=== PATIENT | male | born 1960 | race Caucasian/White ===

== ENCOUNTER 2016-11-09 08:11 | Emergency (ER) | payer MEDICAID ==
[2016-11-09 08:20] VITALS: BP 148/77; PULSE 65; RESP 16; TEMP 97.4
[2016-11-09] MEDS ORDERED: HYDROcodone/APAP 5-325MG 1 EACH TAB PO STA (09:09)
[2016-11-09] MEDS ORDERED: CYCLOBENZAPRINE 10 MG TAB PO STA (09:10)
--- NOTE | 2016-11-09 09:26 | ED ---
Neck Injury/Pain HPI - General Chief Complaint: Neck Pain/Injury Stated Complaint: Pain in back of head and neck Time Seen by Provider: 11/09/16 08:36 Source: patient, RN notes reviewed Mode of arrival: ambulatory Limitations: no limitations - History of Present Illness Initial Comments: 56-year-old male presents emergency Department chief complaint of posterior head , neck pain. Patient states it started yesterday afternoon. Patient states he was working on the machine but does not remember an injury denies any pain that time. He does notice some discomfort with range of motion primarily looking to the right. Patient states she has no frontal headache. Patient denies any nausea, vomiting, dizziness, chest pain, shortness breath, blurred vision, focal weakness. Patient states that he tried some ibuprofen with no relief the symptoms. Denies fever or chills. No cold-like symptoms. - Related Data Home Medications Medication Instructions Recorded Confirmed Aspirin EC [Ecotrin Low Dose] 81 mg PO DAILY 02/16/16 11/09/16 Glucosamine Sulfate 2,000 mg PO DAILY 02/16/16 11/09/16 Simvastatin [Simvastatin] 40 mg PO DAILY 02/16/16 11/09/16 metFORMIN HCL [Metformin HCl ER] 500 mg PO BID 02/16/16 11/09/16 Gabapentin [Neurontin] 300 mg PO BID 11/09/16 11/09/16 Glimepiride [Amaryl] 1 mg PO AC-BRKFST 11/09/16 11/09/16 Lisinopril [Zestril] 40 mg PO DAILY 11/09/16 11/09/16 Multivit-Min/FA/Lycopen/Lutein 1 tab PO DAILY 11/09/16 11/09/16 [Centrum Silver Men Tablet] Previous Rx's Medication Instructions Recorded HYDROcodone/APAP 7.5-325MG [[place] 1 tab PO Q6HR PRN #20 tab 11/09/16 7.5-325] Orphenadrine [Norflex] 100 mg PO Q12H #15 tablet.er 11/09/16 Allergies Allergy/AdvReac Type Severity Reaction Status Date / Time No Known Allergies Allergy Verified 11/09/16 08:27 Review of Systems ROS Statement: Those systems with pertinent positive or pertinent negative responses have been documented in the HPI. ROS Other: All systems not noted in ROS Statement are negative. Past Medical History Past Medical History: Diabetes Mellitus, Hyperlipidemia, Hypertension History of Any Multi-Drug Resistant Organisms: None Reported Past Surgical History: Joint Replacement, Orthopedic Surgery Past Psychological History: No Psychological Hx Reported Smoking Status: Never smoker Past Alcohol Use History: None Reported Past Drug Use History: None Reported General Exam Limitations: no limitations General appearance: alert, in no apparent distress Head exam: Present: atraumatic, normocephalic, normal inspection Eye exam: Present: normal appearance, PERRL, EOMI. Absent: scleral icterus, conjunctival injection, periorbital swelling ENT exam: Present: normal exam, normal oropharynx, mucous membranes moist, TM's normal bilaterally, normal external ear exam Neck exam: Present: normal inspection, tenderness (Along the occipital region, trapezius region mild), full ROM (Mild discomfort with looking to the right, extending to the right). Absent: meningismus, lymphadenopathy Respiratory exam: Present: normal lung sounds bilaterally. Absent: respiratory distress, wheezes, rales, rhonchi, stridor, decreased breath sounds Cardiovascular Exam: Present: regular rate, normal rhythm, normal heart sounds. Absent: systolic murmur, diastolic murmur, rubs, gallop, clicks Extremities exam: Present: other (Upper extremity strength equal bilaterally, neurovascular intact) Neurological exam: Present: alert, oriented X3, CN II-XII intact, reflexes normal. Absent: motor sensory deficit Skin exam: Present: warm, dry, intact, normal color. Absent: rash Course Vital Signs 11/09/16 08:19 Temperature 97.4 F L Pulse Rate 65 Respiratory 16 Rate Blood Pressure 148/77 O2 Sat by Pulse 97 Oximetry Medical Decision Making - Medical Decision Making 56-year-old male present emergency department for head and neck pain. This appears to be muscle skeletal in nature. He does have some loss of lordosis on CT. There is no acute intracranial bleed, mass effect or mass. Patient be discharged with pain medication, muscle relaxers. Return parameters were discussed. Disposition Clinical Impression: Cervical radiculopathy, Cervical paraspinal muscle spasm, Cervical pain Disposition: HOME SELF-CARE Condition: Stable Instructions: Spasmodic Torticollis (ED), Cervical Radiculopathy (ED) Additional Instructions: Please return to the Emergency Department if symptoms worsen or any other concerns. Prescriptions: HYDROcodone/APAP 7.5-325MG [Living[place] 7.5-325] 1 tab PO Q6HR PRN #20 tab PRN Reason: Pain Orphenadrine [Norflex] 100 mg PO Q12H #15 tablet.er Referrals: Tesfaye Guaman MD [Primary Care Provider] - 1-2 days Mikey Holt DO [Doctor of Osteopathic Medicine] - 1-2 days Time of Disposition: 10:04
--- NOTE | 2016-11-09 09:36 | CT ---
EXAMINATION TYPE: CT brain cspine wo con DATE OF EXAM: 11/09/2016 9:14 AM COMPARISON: 23 May 2013 HISTORY: Pain posterior neck and head pain CT DLP: 2294 mGycm Automated exposure control for dose reduction was used. TECHNIQUE: CT scan of the head and cervical spine are performed without contrast. FINDINGS: There is no acute intracranial hemorrhage, mass effect, or midline shift identified. The ventricles and sulci are within normal limits in size. The globes are intact and the visualized sin uses are clear. Cervical spine is visualized in its entirety from C1 through upper thoracic levels and demonstrates s atisfactory alignment without evidence of acute fracture or dislocation. Prevertebral soft tissue ap pears within normal limits. Degenerative disc changes show a similar appearance. Spondylosis is prese nt at C5-6 with associated loss of disc height. Loss of lordosis again noted which can be seen with m uscle spasm. The C1-C2 articulation is unremarkable. IMPRESSION: 1. There is no acute fracture or dislocation evident in the cervical spine. 2. No acute intracranial hemorrhage, mass effect, or midline shift is seen.
== END 2016-11-09 10:13 | disposition home or self-care (01) ==
LOC: EC 08:11
DX: M54.12 Radiculopathy, cervical region (principal); R51 Headache; E11.9 Type 2 diabetes mellitus without complications; E78.5 Hyperlipidemia, unspecified; I10 Essential (primary) hypertension; Z79.82 Long term (current) use of aspirin; Z79.84 Long term (current) use of oral hypoglycemic drugs; Z79.899 Other long term (current) drug therapy
CPT/HCPCS: 70450; 72125; 99284

== ENCOUNTER 2016-12-08 08:33 | Inpatient (IN) | payer MEDICAID ==
[2016-12-08] MEDS ORDERED: ASPIRIN 81 MG CHEW PO STA (09:14)
[2016-12-08] MEDS ORDERED: NITROGLYCERIN OINT 1 INCH/GM PACKET TOPICAL STA (09:14)
[2016-12-08 09:33] LABS: Basophils % (A) 0 %; CH 32.1; CHCM 34.3; Eosinophils # (A) 0.1 k/uL (0-0.7); Eosinophils % (A) 2 %; HCT 42.9 % (39.0-53.0); HGB 14.7 gm/dL (13.0-17.5); Luc # (Auto) 0.17; Luc % (Auto) 3; Lymphocytes # (A) 1.4 k/uL (1.0-4.8); Lymphocytes % (A) 23 %; MCH 32.3 pg (25.0-35.0); MCHC 34.4 g/dL (31.0-37.0); Mean Platelet Volume 7.6; Monocytes # (A) 0.4 k/uL (0-1.0); Monocytes % (A) 7 %; Neutrophils % (A) 65 %; RBC 4.56 m/uL (4.30-5.90); RDW 13.1 % (11.5-15.5); WBC 6.2 k/uL (3.8-10.6); WBC (Perox) 6.08
[2016-12-08 09:35] LABS: ALT 78 U/L (21-72); AST 39 U/L (17-59); Alkaline Phosphatase 62 U/L (38-126); Anion Gap 11 mmol/L; Blood Urea Nitrogen 16 mg/dL (9-20); Calcium 9.5 mg/dL (8.4-10.2); Carbon Dioxide 23 mmol/L (22-30); Chloride 103 mmol/L (98-107); Glucose 295 mg/dL (74-99); Magnesium 1.9 mg/dL (1.6-2.3); Non-African American GFR(MDRD) >60 (>60 ml/min/1.73 sqM); Potassium 4.6 mmol/L (3.5-5.1); Sodium 137 mmol/L (137-145); Total Bilirubin 0.7 mg/dL (0.2-1.3)
--- NOTE | 2016-12-08 09:38 | ED ---
General Adult HPI - General Chief complaint: Chest Pain Stated complaint: chest tightness Time Seen by Provider: 12/08/16 08:50 Source: patient, RN notes reviewed Mode of arrival: wheelchair Limitations: no limitations - History of Present Illness Initial comments: This is a 56-year-old male who presents emergency Department stating that this morning he was in the shower and he started having sharp left-sided chest pain it was short lived. Patient states he got out and started getting ready for work he started having a heaviness in his chest with some shortness of breath and nausea. Patient states he also became diaphoretic. Patient states he has diabetes hypertension and high cholesterol. In a strong family history of heart disease. Patient denies any smoking history. Patient states the pain still exists currently is morbidly discomfort at this time. It is radiating down his left arm. Patient denies any recent fever chills or cough. Patient denies abdominal pain patient denies nausea vomiting diarrhea. Patient denies headache patient denies numbness weakness. Patient denies any lightheadedness dizziness or near-syncopal episode. - Related Data Home Medications Medication Instructions Recorded Confirmed Aspirin EC [Ecotrin Low Dose] 81 mg PO DAILY 02/16/16 12/08/16 Glucosamine Sulfate 2,000 mg PO DAILY 02/16/16 12/08/16 Simvastatin [Simvastatin] 40 mg PO HS 02/16/16 11/09/16 metFORMIN HCL [Metformin HCl ER] 500 mg PO BID 02/16/16 12/08/16 Gabapentin [Neurontin] 300 mg PO BID 11/09/16 12/08/16 Glimepiride [Amaryl] 1 mg PO AC-BRKFST 11/09/16 12/08/16 Multivit-Min/FA/Lycopen/Lutein 1 tab PO DAILY 11/09/16 12/08/16 [Centrum Silver Men Tablet] Lisinopril [Zestril] 10 mg PO DAILY 12/08/16 12/08/16 Allergies Allergy/AdvReac Type Severity Reaction Status Date / Time No Known Allergies Allergy Verified 12/08/16 09:10 Review of Systems ROS Statement: Those systems with pertinent positive or pertinent negative responses have been documented in the HPI. ROS Other: All systems not noted in ROS Statement are negative. Past Medical History Past Medical History: Coronary Artery Disease (CAD), Diabetes Mellitus, Hyperlipidemia, Hypertension History of Any Multi-Drug Resistant Organisms: None Reported Past Surgical History: Heart Catheterization, Joint Replacement, Orthopedic Surgery Past Psychological History: No Psychological Hx Reported Smoking Status: Never smoker Past Alcohol Use History: None Reported Past Drug Use History: None Reported General Exam - General Exam Comments Initial Comments: GENERAL: Patient is well-developed and well-nourished. Patient is nontoxic and well- hydrated and is in mild distress. ENT: Neck is soft and supple. No significant lymphadenopathy is noted. Oropharynx is clear. Moist mucous membranes. Neck has full range of motion without eliciting any pain. EYES: The sclera were anicteric and conjunctiva were pink and moist. Extraocular movements were intact and pupils were equal round and reactive to light. Eyelids were unremarkable. PULMONARY: Unlabored respirations. Good breath sounds bilaterally. No audible rales rhonchi or wheezing was noted. CARDIOVASCULAR: There is a regular rate and rhythm without any murmurs gallops or rubs. ABDOMEN: Soft and nontender with normal bowel sounds. No palpable organomegaly was noted. There is no palpable pulsatile mass. SKIN: Skin is clear with no lesions or rashes and otherwise unremarkable. NEUROLOGIC: Patient is alert and oriented x3. Cranial nerves II through XII are grossly intact. Motor and sensory are also intact. Normal speech, volume and content. Symmetrical smile. MUSCULOSKELETAL: Normal extremities with adequate strength and full range of motion. No lower extremity swelling or edema. No calf tenderness. LYMPHATICS: No significant lymphadenopathy is noted PSYCHIATRIC: Normal psychiatric evaluation. Normal interpersonal interactions appears functionally intact in deals appropriately with others. No signs of depression. No signs of anxiety. Limitations: no limitations Course Vital Signs 12/08/16 12/08/16 12/08/16 08:46 08:57 09:25 Temperature 97.9 F Pulse Rate 74 75 85 Respiratory 18 18 18 Rate Blood Pressure 137/78 138/73 141/68 O2 Sat by Pulse 99 97 96 Oximetry 12/08/16 10:23 Temperature 97.1 F L Pulse Rate 79 Respiratory 16 Rate Blood Pressure 113/63 O2 Sat by Pulse 97 Oximetry Medical Decision Making - Medical Decision Making EKG shows normal sinus rhythm at 74 bpm WV interval 164 QRS is 72 QT interval 364 QTC is 404. EKG shows no ST segment elevation or depression or T-wave abdomen is noted. Patient felt better after getting the Nitropaste. I started the patient on heparin because I believe the patient was having unstable angina. I consult to cardiology and admitted the patient to Dr. Rees and I spoke with Dr. Rees. I continue the heparin and aspirin and Nitropaste on the floor. - Lab Data Result diagrams: 12/08/16 09:00 12/08/16 09:00 Lab Results 12/08/16 12/08/16 12/08/16 Range/Units 09:00 09:00 09:00 WBC 6.2 (3.8-10.6) k/uL RBC 4.56 (4.30-5.90) m/uL Hgb 14.7 (13.0-17.5) gm/dL Hct 42.9 (39.0-53.0) % MCV 94.0 (80.0-100.0) fL MCH 32.3 (25.0-35.0) pg MCHC 34.4 (31.0-37.0) g/dL RDW 13.1 (11.5-15.5) % Plt Count 198 (150-450) k/uL Neutrophils % 65 % Lymphocytes % 23 % Monocytes % 7 % Eosinophils % 2 % Basophils % 0 % Neutrophils # 4.0 (1.3-7.7) k/uL Lymphocytes # 1.4 (1.0-4.8) k/uL Monocytes # 0.4 (0-1.0) k/uL Eosinophils # 0.1 (0-0.7) k/uL Basophils # 0.0 (0-0.2) k/uL PT (9.0-12.0) sec INR (<1.1) APTT (22.0-30.0) sec Sodium 137 (137-145) mmol/L Potassium 4.6 (3.5-5.1) mmol/L Chloride 103 (98-107) mmol/L Carbon Dioxide 23 (22-30) mmol/L Anion Gap 11 mmol/L BUN 16 (9-20) mg/dL Creatinine 0.69 (0.66-1.25) mg/dL Est GFR (MDRD) Af Amer >60 (>60 ml/min/1.73 sqM) Est GFR (MDRD) Non-Af >60 (>60 ml/min/1.73 sqM) Glucose 295 H (74-99) mg/dL Calcium 9.5 (8.4-10.2) mg/dL Magnesium 1.9 (1.6-2.3) mg/dL Total Bilirubin 0.7 (0.2-1.3) mg/dL AST 39 (17-59) U/L ALT 78 H (21-72) U/L Alkaline Phosphatase 62 (38-126) U/L Total Creatine Kinase 198 H (55-170) U/L CK-MB (CK-2) 1.6 (0.0-2.4) ng/mL CK-MB (CK-2) Rel Index 0.8 Troponin I <0.012 (0.000-0.034) ng/mL Total Protein 7.0 (6.3-8.2) g/dL Albumin 4.3 (3.5-5.0) g/dL 12/08/16 Range/Units 09:00 WBC (3.8-10.6) k/uL RBC (4.30-5.90) m/uL Hgb (13.0-17.5) gm/dL Hct (39.0-53.0) % MCV (80.0-100.0) fL MCH (25.0-35.0) pg MCHC (31.0-37.0) g/dL RDW (11.5-15.5) % Plt Count (150-450) k/uL Neutrophils % % Lymphocytes % % Monocytes % % Eosinophils % % Basophils % % Neutrophils # (1.3-7.7) k/uL Lymphocytes # (1.0-4.8) k/uL Monocytes # (0-1.0) k/uL Eosinophils # (0-0.7) k/uL Basophils # (0-0.2) k/uL PT 10.0 (9.0-12.0) sec INR 1.0 (<1.1) APTT 23.7 (22.0-30.0) sec Sodium (137-145) mmol/L Potassium (3.5-5.1) mmol/L Chloride (98-107) mmol/L Carbon Dioxide (22-30) mmol/L Anion Gap mmol/L BUN (9-20) mg/dL Creatinine (0.66-1.25) mg/dL Est GFR (MDRD) Af Amer (>60 ml/min/1.73 sqM) Est GFR (MDRD) Non-Af (>60 ml/min/1.73 sqM) Glucose (74-99) mg/dL Calcium (8.4-10.2) mg/dL Magnesium (1.6-2.3) mg/dL Total Bilirubin (0.2-1.3) mg/dL AST (17-59) U/L ALT (21-72) U/L Alkaline Phosphatase (38-126) U/L Total Creatine Kinase (55-170) U/L CK-MB (CK-2) (0.0-2.4) ng/mL CK-MB (CK-2) Rel Index Troponin I (0.000-0.034) ng/mL Total Protein (6.3-8.2) g/dL Albumin (3.5-5.0) g/dL Critical Care Time Critical Care Time: Yes Total Critical Care Time: 35 Disposition Clinical Impression: Unstable angina pectoris Disposition: ADMITTED IP TO THIS HOSP Referrals: Tesfaye Guaman MD [Primary Care Provider] - 1-2 days Time of Disposition: 10:34
[2016-12-08 09:39] LABS: Partial Thromboplastin Time 23.7 sec (22.0-30.0)
--- NOTE | 2016-12-08 09:41 | XR ---
EXAMINATION TYPE: XR chest 2V DATE OF EXAM: 12/08/2016 HISTORY: Chest Pain. REFERENCE: Previous study dated 02/12/2015. FINDINGS: The lungs are clear. Pleural spaces are clear. Heart size is mildly prominent. IMPRESSION: MILD CARDIOMEGALY.
[2016-12-08 10:00] LABS: Creatine Kinase 198 U/L (55-170)
[2016-12-08 10:12] LABS: Creatine Kinase MB 1.6 ng/mL (0.0-2.4); Troponin I <0.012 ng/mL (0.000-0.034)
[2016-12-08] MEDS ORDERED: HEPARIN SODIUM,PORCINE 5,000 UNIT/ML 1 ML VIAL IV ONE (10:29)
[2016-12-08] MEDS ORDERED: NITROGLYCERIN SL TABS 0.4 MG TAB SUBLINGUAL PRN (10:34)
[2016-12-08] MEDS: HEPARIN SODIUM,PORCINE/D5W PMX 25,000 UNIT in DEXTROSE/WATER 1 500ML.BAG IV SCH (11:20)
[2016-12-08] MEDS: NITROGLYCERIN OINT 1 INCH/GM PACKET TOPICAL SCH ×3 (12:58→23:20)
[2016-12-08] MEDS: ACETAMINOPHEN TAB 325 MG TAB PO PRN ×2 (13:58→20:21)
[2016-12-08 15:33] LABS: Creatine Kinase 153 U/L (55-170)
[2016-12-08 15:47] LABS: Creatine Kinase MB 1.3 ng/mL (0.0-2.4); Troponin I <0.012 ng/mL (0.000-0.034)
--- NOTE | 2016-12-08 15:52 | P.HPIM ---
History of Present Illness H&P Date: 12/08/16 56-year-old gentleman who does have documented CAD was noted to have some coronary disease 10 years ago diagnosed with a cardiac catheterization done at [facility] however no intervention at that time was done comes in to the hospital with complaints of sharp chest pain that woke him up at 3 AM that was associated with diaphoresis. 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 Patient was also noted to have some tingling over the left arm with persistent chest pain midsternal in location hence was sent to the emergency room. 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 Review of Systems All systems: negative (Noted in HPI) Past Medical History Past Medical History: Coronary Artery Disease (CAD), Diabetes Mellitus, Hyperlipidemia, Hypertension, Osteoarthritis (OA), Pneumonia Additional Past Medical History / Comment(s): NIDDM type II, bronchitis, 2010 fell off a ladder with 2 left rib fractures and L knee meniscus tear. History of Any Multi-Drug Resistant Organisms: None Reported Past Surgical History: Appendectomy, Heart Catheterization, Joint Replacement, Orthopedic Surgery, Tonsillectomy Additional Past Surgical History / Comment(s): 08/19/10 cardiac cath with 40% LAD blockage-treated medically, bilateral knee arthroscopies, nasal fracture with surgery, R shoulder spur removal, L shoulder tendon repair with debridement , colonoscopy. Past Anesthesia/Blood Transfusion Reactions: No Reported Reaction Past Psychological History: No Psychological Hx Reported Additional Psychological History / Comment(s): Pt resides with his spouse, their aneta and son-in-law and their 2 1/2 yr old granddaughter. He is independent. Smoking Status: Never smoker Past Alcohol Use History: None Reported Past Drug Use History: None Reported - Past Family History Father Family Medical History: Cancer Additional Family Medical History / Comment(s): Father of lung cancer. He was a smoker. Mother Family Medical History: Cancer Additional Family Medical History / Comment(s): Mother of lung cancer. She was a smoker. Brother(s) Family Medical History: Cancer Additional Family Medical History / Comment(s): 2 brother's had lung cancer- they were both smokers. Sister(s) Family Medical History: Cancer Additional Family Medical History / Comment(s): Pt's sister had lung cancer-she was a smoker. Medications and Allergies Home Medications Medication Instructions Recorded Confirmed Type Aspirin EC [Ecotrin Low Dose] 81 mg PO DAILY 02/16/16 12/08/16 History Glucosamine Sulfate 2,000 mg PO DAILY 02/16/16 12/08/16 History Simvastatin [Simvastatin] 40 mg PO HS 02/16/16 11/09/16 History metFORMIN HCL [Metformin HCl ER] 500 mg PO BID 02/16/16 12/08/16 History Gabapentin [Neurontin] 300 mg PO BID 11/09/16 12/08/16 History Glimepiride [Amaryl] 1 mg PO AC-BRKFST 11/09/16 12/08/16 History Multivit-Min/FA/Lycopen/Lutein 1 tab PO DAILY 11/09/16 12/08/16 History [Centrum Silver Men Tablet] Lisinopril [Zestril] 10 mg PO DAILY 12/08/16 12/08/16 History Allergies Allergy/AdvReac Type Severity Reaction Status Date / Time No Known Allergies Allergy Verified 12/08/16 09:10 Physical Exam Vitals: Vital Signs Temp Pulse Pulse Resp BP BP Pulse Ox 12/08/16 11:46 65 18 12/08/16 11:45 97.0 F L 65 18 124/71 98 12/08/16 11:22 96.9 F L 71 16 101/62 96 12/08/16 10:35 98 12/08/16 10:23 97.1 F L 79 16 113/63 97 12/08/16 09:25 85 18 141/68 96 12/08/16 08:57 75 18 138/73 97 12/08/16 08:46 97.9 F 74 18 137/78 99 Intake and Output 12/08/16 12/08/16 12/08/16 06:59 14:59 22:59 Intake Total 600 Balance 600 Intake: IV 240 .9 @ 20 240 Intake, IV Titration 240 Amount Heparin Sodium,Porcine/ 240 D5w Pmx 25,000 unit In Dextrose/Water 1 500ml. bag @ 8.48 UNITS/KG/HR 20 mls/hr IV .Q24H BETITO Rx#: [id number] Oral 120 Other: Voiding Method Toilet # Voids 0 Weight 117.934 kg Patient Weight 12/09/16 06:59 Weight 117.934 kg Physical exam Gen. appearance oriented 3 in no distress Neck is supple no JVD Lungs good air entry clear to auscultation no rhonchi or wheezing Heart S1-S2 heard regular rate and rhythm no murmurs appreciated reproducible chest pain on flexion of the left arm internal rotation against resistance similar type of pain is appreciated Abdomen is soft nontender no organomegaly bowel sounds are intact Neurologically cranial nerves II-12 grossly intact no focal motor or sensory deficits noted Skin no abnormalities appreciated Results CBC & Chem 7: 12/08/16 09:00 12/08/16 09:00 Labs: Abnormal Lab Results - Last 24 Hours (Table) 12/08/16 12/08/16 Range/Units 09:00 09:00 Glucose 295 H (74-99) mg/dL ALT 78 H (21-72) U/L Total Creatine Kinase 198 H (55-170) U/L Thrombosis Risk Factor Assmnt - Choose All That Apply Any of the Below Risk Factors Present?: Yes Each Factor Represents 1 point: Age 41-60 years, Obesity (BMI >25) Other Risk Factors: No Other congenital or acquired thrombophilia - If yes, enter type in comment: No Thrombosis Risk Factor Assessment Total Risk Factor Score: 2 Thrombosis Risk Factor Assessment Level: Low Risk Assessment and Plan Plan: #1 atypical chest pain there is some features of typical nature however an aspect of musculoskeletal pain is also noted #2 diabetes most type II #3 clinical sleep apnea. #4 obesity #5 hypertension essential #6 diabetic neuropathy #7 hypoglycemia that is uncontrolled Plan Continue with ACS protocol cardiac enzymes 3 every 6 hours We'll attempt a IV NSAID dose for muscular skeletal type of pain patient appears to be physically active. However patient has had a cardiac cath with known disease in the past and does appear to have sleep apnea which is known to cause coronary disease Mallampati score 4 Will have cardiology evaluate the patient. If symptoms are resolved patient could potentially follow up with an outpatient undergo a stress test as patient does not meet criteria on the AGUS scale to be severe
[2016-12-08 16:53] LABS: Glucose,Whole Blood 146 mg/dL (75-99)
[2016-12-08] MEDS: INSULIN LISPRO (humaLOG) 300 UNIT/3 ML VIAL SQ SCH (17:29)
[2016-12-08] MEDS: metFORMIN 500 MG TAB PO SCH (17:30)
[2016-12-08 20:32] LABS: Glucose,Whole Blood 163 mg/dL (75-99)
[2016-12-08] MEDS ORDERED: ATORVASTATIN 20 MG TAB PO SCH (21:00)
[2016-12-08] MEDS: GABAPENTIN 300 MG CAP PO SCH (21:19)
[2016-12-08] MEDS: INSULIN DETEMIR 100 UNIT/ML 10 ML VIAL SQ SCH (21:20)
[2016-12-08 21:45] LABS: Hemoglobin A1C 8.3 % (4.2-6.1)
[2016-12-08 22:36] LABS: Creatine Kinase 150 U/L (55-170)
[2016-12-08 22:49] LABS: Creatine Kinase MB 1.1 ng/mL (0.0-2.4); Troponin I <0.012 ng/mL (0.000-0.034)
[2016-12-09] MEDS ORDERED: HEPARIN SODIUM,PORCINE 5,000 UNIT/ML 1 ML VIAL IV STA (01:46)
[2016-12-09] MEDS: HEPARIN SODIUM,PORCINE/D5W PMX 25,000 UNIT in DEXTROSE/WATER 1 500ML.BAG IV SCH (05:54)
[2016-12-09] MEDS: NITROGLYCERIN OINT 1 INCH/GM PACKET TOPICAL SCH ×4 (05:55→23:05)
[2016-12-09] MEDS: INSULIN LISPRO (humaLOG) 300 UNIT/3 ML VIAL SQ SCH ×3 (06:39→17:34)
[2016-12-09] MEDS: metFORMIN 500 MG TAB PO SCH ×2 (06:39→17:35)
[2016-12-09 06:54] LABS: Glucose,Whole Blood 173 mg/dL (75-99)
[2016-12-09] MEDS: ACETAMINOPHEN TAB 325 MG TAB PO PRN ×3 (06:56→23:11)
[2016-12-09] MEDS: GABAPENTIN 300 MG CAP PO SCH ×2 (07:36→21:31)
[2016-12-09] MEDS: ASPIRIN 81 MG CHEW PO SCH (07:36)
[2016-12-09] MEDS: LISINOPRIL 10 MG TAB PO SCH (07:36)
[2016-12-09 08:09] LABS: Cholesterol 139 mg/dL (<200); HDL Cholesterol 41 mg/dL (40-60); Triglycerides 170 mg/dL (<150)
[2016-12-09] MEDS ORDERED: ASPIRIN 325 MG TAB PO SCH (09:00)
[2016-12-09] MEDS ORDERED: SODIUM CHLORIDE 0.9% 1,000 ML in EMPTY BAG 1 BAG IV ONE (09:43)
[2016-12-09] MEDS ORDERED: ALPRAZolam 0.5 MG TAB PO PRN (09:43)
[2016-12-09] MEDS ORDERED: ALPRAZolam 0.25 MG TAB PO PRN (09:43)
[2016-12-09] MEDS ORDERED: NITROGLYCERIN SL TABS 0.4 MG TAB SUBLINGUAL PRN (09:43)
[2016-12-09] MEDS ORDERED: ASPIRIN 325 MG TAB PO STA (09:43)
[2016-12-09] MEDS ORDERED: ATORVASTATIN 80 MG TAB PO STA (09:46)
--- NOTE | 2016-12-09 10:02 | CONS ---
DATE OF CONSULTATION: CHIEF COMPLAINT: Chest pain. Mr. Su is a 56-year-old gentleman who works at [employer] and had episodes of precordial chest pressure on night described as moderate intensity chest pressure that came on suddenly associated with some shortness of breath and diaphoresis. He also had left arm pain associated with it. He went to work on Sunday and again had episodes of chest discomfort that came on with activity and his blood pressures are poorly controlled. His blood pressure was checked and he was advised to go to the hospital. He comes to [facility] and got admitted. Since admission, he remained chest pain-free. His EKG does not reveal ischemic changes. Three sets of cardiac enzymes have been have been negative. His lipid profile shows an LDL cholesterol 64. Patient has multiple coronary risk factors including strong family history of premature coronary artery disease, hypertension, dyslipidemia, [id number] diabetes. Given the symptoms suggestive of unstable angina and the multiple coronary risk factors, I advised the patient to undergo cardiac catheterization with a view to performing angioplasty. He had been explained of risks, benefits, and alternatives, understood and accepted. Past medical history is significant for hypertension, diabetes, dyslipidemia. Medications include: 1. Metformin 500 b.i.d. 2. Zestril 10 daily. 3. Amaryl. 4. Neurontin. 5. Aspirin. 6. Simvastatin. ALLERGIES: There are no known drug allergies. FAMILY HISTORY: Significant for premature coronary artery disease. SOCIAL HISTORY: Negative for smoking, ETOH abuse, or drug abuse. REVIEW OF SYSTEMS: HEENT: Unremarkable. CARDIAC: As described above. RESPIRATORY: Negative. GI: Negative. GENITOURINARY: Negative. ALLERGY/IMMUNOLOGY: Negative. SKIN: Negative. MUSCULOSKELETAL: Significant for arthritis. PSYCHOSOCIAL: Negative. ENDOCRINE: Negative. DERM: Negative. CONSTITUTIONAL: Negative. Oncological: Negative. The rest of the system review is not relevant. On exam he appears comfortable at rest. Vital signs are stable. There is no jugular venous distention. Carotid upstroke is normal. There is no bruit. Chest is clear to auscultation and percussion. Heart exam reveals first and second heart sounds. No gallop. No murmur, no rub. ABDOMEN: Soft, nontender. Exam of the extremities did not reveal edema. Peripheral pulses are felt. 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 Labs show a creatinine of 0.6. Hemoglobin is 14.7, platelet count is 198. ASSESSMENT: 1. Unstable angina. 2. Hypertension. 3. Dyslipidemia. 4. [id number] diabetes. PLAN: I advised the patient to undergo invasive angiography to define his coronary anatomy and offer him revascularization. Thank you for allowing us to participate in the care of this pleasant gentleman.
[2016-12-09 11:47] LABS: Glucose,Whole Blood 171 mg/dL (75-99)
[2016-12-09] MEDS ORDERED: HEPARIN SODIUM,PORCINE/D5W PMX 25,000 UNIT in DEXTROSE/WATER 1 500ML.BAG IV SCH (12:00)
[2016-12-09 17:32] LABS: Glucose,Whole Blood 148 mg/dL (75-99)
--- NOTE | 2016-12-09 18:23 | P.PN ---
Subjective 56-year-old gentleman who does have documented CAD was noted to have some coronary disease 10 years ago diagnosed with a cardiac catheterization done at [facility] however no intervention at that time was done comes in to the hospital with complaints of sharp chest pain that woke him up at 3 AM that was associated with diaphoresis. Patient stated that he ignored it woke up this morning tried to go to work however did not feel well hence at his workplace which is a [employer] in the [place] of his colleagues to obtain a blood pressure which was 165/110. Patient was also noted to have some tingling over the left arm with persistent chest pain midsternal in location hence was sent to the emergency room. 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 12/09/16 doing well No repeat symptoms noted no headaches, blurry vision, n/v, chest pain, CINTHIA, abdominal pain, urinary urgency or frequency Physical exam Gen. appearance oriented 3 in no distress Neck is supple no JVD Lungs good air entry clear to auscultation no rhonchi or wheezing Heart S1-S2 heard regular rate and rhythm no murmurs appreciated reproducible chest pain on flexion of the left arm internal rotation against resistance similar type of pain is appreciated Abdomen is soft nontender no organomegaly bowel sounds are intact Neurologically cranial nerves II-12 grossly intact no focal motor or sensory deficits noted Skin no abnormalities appreciated Objective - Vital Signs Vital signs: Vital Signs Temp 96.8 F L 12/09/16 12:00 Pulse 70 12/09/16 16:00 Resp 18 12/09/16 16:00 BP 120/79 12/09/16 16:00 Pulse Ox 95 12/09/16 16:00 Intake & Output 12/08/16 12/09/16 12/09/16 18:59 06:59 18:59 Intake Total 987.667 917.099 4284.668 Output Total 1300 2250 Balance 987.667 -747.649 -6.332 Weight 117.934 kg 117.4 kg Intake: IV 240 220 900 .9 @ 75 240 220 900 Intake, IV Titration 387.667 332.351 83.668 Amount Heparin Sodium,Porcine/ 387.667 332.351 83.668 D5w Pmx 25,000 unit In Dextrose/Water 1 500ml. bag @ 8.48 UNITS/KG/HR 20 mls/hr IV .Q24H BETITO Rx#: [id number] Oral 360 1260 Output: Urine 1300 2250 Other: Voiding Method Toilet Toilet Toilet # Voids 0 1 1 - Labs CBC & Chem 7: 12/08/16 09:00 12/08/16 09:00 Labs: Abnormal Lab Results - Last 24 Hours (Table) 12/08/16 12/08/16 12/08/16 Range/Units 18:10 18:10 20:28 APTT 30.1 H (22.0-30.0) sec POC Glucose (mg/dL) 163 H (75-99) mg/dL Hemoglobin A1c 8.3 H (4.2-6.1) % Triglycerides (<150) mg/dL 12/09/16 12/09/16 12/09/16 Range/Units 01:02 06:37 07:41 APTT 36.3 H (22.0-30.0) sec POC Glucose (mg/dL) 173 H (75-99) mg/dL Hemoglobin A1c (4.2-6.1) % Triglycerides 170 H (<150) mg/dL 12/09/16 12/09/16 12/09/16 Range/Units 07:41 11:37 17:14 APTT 66.9 H (22.0-30.0) sec POC Glucose (mg/dL) 171 H 148 H (75-99) mg/dL Hemoglobin A1c (4.2-6.1) % Triglycerides (<150) mg/dL Assessment and Plan Plan: #1 atypical chest pain there is some features of typical nature #2 diabetes mellitus type II #3 clinical sleep apnea. #4 obesity #5 hypertension essential #6 diabetic neuropathy #7 hyperglycemia that is uncontrolled Plan Due to known disease pt is to undergo a cardiac cath in the AM Telemetry monitering Glucose levels noted, will follow
[2016-12-09 20:50] LABS: Glucose,Whole Blood 210 mg/dL (75-99)
[2016-12-09] MEDS: INSULIN DETEMIR 100 UNIT/ML 10 ML VIAL SQ SCH (21:33)
[2016-12-10] MEDS: NITROGLYCERIN OINT 1 INCH/GM PACKET TOPICAL SCH ×4 (06:25→23:33)
[2016-12-10] MEDS: INSULIN LISPRO (humaLOG) 300 UNIT/3 ML VIAL SQ SCH ×3 (06:41→17:17)
[2016-12-10 06:42] LABS: Glucose,Whole Blood 174 mg/dL (75-99)
[2016-12-10] MEDS: ASPIRIN 81 MG CHEW PO SCH (06:42)
[2016-12-10] MEDS: LISINOPRIL 10 MG TAB PO SCH (06:43)
[2016-12-10] MEDS: GABAPENTIN 300 MG CAP PO SCH ×2 (06:43→19:59)
[2016-12-10] MEDS ORDERED: LIDOCAINE 2% INJ 20 MG/ML (20 ML MDV) ONE ×2 (08:46→10:57)
[2016-12-10] MEDS ORDERED: MIDAZOLAM 2 MG/2 ML VIAL ONE (08:46)
[2016-12-10] MEDS ORDERED: MIDAZOLAM 2 MG/2 ML VIAL IVP ONE (09:02)
[2016-12-10] MEDS ORDERED: LIDOCAINE 2% INJ 20 MG/ML SQ ONE ×2 (09:05)
[2016-12-10] MEDS ORDERED: fentaNYL (PF) 50 MCG/ML 2 ML AMP ONE (09:07)
[2016-12-10] MEDS ORDERED: fentaNYL (PF) 50 MCG/ML 2 ML AMP IV ONE ×3 (09:09→10:55)
--- NOTE | 2016-12-10 09:43 | CC ---
DATE OF SERVICE: INDICATION: Unstable angina. PROCEDURE NOTE: After obtaining informed consent, left heart catheterization and coronary angiogram are performed via the right femoral artery using standard Elijah catheters patient tolerated the procedure well without any obvious immediate complications. FINDINGS: HEMODYNAMICS: Left ventricular end-diastolic pressure is 12 to 14 mm. There is no significant gradient across the aortic valve. LEFT VENTRICULOGRAM: Left ventriculogram was not performed. ANGIOGRAPHIC DATA: LEFT MAIN CORONARY ARTERY: Left main coronary artery is a normal size vessel and is free of stenosis. It divides into left anterior descending coronary artery and circumflex coronary artery. CIRCUMFLEX CORONARY ARTERY: Circumflex coronary artery is a large codominant system and is free of significant stenosis. LEFT ANTERIOR DESCENDING CORONARY ARTERY: LAD shows a long area of stenosis involving the proximal part. It seems to be about 60% to 70% stenosed compared to the angiographic data from 2011, maybe the lesion has worsened somewhat. The lesion is noted in the proximal LAD. RIGHT CORONARY ARTERY: Right coronary artery is large dominant vessel and is free of significant stenosis. CONCLUSION: 60% to 70% stenosis involving proximal left anterior descending coronary artery probably somewhat worse compared to the 2011 data. I am going to have Dr. Monserrat Rao, the on-call technology intern review the angiographic data and advise on whether we should perform angioplasty or at least do an FFR ( ). If not, we may consider doing an outpatient stress test and if there is ischemia in LAD distribution consider angioplasty at that time, but the patient had very atypical symptoms.
[2016-12-10] MEDS ORDERED: HEPARIN SODIUM 1,000 UNIT/ML VIAL IV ONE (10:16)
[2016-12-10] MEDS: NITROGLYCERIN 1000MCG/10ML SYRINGE INTRACORON ONE ×2 (10:24→10:40)
[2016-12-10] MEDS ORDERED: ADENOSINE 180 MG in SODIUM CHLORIDE 0.9% 30 ML IVP ONE ×2 (10:25→10:50)
[2016-12-10] MEDS ORDERED: BIVALIRUDIN BOLUS 250 MG/50 ML IV ONE (10:28)
[2016-12-10] MEDS ORDERED: BIVALIRUDIN 250 MG in SODIUM CHLORIDE 0.9% 50 ML IV ONE (10:29)
--- NOTE | 2016-12-10 10:29 | ECHOF ---
Referral Reason:unstable angina MEASUREMENTS -------- HEIGHT: 152.4 cm WEIGHT: 117.0 kg BP: 130/40 RVIDd: 3.5 cm (< 3.3) IVSd: 1.2 cm (0.6 - 1.1) LVIDd: 4.4 cm (3.9 - 5.3) LVPWd: 1.4 cm (0.6 - 1.1) IVSs: 1.7 cm LVIDs: 3.3 cm LVPWs: 1.6 cm LA Diam: 3.9 cm (2.7 - 3.8) Ao Diam: 2.7 cm (2.0 - 3.7) AV Cusp: 1.4 cm (1.5 - 2.6) LA Diam: 4.5 cm (2.7 - 3.8) MV EXCURSION: 17.180 mm (> 18.000) MV EF SLOPE: 64 mm/s (70 - 150) EPSS: 0.7 cm MV E Donato: 0.42 m/s MV DecT: 326 ms MV A Donato: 0.56 m/s MV E/A Ratio: 0.75 AV maxP.01 mmHg AV meanP.65 mmHg RAP: 5.00 mmHg RVSP: 26.84 mmHg FINDINGS -------- Sinus rhythm. Morbid Obesity There is mild concentric left ventricular hypertrophy. Overall left ventricular systolic function is low-normal with, an EF between 50 - 55 %. The right ventricle is normal in size. The left atrial size is normal. The right atrial size is normal. Peak/mean gradient across the Aortic Valve is 17.01mmHg / 7.65mmHg. Mild mitral annular calcification present. Mild mitral regurgitation is present. Mild tricuspid regurgitation present. There is no evidence of pulmonary hypertension. The right ventricular systolic pressure, as measured by Doppler, is 26.84mmHg. The pulmonic valve was not well visualized. The aortic root size is normal. There is no pericardial effusion. CONCLUSIONS -------- 1. There is mild concentric left ventricular hypertrophy. 2. The aortic root size is normal. 3. There is no pericardial effusion. 4. Overall left ventricular systolic function is low-normal with, an EF between 50 - 55 %. 5. Peak/mean gradient across the Aortic Valve is 17.01mmHg / 7.65mmHg. 6. Mild mitral annular calcification present. 7. Mild mitral regurgitation is present. 8. Mild tricuspid regurgitation present. 9. There is no evidence of pulmonary hypertension. 10. The right ventricular systolic pressure, as measured by Doppler, is 26.84mmHg. 11. The pulmonic valve was not well visualized. COMMONWEALTH ATTORNEY: Rosa Stearns RDCS
[2016-12-10] MEDS ORDERED: PRASUGREL 10 MG TAB ONE (10:59)
[2016-12-10] MEDS ORDERED: PRASUGREL 10 MG TAB PO ONE (11:00)
[2016-12-10] MEDS: SODIUM CHLORIDE 0.9% 1,000 ML IV SCH (11:05)
[2016-12-10] MEDS ORDERED: IOHEXOL 350 MG/ML 125ML BOTTLE INJ ONE (11:05)
[2016-12-10] MEDS ORDERED: ZOLPIDEM 5 MG TAB PO PRN (11:08)
[2016-12-10] MEDS ORDERED: MAG HYDROX/AL HYDROX/SIMETH 30 ML CUP PO PRN (11:08)
[2016-12-10] MEDS ORDERED: ATROPINE SULFATE 0.1 MG/ML 10ML SYRINGE IV PRN (11:08)
[2016-12-10] MEDS ORDERED: NITROGLYCERIN SL TABS 0.4 MG TAB SUBLINGUAL PRN (11:08)
[2016-12-10] MEDS ORDERED: RX INFO: IV CONTRAST WAS GIVEN 1 EACH MISC MISCELLANE PRN (11:08)
[2016-12-10 11:55] LABS: Glucose,Whole Blood 160 mg/dL (75-99)
[2016-12-10] MEDS: HYDROcodone/APAP 5-325MG 1 EACH TAB PO PRN ×2 (14:32→21:33)
[2016-12-10 17:16] LABS: Glucose,Whole Blood 181 mg/dL (75-99)
--- NOTE | 2016-12-10 17:24 | P.PN ---
Subjective 56-year-old gentleman who does have documented CAD was noted to have some coronary disease 10 years ago diagnosed with a cardiac catheterization done at [facility] however no intervention at that time was done comes in to the hospital with complaints of sharp chest pain that woke him up at 3 AM that was associated with diaphoresis. Patient stated that he ignored it woke up this morning tried to go to work however did not feel well hence at his workplace which is a [employer] term in the [place] of his colleagues to obtain a blood pressure which was 165/110. Patient was also noted to have some tingling over the left arm with persistent chest pain midsternal in location hence was sent to the emergency room. 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 12/09/16 doing well No repeat symptoms noted no headaches, blurry vision, n/v, chest pain, CINTHIA, abdominal pain, urinary urgency or frequency 12/10/16 seen post cath pt underwent PTCA by Dr Edd bean states to pain in his groin Physical exam Gen. appearance oriented 3 in no distress Neck is supple no JVD Lungs good air entry clear to auscultation no rhonchi or wheezing Heart S1-S2 heard regular rate and rhythm no murmurs appreciated reproducible chest pain on flexion of the left arm internal rotation against resistance similar type of pain is appreciated Abdomen is soft nontender no organomegaly bowel sounds are intact Neurologically cranial nerves II-12 grossly intact no focal motor or sensory deficits noted groin is appropriately tender to palpation Skin no abnormalities appreciated Objective - Vital Signs Vital signs: Vital Signs Temp 98.0 F 12/10/16 15:38 Pulse 72 12/10/16 15:38 Resp 18 12/10/16 15:38 BP 111/66 12/10/16 15:38 Pulse Ox 97 12/10/16 15:38 Intake & Output 12/09/16 12/10/1617 18:59 06:59 18:59 Intake Total 2243.668 1475.83 Output Total 2250 700 850 Balance -6.332 -700 625.83 Weight 116.6 kg Intake: IV 900 1255.83 .9 @ 75 900 900 Intake, IV Titration 83.668 Amount Heparin Sodium,Porcine/ 83.668 D5w Pmx 25,000 unit In Dextrose/Water 1 500ml. bag @ 8.48 UNITS/KG/HR 20 mls/hr IV .Q24H BETITO Rx#: [id number] Oral 1260 220 Output: Urine 2250 700 850 Other: Voiding Method Toilet Toilet Toilet # Voids 1 0 2 - Labs CBC & Chem 7: 12/08/16 09:00 12/08/16 09:00 Labs: Abnormal Lab Results - Last 24 Hours (Table) 12/09/16 12/09/16 12/10/16 Range/Units 17:14 20:42 06:30 POC Glucose (mg/dL) 148 H 210 H 174 H (75-99) mg/dL 12/10/16 12/10/16 Range/Units 11:30 17:02 POC Glucose (mg/dL) 160 H 181 H (75-99) mg/dL Assessment and Plan Plan: #1 atypical chest pain there is some features of typical nature #2 diabetes mellitus type II #3 clinical sleep apnea. #4 obesity #5 hypertension essential #6 diabetic neuropathy #7 hyperglycemia that is uncontrolled Plan Due to known disease s/p intervention Dual antiplatelet therapy statin b adriel vascular checks
[2016-12-10] MEDS: METOPROLOL TARTRATE 12.5 MG TAB PO SCH (19:59)
[2016-12-10 21:09] LABS: Glucose,Whole Blood 150 mg/dL (75-99)
[2016-12-10] MEDS: INSULIN DETEMIR 100 UNIT/ML 10 ML VIAL SQ SCH (21:33)
[2016-12-11 06:14] LABS: Glucose,Whole Blood 157 mg/dL (75-99)
[2016-12-11 06:22] LABS: Basophils % (A) 0 %; CH 32.1; CHCM 34.3; Eosinophils # (A) 0.1 k/uL (0-0.7); Eosinophils % (A) 1 %; HCT 41.2 % (39.0-53.0); HDW 2.32; HGB 14.1 gm/dL (13.0-17.5); Luc # (Auto) 0.16; Luc % (Auto) 2; Lymphocytes # (A) 2.1 k/uL (1.0-4.8); Lymphocytes % (A) 28 %; MCH 32.4 pg (25.0-35.0); MCHC 34.3 g/dL (31.0-37.0); MCV 94.2 fL (80.0-100.0); Mean Platelet Volume 6.9; Monocytes # (A) 0.5 k/uL (0-1.0); Monocytes % (A) 6 %; Neutrophils # (A) 4.7 k/uL (1.3-7.7); Neutrophils % (A) 62 %; RBC 4.37 m/uL (4.30-5.90); RDW 13.1 % (11.5-15.5); WBC 7.6 k/uL (3.8-10.6); WBC (Perox) 7.78
[2016-12-11] MEDS: NITROGLYCERIN OINT 1 INCH/GM PACKET TOPICAL SCH (06:39)
[2016-12-11] MEDS: SODIUM CHLORIDE 0.9% 1,000 ML IV SCH (06:39)
[2016-12-11] MEDS: INSULIN LISPRO (humaLOG) 300 UNIT/3 ML VIAL SQ SCH ×3 (06:40→17:29)
[2016-12-11 06:47] LABS: Anion Gap 9 mmol/L; Blood Urea Nitrogen 16 mg/dL (9-20); Calcium 9.4 mg/dL (8.4-10.2); Carbon Dioxide 28 mmol/L (22-30); Chloride 102 mmol/L (98-107); Glucose 151 mg/dL (74-99); Non-African American GFR(MDRD) >60 (>60 ml/min/1.73 sqM); Potassium 4.4 mmol/L (3.5-5.1); Sodium 139 mmol/L (137-145)
--- NOTE | 2016-12-11 07:19 | PTCA ---
DATE OF SERVICE: 12/10/2016 PROCEDURE: 1. Fractional flow result of assessment of LAD lesion. 2. PTCA and stenting of proximal LAD. Performed by Dr. Monserrat Rao. CLINICAL INFORMATION: Mr. Gerard Su is a 56-year-old obese gentleman with a history of hypertension, hyperlipidemia, type 2 diabetes who presented with unstable angina, underwent a cardiac cath by Dr. Soriano. Study revealed a moderate lesion in the proximal LAD before and after a diagonal and septal branch. The lesion appeared to be about 60% to 70%. He also had a cardiac cath in 2010 and the lesion at that time was about 50%. Given the moderate severity of the lesion and proximal location, I recommended FFR to be performed prior to intervention. PROCEDURE NOTE: The existing 6 [place] introducer was used to perform the procedure. A 3.5 XB LAD guide catheter was used to cannulate the left coronary artery. I used a ( ) wire and this wire was placed distally. A fractional flow reserve assessment was performed with adenosine drip. FFR was 0.77. I then proceeded to perform intervention using the same wire. A 3.0 caliber 15 mm long Xience stent was deployed at 12 atmospheres. At the distal end of the lesion there was a persistent area of narrowing and this was addressed with a 2.5 caliber, 8 mm long Xience stent. Excellent angiographic result was achieved. Patient had chest pain and precordial ST elevation. He received Angiomax bolus and infusion as per protocol. He also received 60 mg of Effient. Excellent angiographic result without complication was achieved. The sheath was then taken out and a Perclose device used to secure hemostasis. Patient received moderate conscious sedation with a combination of Dilaudid, fentanyl, Versed and Benadryl. Moderate conscious sedation was provided for one hour. The results were discussed with the patient and family and he was sent to the room in a stable condition. Good hemostasis of the groin was secured.
--- NOTE | 2016-12-11 07:39 | LTR ---
December 10, 2016 RE: SuGerard Dear Dr. Guaman; Thank you for the opportunity to participate in the care of Mr. Su. I am pleased to report to you that his proximal LAD was stented with a drug-eluting stent. Two drug-eluting stents were deployed. Excellent angiographic result without complication was achieved. I expect the patient to be discharged tomorrow and he will see Dr. Soriano in the office in one week. Thank you for your referral and please call for questions. With kindest regards. Sincerely yours, ALIYAH CLARK MD
[2016-12-11] MEDS ORDERED: PRASUGREL 10 MG TAB PO SCH (09:00)
[2016-12-11] MEDS ORDERED: ATORVASTATIN 80 MG TAB PO SCH (09:00)
[2016-12-11] MEDS: HYDROcodone/APAP 5-325MG 1 EACH TAB PO PRN ×2 (09:18→15:01)
[2016-12-11] MEDS: LISINOPRIL 10 MG TAB PO SCH (09:23)
[2016-12-11] MEDS: METOPROLOL TARTRATE 12.5 MG TAB PO SCH (09:23)
[2016-12-11] MEDS: GABAPENTIN 300 MG CAP PO SCH (09:24)
[2016-12-11] MEDS: ASPIRIN 81 MG CHEW PO SCH (09:24)
[2016-12-11 11:37] LABS: Glucose,Whole Blood 161 mg/dL (75-99)
[2016-12-11 12:02] VITALS: TEMP 97
--- NOTE | 2016-12-11 12:29 | P.PN ---
Subjective Principal diagnosis: Chest pain This is a 56-year-old gentleman who presented to the hospital with symptoms of chest discomfort, moderate in intensity. His coronary risk factors are significant for family history of premature coronary artery disease, hypertension, hyperlipidemia, and [id number] diabetes. Patient was taken to the cardiac catheterization lab by Dr. Soriano where the patient was found to have an LAD lesion. Subsequent to that he underwent an FFR by Dr. David Rao which was 0.77. Patient then underwent angioplasty with stenting of the LAD. He was seen and examined this morning, sitting up in the chair at the initial time of my examination. Denies any chest pain or difficulty in breathing. Complaining of significant pain in the right groin area. I did have the patient lied down in bed to examine his groin, it was very soft, no evidence of hematoma, no audible bruit, and good distal pulse. Blood pressure 110/70 with a heart rate in the 60s. White blood cell count 7.6, hemoglobin 14.1, platelet count 183. Potassium 4.4, BUN 16, and creatinine 0.8. EKG shows a sinus bradycardia with no changes from post-PCI. Objective - Vital Signs Vital signs: Vital Signs Temp 97.0 F L 12/11/16 12:00 Pulse 67 12/11/16 12:00 Resp 14 12/11/16 12:00 BP 109/73 12/11/16 12:00 Pulse Ox 97 12/11/16 04:00 Intake & Output 12/10/16 12/11/16 12/11/16 18:59 06:59 18:59 Intake Total 1715.83 240 Output Total 1450 650 Balance 265.83 -650 240 Weight 116 kg 116 kg Intake: IV 1255.83 .9 @ 75 900 Oral 460 240 Output: Urine 1450 650 Other: Voiding Method Toilet Toilet Toilet # Voids 2 0 0 - Exam PHYSICAL EXAMINATION: HEENT: Head is atraumatic, normocephalic. Pupils equal, round. Neck is supple. There is no elevated jugular venous pressure. HEART EXAMINATION: Heart S1, S2 normal. No murmur or gallop heard. CHEST EXAMINATION: Lungs are clear to auscultation and precussion. No chest wall tenderness is noted on palpation or with deep breathing. ABDOMEN: Soft, nontender. Bowel sounds are heard. No organomegaly noted. EXTREMITIES: 2+ peripheral pulses with no evidence of peripheral edema and no calf tenderness noted. Right groin soft, no audible bruit, no hematoma. NEUROLOGIC patient is awake, alert and oriented -3. . - Labs CBC & Chem 7: 12/11/16 05:42 12/11/16 05:42 Labs: Abnormal Lab Results - Last 24 Hours (Table) 12/10/16 12/10/16 12/11/16 Range/Units 17:02 20:39 05:42 Glucose 151 H (74-99) mg/dL POC Glucose (mg/dL) 181 H 150 H (75-99) mg/dL 12/11/16 12/11/16 Range/Units 06:09 11:33 Glucose (74-99) mg/dL POC Glucose (mg/dL) 157 H 161 H (75-99) mg/dL Assessment and Plan (1) Presence of stent in LAD coronary artery Status: Acute (2) Diabetes Status: Acute (3) HTN (hypertension) Status: Acute (4) Hyperlipemia Status: Acute (5) Family history of coronary arteriosclerosis Status: Acute (6) Unstable angina pectoris Status: Acute Plan: From cardiology's perspective, patient may be able to be discharged home today. We will make him a follow-up appointment to see Dr. Betancur in the office next Sunday. Patient will be discharged home on aspirin 81 mg daily, Lipitor 80 mg daily, round and 300 mg one tablet by mouth twice a day, lisinopril 10 mg daily , metoprolol tartrate 12-1/2 mg one tablet by mouth twice a day, Effient 10 mg daily, and sublingual nitroglycerin as needed for chest pain. Patient has been educated regarding his medications, and he has been provided prescriptions for each of the above medications. DNP note has been reviewed, I agree with a documented findings and plan of care. Patient was seen and examined.
--- NOTE | 2016-12-11 15:59 | US ---
EXAMINATION TYPE: US lower ext pseudo artery RT DATE OF EXAM: 12/11/2016 COMPARISON: NONE CLINICAL HISTORY: RO psuedoaneurysm. Right groin pain EXAM PERFORMED: Grayscale and color Doppler duplex imaging performed of the groin, post cardiac nilda ter to assess for pseudoaneurysm. SIDE PERFORMED: Right Color and Waveform Doppler performed to assess for the presence of pseudoaneurysm; Is there ultrasound evidence of a pseudoaneurysm: no Is there evidence of AV shunting: no Is there a fluid collection present: no Normal appearing groin post heart cath. Limited scanning performed in the right groin. IMPRESSION: Pseudoaneurysm is not evident.
[2016-12-11 16:51] LABS: Glucose,Whole Blood 153 mg/dL (75-99)
[2016-12-11 17:02] VITALS: BP 113/70; PULSE 63; RESP 18
--- NOTE | 2016-12-11 18:39 | P.DS ---
Providers Date of admission: 12/08/16 10:36 Attending physician: Gigi Alva MD Consults: 12/08/16 10:35 Consult Physician Urgent Consulting Provider: Cardiology Jared Consult Reason/Comments: Unstable angina Do you want consulting provider notified?: Yes 12/10/16 11:08 Consult Physician Routine Consulting Provider: Jelani Coleman Consult Reason/Comments: Post Interventional patient Do you want consulting provider notified?: Already Contacted Primary care physician: Rowena Hernandez [facility] Course: 56-year-old gentleman who does have documented CAD was noted to have some coronary disease 10 years ago diagnosed with a cardiac catheterization done at [facility] however no intervention at that time was done comes in to the hospital with complaints of sharp chest pain that woke him up at 3 AM that was associated with diaphoresis. Patient stated that he ignored it woke up this morning tried to go to work however did not feel well hence at his workplace which is a [employer] in the [place] of his colleagues to obtain a blood pressure which was 165/110. Patient was also noted to have some tingling over the left arm with persistent chest pain midsternal in location hence was sent to the emergency room. 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 12/09/16 doing well No repeat symptoms noted no headaches, blurry vision, n/v, chest pain, CINTHIA, abdominal pain, urinary urgency or frequency 12/10/16 seen post cath pt underwent PTCA by Dr Edd bean states to pain in his groin 12/11/16 complaints of pain in his right groing Physical exam Gen. appearance oriented 3 in no distress Neck is supple no JVD Lungs good air entry clear to auscultation no rhonchi or wheezing Heart S1-S2 heard regular rate and rhythm no murmurs appreciated reproducible chest pain on flexion of the left arm internal rotation against resistance similar type of pain is appreciated Abdomen is soft nontender no organomegaly bowel sounds are intact Neurologically cranial nerves II-12 grossly intact no focal motor or sensory deficits noted groin is appropriately tender to palpation Skin no abnormalities appreciated Assessment and Plan Plan: #1 atypical chest pain there is some features of typical nature #2 diabetes mellitus type II #3 clinical sleep apnea. #4 obesity #5 hypertension essential #6 diabetic neuropathy #7 hyperglycemia that is uncontrolled Right groin pain, no pseudo aneursym noted Dual antiplatelet therapy statin b adriel dc home with pain control with Xenia and activity restrictions Plan - Discharge Summary New Discharge Prescriptions: New Atorvastatin [Lipitor] 80 mg PO DAILY #30 tab Metoprolol Tartrate [Lopressor] 12.5 mg PO BID #60 tab Nitroglycerin Sl Tabs [Nitrostat] 0.4 mg SUBLINGUAL Q5M PRN #25 tab PRN Reason: Chest Pain Prasugrel [Effient] 10 mg PO DAILY #30 tab Hydrocodone/Acetaminophen [Xenia 5-325 Tablet] 1 each PO TID #30 tablet Continue Aspirin EC [Ecotrin Low Dose] 81 mg PO DAILY Lisinopril [Zestril] 10 mg PO DAILY Discontinued Simvastatin [Simvastatin] 40 mg PO HS No Action metFORMIN HCL [Metformin HCl ER] 500 mg PO BID Glucosamine Sulfate 2,000 mg PO DAILY Gabapentin [Neurontin] 300 mg PO BID Glimepiride [Amaryl] 1 mg PO AC-BRKFST Multivit-Min/FA/Lycopen/Lutein [Centrum Silver Men Tablet] 1 tab PO DAILY Discharge Medication List Aspirin EC [Ecotrin Low Dose] 81 mg PO DAILY 02/16/16 [History] Glucosamine Sulfate 2,000 mg PO DAILY 02/16/16 [History] metFORMIN HCL [Metformin HCl ER] 500 mg PO BID 02/16/16 [History] Gabapentin [Neurontin] 300 mg PO BID 11/09/16 [History] Glimepiride [Amaryl] 1 mg PO AC-BRKFST 11/09/16 [History] Multivit-Min/FA/Lycopen/Lutein [Centrum Silver Men Tablet] 1 tab PO DAILY [History] Lisinopril [Zestril] 10 mg PO DAILY 12/08/16 [History] Atorvastatin [Lipitor] 80 mg PO DAILY #30 tab 12/11/16 [Rx] Hydrocodone/Acetaminophen [Xenia 5-325 Tablet] 1 each PO TID #30 tablet [Rx] Metoprolol Tartrate [Lopressor] 12.5 mg PO BID #60 tab 12/11/16 [Rx] Nitroglycerin Sl Tabs [Nitrostat] 0.4 mg SUBLINGUAL Q5M PRN #25 tab 12/11/16 [Rx ] Prasugrel [Effient] 10 mg PO DAILY #30 tab 12/11/16 [Rx] Follow up Appointment(s)/Referral(s): Tesfaye Guaman MD [Primary Care Provider] - 1-2 days Lalo Soriano MD [STAFF PHYSICIAN] - 12/19/16 Patient Instructions/Handouts: Metoprolol (By mouth) Activity/Diet/Wound Care/Special Instructions: 30 day free prescription of effient filled in OP pharmacy Discharge Disposition: HOME SELF-CARE
== END 2016-12-11 20:09 | disposition home or self-care (01) | DRG 247 ==
LOC: EC 08:33 → 6SEL 10:36
PROVIDERS: ADMIT Internal Medicine; ATTEND Internal Medicine
PROC: 027035Z Dilation of Coronary Artery, One Artery with Two Drug-eluting Intraluminal Devices, Percutaneous Approach (ICD-10-PCS; principal; 2016-12-10 08:43)
PROC: 4A023N7 Measurement of Cardiac Sampling and Pressure, Left Heart, Percutaneous Approach (ICD-10-PCS; 2016-12-10 08:43)
PROC: B2111ZZ Fluoroscopy of Multiple Coronary Arteries using Low Osmolar Contrast (ICD-10-PCS; 2016-12-10 08:43)
DX: I25.110 Atherosclerotic heart disease of native coronary artery with unstable angina pectoris (principal); E11.40 Type 2 diabetes mellitus with diabetic neuropathy, unspecified; E11.65 Type 2 diabetes mellitus with hyperglycemia; E66.9 Obesity, unspecified; E78.5 Hyperlipidemia, unspecified; G47.30 Sleep apnea, unspecified; I10 Essential (primary) hypertension; M79.1 Myalgia; M19.90 Unspecified osteoarthritis, unspecified site; R00.1 Bradycardia, unspecified; Z68.36 Body mass index [BMI] 36.0-36.9, adult; Z79.84 Long term (current) use of oral hypoglycemic drugs; Z79.899 Other long term (current) drug therapy; Z79.82 Long term (current) use of aspirin; Z96.60 Presence of unspecified orthopedic joint implant; Z82.49 Family history of ischemic heart disease and other diseases of the circulatory system
CPT/HCPCS: 36415; 71020; 80048; 80053; 80061; 82550; 82553; 83036; 83735; 84484; 85025; 85610; 85730; 93005; 93306; 93458; 93571; 93975; 96374; 99291

== ENCOUNTER 2017-02-16 17:02 | Observation (INO) | payer MEDICAID ==
[2017-02-16 18:00] LABS: Basophils % (A) 0 %; CH 32.6; CHCM 35.1; Eosinophils # (A) 0.2 k/uL (0-0.7); Eosinophils % (A) 2 %; HCT 40.2 % (39.0-53.0); HDW 2.57; HGB 13.7 gm/dL (13.0-17.5); Luc # (Auto) 0.15; Luc % (Auto) 2; Lymphocytes # (A) 1.7 k/uL (1.0-4.8); Lymphocytes % (A) 23 %; MCH 31.8 pg (25.0-35.0); MCV 93.4 fL (80.0-100.0); Mean Platelet Volume 7.7; Monocytes # (A) 0.5 k/uL (0-1.0); Monocytes % (A) 7 %; Neutrophils # (A) 5.1 k/uL (1.3-7.7); Neutrophils % (A) 66 %; RBC 4.31 m/uL (4.30-5.90); RDW 13.7 % (11.5-15.5); WBC 7.6 k/uL (3.8-10.6)
[2017-02-16 18:09] LABS: Partial Thromboplastin Time 24.7 sec (22.0-30.0)
--- NOTE | 2017-02-16 18:15 | ED ---
General Adult HPI - General Chief complaint: Chest Pain Stated complaint: Chest Pain Time Seen by Provider: 02/16/17 17:16 Source: patient, EMS, RN notes reviewed, old records reviewed Mode of arrival: EMS - History of Present Illness Initial comments: This is a 56-year-old male to the ER for evaluation. Patient does say for evaluation regarding chest pain. Patient has anterior chest pain as a prior VT but worse. Patient has history of VT with stents. Patient currently with anterior chest pain that continuous. Patient states his pain is just like his prior MIs but worse. Taken nitro which did help with his pain - Related Data Home Medications Medication Instructions Recorded Confirmed Aspirin EC [Ecotrin Low Dose] 81 mg PO HS 02/16/16 02/16/17 metFORMIN HCL [Metformin HCl ER] 500 mg PO AC-BID 02/16/16 02/16/17 Gabapentin [Neurontin] 300 mg PO BID 11/09/16 02/16/17 Glimepiride [Amaryl] 1 mg PO AC-BRKFST 11/09/16 02/16/17 Multivit-Min/FA/Lycopen/Lutein 1 tab PO DAILY 11/09/16 02/16/17 [Centrum Silver Men Tablet] Lisinopril [Zestril] 10 mg PO HS 12/08/16 02/16/17 Glucosam/Edwin-Msm1/C/Eric/Bosw 1 tab PO DAILY 02/16/17 02/16/17 [Glucosamine-Chondroitin Tablet] Simvastatin [Zocor] 40 mg PO HS 02/16/17 02/16/17 Previous Rx's Medication Instructions Recorded Prasugrel [Effient] 10 mg PO DAILY #30 tab 12/11/16 Allergies Allergy/AdvReac Type Severity Reaction Status Date / Time atorvastatin [From Lipitor] AdvReac Diarrhea Verified 02/16/17 18:03 Review of Systems ROS Statement: Those systems with pertinent positive or pertinent negative responses have been documented in the HPI. ROS Other: All systems not noted in ROS Statement are negative. Past Medical History Past Medical History: Coronary Artery Disease (CAD), Diabetes Mellitus, Hyperlipidemia, Hypertension, Osteoarthritis (OA), Pneumonia Additional Past Medical History / Comment(s): NIDDM type II, bronchitis, 2010 fell off a ladder with 2 left rib fractures and L knee meniscus tear. History of Any Multi-Drug Resistant Organisms: None Reported Past Surgical History: Appendectomy, Heart Catheterization, Joint Replacement, Orthopedic Surgery, Tonsillectomy Additional Past Surgical History / Comment(s): 08/19/10 cardiac cath with 40% LAD blockage-treated medically, bilateral knee arthroscopies, nasal fracture with surgery, R shoulder spur removal, L shoulder tendon repair with debridement , colonoscopy. Past Anesthesia/Blood Transfusion Reactions: No Reported Reaction Past Psychological History: No Psychological Hx Reported Smoking Status: Never smoker Past Alcohol Use History: None Reported Past Drug Use History: None Reported - Past Family History Father Family Medical History: Cancer Additional Family Medical History / Comment(s): Father of lung cancer. He was a smoker. Mother Family Medical History: Cancer Additional Family Medical History / Comment(s): Mother of lung cancer. She was a smoker. Brother(s) Family Medical History: Cancer Additional Family Medical History / Comment(s): 2 brother's had lung cancer- they were both smokers. Sister(s) Family Medical History: Cancer Additional Family Medical History / Comment(s): Pt's sister had lung cancer-she was a smoker. General Exam General appearance: alert, in no apparent distress Head exam: Present: atraumatic, normocephalic, normal inspection Eye exam: Present: normal appearance, PERRL, EOMI. Absent: scleral icterus, conjunctival injection, periorbital swelling ENT exam: Present: normal exam, mucous membranes moist Neck exam: Present: normal inspection. Absent: tenderness, meningismus, lymphadenopathy Respiratory exam: Present: normal lung sounds bilaterally. Absent: respiratory distress, wheezes, rales, rhonchi, stridor Cardiovascular Exam: Present: regular rate, normal rhythm, normal heart sounds. Absent: systolic murmur, diastolic murmur, rubs, gallop, clicks GI/Abdominal exam: Present: soft, normal bowel sounds. Absent: distended, tenderness, guarding, rebound, rigid Extremities exam: Present: normal inspection, full ROM, normal capillary refill. Absent: tenderness, pedal edema, joint swelling, calf tenderness Back exam: Present: normal inspection Neurological exam: Present: alert, oriented X3, CN II-XII intact Psychiatric exam: Present: normal affect, normal mood Skin exam: Present: warm, dry, intact, normal color. Absent: rash Course Vital Signs 02/16/17 17:16 Temperature 97.7 F Pulse Rate 69 Respiratory 20 Rate Blood Pressure 122/68 O2 Sat by Pulse 99 Oximetry - Reevaluation(s) Reevaluation #1: 02/16/17 18:46 Patient at this time still with chest pain EKG Findings - EKG Comments: EKG Findings:: EKG shows normal sinus 169, MD 160, QRS 90, QTC 296 Medical Decision Making - Medical Decision Making 56 milled ER for reevaluation 15, nurses typical chest pain prior VT. Patient will be admitted for cardiac observation and evaluation and treatment. - Lab Data Result diagrams: 02/16/17 17:50 02/16/17 17:50 Lab Results 02/16/17 02/16/17 02/16/17 Range/Units 17:50 17:50 17:50 WBC 7.6 (3.8-10.6) k/uL RBC 4.31 (4.30-5.90) m/uL Hgb 13.7 (13.0-17.5) gm/dL Hct 40.2 (39.0-53.0) % MCV 93.4 (80.0-100.0) fL MCH 31.8 (25.0-35.0) pg MCHC 34.0 (31.0-37.0) g/dL RDW 13.7 (11.5-15.5) % Plt Count 205 (150-450) k/uL Neutrophils % 66 % Lymphocytes % 23 % Monocytes % 7 % Eosinophils % 2 % Basophils % 0 % Neutrophils # 5.1 (1.3-7.7) k/uL Lymphocytes # 1.7 (1.0-4.8) k/uL Monocytes # 0.5 (0-1.0) k/uL Eosinophils # 0.2 (0-0.7) k/uL Basophils # 0.0 (0-0.2) k/uL PT (9.0-12.0) sec INR (<1.2) APTT (22.0-30.0) sec Sodium 137 (137-145) mmol/L Potassium 4.9 (3.5-5.1) mmol/L Chloride 105 (98-107) mmol/L Carbon Dioxide 23 (22-30) mmol/L Anion Gap 9 mmol/L BUN 16 (9-20) mg/dL Creatinine 0.73 (0.66-1.25) mg/dL Est GFR (MDRD) Af Amer >60 (>60 ml/min/1.73 sqM) Est GFR (MDRD) Non-Af >60 (>60 ml/min/1.73 sqM) Glucose 144 H (74-99) mg/dL Calcium 9.0 (8.4-10.2) mg/dL Magnesium 1.9 (1.6-2.3) mg/dL Total Bilirubin 0.6 (0.2-1.3) mg/dL AST 49 (17-59) U/L ALT 66 (21-72) U/L Alkaline Phosphatase 59 (38-126) U/L Total Creatine Kinase 206 H (55-170) U/L CK-MB (CK-2) 1.5 (0.0-2.4) ng/mL CK-MB (CK-2) Rel Index 0.7 Troponin I <0.012 (0.000-0.034) ng/mL Total Protein 6.7 (6.3-8.2) g/dL Albumin 4.0 (3.5-5.0) g/dL Lipase 154 (23-300) U/L 02/16/17 Range/Units 17:50 WBC (3.8-10.6) k/uL RBC (4.30-5.90) m/uL Hgb (13.0-17.5) gm/dL Hct (39.0-53.0) % MCV (80.0-100.0) fL MCH (25.0-35.0) pg MCHC (31.0-37.0) g/dL RDW (11.5-15.5) % Plt Count (150-450) k/uL Neutrophils % % Lymphocytes % % Monocytes % % Eosinophils % % Basophils % % Neutrophils # (1.3-7.7) k/uL Lymphocytes # (1.0-4.8) k/uL Monocytes # (0-1.0) k/uL Eosinophils # (0-0.7) k/uL Basophils # (0-0.2) k/uL PT 10.0 (9.0-12.0) sec INR 1.0 (<1.2) APTT 24.7 (22.0-30.0) sec Sodium (137-145) mmol/L Potassium (3.5-5.1) mmol/L Chloride (98-107) mmol/L Carbon Dioxide (22-30) mmol/L Anion Gap mmol/L BUN (9-20) mg/dL Creatinine (0.66-1.25) mg/dL Est GFR (MDRD) Af Amer (>60 ml/min/1.73 sqM) Est GFR (MDRD) Non-Af (>60 ml/min/1.73 sqM) Glucose (74-99) mg/dL Calcium (8.4-10.2) mg/dL Magnesium (1.6-2.3) mg/dL Total Bilirubin (0.2-1.3) mg/dL AST (17-59) U/L ALT (21-72) U/L Alkaline Phosphatase (38-126) U/L Total Creatine Kinase (55-170) U/L CK-MB (CK-2) (0.0-2.4) ng/mL CK-MB (CK-2) Rel Index Troponin I (0.000-0.034) ng/mL Total Protein (6.3-8.2) g/dL Albumin (3.5-5.0) g/dL Lipase (23-300) U/L - Radiology Data Radiology results: report reviewed (Chest x-ray is negative for acute disease), image reviewed Critical Care Time Critical Care Time: Yes Total Critical Care Time: 31 Disposition Clinical Impression: Unstable angina pectoris, Chest pain Disposition: ADMITTED IP TO THIS [facility] Condition: Fair Instructions: Chest Pain (ED) Referrals: Tesfaye Guaman MD [Primary Care Provider] - 1-2 days
--- NOTE | 2017-02-16 18:17 | XR ---
EXAMINATION TYPE: XR chest 2V DATE OF EXAM: 02/16/2017 COMPARISON: 12/08/2016 HISTORY: Chest pain TECHNIQUE: Frontal and lateral views of the chest are obtained. FINDINGS: Heart and mediastinum are normal. Lungs are clear. There are chest leads. There is no pleu ral effusion. Bony thorax is intact. IMPRESSION: Normal chest. No change.
[2017-02-16 18:23] LABS: ALT 66 U/L (21-72); AST 49 U/L (17-59); Alkaline Phosphatase 59 U/L (38-126); Anion Gap 9 mmol/L; Blood Urea Nitrogen 16 mg/dL (9-20); Carbon Dioxide 23 mmol/L (22-30); Chloride 105 mmol/L (98-107); Glucose 144 mg/dL (74-99); Magnesium 1.9 mg/dL (1.6-2.3); Non-African American GFR(MDRD) >60 (>60 ml/min/1.73 sqM); Potassium 4.9 mmol/L (3.5-5.1); Sodium 137 mmol/L (137-145); Total Bilirubin 0.6 mg/dL (0.2-1.3); Total Protein 6.7 g/dL (6.3-8.2)
[2017-02-16 18:25] LABS: Creatine Kinase 206 U/L (55-170)
[2017-02-16 18:37] LABS: Creatine Kinase MB 1.5 ng/mL (0.0-2.4); Troponin I <0.012 ng/mL (0.000-0.034)
[2017-02-16] MEDS ORDERED: ASPIRIN 81 MG CHEW PO STA (18:46)
[2017-02-16] MEDS ORDERED: NITROGLYCERIN SL TABS 0.4 MG TAB SUBLINGUAL PRN (18:46)
[2017-02-16] MEDS ORDERED: HEPARIN SODIUM,PORCINE 5,000 UNIT/ML 1 ML VIAL IV ONE (18:46)
[2017-02-16] MEDS: HEPARIN SODIUM,PORCINE/D5W PMX 25,000 UNIT in DEXTROSE/WATER 1 500ML.BAG IV SCH (19:16)
[2017-02-16] MEDS: SODIUM CHLORIDE 0.9% 1,000 ML IV SCH (19:18)
[2017-02-16] MEDS ORDERED: ALPRAZolam 0.25 MG TAB PO PRN (20:19)
[2017-02-16 20:36] LABS: Glucose,Whole Blood 254 mg/dL (75-99)
[2017-02-16] MEDS: LISINOPRIL 10 MG TAB PO SCH (20:41)
[2017-02-16] MEDS: INSULIN LISPRO (humaLOG) 300 UNIT/3 ML VIAL SQ SCH (20:41)
[2017-02-16] MEDS: GABAPENTIN 300 MG CAP PO SCH (20:41)
[2017-02-16] MEDS: ATORVASTATIN 20 MG TAB PO SCH (20:49)
[2017-02-16 21:22] LABS: Hemoglobin A1C 8.6 % (4.2-6.1)
[2017-02-17 00:43] LABS: Creatine Kinase 174 U/L (55-170)
[2017-02-17 00:56] LABS: Creatine Kinase MB 1.3 ng/mL (0.0-2.4); Troponin I <0.012 ng/mL (0.000-0.034)
[2017-02-17] MEDS: HEPARIN SODIUM,PORCINE 5,000 UNIT/ML 1 ML VIAL IV PRN ×2 (00:57→15:58)
[2017-02-17] MEDS: SODIUM CHLORIDE 0.9% 1,000 ML IV SCH ×2 (05:51→16:02)
[2017-02-17 06:39] LABS: Glucose,Whole Blood 185 mg/dL (75-99)
[2017-02-17 07:12] LABS: Cholesterol 122 mg/dL (<200); HDL Cholesterol 36 mg/dL (40-60)
[2017-02-17 07:13] LABS: Creatine Kinase 158 U/L (55-170)
[2017-02-17 07:25] LABS: Creatine Kinase MB 1.1 ng/mL (0.0-2.4); Troponin I <0.012 ng/mL (0.000-0.034)
[2017-02-17] MEDS: MORPHINE SULFATE 4 MG/ML SYRINGE IV PRN ×2 (07:33→19:17)
[2017-02-17] MEDS: INSULIN LISPRO (humaLOG) 300 UNIT/3 ML VIAL SQ SCH ×4 (07:38→21:13)
[2017-02-17 08:11] LABS: Mean Platelet Volume 7.6
[2017-02-17 12:07] LABS: Glucose,Whole Blood 173 mg/dL (75-99)
[2017-02-17] MEDS: GLIMEPIRIDE 1 MG TAB PO SCH (12:29)
[2017-02-17] MEDS: PRASUGREL 10 MG TAB PO SCH (12:30)
[2017-02-17] MEDS: MULTIVITAMINS, THERA 1 EACH TAB PO SCH (12:30)
[2017-02-17] MEDS: GABAPENTIN 300 MG CAP PO SCH ×2 (12:30→19:27)
[2017-02-17] MEDS: ASPIRIN 325 MG TAB PO SCH (14:24)
--- NOTE | 2017-02-17 14:43 | P.HPIM ---
History of Present Illness Patient is a pleasant 52-year-old gentleman came in with complaints of chest pain restarted yesterday midsternal sharp in nature similar to the pain we had when he had myocardial infarction patient had cardiac catheterization and stenting done in month of January this year. Patient denied any smoking history. Patient pain lasted for a few seconds and resolved patient had 8 x 10 pain, it appears to be nonexertional in nature. Not associated with diaphoresis not associated nausea vomiting nonpleuritic in nature. Patient pain came down from 8-5 x 10 after sublingual nitroglycerin in. Patient denied any cough. Patient is not a smoker. Troponins negative EKG showed sinus rhythm. Cardiology will evaluate the patient. Review of Systems REVIEW OF SYSTEMS: CONSTITUTIONAL: No fever, no malaise, no fatigue. HEENT: No recent visual problems or hearing problems. Denied any sore throat. CARDIOVASCULAR: No orthopnea, PND, no palpitations, no syncope. PULMONARY: No shortness of breath, no cough, no hemoptysis. GASTROINTESTINAL: No diarrhea, no nausea, no vomiting, no abdominal pain. Normoactive bowel sounds. NEUROLOGICAL: No headaches, no weakness, no numbness. HEMATOLOGICAL: Denies any bleeding or petechiae. GENITOURINARY: Denies any burning micturition, frequency, or urgency. MUSCULOSKELETAL/RHEUMATOLOGICAL: Denies any joint pain, swelling, or any muscle pain. ENDOCRINE: Denies any polyuria or polydipsia. The rest of the 14-point review of systems is negative. Past Medical History Past Medical History: Coronary Artery Disease (CAD), Diabetes Mellitus, Hyperlipidemia, Hypertension, Osteoarthritis (OA), Pneumonia Additional Past Medical History / Comment(s): NIDDM type II, bronchitis, 2010 fell off a ladder with 2 left rib fractures and L knee meniscus tear. History of Any Multi-Drug Resistant Organisms: None Reported Past Surgical History: Appendectomy, Heart Catheterization, Heart Catheterization With Stent, Joint Replacement, Orthopedic Surgery, Tonsillectomy Additional Past Surgical History / Comment(s): 08/19/10 cardiac cath with 40% LAD blockage-treated medically, december 2016 cardiac cath 2 stents placed, bilateral knee arthroscopies, nasal fracture with surgery, R shoulder spur removal, L shoulder tendon repair with debridement, colonoscopy. Past Anesthesia/Blood Transfusion Reactions: No Reported Reaction Date of Last Stent Placement:: december 2016 Past Psychological History: No Psychological Hx Reported Additional Psychological History / Comment(s): Pt resides with his spouse, their aneta and son-in-law and their 2 1/2 yr old granddaughter. He is independent. Smoking Status: Never smoker Past Alcohol Use History: None Reported Past Drug Use History: None Reported - Past Family History Father Family Medical History: Cancer Additional Family Medical History / Comment(s): Father of lung cancer. He was a smoker. Mother Family Medical History: Cancer Additional Family Medical History / Comment(s): Mother of lung cancer. She was a smoker. Brother(s) Family Medical History: Cancer Additional Family Medical History / Comment(s): 2 brother's had lung cancer- they were both smokers. Sister(s) Family Medical History: Cancer Additional Family Medical History / Comment(s): Pt's sister had lung cancer-she was a smoker. Medications and Allergies Home Medications Medication Instructions Recorded Confirmed Type Aspirin EC [Ecotrin Low Dose] 81 mg PO HS 02/16/16 02/16/17 History metFORMIN HCL [Metformin HCl ER] 500 mg PO AC-BID 02/16/16 02/16/17 History Gabapentin [Neurontin] 300 mg PO BID 11/09/16 02/16/17 History Glimepiride [Amaryl] 1 mg PO AC-BRKFST 11/09/16 02/16/17 History Multivit-Min/FA/Lycopen/Lutein 1 tab PO DAILY 11/09/16 02/16/17 History [Centrum Silver Men Tablet] Lisinopril [Zestril] 10 mg PO HS 12/08/16 02/16/17 History Simvastatin [Zocor] 40 mg PO HS 02/16/17 02/16/17 History Allergies Allergy/AdvReac Type Severity Reaction Status Date / Time atorvastatin [From Lipitor] AdvReac Diarrhea Verified 02/16/17 19:50 Physical Exam Vitals: Vital Signs Temp Pulse Pulse Resp BP BP Pulse Ox 02/17/17 11:27 97.5 F L 62 16 120/78 96 02/17/17 08:00 16 02/17/17 07:31 98.1 F 63 16 107/65 97 02/17/17 04:00 97.9 F 66 18 104/61 97 02/17/17 03:27 18 02/16/17 23:51 18 02/16/17 23:42 97.8 F 66 18 142/74 98 02/16/17 19:55 18 02/16/17 19:47 97.8 F 64 18 138/71 98 02/16/17 19:25 97.8 F 65 20 144/74 97 02/16/17 17:16 97.7 F 69 20 122/68 99 Intake and Output 02/16/17 02/17/17 02/17/17 22:59 06:59 14:59 Intake Total 1322.718 Balance 1322.718 Intake: IV 160 Heparin Sodium,Porcine/ 160 D5w Pmx 25,000 unit In Dextrose/Water 1 500ml. bag @ 8.3 UNITS/KG/HR 19. 95 mls/hr IV .Q24H [facility]ITO Rx #:[id number] Intake, IV Titration 912.718 Amount Heparin Sodium,Porcine/ 112.718 D5w Pmx 25,000 unit In Dextrose/Water 1 500ml. bag @ 8.3 UNITS/KG/HR 19. 95 mls/hr IV .Q24H [facility]ITO Rx #:[id number] Sodium Chloride 0.9% 1, 800 000 ml @ 100 mls/hr IV . Q10H [facility]ITO Rx#:[id number] Oral 250 Other: Voiding Method Toilet Toilet Toilet # Voids 3 Weight 120.202 kg PHYSICAL EXAMINATION: GENERAL: The patient is alert and oriented x3, not in any acute distress. Well developed, well nourished. HEENT: Pupils are round and equally reacting to light. EOMI. No scleral icterus. No conjunctival pallor. Normocephalic, atraumatic. No pharyngeal erythema. No thyromegaly. CARDIOVASCULAR: S1 and S2 present. No murmurs, rubs, or gallops. PULMONARY: Chest is clear to auscultation, no wheezing or crackles. ABDOMEN: Soft, nontender, nondistended, normoactive bowel sounds. No palpable organomegaly. MUSCULOSKELETAL: No joint swelling or deformity. EXTREMITIES: No cyanosis, clubbing, or pedal edema. NEUROLOGICAL: Gross neurological examination did not reveal any focal deficits. SKIN: No rashes. Results CBC & Chem 7: 02/17/17 07:29 08/11/17 17:50 Labs: Abnormal Lab Results - Last 24 Hours (Table) 02/16/17 02/16/17 02/16/17 Range/Units 17:50 17:50 17:50 APTT (22.0-30.0) sec Glucose 144 H (74-99) mg/dL POC Glucose (mg/dL) (75-99) mg/dL Hemoglobin A1c 8.6 H (4.2-6.1) % Total Creatine Kinase 206 H (55-170) U/L Triglycerides (<150) mg/dL HDL Cholesterol (40-60) mg/dL 02/16/17 02/17/17 02/17/17 Range/Units 20:34 00:10 00:10 APTT 30.3 H (22.0-30.0) sec Glucose (74-99) mg/dL POC Glucose (mg/dL) 254 H (75-99) mg/dL Hemoglobin A1c (4.2-6.1) % Total Creatine Kinase 174 H (55-170) U/L Triglycerides (<150) mg/dL HDL Cholesterol (40-60) mg/dL 02/17/17 02/17/17 02/17/17 Range/Units 06:22 06:22 06:37 APTT 40.4 H (22.0-30.0) sec Glucose (74-99) mg/dL POC Glucose (mg/dL) 185 H (75-99) mg/dL Hemoglobin A1c (4.2-6.1) % Total Creatine Kinase (55-170) U/L Triglycerides 179 H (<150) mg/dL HDL Cholesterol 36 L (40-60) mg/dL 02/17/17 Range/Units 11:57 APTT (22.0-30.0) sec Glucose (74-99) mg/dL POC Glucose (mg/dL) 173 H (75-99) mg/dL Hemoglobin A1c (4.2-6.1) % Total Creatine Kinase (55-170) U/L Triglycerides (<150) mg/dL HDL Cholesterol (40-60) mg/dL Thrombosis Risk Factor Assmnt - Choose All That Apply Any of the Below Risk Factors Present?: Yes Each Factor Represents 1 point: Age 41-60 years, Obesity (BMI >25), Varicose veins Other Risk Factors: No Other congenital or acquired thrombophilia - If yes, enter type in comment: No Thrombosis Risk Factor Assessment Total Risk Factor Score: 3 Thrombosis Risk Factor Assessment Level: Moderate Risk Assessment and Plan Plan: #1 chest pain: Patient does have some tibial features of cardiac pain. Patient will benefit from evaluation from cardiology. We'll continue monitoring here. One more set of troponin will be obtained. Decision regarding stress test or cardiac catheterization as per cardiology. #2 type 2 diabetes mellitus: Continue his home regimen along with sliding scale hold off on oral hypoglycemic agents up titrate insulin as needed. #3 hypertension #4 obstructive sleep apnea #5 obesity #6 diabetic neuropathy For above-mentioned rest of the chronic medical problems patient will be continued on home medications and close clinical monitoring.
--- NOTE | 2017-02-17 15:00 | P.CRDCN ---
History of Present Illness Consult date: 02/17/17 Chief complaint: Chest discomfort History of present illness: This is a pleasant 56-year-old gentleman with a known CAD and status post a stenting of the proximal LAD was performed in December 2016, presented to the hospital complaining of chest discomfort. The patient was in his usual state of health yesterday when he started experiencing discomfort in the mid of the chest, as a sharp kind of discomfort, with mild tingling in the left arm. He stated that the discomfort was different from what he experienced before the heart catheterization and a stenting in December of this year. The cardiac workup came in to be unremarkable. The EKG showed sinus rhythm without any ischemic ST or T-wave abnormalities. The cardiac enzymes came in to be unremarkable. I recommended keeping the patient for observation for additional 24 hours. I will assess him tomorrow morning. If he continues to have a chest discomfort I would proceed with a heart catheterization. Past Medical History Past Medical History: Coronary Artery Disease (CAD), Diabetes Mellitus, Hyperlipidemia, Hypertension, Osteoarthritis (OA), Pneumonia Additional Past Medical History / Comment(s): NIDDM type II, bronchitis, 2010 fell off a ladder with 2 left rib fractures and L knee meniscus tear. History of Any Multi-Drug Resistant Organisms: None Reported Past Surgical History: Appendectomy, Heart Catheterization, Heart Catheterization With Stent, Joint Replacement, Orthopedic Surgery, Tonsillectomy Additional Past Surgical History / Comment(s): 08/19/10 cardiac cath with 40% LAD blockage-treated medically, december 2016 cardiac cath 2 stents placed, bilateral knee arthroscopies, nasal fracture with surgery, R shoulder spur removal, L shoulder tendon repair with debridement, colonoscopy. Past Anesthesia/Blood Transfusion Reactions: No Reported Reaction Date of Last Stent Placement:: december 2016 Past Psychological History: No Psychological Hx Reported Additional Psychological History / Comment(s): Pt resides with his spouse, their aneta and son-in-law and their 2 1/2 yr old granddaughter. He is independent. Smoking Status: Never smoker Past Alcohol Use History: None Reported Past Drug Use History: None Reported - Past Family History Father Family Medical History: Cancer Additional Family Medical History / Comment(s): Father of lung cancer. He was a smoker. Mother Family Medical History: Cancer Additional Family Medical History / Comment(s): Mother of lung cancer. She was a smoker. Brother(s) Family Medical History: Cancer Additional Family Medical History / Comment(s): 2 brother's had lung cancer- they were both smokers. Sister(s) Family Medical History: Cancer Additional Family Medical History / Comment(s): Pt's sister had lung cancer-she was a smoker. Medications and Allergies Home Medications Medication Instructions Recorded Confirmed Type Aspirin EC [Ecotrin Low Dose] 81 mg PO HS 02/16/16 02/16/17 History metFORMIN HCL [Metformin HCl ER] 500 mg PO AC-BID 02/16/16 02/16/17 History Gabapentin [Neurontin] 300 mg PO BID 11/09/16 02/16/17 History Glimepiride [Amaryl] 1 mg PO AC-BRKFST 11/09/16 02/16/17 History Multivit-Min/FA/Lycopen/Lutein 1 tab PO DAILY 11/09/16 02/16/17 History [Centrum Silver Men Tablet] Lisinopril [Zestril] 10 mg PO HS 12/08/16 02/16/17 History Simvastatin [Zocor] 40 mg PO HS 02/16/17 02/16/17 History Allergies Allergy/AdvReac Type Severity Reaction Status Date / Time atorvastatin [From Lipitor] AdvReac Diarrhea Verified 02/16/17 19:50 Physical Exam Vitals: Vital Signs Temp Pulse Pulse Resp BP BP Pulse Ox 02/17/17 11:27 97.5 F L 62 16 120/78 96 02/17/17 08:00 16 02/17/17 07:31 98.1 F 63 16 107/65 97 02/17/17 04:00 97.9 F 66 18 104/61 97 02/17/17 03:27 18 02/16/17 23:51 18 02/16/17 23:42 97.8 F 66 18 142/74 98 02/16/17 19:55 18 02/16/17 19:47 97.8 F 64 18 138/71 98 02/16/17 19:25 97.8 F 65 20 144/74 97 02/16/17 17:16 97.7 F 69 20 122/68 99 Intake and Output 02/16/17 02/17/17 02/17/17 22:59 06:59 14:59 Intake Total 1322.718 Balance 1322.718 Intake: IV 160 Heparin Sodium,Porcine/ 160 D5w Pmx 25,000 unit In Dextrose/Water 1 500ml. bag @ 8.3 UNITS/KG/HR 19. 95 mls/hr IV .Q24H [facility] Rx #:[id number] Intake, IV Titration 912.718 Amount Heparin Sodium,Porcine/ 112.718 D5w Pmx 25,000 unit In Dextrose/Water 1 500ml. bag @ 8.3 UNITS/KG/HR 19. 95 mls/hr IV .Q24H [facility] Rx #:[id number] Sodium Chloride 0.9% 1, 800 000 ml @ 100 mls/hr IV . Q10H [facility] Rx#:[id number] Oral 250 Other: Voiding Method Toilet Toilet Toilet # Voids 3 Weight 120.202 kg - Constitutional General appearance: no acute distress - Respiratory Respiratory: bilateral: CTA - Cardiovascular Rhythm: regular Heart sounds: normal: S1, S2 Abnormal Heart Sounds: systolic murmur Results 02/17/17 07:29 02/16/17 17:50 Cardiac Enzymes 02/16/17 02/16/17 02/17/17 Range/Units 17:50 17:50 00:10 AST 49 (17-59) U/L CK-MB (CK-2) 1.5 1.3 (0.0-2.4) ng/mL Troponin I <0.012 <0.012 (0.000-0.034) ng/mL 02/17/17 Range/Units 06:22 AST (17-59) U/L CK-MB (CK-2) 1.1 (0.0-2.4) ng/mL Troponin I <0.012 (0.000-0.034) ng/mL Coagulation 02/16/17 02/17/17 02/17/17 Range/Units 17:50 00:10 06:22 PT 10.0 (9.0-12.0) sec APTT 24.7 30.3 H 40.4 H (22.0-30.0) sec Lipids 02/17/17 Range/Units 06:22 Triglycerides 179 H (<150) mg/dL Cholesterol 122 (<200) mg/dL HDL Cholesterol 36 L (40-60) mg/dL CBC 02/16/17 02/17/17 Range/Units 17:50 07:29 WBC 7.6 (3.8-10.6) k/uL RBC 4.31 (4.30-5.90) m/uL Hgb 13.7 (13.0-17.5) gm/dL Hct 40.2 (39.0-53.0) % Plt Count 205 203 (150-450) k/uL Comprehensive Metabolic Panel 02/16/17 Range/Units 17:50 Sodium 137 (137-145) mmol/L Potassium 4.9 (3.5-5.1) mmol/L Chloride 105 (98-107) mmol/L Carbon Dioxide 23 (22-30) mmol/L BUN 16 (9-20) mg/dL Creatinine 0.73 (0.66-1.25) mg/dL Glucose 144 H (74-99) mg/dL Calcium 9.0 (8.4-10.2) mg/dL AST 49 (17-59) U/L ALT 66 (21-72) U/L Alkaline Phosphatase 59 (38-126) U/L Total Protein 6.7 (6.3-8.2) g/dL Albumin 4.0 (3.5-5.0) g/dL Current Medications Generic Name Dose Route Start Last Admin Trade Name Freq PRN Reason Stop Dose Admin Alprazolam 0.25 mg 02/16/17 20:19 Xanax PO QID PRN Anxiety Aspirin 325 mg 02/17/17 09:00 02/17/17 14:24 Aspirin PO 325 mg DAILY [facility] Administration Atorvastatin Calcium 20 mg 02/16/17 21:00 02/16/17 20:49 Lipitor PO 20 mg HS [facility] Administration Gabapentin 300 mg 02/16/17 21:00 02/17/17 12:30 Neurontin PO 300 mg BID [facility] Administration Glimepiride 1 mg 02/17/17 07:30 02/17/17 12:29 Amaryl PO 1 mg AC-BRKFST [facility] Administration Heparin Sodium (Porcine) 0 unit 02/16/17 18:46 02/17/17 00:57 Heparin IV 4,000 unit Q6HR PRN Administration Low PTT Protocol Heparin Sodium/Dextrose 25,000 500 mls @ 19.95 mls/hr 02/16/17 19:00 00:55 unit/ IV Solution IV 11.3 units/kg/hr .Q24H [facility] 27.16 mls/hr Protocol Titration 8.3 UNITS/KG/HR Sodium Chloride 1,000 mls @ 100 mls/hr 02/16/17 19:00 02/17/17 05:51 Saline 0.9% IV 100 mls/hr .Q10H [facility] Administration Insulin Human Lispro 0 unit 02/16/17 21:00 02/17/17 12:33 Humalog SQ 2 unit ACHS [facility] Administration Protocol Lisinopril 10 mg 02/16/17 21:00 02/16/17 20:41 Zestril PO 10 mg HS [facility] Administration Morphine Sulfate 4 mg 02/16/17 18:46 02/17/17 07:33 Morphine Sulfate (Inj) IV 4 mg Q5M PRN Administration Chest Pain Multivitamins 1 each 02/17/17 12:00 02/17/17 12:30 Theragran PO 1 each DAILY@1200 [facility] Administration Nitroglycerin 0.4 mg 02/16/17 18:46 02/16/17 19:08 Nitrostat SUBLINGUAL 0.4 mg Q5M PRN Administration Chest Pain Prasugrel 10 mg 02/17/17 09:00 02/17/17 12:30 Effient PO 10 mg DAILY [facility] Administration Intake and Output 02/16/17 02/17/17 02/17/17 22:59 06:59 14:59 Intake Total 1322.718 Balance 1322.718 Intake: IV 160 Heparin Sodium,Porcine/ 160 D5w Pmx 25,000 unit In Dextrose/Water 1 500ml. bag @ 8.3 UNITS/KG/HR 19. 95 mls/hr IV .Q24H [facility] Rx #:[id number] Intake, IV Titration 912.718 Amount Heparin Sodium,Porcine/ 112.718 D5w Pmx 25,000 unit In Dextrose/Water 1 500ml. bag @ 8.3 UNITS/KG/HR 19. 95 mls/hr IV .Q24H [facility] Rx #:[id number] Sodium Chloride 0.9% 1, 800 000 ml @ 100 mls/hr IV . Q10H [facility] Rx#:[id number] Oral 250 Other: Voiding Method Toilet Toilet Toilet # Voids 3 Weight 120.202 kg 02/17/17 07:29 02/16/17 17:50 Assessment and Plan Plan: This is a pleasant 56-year-old gentleman with known CAD and prior stenting of the proximal LAD admitted to the hospital was atypical chest discomfort. The cardiac workup came in to be unremarkable including the EKG as well as cardiac enzymes. I would continue monitoring the patient for additional 24 hours. And continue following up with him.
[2017-02-17 15:07] LABS: Partial Thromboplastin Time 34.8 sec (22.0-30.0)
[2017-02-17] MEDS: HEPARIN SODIUM,PORCINE/D5W PMX 25,000 UNIT in DEXTROSE/WATER 1 500ML.BAG IV SCH (16:33)
[2017-02-17 17:21] LABS: Glucose,Whole Blood 144 mg/dL (75-99)
[2017-02-17] MEDS: ATORVASTATIN 20 MG TAB PO SCH (19:27)
[2017-02-17] MEDS: LISINOPRIL 10 MG TAB PO SCH (19:27)
[2017-02-17 21:10] LABS: Glucose,Whole Blood 188 mg/dL (75-99)
[2017-02-18] MEDS: HEPARIN SODIUM,PORCINE/D5W PMX 25,000 UNIT in DEXTROSE/WATER 1 500ML.BAG IV SCH (04:01)
[2017-02-18] MEDS: SODIUM CHLORIDE 0.9% 1,000 ML IV SCH ×3 (04:04→13:39)
[2017-02-18 06:41] LABS: Glucose,Whole Blood 170 mg/dL (75-99)
[2017-02-18 06:55] LABS: Mean Platelet Volume 7.6
[2017-02-18 07:08] VITALS: RESP 16
[2017-02-18] MEDS: GABAPENTIN 300 MG CAP PO SCH (08:05)
[2017-02-18] MEDS: PRASUGREL 10 MG TAB PO SCH (08:05)
[2017-02-18] MEDS: ASPIRIN 325 MG TAB PO SCH (08:05)
[2017-02-18] MEDS: GLIMEPIRIDE 1 MG TAB PO SCH (08:05)
[2017-02-18] MEDS: INSULIN LISPRO (humaLOG) 300 UNIT/3 ML VIAL SQ SCH ×3 (08:14→17:49)
[2017-02-18] MEDS: MORPHINE SULFATE 4 MG/ML SYRINGE IV PRN (09:05)
[2017-02-18 12:03] LABS: Glucose,Whole Blood 165 mg/dL (75-99)
[2017-02-18] MEDS ORDERED: ALPRAZolam 0.5 MG TAB PO PRN (12:27)
[2017-02-18] MEDS ORDERED: SODIUM CHLORIDE 0.9% 1,000 ML in EMPTY BAG 1 BAG IV ONE (12:27)
[2017-02-18] MEDS ORDERED: ALPRAZolam 0.25 MG TAB PO PRN (12:27)
--- NOTE | 2017-02-18 12:32 | P.PN ---
Subjective Principal diagnosis: Recurrent chest discomfort This is a pleasant 56-year-old gentleman with a known CAD and status post a stenting of the proximal LAD was performed in December 2016, presented to the hospital complaining of chest discomfort. The patient was in his usual state of health yesterday when he started experiencing discomfort in the mid of the chest, as a sharp kind of discomfort, with mild tingling in the left arm. He stated that the discomfort was different from what he experienced before the heart catheterization and a stenting in December of this year. The cardiac workup came in to be unremarkable. The EKG showed sinus rhythm without any ischemic ST or T-wave abnormalities. The cardiac enzymes came in to be unremarkable. The patient continues to have intermittent episodes of chest discomfort throughout the night as well as this morning. I recommended proceeding with heart catheterization tomorrow with Dr. Soriano but the patient would like to proceed with a heart catheterization today. Objective - Vital Signs Vital signs: Vital Signs Temp 98 F 02/18/17 11:26 Pulse 54 L 02/18/17 11:26 Resp 16 02/18/17 11:26 BP 112/69 02/18/17 11:26 Pulse Ox 98 02/18/17 11:26 Intake & Output 02/17/17 02/18/17 02/18/17 18:59 06:59 18:59 Intake Total 387.282 394.110 Balance 387.282 394.110 Intake: Intake, IV Titration 387.282 394.110 Amount Heparin Sodium,Porcine/ 387.282 394.110 D5w Pmx 25,000 unit In Dextrose/Water 1 500ml. bag @ 8.3 UNITS/KG/HR 19. 95 mls/hr IV .Q24H [facility] Rx #:[id number] Other: Voiding Method Toilet Toilet Toilet - Constitutional General appearance: Present: no acute distress - Respiratory Respiratory: bilateral: CTA - Cardiovascular Rhythm: regular Heart sounds: normal: S1, S2 - Labs CBC & Chem 7: 02/18/17 06:40 02/16/17 17:50 Labs: Abnormal Lab Results - Last 24 Hours (Table) 02/17/17 02/17/17 02/17/17 Range/Units 14:43 17:17 21:08 APTT 34.8 H (22.0-30.0) sec POC Glucose (mg/dL) 144 H 188 H (75-99) mg/dL 02/17/17 02/18/17 02/18/17 Range/Units 22:09 06:33 12:01 APTT 59.2 H (22.0-30.0) sec POC Glucose (mg/dL) 170 H 165 H (75-99) mg/dL Assessment and Plan Plan: This is a pleasant 56-year-old gentleman with known CAD and prior stenting of the proximal LAD admitted to the hospital was atypical chest discomfort. The cardiac workup came in to be unremarkable including the EKG as well as cardiac enzymes. The patient continues to have a chest discomfort and I recommended proceeding with heart catheterization
[2017-02-18] MEDS: MULTIVITAMINS, THERA 1 EACH TAB PO SCH (12:39)
[2017-02-18] MEDS ORDERED: HEPARIN SODIUM 1,000 UN/ML (10ML VL) ONE (13:29)
[2017-02-18] MEDS ORDERED: diphenhydrAMINE 50 MG/ML 1 ML VIAL ONE (13:30)
[2017-02-18] MEDS ORDERED: MIDAZOLAM 2 MG/2 ML VIAL ONE (13:30)
[2017-02-18] MEDS ORDERED: LIDOCAINE 2% INJ 20 MG/ML (20 ML MDV) ONE (13:30)
[2017-02-18] MEDS ORDERED: VERAPAMIL 2.5 MG/ML 2 ML AMP ONE (13:30)
[2017-02-18] MEDS ORDERED: diphenhydrAMINE 50 MG/ML 1 ML VIAL IVP ONE (13:58)
[2017-02-18] MEDS ORDERED: MIDAZOLAM 2 MG/2 ML VIAL IV ONE (13:58)
[2017-02-18] MEDS ORDERED: LIDOCAINE 2% INJ 20 MG/ML SQ ONE (13:59)
[2017-02-18] MEDS: VERAPAMIL SYRINGE (5 MG/10 ML) INTRAARTER ONE ×2 (14:00→14:15)
[2017-02-18] MEDS ORDERED: IOHEXOL 350 MG/ML 125ML BOTTLE INJ ONE (14:14)
[2017-02-18] MEDS ORDERED: RX INFO: IV CONTRAST WAS GIVEN 1 EACH MISC MISCELLANE PRN (14:19)
[2017-02-18] MEDS ORDERED: SODIUM CHLORIDE 0.9% 1,000 ML IV SCH (14:30)
[2017-02-18 14:39] VITALS: TEMP 98.4
[2017-02-18 14:53] LABS: Glucose,Whole Blood 125 mg/dL (75-99)
--- NOTE | 2017-02-18 15:22 | P.PN ---
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
[2017-02-18 16:50] VITALS: BP 94/54; PULSE 69
[2017-02-18 17:11] LABS: Glucose,Whole Blood 171 mg/dL (75-99)
--- NOTE | 2017-02-18 20:08 | P.DS ---
Providers Date of admission: 02/16/17 18:45 Attending physician: Cici Macdonald Consults: 02/16/17 18:46 Consult Physician Urgent Consulting Provider: Papo Scott Consult Reason/Comments: cp Do you want consulting provider notified?: Yes Primary care physician: Rowena [facility] Course: Patient was admitted for chest pain and he underwent cardiac cathetrisation which was clear and patient is being discharged today. Patient Condition at Discharge: Fair Plan - Discharge Summary New Discharge Prescriptions: No Action Aspirin EC [Ecotrin Low Dose] 81 mg PO HS metFORMIN HCL [Metformin HCl ER] 500 mg PO AC-BID Gabapentin [Neurontin] 300 mg PO BID Glimepiride [Amaryl] 1 mg PO AC-BRKFST Multivit-Min/FA/Lycopen/Lutein [Centrum Silver Men Tablet] 1 tab PO DAILY Lisinopril [Zestril] 10 mg PO HS Prasugrel [Effient] 10 mg PO DAILY #30 tab Simvastatin [Zocor] 40 mg PO HS Discharge Medication List Aspirin EC [Ecotrin Low Dose] 81 mg PO HS 02/16/16 [History] metFORMIN HCL [Metformin HCl ER] 500 mg PO AC-BID 02/16/16 [History] Gabapentin [Neurontin] 300 mg PO BID 11/09/16 [History] Glimepiride [Amaryl] 1 mg PO AC-BRKFST 11/09/16 [History] Multivit-Min/FA/Lycopen/Lutein [Centrum Silver Men Tablet] 1 tab PO DAILY [History] Lisinopril [Zestril] 10 mg PO HS 12/08/16 [History] Prasugrel [Effient] 10 mg PO DAILY #30 tab 12/11/16 [Rx] Simvastatin [Zocor] 40 mg PO HS 02/16/17 [History] Follow up Appointment(s)/Referral(s): Tesfaye Guaman MD [Primary Care Provider] - 1-2 days Lalo Soriano MD [STAFF PHYSICIAN] - 1 Week (Please call Dr. Soriano's office to set up a post-catheterization site check.) Patient Instructions/Handouts: Chest Pain (ED), After Radial Heart Catheterization (GEN)
--- NOTE | 2017-02-19 13:16 | CC ---
DATE OF SERVICE: 02/18/2017 PERFORMING PHYSICIAN: VISHNU SENIOR MD, [employer] SELECTOR PROCEDURE PERFORMED: Selective right and left coronary angiogram. INDICATION: This is a pleasant 56-year-old gentleman who sees Dr. Soriano as an outpatient who is known to have CAD with prior stenting of the proximal LAD was performed several months ago, presented to the hospital with chest discomfort. He was ruled out for acute coronary syndrome. He continues to have ongoing chest discomfort during the night las night as well as during the day. In view of the ongoing chest discomfort, I recommended proceeding with heart catheterization. APPROACH: Right radial artery. COMPLICATION: None. LEVEL OF SEDATION: Moderate with a sedation length of 17 minutes. PROCEDURE DESCRIPTION: After obtaining an informed consent, the patient was brought to the Cardiac Labor Relations Supervisor. The right radial artery was cannulated using micropuncture technique. The micropuncture wire passed easily, then I placed a 6 Italian sheath in the right radial artery. We subsequently gave the patient 3000 units of heparin IV and 2 mg of Verapamil IA. After that, I did selective right and left coronary angiogram using JR4 and JL3.5 catheters. The procedure was completed without any complication. SELECTIVE CORONARY ANGIOGRAM: 1. The right coronary artery is a large caliber vessel and it is a dominant vessel. The proximal RCA is normal. The mid RCA has a lesion, seems to be in the range of 30%. The RCA distally is normal, bifurcates in PDA and PLV branches, both are angiographically normal. 2. The left main is angiographically normal. Bifurcates into the left circumflex and left anterior descending artery. 3. The left circumflex is a large caliber vessel and it is a codominant vessel. The proximal left circumflex appears to be angiographically normal. The mid-left circumflex is normal and gives rise into large first OM branch which seems to be angiographically normal. The left circumflex distally is normal and bifurcates into PDA and PLV branches. Both are angiographically normal. 4. The left anterior descending artery, the proximal LAD is stented. At the stent is patent. The mid LAD appeared to be angiographically normal and the LAD appeared to be angiographically normal as well. CONCLUSION: 1. Mild disease involving the mid-right coronary artery. 2. Normal left main coronary artery. 3. Normal left circumflex coronary artery. 4. Patent stent in the proximal left anterior descending artery. Post-procedure management will be maximize medical treatment and follow up with the patient. ARMANDO
--- NOTE | 2017-03-07 15:55 | CDI ---
Dear Dr Quintana, Please provide clarification of the procedure by finishing the Operative Findings section and the Description of Procedure section of the Procedure note. Please respond to this query by dictating an addendum to your Procedure Note. Thank you for your assistance. Jeanine Caceres If you have any questions, please contact Sample Tester, Shannon Hardwick at . [facility]
== END 2017-02-18 19:43 | disposition home or self-care (01) ==
LOC: EC 17:02 → 3OBS 18:45
PROVIDERS: ADMIT Hospitalist; ATTEND Hospitalist
DX: R07.89 Other chest pain (principal); I25.2 Old myocardial infarction; I10 Essential (primary) hypertension; E11.40 Type 2 diabetes mellitus with diabetic neuropathy, unspecified; M19.90 Unspecified osteoarthritis, unspecified site; J18.9 Pneumonia, unspecified organism; I25.10 Atherosclerotic heart disease of native coronary artery without angina pectoris; R01.1 Cardiac murmur, unspecified; E78.5 Hyperlipidemia, unspecified; E66.9 Obesity, unspecified; Z95.5 Presence of coronary angioplasty implant and graft; Z79.82 Long term (current) use of aspirin; Z79.899 Other long term (current) drug therapy; Z79.84 Long term (current) use of oral hypoglycemic drugs; Z79.02 Long term (current) use of antithrombotics/antiplatelets; Z88.8 Allergy status to other drugs, medicaments and biological substances; Z80.1 Family history of malignant neoplasm of trachea, bronchus and lung; Z68.38 Body mass index [BMI] 38.0-38.9, adult
CPT/HCPCS: 99152; 96365; 96366 ×3; 96375; 96376 ×3; 99291; 36415; 94760; 93005; 93454; 85379; 80061; 80053; 83036; 82550 ×2; 82553 ×2; 83690; 83735; 84484 ×2; 85025; 85049 ×2; 85610; 85730 ×2; 71020; G0378 ×3; C1894; J2001; J2250; J2270 ×2; J1200; J1644 ×6; Q9967

== ENCOUNTER → 2017-02-20 | Outpatient (CLI) | payer MEDICAID ==
--- NOTE | 2017-02-20 17:38 | US ---
EXAMINATION TYPE: US abdomen complete DATE OF EXAM: 02/20/2017 COMPARISON: CLINICAL HISTORY: R10.13 Epigastric Pain, R11.2 Nausea And Vomiting. RUQ pain. NPO EXAM MEASUREMENTS: Liver Length: 18.9 cm Gallbladder Wall: 0.3 cm CHD: 0.5 cm Spleen: 11.6 cm Right Kidney: 11.6 x 5.4 x 5.7 cm Left Kidney: 11.7x 5.9x 5.5 cm Suboptimal visualized due to patient body habitus and overlying bowel gas Pancreas: Obscured by bowel gas Liver: Enlarged. Increased attenuation, decreased visualization of vessels suggestive of fatty infil trate. Echogenic. Suboptimal visualization Gallbladder: Suboptimal visualization Evidence for sonographic Tan's sign: neg CHD: wnl as visualized. Spleen: wnl Right Kidney: wnl Left Kidney: wnl Upper IVC: Obscured by overlying bowel gas Abd Aorta: Obscured by overlying bowel gas, limited visualization The liver is homogenous. The intrahepatic portion of the IVC and proximal abdominal aorta are within normal limits. There is no evidence of cholelithiasis. Common bile duct is unremarkable. The visu alized portions of the pancreas are homogenous. The spleen is unremarkable. Kidneys are symmetric a nd free of hydronephrosis. No renal lesions are seen. IMPRESSION: There is probably fatty infiltration of the liver. No evidence of gallstones or dilated d ucts.
== END | disposition home or self-care (01) ==
LOC: RADUSMAIN 16:47
PROVIDERS: ATTEND Internal Medicine
DX: R10.13 Epigastric pain (principal); R11.2 Nausea with vomiting, unspecified
CPT/HCPCS: 76700

== ENCOUNTER → 2017-08-22 | Outpatient (CLI) | payer OTHER ==
--- NOTE | 2017-08-22 15:32 | XR ---
Left knee HISTORY: Trauma and pain 3 views of the left knee correlated to prior exam 06/10/2011 There is joint space loss in the medial compartment. Bone mineralization, joint spaces and alignment are otherwise maintained obtained. Some mild marginal spurring present in the medial compartment. The re may be a small joint effusion. IMPRESSION: No acute fracture or dislocation. Osteoarthritis.
== END | disposition home or self-care (01) ==
LOC: RADXRMAIN 15:09
PROVIDERS: ATTEND Emergency Medicine
DX: M17.12 Unilateral primary osteoarthritis, left knee (principal)

== ENCOUNTER → 2017-08-29 | Outpatient (CLI) | payer OTHER ==
--- NOTE | 2017-08-29 09:29 | MR ---
EXAMINATION TYPE: MR knee LT wo con DATE OF EXAM: 08/29/2017 COMPARISON: NONE HISTORY: Contusion of left knee, initial encounter. Inner knee pain for one month TECHNIQUE: Multiplanar, multisequence imaging of the left knee is performed without IV contrast. FINDINGS: MEDIAL MENISCUS: There is a small radial tear of the body of the medial meniscus at its undersurface along the tibial plateau. Additionally there is a small contusion of the tibial plateau just anterior to this measuring 1.2 cm there is T1 hypointense and PD hyperintense. No linear fracture line is juan ntified. Stomach and area of bone marrow edema versus developing osteochondral defect is seen measuri ng 8 mm of the medial anterior tibial plateau. LATERAL MENISCUS: Anterior and posterior horns are intact without tear. Incidental note is made of a discoid lateral meniscus. CRUCIATE LIGAMENTS: The anterior and posterior cruciate ligaments are intact and unremarkable. COLLATERAL LIGAMENTS: The medial collateral ligament and lateral collateral ligament complex are inta ct and unremarkable. EXTENSOR MECHANISM: Visualized quadriceps and patellar tendons are intact. There is minimal increased signal at the insertion of the patellar tendon and increased signal anterior to the patellar tendon as well as within the infrapatellar fat. EFFUSION: No significant suprapatellar joint effusion. POPLITEAL CYST: Small multiloculated popliteal/Muse's cyst is present. TRICOMPARTMENT SPACES: Small hooked osteophytes are seen of the lateral femoral condyle anteriorly an d lateral patellar facet. Additionally there is mild medial compartment joint space narrowing. CARTILAGE: There is mild signal heterogeneity of the patellofemoral cartilage without focal defect. F ull-thickness cartilaginous defect of the weightbearing surface of the medial femoral condyle measure s 1.1 x 0.8 cm with signal heterogeneity and thinning of the remainder of the medial compartment cart ilage. Lateral compartment cartilage is unremarkable. IMPRESSION: 1. Small radial tear of the medial meniscal body at its undersurface. 2. Incidentally noted discoid lateral meniscus. 3. Low-grade insertional patellar tendon strain with overlying infrapatellar subcutaneous edema. 4. Tricompartmental chondromalacia with full-thickness cartilaginous defect of the weightbearing surf donovan of the medial femoral condyle measuring 1.1 x 0.8 cm.
== END | disposition home or self-care (01) ==
LOC: RADMRIMAIN 08:03
PROVIDERS: ATTEND Emergency Medicine
DX: S83.242A Other tear of medial meniscus, current injury, left knee, initial encounter (principal); S86.812A Strain of other muscle(s) and tendon(s) at lower leg level, left leg, initial encounter; R60.0 Localized edema; M94.262 Chondromalacia, left knee; M94.8X6 Other specified disorders of cartilage, lower leg

== ENCOUNTER 2018-06-17 11:23 | Observation (INO) | payer MEDICAID ==
[~2018-06-17 11:23] MED LIST: CAFFEINE CITRATE 60 MG/3 ML VIAL ONE; DEXTROSE 5% IN WATER 50 ML BAG ONE; REGADENOSON 0.4 MG/5 ML SYRINGE IV ONE
--- NOTE | 2018-06-17 11:40 | NM ---
EXAMINATION TYPE: NM stress lexiscan cardiolite DATE OF EXAM: 06/17/2018 COMPARISON: 06/27/2017 HISTORY: Chest pain TECHNIQUE: After the intravenous administration of 10.18 mCi Tc 99m Sestamibi - Cardiolite resting S PECT images acquired 45 minutes post injection. The patient received 0.4mg Lexiscan, 25.9 mCi Tc 99m Sestamibi - Stress images obtained [address] injection FINDINGS: Review of stress and rest SPECT images demonstrates no distinct perfusion abnormality. Gated analysi s shows normal wall motion with an estimated left ventricular ejection fraction of 53 %. IMPRESSION: No scintigraphic evidence for reversible ischemia.
[2018-06-17] MEDS ORDERED: NITROGLYCERIN OINT 1 INCH/GM PACKET TOPICAL STA (12:55)
[2018-06-17] MEDS ORDERED: ASPIRIN 81 MG PO STA (12:55)
--- NOTE | 2018-06-17 13:04 | ED ---
General Adult HPI - General Chief complaint: Chest Pain Stated complaint: chest pain Time Seen by Provider: 06/17/18 11:30 Source: patient, RN notes reviewed Mode of arrival: wheelchair Limitations: no limitations - History of Present Illness Initial comments: This is a 57-year-old male with past medical history significant for coronary artery disease and has had a couple stents placed in the past. Patient states he was getting a stress test today because he was having multiple episodes of chest pain throughout the last 5 weeks. Patient states during the stress test when he was given the medication he immediately started having some chest tightness and pain he said this pain was reminiscent of the pain he had prior to getting his stents placed. Patient states he continues to have tightness in the chest but the significant pain in the left side of his chest is no longer there. Patient stated he also felt somewhat short of breath when he had this pain. Patient denies any diaphoretic episodes. Patient denies any nausea. Patient denies any lightheadedness dizziness or near syncopal episode. Patient denied abdominal pain patient with any vomiting or diarrhea. Patient denies any recent fever chills or cough. - Related Data Home Medications Medication Instructions Recorded Confirmed Aspirin EC [Ecotrin Low Dose] 81 mg PO HS 02/16/16 06/17/18 metFORMIN HCL [Metformin HCl ER] 1,000 mg PO BID 02/16/16 06/17/18 Gabapentin [Neurontin] 300 mg PO BID 11/09/16 06/17/18 Glimepiride [Amaryl] 1 mg PO [id number] 11/09/16 06/17/18 Multivit-Min/FA/Lycopen/Lutein 1 tab PO DAILY 11/09/16 06/17/18 [Centrum Silver Men Tablet] Lisinopril [Zestril] 10 mg PO HS 12/08/16 06/17/18 Simvastatin [Zocor] 40 mg PO HS 02/16/17 06/17/18 Metoprolol Tartrate [Lopressor] 12.5 mg PO QAM 06/26/17 06/17/18 Clopidogrel [Plavix] 75 mg PO DAILY 06/17/18 06/17/18 Methylsulfonylmethane [MSM] 1,000 mg PO DAILY 06/17/18 06/17/18 Metoprolol Tartrate [Lopressor] 25 mg PO HS 06/17/18 06/17/18 Allergies Allergy/AdvReac Type Severity Reaction Status Date / Time atorvastatin [From Lipitor] AdvReac Diarrhea Verified 06/17/18 11:44 Review of Systems ROS Statement: Those systems with pertinent positive or pertinent negative responses have been documented in the HPI. ROS Other: All systems not noted in ROS Statement are negative. Past Medical History Past Medical History: Coronary Artery Disease (CAD), Diabetes Mellitus, Hyperlipidemia, Hypertension, Osteoarthritis (OA), Pneumonia Additional Past Medical History / Comment(s): NIDDM type II, bronchitis, 2010 fell off a ladder with 2 left rib fractures and L knee meniscus tear. History of Any Multi-Drug Resistant Organisms: None Reported Past Surgical History: Appendectomy, Heart Catheterization, Heart Catheterization With Stent, Joint Replacement, Orthopedic Surgery, Tonsillectomy Additional Past Surgical History / Comment(s): 08/19/10 cardiac cath with 40% LAD blockage-treated medically, december 2016 cardiac cath 2 stents placed, bilateral knee arthroscopies, nasal fracture with surgery, R shoulder spur removal, L shoulder tendon repair with debridement, colonoscopy. Past Anesthesia/Blood Transfusion Reactions: No Reported Reaction Date of Last Stent Placement:: december 2016 Past Psychological History: No Psychological Hx Reported Smoking Status: Never smoker Past Alcohol Use History: None Reported Past Drug Use History: None Reported - Past Family History Father Family Medical History: Cancer Additional Family Medical History / Comment(s): Father of lung cancer. He was a smoker. Mother Family Medical History: Cancer Additional Family Medical History / Comment(s): Mother of lung cancer. She was a smoker. Brother(s) Family Medical History: Cancer Additional Family Medical History / Comment(s): 2 brother's had lung cancer- they were both smokers. Sister(s) Family Medical History: Cancer Additional Family Medical History / Comment(s): Pt's sister had lung cancer-she was a smoker. General Exam - General Exam Comments Initial Comments: GENERAL: Patient is well-developed and well-nourished. Patient is nontoxic and well- hydrated and is in mild distress. ENT: Neck is soft and supple. No significant lymphadenopathy is noted. Oropharynx is clear. Moist mucous membranes. EYES: The sclera were anicteric and conjunctiva were pink and moist. Extraocular movements were intact and pupils were equal round and reactive to light. Eyelids were unremarkable. PULMONARY: Unlabored respirations. Good breath sounds bilaterally. No audible rales rhonchi or wheezing was noted. CARDIOVASCULAR: There is a regular rate and rhythm without any murmurs gallops or rubs. ABDOMEN: Soft and nontender with normal bowel sounds. No palpable organomegaly was noted. There is no palpable pulsatile mass. SKIN: Skin is clear with no lesions or rashes and otherwise unremarkable. NEUROLOGIC: Patient is alert and oriented x3. Cranial nerves II through XII are grossly intact. Motor and sensory are also intact. Normal speech, volume and content. Symmetrical smile. MUSCULOSKELETAL: Normal extremities with adequate strength and full range of motion. LYMPHATICS: No significant lymphadenopathy is noted PSYCHIATRIC: Normal psychiatric evaluation. Limitations: no limitations Course Vital Signs 06/17/18 06/17/18 06/17/18 11:26 11:48 12:45 Temperature 97.8 F Pulse Rate 74 72 Respiratory 18 20 15 Rate Blood Pressure 156/92 111/71 O2 Sat by Pulse 99 96 Oximetry 06/17/18 06/17/18 06/17/18 13:00 13:07 14:00 Temperature Pulse Rate 73 70 67 Respiratory 16 16 18 Rate Blood Pressure 111/71 115/76 114/70 O2 Sat by Pulse 96 96 97 Oximetry 06/17/18 14:30 Temperature Pulse Rate 64 Respiratory 15 Rate Blood Pressure 125/78 O2 Sat by Pulse 98 Oximetry Medical Decision Making - Medical Decision Making EKG shows normal sinus rhythm at 72 bpm TX interval is on a 64 QRS 78 QT interval 382 QTC is 418. Patient's EKG shows no ST segment elevation or depression or T wave abnormalities are noted. Chest x-ray shows no acute abnormality. Patient was having pain with the stress test and it was similar to pain he had in the past when he needed stent placement. I started the patient on heparin. I spoke with Dr. garzon he agreed to admit the patient admitted the patient I wrote admitting orders I consult cardiology. I continue the heparin and aspirin Nitropaste on the floor - Lab Data Result diagrams: 06/17/18 13:15 06/17/18 13:15 Lab Results 06/17/18 06/17/18 06/17/18 Range/Units 13:15 13:15 13:15 WBC 7.3 (3.8-10.6) k/uL RBC 4.65 (4.30-5.90) m/uL Hgb 14.1 (13.0-17.5) gm/dL Hct 42.6 (39.0-53.0) % MCV 91.5 (80.0-100.0) fL MCH 30.3 (25.0-35.0) pg MCHC 33.1 (31.0-37.0) g/dL RDW 13.0 (11.5-15.5) % Plt Count 220 (150-450) k/uL Neutrophils % 63 % Lymphocytes % 28 % Monocytes % 5 % Eosinophils % 2 % Basophils % 0 % Neutrophils # 4.6 (1.3-7.7) k/uL Lymphocytes # 2.1 (1.0-4.8) k/uL Monocytes # 0.4 (0-1.0) k/uL Eosinophils # 0.1 (0-0.7) k/uL Basophils # 0.0 (0-0.2) k/uL PT (9.0-12.0) sec INR (<1.2) APTT (22.0-30.0) sec Sodium 140 (137-145) mmol/L Potassium 4.6 (3.5-5.1) mmol/L Chloride 105 (98-107) mmol/L Carbon Dioxide 26 (22-30) mmol/L Anion Gap 9 mmol/L BUN 18 (9-20) mg/dL Creatinine 0.65 L (0.66-1.25) mg/dL Est GFR (CKD-EPI)AfAm >90 (>60 ml/min/1.73 sqM) Est GFR (CKD-EPI)NonAf >90 (>60 ml/min/1.73 sqM) Glucose 235 H (74-99) mg/dL Calcium 9.4 (8.4-10.2) mg/dL Magnesium 1.9 (1.6-2.3) mg/dL Total Bilirubin 0.7 (0.2-1.3) mg/dL AST 40 (17-59) U/L ALT 86 H (21-72) U/L Alkaline Phosphatase 55 (38-126) U/L Total Creatine Kinase 173 H (55-170) U/L CK-MB (CK-2) 0.9 (0.0-2.4) ng/mL CK-MB (CK-2) Rel Index 0.5 Troponin I <0.012 (0.000-0.034) ng/mL Total Protein 6.8 (6.3-8.2) g/dL Albumin 4.0 (3.5-5.0) g/dL 06/17/18 Range/Units 13:15 WBC (3.8-10.6) k/uL RBC (4.30-5.90) m/uL Hgb (13.0-17.5) gm/dL Hct (39.0-53.0) % MCV (80.0-100.0) fL MCH (25.0-35.0) pg MCHC (31.0-37.0) g/dL RDW (11.5-15.5) % Plt Count (150-450) k/uL Neutrophils % % Lymphocytes % % Monocytes % % Eosinophils % % Basophils % % Neutrophils # (1.3-7.7) k/uL Lymphocytes # (1.0-4.8) k/uL Monocytes # (0-1.0) k/uL Eosinophils # (0-0.7) k/uL Basophils # (0-0.2) k/uL PT 9.9 (9.0-12.0) sec INR 0.9 (<1.2) APTT 24.4 (22.0-30.0) sec Sodium (137-145) mmol/L Potassium (3.5-5.1) mmol/L Chloride (98-107) mmol/L Carbon Dioxide (22-30) mmol/L Anion Gap mmol/L BUN (9-20) mg/dL Creatinine (0.66-1.25) mg/dL Est GFR (CKD-EPI)AfAm (>60 ml/min/1.73 sqM) Est GFR (CKD-EPI)NonAf (>60 ml/min/1.73 sqM) Glucose (74-99) mg/dL Calcium (8.4-10.2) mg/dL Magnesium (1.6-2.3) mg/dL Total Bilirubin (0.2-1.3) mg/dL AST (17-59) U/L ALT (21-72) U/L Alkaline Phosphatase (38-126) U/L Total Creatine Kinase (55-170) U/L CK-MB (CK-2) (0.0-2.4) ng/mL CK-MB (CK-2) Rel Index Troponin I (0.000-0.034) ng/mL Total Protein (6.3-8.2) g/dL Albumin (3.5-5.0) g/dL Critical Care Time Critical Care Time: Yes Total Critical Care Time: 35 Disposition Clinical Impression: Unstable angina pectoris Disposition: ADMITTED IP TO THIS HOSP Referrals: Tesfaye Guaman MD [Primary Care Provider] - 1-2 days Time of Disposition: 14:58
[2018-06-17 13:44] LABS: Basophils % (A) 0 %; Eosinophils # (A) 0.1 k/uL (0-0.7); Eosinophils % (A) 2 %; HCT 42.6 % (39.0-53.0); HGB 14.1 gm/dL (13.0-17.5); Lymphocytes # (A) 2.1 k/uL (1.0-4.8); Lymphocytes % (A) 28 %; MCH 30.3 pg (25.0-35.0); MCHC 33.1 g/dL (31.0-37.0); MCV 91.5 fL (80.0-100.0); Mean Platelet Volume 6.9; Monocytes # (A) 0.4 k/uL (0-1.0); Monocytes % (A) 5 %; Neutrophils # (A) 4.6 k/uL (1.3-7.7); Neutrophils % (A) 63 %; Platelet Count 220 k/uL (150-450); RBC 4.65 m/uL (4.30-5.90); WBC 7.3 k/uL (3.8-10.6)
--- NOTE | 2018-06-17 13:46 | XR ---
EXAMINATION TYPE: XR chest 2V DATE OF EXAM: 06/17/2018 COMPARISON: 06/26/2017 TECHNIQUE: PA and lateral views submitted. HISTORY: Chest pain FINDINGS: There is no pleural effusion or pneumothorax. No overt failure. Subsegmental changes along the medial margin the right lung base. Hypertrophic and degenerative change of the spine. IMPRESSION: 1. Right basilar atelectasis or infiltrate. Correlate clinically.
[2018-06-17 13:57] LABS: INR 0.9 (<1.2); Partial Thromboplastin Time 24.4 sec (22.0-30.0); Prothrombin Time 9.9 sec (9.0-12.0)
[2018-06-17 14:03] LABS: ALT 86 U/L (21-72); AST 40 U/L (17-59); Alkaline Phosphatase 55 U/L (38-126); Anion Gap 9 mmol/L; Blood Urea Nitrogen 18 mg/dL (9-20); Calcium 9.4 mg/dL (8.4-10.2); Carbon Dioxide 26 mmol/L (22-30); Chloride 105 mmol/L (98-107); Glucose 235 mg/dL (74-99); Magnesium 1.9 mg/dL (1.6-2.3); Potassium 4.6 mmol/L (3.5-5.1); Sodium 140 mmol/L (137-145); Total Bilirubin 0.7 mg/dL (0.2-1.3); Total Protein 6.8 g/dL (6.3-8.2)
--- NOTE | 2018-06-17 14:08 | EST ---
EXERCISE STRESS AGE: 57 SEX: M HT: 5'10" WT: 260 PROTOCOL: Lexiscan Cardiolite Stress Test HEART RATE REST: 71 BLOOD PRESSURE REST: 116/75 MAXIMUM HEART RATE ACHIEVED: 99 MAXIMUM BLOOD PRESSURE: 129/65 85% MPHR: 140 100% MPHR: 165 INDICATIONS: Cardiovascular disease, Chest pain. CLINICAL INFORMATION: Baseline rhythm is sinus mechanism, rate of 71, normal axis and intervals, normal echocardiogram. Baseline blood pressure 116/75 mmHg. Patient received injection of Lexiscan. Electrocardiographic monitoring revealed no evidence of diagnostic ischemic ST deviation. Cardiolite was injected per protocol. Patient had chest discomfort during the infusion that persisted. FINDINGS: 1. Nondiagnostic electrocardiograph stress testing. 2. Nuclear images will be reported separately. MMODL / IJN: [id number] /
[2018-06-17 14:11] LABS: Creatine Kinase 173 U/L (55-170)
[2018-06-17 14:39] LABS: Creatine Kinase MB 0.9 ng/mL (0.0-2.4); Troponin I <0.012 ng/mL (0.000-0.034)
[2018-06-17] MEDS ORDERED: HEPARIN SODIUM,PORCINE 5,000 UNIT/ML 1 ML VIAL IV ONE (14:56)
[2018-06-17] MEDS ORDERED: NITROGLYCERIN SL TABS 0.4 MG TAB SUBLINGUAL PRN (14:58)
[2018-06-17] MEDS ORDERED: HEPARIN SOD,PORK IN 0.45% NACL 25,000 UNIT in 0.45% NACL 1 500ML.BAG IV SCH (15:00)
--- NOTE | 2018-06-17 18:35 | ECHOF ---
Referral Reason:i25.10 MEASUREMENTS -------- HEIGHT: 182.9 cm WEIGHT: 117.9 kg BP: RVIDd: 3.2 cm (< 3.3) IVSd: 1.5 cm (0.6 - 1.1) LVIDd: 3.8 cm (3.9 - 5.3) LVPWd: 1.6 cm (0.6 - 1.1) IVSs: 2.1 cm LVIDs: 1.7 cm LVPWs: 1.8 cm Ao Diam: 2.7 cm (2.0 - 3.7) AV Cusp: 1.0 cm (1.5 - 2.6) LA Diam: 3.8 cm (2.7 - 3.8) MV EXCURSION: 18.807 mm (> 18.000) MV EF SLOPE: 220 mm/s (70 - 150) EPSS: 0.7 cm MV E Donato: 0.81 m/s MV DecT: 229 ms MV A Donato: 0.66 m/s MV E/A Ratio: 1.23 AV maxP.47 mmHg AV meanP.43 mmHg RAP: 5.00 mmHg RVSP: 17.03 mmHg FINDINGS -------- Sinus rhythm. This was a technically difficult study with suboptimal views. The left ventricular size is normal. There is moderate concentric left ventricular hypertrophy. O verall left ventricular systolic function is normal with, an EF between 55 - 60 %. The right ventricle is normal in size. The left atrial size is normal. The right atrium is normal in size. Lumason used Aortic valve is trileaflet and is mildly thickened. There is mild aortic stenosis present. Peak/m christ gradient across the Aortic Valve is 21.47mmHg / 10.43mmHg. The mitral valve is normal. Mild mitral regurgitation is present. Mild tricuspid regurgitation present. Right ventricular systolic pressure is normal at < 35 mmHg. The right ventricular systolic pressure, as measured by Doppler, is 17.03mmHg. There is no pulmonic regurgitation present. The aortic root size is normal. IVC Not well visulized. There is no pericardial effusion. CONCLUSIONS -------- 1. Sinus rhythm. 2. This was a technically difficult study with suboptimal views. 3. The left ventricular size is normal. 4. There is moderate concentric left ventricular hypertrophy. 5. Overall left ventricular systolic function is normal with, an EF between 55 - 60 %. 6. The left atrial size is normal. 7. Lumason used 8. Aortic valve is trileaflet and is mildly thickened. 9. There is mild aortic stenosis present. 10. Peak/mean gradient across the Aortic Valve is 21.47mmHg / 10.43mmHg. 11. Mild mitral regurgitation is present. 12. Mild tricuspid regurgitation present. 13. Right ventricular systolic pressure is normal at < 35 mmHg. 14. There is no pulmonic regurgitation present. 15. The aortic root size is normal. 16. IVC Not well visulized. 17. There is no pericardial effusion. CASKET UPHOLSTERER: Natalie Downey RDCS
[2018-06-17] MEDS ORDERED: HYDROcodone/APAP 5-325MG 1 EACH TAB PO PRN (19:39)
[2018-06-17] MEDS ORDERED: TEMAZEPAM 15 MG CAP PO PRN (19:39)
[2018-06-17] MEDS ORDERED: ALPRAZolam 0.25 MG TAB PO PRN (19:39)
--- NOTE | 2018-06-17 20:29 | HP ---
HISTORY AND PHYSICAL CHIEF COMPLAINT: Chest pain. HISTORY OF PRESENT ILLNESS: This 56-year-old gentleman with a past medical history of CAD stent, history of diabetes type 2, hypertension, hyperlipidemia, DJD being followed by Dr. Guaman in the outpatient setting was complaining of on and off chest pain in the anterior part of the chest which was burning in character. The patient apparently had a stress test today and during the stress test patient had chest pain which reminded the patient of the pain the patient had while the patient had stents in. Patient came to the ER and was admitted for further evaluation and treatment. Stress test was subsequently reported showing no reversible ischemia. There is no history of fever, rigors or chills. No history of headache, loss of consciousness, seizures. PAST MEDICAL HISTORY: CAD stent in 2017, diabetes type 2, hypertension, hyperlipidemia, DJD, history of appendectomy. MEDICATIONS: Prior to admission, home medications are: 1. MSM 1000 mg p.o. daily. 2. Metformin 1000 mg p.o. b.i.d. 3. Zocor 40 mg q.h.s. 4. Multivitamins 1 p.o. daily. 5. Lopressor 25 mg q.h.s. 12.5 mg q.h.s. 6. Zestril 10 mg p.o. q.h.s. 7. Amaryl 1 mg p.o. a.c. breakfast. 8. Neurontin 300 mg p.o. b.i.d. 9. Plavix 75 mg p.o. daily. 10.Ecotrin 81 mg q.h.s. ALLERGIES: LIPITOR. FAMILY HISTORY: History of cancer, lung cancer in the family in father. SOCIAL HISTORY: No history of smoking. No history of alcohol intake. REVIEW OF SYSTEMS: ENT: No diminished vision. No diminished hearing. CARDIOVASCULAR as mentioned earlier. RESPIRATORY: As mentioned earlier. GI no nausea. no dysuria. CENTRAL NERVOUS SYSTEM: No numbness or weakness. ALLERGY/IMMUNOLOGY: No asthma or hayfever. MUSCULOSKELETAL as mentioned earlier. HEMATOLOGY/ONCOLOGY: No history of anemia. ENDOCRINE: diabetes mellitus. CONSTITUTIONAL: As mentioned earlier. Dermatology: Negative. Rheumatology: Negative. Psychiatry: As mentioned earlier. PHYSICAL EXAM: GENERAL: The patient is alert and oriented times three. VITAL SIGNS: Pulse 66, blood pressure 130/80, respirations 16, temp is normal. Pulse ox 94% on 2 L. HEENT is conjunctivae normal. NECK: No jugular venous distention. CARDIOVASCULAR: S1, S2 muffled. RESPIRATORY: Breath sounds diminished in the bases. No rhonchi. No crackles. ABDOMEN: Soft, nontender. No mass palpable. LEGS: No edema and no swelling. NERVOUS SYSTEM: Higher functions as mentioned earlier. Moves all 4 limbs. No focal motor deficits. Lymphatics: No lymph nodes palpable in the neck, axillae or groin. SKIN: No ulcer, rash or bleeding. LABS: CBC within normal limits. Glucose 235 and ALT is 86. ASSESSMENT: 1. Chest pain possible unstable angina. 2. History of recent negative stress test. 3. History of coronary artery disease, stent. 4. Diabetes mellitus type 2. 5. Hyperlipidemia. 6. Hypertension. 7. History of degenerative joint disease. 8. History of pneumonia. RECOMMENDATIONS AND DISCUSSION: In this 57-year-old gentleman who presented with multiple complex medical issues , we will monitor the patient closely, continue the current medications, management and symptomatic treatment. Continue with antiplatelet agents. Continue the beta blockers. We will resume the home medications. Cardiology consultation. Prognosis guarded because of multiple complex medical issues. Further recommendations to follow. A copy of dictation is being forward to Dr. Guaman who is the primary physician. HANNA / MARIA R: [id number] / ARMANDO
[2018-06-17] MEDS ORDERED: ASPIRIN 81 MG PO SCH (21:00)
[2018-06-17] MEDS ORDERED: LISINOPRIL 10 MG TAB PO SCH (21:00)
[2018-06-17] MEDS ORDERED: METOPROLOL TARTRATE 25 MG TAB PO SCH (21:00)
[2018-06-17 21:30] VITALS: RESP 18
[2018-06-17 21:45] LABS: Glucose,Whole Blood 275 mg/dL (75-99)
[2018-06-17] MEDS: GABAPENTIN 300 MG CAP PO SCH (21:51)
[2018-06-17] MEDS: INSULIN ASPART 100 UNIT/ML 1 ML 10 ML VIAL SQ SCH (21:51)
[2018-06-17] MEDS: PANTOPRAZOLE 40 MG/10 ML VIAL IVP SCH (21:52)
[2018-06-17 22:35] LABS: Creatine Kinase 155 U/L (55-170)
[2018-06-17 22:45] LABS: Creatine Kinase MB 0.8 ng/mL (0.0-2.4)
[2018-06-17 22:48] LABS: Troponin I <0.012 ng/mL (0.000-0.034)
[2018-06-17] MEDS: NITROGLYCERIN OINT 1 INCH/GM PACKET TOPICAL SCH (23:04)
[2018-06-18] MEDS: NITROGLYCERIN OINT 1 INCH/GM PACKET TOPICAL SCH ×2 (01:10→05:57)
[2018-06-18 01:41] LABS: Creatine Kinase 148 U/L (55-170)
[2018-06-18 01:53] LABS: Creatine Kinase MB 0.9 ng/mL (0.0-2.4); Troponin I <0.012 ng/mL (0.000-0.034)
[2018-06-18 06:09] LABS: Basophils % (A) 1 %; Eosinophils # (A) 0.1 k/uL (0-0.7); Eosinophils % (A) 2 %; HCT 40.3 % (39.0-53.0); Lymphocytes # (A) 2.1 k/uL (1.0-4.8); Lymphocytes % (A) 33 %; MCH 29.7 pg (25.0-35.0); MCHC 32.3 g/dL (31.0-37.0); Mean Platelet Volume 6.8; Monocytes # (A) 0.4 k/uL (0-1.0); Monocytes % (A) 6 %; Neutrophils # (A) 3.6 k/uL (1.3-7.7); Neutrophils % (A) 56 %; Platelet Count 207 k/uL (150-450); RBC 4.38 m/uL (4.30-5.90); RDW 12.9 % (11.5-15.5); WBC 6.4 k/uL (3.8-10.6)
[2018-06-18 06:30] LABS: Anion Gap 5 mmol/L; Blood Urea Nitrogen 16 mg/dL (9-20); Carbon Dioxide 28 mmol/L (22-30); Chloride 105 mmol/L (98-107); Cholesterol 123 mg/dL (<200); Glucose 224 mg/dL (74-99); HDL Cholesterol 33 mg/dL (40-60); LDL Cholesterol,Calculated 42 mg/dL (0-99); Potassium 4.7 mmol/L (3.5-5.1); Sodium 138 mmol/L (137-145); Triglycerides 241 mg/dL (<150)
[2018-06-18 06:37] LABS: Glucose,Whole Blood 214 mg/dL (75-99)
[2018-06-18] MEDS ORDERED: ONDANSETRON 4 MG/2 ML VIAL IVP STA (07:00)
[2018-06-18 07:09] VITALS: PULSE 62
[2018-06-18] MEDS ORDERED: metFORMIN 500 MG TAB PO SCH (07:30)
[2018-06-18] MEDS ORDERED: GLIMEPIRIDE 1 MG TAB PO SCH (07:30)
[2018-06-18] MEDS ORDERED: CLOPIDOGREL 75 MG TAB PO SCH (09:00)
[2018-06-18] MEDS ORDERED: ASPIRIN 325 MG TAB PO SCH (09:00)
[2018-06-18] MEDS ORDERED: METHYLSULFONYLMETHANE 1000 MG PO SCH (09:00)
[2018-06-18] MEDS ORDERED: METOPROLOL TARTRATE 12.5 MG TAB PO SCH (09:00)
[2018-06-18] MEDS: INSULIN ASPART 100 UNIT/ML 1 ML 10 ML VIAL SQ SCH (09:22)
[2018-06-18] MEDS: PANTOPRAZOLE 40 MG/10 ML VIAL IVP SCH (09:27)
[2018-06-18] MEDS: GABAPENTIN 300 MG CAP PO SCH (09:27)
--- NOTE | 2018-06-18 10:03 | P.CRDCN ---
History of Present Illness History of present illness: This is a pleasant 57-year-old male past medical history significant for coronary artery disease s/p stenting of the proximal LAD 12/2016, hypertension, dyslipidemia and diabetes mellitus. She follows with Dr. Mendieta in the office. We have been asked to see him in consultation for chest pain. He states he has been feeling chest discomfort intermittently for the last few weeks. The pain is described as a pressure sensation in the mid-sternal region with no radiation to the back, neck, jaw or arm. The symptoms are not related to exertion or intake of food. He denies associated shortness of breath, dizziness, diaphoresis, nausea, vomiting or palpitations. He saw Dr. Mendieta in the office in mid May and at that time he scheduled him for a Lexiscan stress test. He came to the hospital yesterday to have his stress test and was having this discomfort prior to coming in as well as thereafter. At that time he was sent to the emergency department for further evaluation. The stress test was completed as scheduled and was negative for reversible cardiac ischemia. He also underwent an echocardiogram that revealed preserved left ventricular systolic function with ejection fraction 55-60%, moderate left ventricular hypertrophy, mild aortic stenosis with a mean gradient across the valve of 10 mmHg, mild MR and mild TR. EKG reveals sinus mechanism with no ST or T wave abnormalities noted. Chest x-ray reveals evidence of right basilar atelectasis or infiltrate. Laboratory data reviewed, WBC 6.4, hemoglobin 13, platelets 207, sodium 138, potassium 4.7, creatinine 0.71, PTCA 1.9, cardiac enzymes negative 3, LDL 42 and HDL 33. Current cardiac medications include aspirin 81 mg daily, Plavix 75 mg daily, lisinopril 10 mg daily, Lopressor 25 mg at bedtime and 12.5 mg in the morning and simvastatin 40 mg daily. Most recent cardiac catheterization performed February 2017 revealed a 30% lesion of the mid RCA, proximal LAD stent is patent with no evidence of in-stent restenosis. All other vessels are normal. At the time of my exam: CONSTITUTIONAL: Denies fever. Denies chills. EYES: Denies blurred vision. Denies vision changes. Denies eye pain. EARS, NOSE, MOUTH & THROAT: Denies headache. Denies sore throat. Denies ear pain. CARDIOVASCULAR: Denies chest pain. Denies shortness of breath. Denies orthopnea. Denies PND. Denies palpitations. RESPIRATORY: Denies cough. GASTROINTESTINAL: Denies abdominal pain. Denies diarrhea. Denies constipation. Denies nausea. Denies vomiting. MUSCULOSKELETAL: Denies myalgias. INTEGUMENTARY: Denies pruitis. Denies rash. NEUROLOGIC: Denies numbness. Denies tingling. Denies weakness. PSYCHIATRIC: Denies anxiety. Denies depression. ENDOCRINE: Denies fatigue. Denies weight change. Denies polydipsia. Denies polyurina. GENITOURINARY: Denies burning, hematuria or urgency with micturation. HEMATOLOGIC: Denies history of anemia. Denies bleeding. Blood pressure 117/74 heart rate 62 afebrile maintaining oxygen saturation on room air GENERAL: This is a 57-year-old male in no apparent distress at the time of my examination. HEENT: Head is atraumatic, normocephalic. Pupils are equal, round. Sclerae anicteric. Conjunctivae are clear. Mucous membranes of the mouth are moist. Neck is supple. There is no jugular venous distention. No carotid bruit is heard. LUNGS: Clear to auscultation no wheezes, rales or rhonchi. No chest wall tenderness is noted on palpation or with deep breathing. HEART: Regular rate and rhythm with systolic ejection murmur at the base, no rubs or gallops. S1 and S2 heard. ABDOMEN: Soft, nontender. Bowel sounds are heard. No organomegaly noted. EXTREMITIES: No evidence of peripheral edema and no calf tenderness noted. VASCULAR: Radial and dorsalis pedis pulses palpated, no evidence of clubbing. NEUROLOGIC: Patient is awake, alert and oriented x3. ASSESSMENT Chest pain, atypical. An acute coronary event has been ruled out with no EKG evidence of ischemia and negative cardiac enzymes. Lexiscan stress test performed yesterday is negative for reversible cardiac ischemia. History of coronary artery disease status post stenting of the proximal LAD. Most recent catheterization performed February 2017 revealed patent stent in the proximal LAD. Hypertension Dyslipidemia Diabetes mellitus Aortic stenosis, mild. Mean gradient 10.43 mmHg PLAN An acute coronary event has been ruled out with no EKG evidence of ischemia and negative cardiac enzymes. Lexiscan stress test performed yesterday is negative for reversible cardiac ischemia. Medications have been reviewed and continued appropriately. Stable from a cardiac perspective for discharge when medically stable. Follow up with Dr. Mendieta in 2-3 weeks. Nurse Practitioner note has been reviewed, I agree with a documented findings and plan of care. Patient was seen and examined. Past Medical History Past Medical History: Coronary Artery Disease (CAD), Chest Pain / Angina, Diabetes Mellitus, Hyperlipidemia, Hypertension, Osteoarthritis (OA), Pneumonia Additional Past Medical History / Comment(s): NIDDM type II, bronchitis, 2010 fell off a ladder with 2 left rib fractures and L knee meniscus tear.neuropathy, stress test 06-09-17- History of Any Multi-Drug Resistant Organisms: None Reported Past Surgical History: Appendectomy, Heart Catheterization, Heart Catheterization With Stent, Joint Replacement, Orthopedic Surgery, Tonsillectomy Additional Past Surgical History / Comment(s): 08/19/10 cardiac cath with 40% LAD blockage-treated medically, december 2016 cardiac cath 2 stents placed, bilateral knee arthroscopies, nasal fracture with surgery, R shoulder spur removal, L shoulder tendon repair with debridement, colonoscopy. Past Anesthesia/Blood Transfusion Reactions: No Reported Reaction Date of Last Stent Placement:: december 2016 Smoking Status: Never smoker - Past Family History Father Family Medical History: Cancer Additional Family Medical History / Comment(s): Father of lung cancer. He was a smoker. Mother Family Medical History: Cancer Additional Family Medical History / Comment(s): Mother of lung cancer. She was a smoker. Brother(s) Family Medical History: Cancer Additional Family Medical History / Comment(s): 2 brother's had lung cancer- they were both smokers. Sister(s) Family Medical History: Cancer Additional Family Medical History / Comment(s): Pt's sister had lung cancer-she was a smoker. Medications and Allergies Home Medications Medication Instructions Recorded Confirmed Type Aspirin EC [Ecotrin Low Dose] 81 mg PO HS 02/16/16 06/17/18 History metFORMIN HCL [Metformin HCl ER] 1,000 mg PO BID 02/16/16 06/17/18 History Gabapentin [Neurontin] 300 mg PO BID 11/09/16 06/17/18 History Glimepiride [Amaryl] 1 mg PO AC-BRKFST 11/09/16 06/17/18 History Multivit-Min/FA/Lycopen/Lutein 1 tab PO DAILY 11/09/16 06/17/18 History [Centrum Silver Men Tablet] Lisinopril [Zestril] 10 mg PO HS 12/08/16 06/17/18 History Simvastatin [Zocor] 40 mg PO HS 02/16/17 06/17/18 History Metoprolol Tartrate [Lopressor] 12.5 mg PO QAM 06/26/17 06/17/18 History Clopidogrel [Plavix] 75 mg PO DAILY 06/17/18 06/17/18 History Methylsulfonylmethane [MSM] 1,000 mg PO DAILY 06/17/18 06/17/18 History Metoprolol Tartrate [Lopressor] 25 mg PO HS 06/17/18 06/17/18 History Allergies Allergy/AdvReac Type Severity Reaction Status Date / Time atorvastatin [From Lipitor] AdvReac Diarrhea Verified 06/17/18 11:44 Physical Exam Vitals: Vital Signs Temp Pulse Pulse Resp BP BP Pulse Ox 06/18/18 07:08 97.5 F L 62 18 117/74 96 06/18/18 04:00 97.8 F 63 18 97/58 96 06/17/18 23:00 98.3 F 65 18 120/71 97 06/17/18 22:30 65 18 06/17/18 21:30 64 18 06/17/18 21:29 97.8 F 64 18 132/83 97 06/17/18 20:40 68 15 119/74 98 06/17/18 18:25 66 15 128/84 96 06/17/18 18:00 65 19 122/86 06/17/18 17:00 66 16 135/82 95 06/17/18 16:00 62 15 125/78 97 06/17/18 15:34 64 16 125/78 97 06/17/18 14:30 64 15 125/78 98 06/17/18 14:00 67 18 114/70 97 06/17/18 13:07 70 16 115/76 96 06/17/18 13:00 73 16 111/71 96 06/17/18 12:45 72 15 111/71 96 06/17/18 11:48 20 06/17/18 11:26 97.8 F 74 18 156/92 99 Intake and Output 06/17/18 06/18/18 06/18/18 22:59 06:59 14:59 Intake Total 142.333 211.040 Balance 142.333 211.040 Intake: Intake, IV Titration 142.333 211.040 Amount Heparin Sod,Pork in 0.45% 142.333 211.040 NaCl 25,000 unit In 0.45 % NaCl 1 500ml.bag @ 8.48 UNITS/KG/HR 20 mls/hr IV .Q24H [facility] Rx#:[id number] Other: Voiding Method Toilet Toilet Toilet # Voids 2 Results 06/18/18 05:46 06/18/18 05:46 Cardiac Enzymes 06/17/18 06/17/18 06/17/18 Range/Units 13:15 13:15 21:17 AST 40 (17-59) U/L CK-MB (CK-2) 0.9 0.8 (0.0-2.4) ng/mL Troponin I <0.012 <0.012 (0.000-0.034) ng/mL 06/18/18 Range/Units 00:41 AST (17-59) U/L CK-MB (CK-2) 0.9 (0.0-2.4) ng/mL Troponin I <0.012 (0.000-0.034) ng/mL Coagulation 06/17/18 06/17/18 06/18/18 Range/Units 13:15 21:17 05:46 PT 9.9 (9.0-12.0) sec APTT 24.4 30.3 H 37.2 H (22.0-30.0) sec Lipids 06/18/18 Range/Units 05:46 Triglycerides 241 H (<150) mg/dL Cholesterol 123 (<200) mg/dL HDL Cholesterol 33 L (40-60) mg/dL CBC 06/17/18 06/18/18 Range/Units 13:15 05:46 WBC 7.3 6.4 (3.8-10.6) k/uL RBC 4.65 4.38 (4.30-5.90) m/uL Hgb 14.1 13.0 (13.0-17.5) gm/dL Hct 42.6 40.3 (39.0-53.0) % Plt Count 220 207 (150-450) k/uL Comprehensive Metabolic Panel 12/10/18 12/11/18 Range/Units 13:15 05:46 Sodium 140 138 (137-145) mmol/L Potassium 4.6 4.7 (3.5-5.1) mmol/L Chloride 105 105 (98-107) mmol/L Carbon Dioxide 26 28 (22-30) mmol/L BUN 18 16 (9-20) mg/dL Creatinine 0.65 L 0.71 (0.66-1.25) mg/dL Glucose 235 H 224 H (74-99) mg/dL Calcium 9.4 9.0 (8.4-10.2) mg/dL AST 40 (17-59) U/L ALT 86 H (21-72) U/L Alkaline Phosphatase 55 (38-126) U/L Total Protein 6.8 (6.3-8.2) g/dL Albumin 4.0 (3.5-5.0) g/dL Current Medications Generic Name Dose Route Start Last Admin Trade Name Freq PRN Reason Stop Dose Admin Hydrocodone Bitart/Acetaminophen 1 each 06/17/18 19:39 [place] 5-325 PO Q6HR PRN Moderate Pain Alprazolam 0.25 mg 06/17/18 19:39 Xanax PO TID PRN Anxiety Aspirin 81 mg 06/17/18 21:00 06/17/18 21:51 Aspirin PO 81 mg HS BETITO Administration Clopidogrel Bisulfate 75 mg 06/18/18 09:00 Plavix PO DAILY BETITO Gabapentin 300 mg 06/17/18 21:00 06/17/18 21:51 Neurontin PO 300 mg BID BETITO Administration Glimepiride 1 mg 06/18/18 07:30 Amaryl PO AC-BRKFST [facility] Insulin Aspart 0 unit 06/17/18 21:00 06/17/18 21:51 Novolog SQ 4 unit ACHS BETITO Administration Protocol Lisinopril 10 mg 06/17/18 21:00 06/17/18 21:51 Zestril PO 10 mg HS BETITO Administration Metformin HCl 1,000 mg 06/18/18 07:30 Glucophage PO AC-BID BETITO Metoprolol Tartrate 25 mg 06/17/18 21:00 06/17/18 21:51 Lopressor PO 25 mg HS BETITO Administration Metoprolol Tartrate 12.5 mg 06/18/18 09:00 Lopressor PO QAM [facility] Multivitamins 1 each 06/18/18 12:00 Theragran PO DAILY@1200 [facility] Nitroglycerin 0.4 mg 06/17/18 14:58 Nitrostat SUBLINGUAL Q5M PRN Chest Pain Simvastatin 40 Mg 40 mg 06/17/18 21:00 06/17/18 21:52 PO Not Given HS BETITO Pantoprazole Sodium 40 mg 06/17/18 19:45 06/17/18 21:52 Protonix IVP Not Given DAILY [facility] Temazepam 15 mg 06/17/18 19:39 Restoril PO HS PRN Insomnia Intake and Output 06/17/18 06/18/18 06/18/18 22:59 06:59 14:59 Intake Total 142.333 211.040 Balance 142.333 211.040 Intake: Intake, IV Titration 142.333 211.040 Amount Heparin Sod,Pork in 0.45% 142.333 211.040 NaCl 25,000 unit In 0.45 % NaCl 1 500ml.bag @ 8.48 UNITS/KG/HR 20 mls/hr IV .Q24H [facility] Rx#:[id number] Other: Voiding Method Toilet Toilet Toilet # Voids 2 06/18/18 05:46 06/18/18 05:46
[2018-06-18 11:28] VITALS: BP 112/74; TEMP 97.8
[2018-06-18 11:37] VITALS: BMI 37.3
[2018-06-18 11:48] LABS: Glucose,Whole Blood 277 mg/dL (75-99)
[2018-06-18] MEDS ORDERED: MULTIVITAMINS, THERA 1 EACH TAB PO SCH (12:00)
--- NOTE | 2018-06-19 01:15 | DS ---
DISCHARGE SUMMARY DATE OF SERVICE: 06/18/2018 FINAL DIAGNOSES: 1. Chest pain possible musculoskeletal, possible gastroesophageal reflux disease. Negative stress test. 2. History of recent negative stress test. 3. History of coronary artery disease, stent. 4. Diabetes type 2. 5. Hyperlipidemia. 6. Hypertension. 7. History of degenerative joint disease. 8. History of pneumonia. DISCHARGE DISPOSITION: The patient is being discharged in stable condition with guarded prognosis. HISTORY OF PRESENT ILLNESS: This 57-year-old gentleman with a past medical history of multiple medical problems as mentioned earlier was admitted with chest pain. The patient had recent negative stress test. Myocardial infarction ruled out. Cardiology saw the patient, recommended outpatient followup. The stress test yesterday was negative. On exam, vitals are stable. Cardiovascular: S1, S2. Abdomen soft. Central nervous system: No focal loss. Patient cleared for for discharge by Cardiology. DISCHARGE ADVICE AND MEDICATIONS: 1. Diet is cardiac diet. 2. Activity limited until follow up. 3. Follow up with Dr. Guaman in 2-3 days. 4. Follow up with Dr. Mendieta as recommended in 2 weeks. DISCHARGE MEDICATION: 1. Ecotrin 81 mg q.h.s. 2. Plavix 75 mg p.o. daily. 3. Neurontin 300 mg b.i.d. 4. Amaryl 1 mg a.c. breakfast. 5. Zestril 10 mg q.h.s. 6. Metformin 1000 mg b.i.d. 7. MSM 1000 mg p.o. daily. 8. Lopressor 12.5 mg q.a.m. 9. Lovastatin 25 mg q.h.s. 10.Multivitamins one p.o. daily. 11.Zocor 40 mg q.h.s. 12.Protonix 40 mg p.o. daily. Patient discharged in stable condition with guarded prognosis. MMODL / IJN: [id number] /
[2018-06-19] MEDS ORDERED: PANTOPRAZOLE 40 MG TABLET PO SCH (09:00)
== END 2018-06-18 13:30 | disposition home or self-care (01) ==
LOC: EC 11:23 → 1SOBS 14:58
PROVIDERS: ADMIT Internal Medicine; ATTEND Internal Medicine
DX: R07.89 Other chest pain (principal); I25.10 Atherosclerotic heart disease of native coronary artery without angina pectoris; I10 Essential (primary) hypertension; I35.0 Nonrheumatic aortic (valve) stenosis; E78.5 Hyperlipidemia, unspecified; E11.40 Type 2 diabetes mellitus with diabetic neuropathy, unspecified; M19.90 Unspecified osteoarthritis, unspecified site; Z79.84 Long term (current) use of oral hypoglycemic drugs; Z79.02 Long term (current) use of antithrombotics/antiplatelets; Z79.82 Long term (current) use of aspirin; Z79.899 Other long term (current) drug therapy; Z88.8 Allergy status to other drugs, medicaments and biological substances; Z87.01 Personal history of pneumonia (recurrent); Z95.5 Presence of coronary angioplasty implant and graft; Z91.81 History of falling; Z87.81 Personal history of (healed) traumatic fracture; Z87.828 Personal history of other (healed) physical injury and trauma; Z90.49 Acquired absence of other specified parts of digestive tract; Z96.60 Presence of unspecified orthopedic joint implant; Z80.1 Family history of malignant neoplasm of trachea, bronchus and lung; Z81.2 Family history of tobacco abuse and dependence
CPT/HCPCS: 96366 ×3; 96375; 96376; 96365; 99291; 36415; 93005; 93017; 93306; 80061; 80053; 80048; 82550 ×2; 82553 ×2; 83735; 84484 ×2; 85025 ×2; 85610; 85730 ×2; 83036; 71046; 78452; G0378 ×2; A9500; J1644 ×2; J2405; J0706; J2785; C9113; Q9950

== ENCOUNTER → 2018-07-23 | Outpatient (CLI) | payer MEDICAID ==
[2018-07-23 12:07] LABS: HCT 46.2 % (39.0-53.0); HGB 15.7 gm/dL (13.0-17.5); MCH 31.6 pg (25.0-35.0); MCV 93.1 fL (80.0-100.0); Platelet Count 231 k/uL (150-450); RBC 4.96 m/uL (4.30-5.90); RDW 13.4 % (11.5-15.5); WBC 6.5 k/uL (3.8-10.6)
[2018-07-23 12:18] LABS: Anion Gap 10 mmol/L; Blood Urea Nitrogen 16 mg/dL (9-20); Carbon Dioxide 26 mmol/L (22-30); Chloride 104 mmol/L (98-107); Sodium 140 mmol/L (137-145)
== END | disposition home or self-care (01) ==
LOC: LABPAT 11:12
PROVIDERS: ATTEND Internal Medicine Interventional Cardiology
DX: Z01.812 Encounter for preprocedural laboratory examination (principal); I10 Essential (primary) hypertension; I25.10 Atherosclerotic heart disease of native coronary artery without angina pectoris; R07.9 Chest pain, unspecified
CPT/HCPCS: 36415; 80051; 82565; 84520; 85027

== ENCOUNTER → 2018-07-24 | Day surgery (SDC) | payer MEDICAID ==
[~2018-07-24] MED LIST changes: +ACETAMINOPHEN TAB 325 MG TAB PO STA; +ALPRAZolam 0.25 MG TAB PO PRN; +ALPRAZolam 0.5 MG TAB PO PRN; +ASPIRIN 325 MG TAB PO STA; -CAFFEINE CITRATE 60 MG/3 ML VIAL ONE; -DEXTROSE 5% IN WATER 50 ML BAG ONE; +HEPARIN SODIUM 1,000 UN/ML (10ML VL) IV ONE; +HEPARIN SODIUM 1,000 UN/ML (10ML VL) ONE; +IOPAMIDOL-370 125ML BTL INJ ONE; +LIDOCAINE 1% INJ 10MG/ML (20 ML MDV) ONE; +LIDOCAINE 1% INJ 10MG/ML (20 ML MDV) SQ ONE; +MIDAZOLAM 2 MG/2 ML VIAL IVP ONE; +NITROGLYCERIN SL TABS 0.4 MG TAB SUBLINGUAL PRN; -REGADENOSON 0.4 MG/5 ML SYRINGE IV ONE; +RX INFO: IV CONTRAST WAS GIVEN 1 EACH MISC MISCELLANE PRN; +SODIUM CHLORIDE 0.9% 1,000 ML IV SCH; +SODIUM CHLORIDE 0.9% 1,000 ML in EMPTY BAG 1 BAG IV ONE; +VERAPAMIL 2.5 MG/ML 2 ML AMP ONE; +fentaNYL (PF) 50 MCG/ML 2 ML AMP ONE
[2018-07-24 11:05] VITALS: RESP 18; TEMP 97.9
[2018-07-24 11:13] LABS: Glucose,Whole Blood 178 mg/dL (75-99)
[2018-07-24] MEDS: VERAPAMIL SYRINGE (5 MG/10 ML) INTRAARTER ONE ×2 (14:26→14:36)
--- NOTE | 2018-07-24 15:19 | CC ---
CARDIAC CATHETERIZATION REPORT DATE OF SERVICE: 07/24/2018. PERFORMING PHYSICIAN: Shiv Mendieta MD, Master Electrician. PROCEDURE PERFORMED: 1. Selective right and left coronary angiogram. INDICATION: This is a pleasant 58-year-old gentleman with known history of coronary artery disease and prior stenting of the LAD, who was experiencing intermittent episodes of chest discomfort concerning for angina. Because of that, a heart catheterization was advised. APPROACH: Right radial artery. COMPLICATION: None. LEVEL OF SEDATION: Moderate with sedation length of 15 minutes. PROCEDURE DESCRIPTION: After obtaining an informed consent, the patient was brought to the cardiac incinerator plant laborer. The right radial artery was cannulated using micropuncture technique, the micropuncture wire passed easily, then I placed a 6-Mongolian sheath in the right radial artery. After that, I did give the patient 2 mg of verapamil IA and 10,000 units of heparin IV. After that, I did selective right and left coronary angiogram using JR4 and JL3.5 catheters. The procedure was completed without any complication. SELECTIVE CORONARY ANGIOGRAM: 1. The right coronary artery is a large caliber vessel. It is a dominant vessel. The RCA appeared to be have mild disease in the midportion. 2. The left main is angiographically normal, it bifurcates into the circumflex and left anterior descending artery. 3. The left circumflex is a large caliber vessel. It is a nondominant vessel. The proximal circumflex is angiographically normal. The mid circumflex is normal and gives rise into a large OM branch which appeared to be angiographically normal. The circumflex distally appeared to be normal. 4. The LAD, the proximal LAD is stented and the stent is patent. The LAD in the proximal portion gives rise into a medium-sized diagonal branch which appeared to be normal. The mid LAD has mild disease only and the LAD distally appeared to be normal. CONCLUSION: Patent stent in the proximal LAD. POSTPROCEDURE MANAGEMENT: Maximize medical treatment and follow up with the patient. MMODL / IJN: [id number] /
--- NOTE | 2018-07-24 15:22 | LTR ---
DATE OF SERVICE: 07/24/2018 RE: Gerard Su Dear Dr. Guaman; MrSoy Su underwent today a heart catheterization and that revealed patent stent in the LAD. I want to thank you for allowing us to participate in his care and please do not hesitate to call for any question or concern. Sincerely, MD HANNA Rios / ARIELLEN: [id number] /
[2018-07-24 18:13] VITALS: BP 136/74; PULSE 64
== END | disposition home or self-care (01) ==
LOC: CATHCVL 09:44
PROVIDERS: ATTEND Internal Medicine Interventional Cardiology
DX: I25.110 Atherosclerotic heart disease of native coronary artery with unstable angina pectoris (principal); I10 Essential (primary) hypertension; E78.5 Hyperlipidemia, unspecified; E11.9 Type 2 diabetes mellitus without complications; E66.9 Obesity, unspecified; E78.00 Pure hypercholesterolemia, unspecified; Z95.5 Presence of coronary angioplasty implant and graft; Z79.82 Long term (current) use of aspirin; Z79.84 Long term (current) use of oral hypoglycemic drugs; Z79.02 Long term (current) use of antithrombotics/antiplatelets; Z88.8 Allergy status to other drugs, medicaments and biological substances; Z68.38 Body mass index [BMI] 38.0-38.9, adult
CPT/HCPCS: 93454; C1769; C1894; J2250; J2001; J1644; Q9967

== ENCOUNTER → 2018-09-24 | Outpatient (CLI) | payer MEDICAID ==
--- NOTE | 2018-09-24 09:46 | US ---
EXAMINATION TYPE: US kidneys/renal and bladder DATE OF EXAM: 09/24/2018 COMPARISON: 02/20/2017 CLINICAL HISTORY: R31.9 hematuria, R39.81 urinary incontinence. Urinary frequency EXAM MEASUREMENTS: Right Kidney: 12.3 x 5.7 x 5.7 cm Left Kidney: 11.9 x 5.1 x 5.8 cm Right Kidney: No hydronephrosis or masses seen Left Kidney: No hydronephrosis or masses seen Bladder: wnl, distended Bilateral Jets seen There is no evidence for hydronephrosis at this point in time. No nephrolithiasis is seen. No lucy s are identified. The urinary bladder is anechoic. Bilateral ureteral jets are seen. IMPRESSION: No hydronephrosis or nephrolithiasis. Unremarkable renal and urinary bladder ultrasound.
--- NOTE | 2018-09-24 14:42 | US ---
EXAMINATION TYPE: US prostate transrectal DATE OF EXAM: 09/24/2018 COMPARISON: None CLINICAL HISTORY: R31.9 hematuria, R39.81 urinary incontinence. Urinary frequency This examination was performed using the transrectal probe. EXAM MEASUREMENTS: Gland Size: 4.9 x 4.8 x 2.9 cm Volume: 35.7 Predicted PSA: 4.3 Actual PSA (if available):0.4 Heterogenous peripheral zone with calcifications seen in central zone. Well-circumscribed nodules wit hin the central zone most commonly related to benign prostatic hyperplasia. No prominent masses or le sions seen in peripheral zone. IMPRESSION: Heterogenous and enlarged prostate gland with findings of benign prostatic hyperplasia. No suspicious peripheral zone hypoechoic lesions are seen. Predicted PSA = volume x 0.12 ng/ml Calculated Volume = 0.5236 x L x W x H
== END | disposition home or self-care (01) ==
LOC: RADUSMAIN 08:06
PROVIDERS: ATTEND Internal Medicine
DX: N40.1 Benign prostatic hyperplasia with lower urinary tract symptoms (principal); R39.81 Functional urinary incontinence; R31.9 Hematuria, unspecified; Z88.8 Allergy status to other drugs, medicaments and biological substances
CPT/HCPCS: 76770; 76872

== ENCOUNTER → 2019-03-24 | Outpatient (CLI) | payer MEDICAID ==
--- NOTE | 2019-03-24 13:11 | XR ---
EXAMINATION TYPE: XR chest 2V DATE OF EXAM: 03/24/2019 COMPARISON: Prior chest x-ray 06/17/2018 HISTORY: Cough and congestion TECHNIQUE: Frontal and lateral views of the chest are obtained. FINDINGS: There is no focal air space opacity, pleural effusion, or pneumothorax seen. The cardiac silhouette size is within normal limits. The osseous structures are intact. IMPRESSION: No acute cardiopulmonary process.
== END | disposition home or self-care (01) ==
LOC: RADXRMAIN 12:04
PROVIDERS: ATTEND Internal Medicine
DX: R05 Cough (principal)
CPT/HCPCS: 71046

== ENCOUNTER → 2019-07-10 | Outpatient (CLI) | payer MEDICAID ==
--- NOTE | 2019-07-10 09:45 | ECHOF ---
Referral Reason:I12.10 CARDIOVASCULAR DISEASE,UNSPECIFIED MEASUREMENTS -------- HEIGHT: 182.9 cm WEIGHT: 117.9 kg BP: RVIDd: 3.2 cm (< 3.3) IVSd: 1.2 cm (0.6 - 1.1) LVIDd: 3.9 cm (3.9 - 5.3) LVPWd: 1.2 cm (0.6 - 1.1) IVSs: 1.8 cm LVIDs: 2.7 cm LVPWs: 1.8 cm LAESV Index (A-L): 25.94 ml/m Ao Diam: 2.4 cm (2.0 - 3.7) AV Cusp: 1.3 cm (1.5 - 2.6) LA Diam: 3.7 cm (2.7 - 3.8) MV EXCURSION: 17.007 mm (> 18.000) MV EF SLOPE: 139 mm/s (70 - 150) EPSS: 0.4 cm MV E Donato: 0.81 m/s MV DecT: 198 ms MV A Donato: 0.61 m/s MV E/A Ratio: 1.34 AV maxP.07 mmHg AV meanP.04 mmHg AR PHT: 578 ms RAP: 5.00 mmHg RVSP: 27.81 mmHg FINDINGS -------- Sinus rhythm. This was a technically adequate study. The left ventricular size is normal. There is mild concentric left ventricular hypertrophy. Overa ll left ventricular systolic function is normal with, an EF between 55 - 60 %. The diastolic fillin g pattern is normal for the age of the patient 8.22. The right ventricle is normal in size. Normal LA size by volume 22+/-6 ml/m2. The right atrial size is normal. Aortic valve is trileaflet and is mildly thickened. There is mild aortic regurgitation. There is mild aortic stenosis present. Peak/mean gradient across the Aortic Valve is 21.07mmHg / 11.04mmHg. AOV is possible Bicuspid. The mitral valve is normal. There is trace mitral regurgitation. The tricuspid valve appears structurally normal. Trace tricuspid regurgitation present. Right romelia tricular systolic pressure is normal at < 35 mmHg. The right ventricular systolic pressure, as matthew ured by Doppler, is 27.81mmHg. There is no pulmonic regurgitation present. The aortic root size is normal. IVC Not well visulized. There is no pericardial effusion. CONCLUSIONS -------- 1. Sinus rhythm. 2. This was a technically adequate study. 3. The left ventricular size is normal. 4. There is mild concentric left ventricular hypertrophy. 5. Overall left ventricular systolic function is normal with, an EF between 55 - 60 %. 6. The diastolic filling pattern is normal for the age of the patient 8.22 7. Normal LA size by volume 22+/-6 ml/m2. 8. Aortic valve is trileaflet and is mildly thickened. 9. There is mild aortic regurgitation. 10. There is mild aortic stenosis present. 11. Peak/mean gradient across the Aortic Valve is 21.07mmHg / 11.04mmHg. 12. AOV is possible Bicuspid. 13. The mitral valve is normal. 14. There is trace mitral regurgitation. 15. The tricuspid valve appears structurally normal. 16. Trace tricuspid regurgitation present. 17. Right ventricular systolic pressure is normal at < 35 mmHg. 18. There is no pulmonic regurgitation present. 19. There is no pericardial effusion. FACETOR: Natalie Downey RDCS
== END | disposition home or self-care (01) ==
LOC: RADECHMAIN 08:21
PROVIDERS: ATTEND Internal Medicine Interventional Cardiology
DX: I35.1 Nonrheumatic aortic (valve) insufficiency (principal)
CPT/HCPCS: 93306

== ENCOUNTER → 2019-12-03 | Outpatient (CLI) | payer MEDICAID | END | disposition home or self-care (01) | LOC: LABWHC1 08:30 | PROVIDERS: ATTEND Surgery | DX: Z11.59 Encounter for screening for other viral diseases (principal) ==

== ENCOUNTER 2019-12-05 11:55 | Day surgery (SDC) | payer MEDICAID ==
[2019-11-28 15:06] VITALS: BMI 38.0
[~2019-12-05 11:55] MED LIST changes: -ACETAMINOPHEN TAB 325 MG TAB PO STA; -ALPRAZolam 0.25 MG TAB PO PRN; -ALPRAZolam 0.5 MG TAB PO PRN; -ASPIRIN 325 MG TAB PO STA; +DEXAMETHASONE SOD PHOSPHATE 10 MG/ML 1 ML VIAL IV ONE; -HEPARIN SODIUM 1,000 UN/ML (10ML VL) IV ONE; -HEPARIN SODIUM 1,000 UN/ML (10ML VL) ONE; +HYDROmorphone 0.5 MG/0.5 ML SYRINGE IVP PRN; -IOPAMIDOL-370 125ML BTL INJ ONE; +LACTATED RINGERS 1,000 ML IV SCH; -LIDOCAINE 1% INJ 10MG/ML (20 ML MDV) ONE; -LIDOCAINE 1% INJ 10MG/ML (20 ML MDV) SQ ONE; +MIDAZOLAM 2 MG/2 ML VIAL IV PRN; -MIDAZOLAM 2 MG/2 ML VIAL IVP ONE; -NITROGLYCERIN SL TABS 0.4 MG TAB SUBLINGUAL PRN; +ONDANSETRON 4 MG/2 ML VIAL IVP ONE; +Pre Op ABX Message 1 EACH MISC MISCELLANE ONE; -RX INFO: IV CONTRAST WAS GIVEN 1 EACH MISC MISCELLANE PRN; +SCOPOLAMINE 1.5MG/72HR PATCH TRANSDERM ONE; -SODIUM CHLORIDE 0.9% 1,000 ML IV SCH; -SODIUM CHLORIDE 0.9% 1,000 ML in EMPTY BAG 1 BAG IV ONE; -VERAPAMIL 2.5 MG/ML 2 ML AMP ONE; -fentaNYL (PF) 50 MCG/ML 2 ML AMP ONE
[2019-12-05 12:17] VITALS: TEMP 97
[2019-12-05 12:30] LABS: Glucose,Whole Blood 163 mg/dL (75-99)
[2019-12-05] MEDS ORDERED: MIDAZOLAM 2 MG/2 ML VIAL ONE (13:09)
[2019-12-05] MEDS ORDERED: fentaNYL (PF) 50 MCG/ML 2 ML AMP ONE (13:09)
[2019-12-05] MEDS ORDERED: PROPOFOL 10 MG/ML 20 ML VIAL IV ONE (13:09)
[2019-12-05] MEDS ORDERED: KETAMINE 10 MG/ML 20 ML VIAL ONE (13:09)
[2019-12-05] MEDS ORDERED: LIDOCAINE 1%-EPI 1:100,000 20 ML VIAL SQ ONE ×2 (13:32)
[2019-12-05] MEDS ORDERED: BUPIVACAINE (PF) 0.25% 30 ML VIAL SQ ONE ×2 (13:32)
--- NOTE | 2019-12-05 14:05 | P.OP ---
Date of Procedure: 12/05/19 Preoperative Diagnosis: Inclusion cyst neck Postoperative Diagnosis: Inclusion cyst neck Procedure(s) Performed: Excision of inclusion cyst neck Anesthesia: MAC Surgeon: Priti Marshall Estimated Blood Loss (ml): 10 Pathology: other Indications for Procedure: The patient had presented with a large infected inclusion cyst on his neck. The infection was treated and he is here for elective resection Description of Procedure: The patient's taken the operative suite where he is prepped and draped in the usual sterile manner under IV sedation. Local anesthetic was then instilled in the skin and subcutaneous tissue on the posterior neck. An elliptical incision was made in the cyst was sharply dissected free from the subcutaneous tissues. Small bleeding points were controlled with electrocautery. This left a defect 4 cm long by 1-1/2 cm wide by 3-1/2 cm deep. The subcutaneous tissues were reapproximated using 3-0 Vicryl. The skin was then closed with 3-0 nylon mattress sutures. A sterile dressing was applied. He tolerated the procedure without difficulty as taken recovery room in satisfactory condition. According to or personnel, all counts WERE correct. Plan - Discharge Summary Discharge Rx Participant: No New Discharge Prescriptions: New traMADol HCL 50 mg PO Q6HR PRN #10 tablet PRN Reason: Pain No Action Aspirin EC [Ecotrin Low Dose] 81 mg PO HS Gabapentin [Neurontin] 300 mg PO BID Multivit-Min/FA/Lycopen/Lutein [Centrum Silver Men Tablet] 1 tab PO DAILY Lisinopril [Zestril] 10 mg PO HS Simvastatin [Zocor] 40 mg PO HS Metoprolol Tartrate [Lopressor] 25 mg PO BID Clopidogrel [Plavix] 75 mg PO DAILY metFORMIN HCL [Glucophage] 1,000 mg PO BID Tamsulosin [Flomax] 0.4 mg PO DAILY Glimepiride [Amaryl] 2 mg PO BID Dapagliflozin Propanediol [Farxiga] 10 mg PO DAILY Discharge Medication List Aspirin EC [Ecotrin Low Dose] 81 mg PO HS 02/16/16 [History] Gabapentin [Neurontin] 300 mg PO BID 11/09/16 [History] Multivit-Min/FA/Lycopen/Lutein [Centrum Silver Men Tablet] 1 tab PO DAILY 11/09/16 [History] Lisinopril [Zestril] 10 mg PO HS 12/08/16 [History] Simvastatin [Zocor] 40 mg PO HS 02/16/17 [History] Metoprolol Tartrate [Lopressor] 25 mg PO BID 06/26/17 [History] Clopidogrel [Plavix] 75 mg PO DAILY 06/17/18 [History] Dapagliflozin Propanediol [Farxiga] 10 mg PO DAILY 11/28/19 [History] Glimepiride [Amaryl] 2 mg PO BID 11/28/19 [History] Tamsulosin [Flomax] 0.4 mg PO DAILY 11/28/19 [History] metFORMIN HCL [Glucophage] 1,000 mg PO BID 11/28/19 [History] traMADol HCL 50 mg PO Q6HR PRN #10 tablet 12/05/19 [Rx] Follow up Appointment(s)/Referral(s): Priti Marshall DO [Doctor of Osteopathic Medicine] - 12/16/19 Activity/Diet/Wound Care/Special Instructions: Ice to the incision for 24-48 hours. The dressing may be removed on Sunday then you may shower. Use a small amount of antibiotic ointment and a light dressing over the sutures daily. Call if questions or concerns Discharge Disposition: HOME SELF-CARE
[2019-12-05 14:19] VITALS: RESP 18
[2019-12-05 14:33] VITALS: BP 130/77; PULSE 59
== END 2019-12-05 15:11 | disposition home or self-care (01) ==
LOC: OR 11:55
PROVIDERS: ATTEND Surgery
DX: L72.0 Epidermal cyst (principal); L03.221 Cellulitis of neck; I10 Essential (primary) hypertension; I25.10 Atherosclerotic heart disease of native coronary artery without angina pectoris; E78.5 Hyperlipidemia, unspecified; E11.9 Type 2 diabetes mellitus without complications; Z79.82 Long term (current) use of aspirin; Z79.84 Long term (current) use of oral hypoglycemic drugs; Z79.02 Long term (current) use of antithrombotics/antiplatelets; Z79.899 Other long term (current) drug therapy; Z88.8 Allergy status to other drugs, medicaments and biological substances; Z90.49 Acquired absence of other specified parts of digestive tract; Z80.1 Family history of malignant neoplasm of trachea, bronchus and lung; Z82.49 Family history of ischemic heart disease and other diseases of the circulatory system; Z98.890 Other specified postprocedural states
CPT/HCPCS: 88305; 11424; 12042; J2250; J1100; J2405; J3010; J2704; 88304

== ENCOUNTER → 2020-01-22 | Outpatient (CLI) | payer MEDICAID ==
[2020-01-22 20:03] LABS: African American GFR (CKD) 109.5 (60.0-200.0); Albumin 4.5 g/dL (3.80-4.90); Albumin/Globulin Ratio 2.14 (1.60-3.17); Anion Gap 7.6 mmol/L (4.00-12.00); Bilirubin, Conjugated 0.2 mg/dL (0.20-0.40); Bilirubin,Unconjugated 0.4 mg/dL; Carbon Dioxide 26.4 mmol/L (21.6-31.8); Chol/HDL Ratio 3.41; Globulin 2.1 g/dL (1.6-3.3); Non-African American GFR(CKD) 94.5 (60.0-200.0); Potassium 4.5 mmol/L (3.5-5.5); Total Bilirubin 0.6 mg/dL (0.2-1.2); Total Protein 6.6 g/dL (6.2-8.2)
[2020-01-22 22:45] LABS: Hemoglobin A1C 9.3 % (4.0-6.0)
== END | disposition home or self-care (01) ==
LOC: LABWHC1 11:26
PROVIDERS: ATTEND Internal Medicine
DX: E11.9 Type 2 diabetes mellitus without complications (principal); E78.5 Hyperlipidemia, unspecified; I10 Essential (primary) hypertension
CPT/HCPCS: 36415; 80051; 80061; 80076; 82565; 83036; 84520

== ENCOUNTER → 2020-03-11 | Outpatient (CLI) | payer MEDICAID ==
--- NOTE | 2020-03-11 07:44 | CT ---
EXAMINATION TYPE: CT brain wo con DATE OF EXAM: 03/11/2020 COMPARISON: November 09, 2016 HISTORY: Head injury CT DLP: [address] of the brain was performed. The ventricles, basal cisterns and sulci overlying the cerebral convexities demonstrate mild enlargem ent. There is no evidence for intracranial hemorrhage or sulcal effacement. There is decreased attenuation about the periventricular white matter and deep white matter of both c erebral hemispheres, compatible with chronic small vessel ischemia. Differential diagnosis does inclu de demyelination. No mass effects are seen.No midline shift. Osseous calvarium is intact. If symptoms persist consider MRI. IMPRESSION: 1. Age related atrophic and chronic small vessel ischemic change without acute intracranial process s een at this time.
== END | disposition home or self-care (01) ==
LOC: RADCTMAIN 06:35
PROVIDERS: ATTEND Internal Medicine
DX: I67.82 Cerebral ischemia (principal); G31.1 Senile degeneration of brain, not elsewhere classified; Z88.8 Allergy status to other drugs, medicaments and biological substances
CPT/HCPCS: 70450

== ENCOUNTER → 2020-10-25 | Outpatient (CLI) | payer MEDICAID ==
[2020-10-25 21:39] LABS: Hemoglobin A1C 9.1 % (4.0-6.0)
[2020-10-26 01:31] LABS: African American GFR (CKD) 114.1 (60.0-200.0); Albumin/Globulin Ratio 2.5 (1.60-3.17); Anion Gap 11.8 mmol/L (4.00-12.00); BUN/Creat Ratio 27.5 Ratio (12.00-20.00); Calcium 9.8 mg/dL (8.7-10.3); Carbon Dioxide 22.2 mmol/L (21.6-31.8); Chol/HDL Ratio 3.63; LDL Cholesterol,Calculated 87.8 mg/dL (0.0-131.0); Non-African American GFR(CKD) 98.5 (60.0-200.0); Potassium 5.1 mmol/L (3.5-5.5); Total Bilirubin 0.6 mg/dL (0.2-1.2); VLDL Calculation 20.2 mg/dL (5.00-40.00)
== END | disposition home or self-care (01) ==
LOC: LABWHC1 09:54
PROVIDERS: ATTEND Physician Assistant
DX: E11.9 Type 2 diabetes mellitus without complications (principal); I10 Essential (primary) hypertension; E78.5 Hyperlipidemia, unspecified
CPT/HCPCS: 36415; 80053; 80061; 83036

== ENCOUNTER 2020-11-12 14:57 | Emergency (ER) | payer MEDICAID ==
[2020-11-12] MEDS ORDERED: SODIUM CHLORIDE 0.9% 500 ML 500 ML IV STA (15:29)
--- NOTE | 2020-11-12 15:31 | ED ---
General Adult HPI - General Chief complaint: Extremity Injury, Upper Stated complaint: High BP/left arm numbness/pain Time Seen by Provider: 11/12/20 15:17 Source: patient Mode of arrival: ambulatory Limitations: no limitations - History of Present Illness Initial comments: Gerard is a 60-year-old male who presents ER today for evaluation of left forearm pain and hypertension. 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 Patient states that he is right-hand dominant doesn't believe he has any repetitive use of his left arm. He states that he was working when he began having a tingling in his left hand and pain in his left forearm. He then felt like the pain moved up proximal to his elbow and not into the shoulder. He's never experienced pain like this before so he was evaluated by his nurse at work and was told that he had high blood pressure and should be seen by a doctor. Patient reports he called his primary care and was told to come to the emergency department. Patient denies any chest pain palpitations or shortness of breath. Denies any recent fevers chills or illness. Denies any injury to the hand or wrist. Reports he has normal sensation and full range of motion of the shoulder elbow and wrist and hand. - Related Data Home Medications Medication Instructions Recorded Confirmed Aspirin EC [Ecotrin Low Dose] 81 mg PO DAILY 02/16/16 11/12/20 Gabapentin [Neurontin] 300 mg PO BID 11/09/16 11/12/20 lisinopriL [Zestril] 10 mg PO HS 12/08/16 11/12/20 Metoprolol Tartrate [Lopressor] 25 mg PO BID 06/26/17 11/12/20 Dapagliflozin Propanediol [Farxiga] 10 mg PO DAILY 11/28/19 11/12/20 Glimepiride [Amaryl] 2 mg PO BID 11/28/19 11/12/20 Tamsulosin [Flomax] 0.4 mg PO HS 11/28/19 11/12/20 metFORMIN HCL [Glucophage] 1,000 mg PO BID 11/28/19 11/12/20 Multivitamin [Multivitamins Adult 1 tab PO DAILY 11/12/20 11/12/20 Gummies] Nitroglycerin Sl Tabs [Nitrostat] 0.4 mg SUBLINGUAL Q5M PRN 11/12/20 11/12/20 Semaglutide [Ozempic] 0.5 mg SQ TU 11/12/20 11/12/20 Simvastatin [Zocor] 20 mg PO HS 11/12/20 11/12/20 Turmeric Root Extract [Turmeric] 500 mg PO DAILY 11/12/20 11/12/20 Allergies Allergy/AdvReac Type Severity Reaction Status Date / Time atorvastatin [From Lipitor] AdvReac Diarrhea Verified 11/12/20 15:56 Review of Systems ROS Statement: Those systems with pertinent positive or pertinent negative responses have been documented in the HPI. ROS Other: All systems not noted in ROS Statement are negative. Past Medical History Past Medical History: Diabetes Mellitus, Hyperlipidemia, Hypertension Additional Past Medical History / Comment(s): bronchitis, 2010 fell off a ladder with 2 left rib fractures and L knee meniscus tear.neuropathy,stress test 17-neg, History of Any Multi-Drug Resistant Organisms: None Reported Past Surgical History: Appendectomy, Heart Catheterization, Heart Catheterization With Stent, Joint Replacement, Orthopedic Surgery, Tonsillectomy Additional Past Surgical History / Comment(s): 08/19/10 cardiac cath with 40% LAD blockage-treated medically, december 2016 cardiac cath 2 stents placed, bilateral knee arthroscopies, nasal fracture with surgery, R shoulder spur removal, L shoulder tendon repair with debridement, colonoscopy. Past Anesthesia/Blood Transfusion Reactions: No Reported Reaction Date of Last Stent Placement:: december 2016 Past Psychological History: No Psychological Hx Reported Smoking Status: Never smoker Past Alcohol Use History: None Reported Past Drug Use History: None Reported - Past Family History Father Family Medical History: Cancer Additional Family Medical History / Comment(s): Father of lung cancer. He was a smoker. Mother Family Medical History: Cancer Additional Family Medical History / Comment(s): Mother of lung cancer. She was a smoker. Brother(s) Family Medical History: Cancer Additional Family Medical History / Comment(s): 2 brother's had lung cancer-they were both smokers. Sister(s) Family Medical History: Cancer Additional Family Medical History / Comment(s): Pt's sister had lung cancer-she was a smoker. General Exam - General Exam Comments Initial Comments: Physical Exam GENERAL: Patient is well-developed and well-nourished. Patient is nontoxic and well-hydrated and is in no distress. HENT: Normocephalic, Atraumatic. EYES: PERRL, EOMI PULMONARY: Unlabored respirations. No audible rales rhonchi or wheezing was noted. CARDIOVASCULAR: There is a regular rate and rhythm without any murmurs gallops or rubs. ABDOMEN: Soft and nontender with normal bowel sounds. SKIN: Skin is clear with no lesions or rashes and otherwise unremarkable. : Deferred NEUROLOGIC: Patient is alert and oriented x3. Moving all extremities spontaneously MUSCULOSKELETAL: Normal extremities with adequate strength and full range of motion. No lower extremity swelling or edema. No calf tenderness. Normal strength and range of motion in the left upper extremity PSYCHIATRIC: Normal psychiatric evaluation. Limitations: no limitations Course Vital Signs 11/12/20 11/12/20 11/12/20 14:58 15:40 16:25 Temperature 97.5 F L Pulse Rate 67 65 Pulse Rate [ 62 Can Worker ] Respiratory 17 18 Rate Blood Pressure 127/75 122/75 O2 Sat by Pulse 96 98 Oximetry 11/12/20 11/12/20 17:39 17:52 Temperature 98.0 F 97.8 F Pulse Rate 62 Pulse Rate [ Can Worker ] Respiratory 16 Rate Blood Pressure 123/75 O2 Sat by Pulse 98 Oximetry EKG Findings - EKG Comments: EKG Findings:: EKG was obtained due to complaint of left arm pain, EKG was obtained at 1509, rate is 73 rhythm is sinus is a normal axis, there are normal intervals, FL 174, QRS 72, QTc 504 there are no acute ST elevations or depressions there is no evidence of ischemia or infarction. Medical Decision Making - Medical Decision Making Patient was seen and evaluated history was obtained from the patient Patient with left forearm pain shoulder neck chest pain no shortness of breath EKG was normal sinus Labs and imaging were evaluated with no acute findings Discussed with patient I suspect that this forearm discomfort is secondary to overuse injury, recommended supportive care with Tylenol Motrin and for patient to make note of any movements or activities or some the pain and follow with his primary care Return parameters were discussed and patient was discharged home in stable condition - Lab Data Result diagrams: 11/12/20 15:49 11/12/20 15:49 Lab Results 11/12/20 11/12/20 11/12/20 Range/Units 15:49 15:49 15:49 WBC 7.1 (3.8-10.6) k/uL RBC 4.83 (4.30-5.90) m/uL Hgb 14.5 (13.0-17.5) gm/dL Hct 44.6 (39.0-53.0) % MCV 92.4 (80.0-100.0) fL MCH 30.1 (25.0-35.0) pg MCHC 32.6 (31.0-37.0) g/dL RDW 13.5 (11.5-15.5) % Plt Count 218 (150-450) k/uL MPV 7.6 Neutrophils % 59 % Lymphocytes % 31 % Monocytes % 7 % Eosinophils % 1 % Basophils % 0 % Neutrophils # 4.2 (1.3-7.7) k/uL Lymphocytes # 2.2 (1.0-4.8) k/uL Monocytes # 0.5 (0-1.0) k/uL Eosinophils # 0.1 (0-0.7) k/uL Basophils # 0.0 (0-0.2) k/uL PT 9.8 (9.0-12.0) sec INR 0.9 (<1.2) APTT 23.5 (22.0-30.0) sec Sodium 138 (137-145) mmol/L Potassium 4.5 (3.5-5.1) mmol/L Chloride 105 (98-107) mmol/L Carbon Dioxide 24 (22-30) mmol/L Anion Gap 9 mmol/L BUN 16 (9-20) mg/dL Creatinine 0.71 (0.66-1.25) mg/dL Est GFR (CKD-EPI)AfAm >90 (>60 ml/min/1.73 sqM) Est GFR (CKD-EPI)NonAf >90 (>60 ml/min/1.73 sqM) Glucose 109 H (74-99) mg/dL Calcium 10.2 (8.4-10.2) mg/dL Magnesium 2.1 (1.6-2.3) mg/dL Total Bilirubin 0.4 (0.2-1.3) mg/dL AST 46 (17-59) U/L ALT 73 H (4-49) U/L Alkaline Phosphatase 53 (38-126) U/L Troponin I (0.000-0.034) ng/mL Total Protein 7.1 (6.3-8.2) g/dL Albumin 4.6 (3.5-5.0) g/dL 11/12/20 Range/Units 15:49 WBC (3.8-10.6) k/uL RBC (4.30-5.90) m/uL Hgb (13.0-17.5) gm/dL Hct (39.0-53.0) % MCV (80.0-100.0) fL MCH (25.0-35.0) pg MCHC (31.0-37.0) g/dL RDW (11.5-15.5) % Plt Count (150-450) k/uL MPV Neutrophils % % Lymphocytes % % Monocytes % % Eosinophils % % Basophils % % Neutrophils # (1.3-7.7) k/uL Lymphocytes # (1.0-4.8) k/uL Monocytes # (0-1.0) k/uL Eosinophils # (0-0.7) k/uL Basophils # (0-0.2) k/uL PT (9.0-12.0) sec INR (<1.2) APTT (22.0-30.0) sec Sodium (137-145) mmol/L Potassium (3.5-5.1) mmol/L Chloride (98-107) mmol/L Carbon Dioxide (22-30) mmol/L Anion Gap mmol/L BUN (9-20) mg/dL Creatinine (0.66-1.25) mg/dL Est GFR (CKD-EPI)AfAm (>60 ml/min/1.73 sqM) Est GFR (CKD-EPI)NonAf (>60 ml/min/1.73 sqM) Glucose (74-99) mg/dL Calcium (8.4-10.2) mg/dL Magnesium (1.6-2.3) mg/dL Total Bilirubin (0.2-1.3) mg/dL AST (17-59) U/L ALT (4-49) U/L Alkaline Phosphatase (38-126) U/L Troponin I <0.012 (0.000-0.034) ng/mL Total Protein (6.3-8.2) g/dL Albumin (3.5-5.0) g/dL Disposition Clinical Impression: Pain in left forearm, Hypertension Disposition: HOME SELF-CARE Condition: Stable Instructions (If sedation given, give patient instructions): Hypertension (ED) Additional Instructions: Follow up with your primary care doctor next week for re-evaluation Is patient prescribed a controlled substance at d/c from ED?: No Referrals: Tesfaye Guaman MD [Primary Care Provider] - 1-2 days
--- NOTE | 2020-11-12 15:55 | XR ---
EXAMINATION TYPE: XR chest 2V DATE OF EXAM: 11/12/2020 CLINICAL HISTORY: Chest Pain. TECHNIQUE: Frontal and lateral view of the chest. COMPARISON: 03/24/2019 FINDINGS: The cardiomediastinal silhouette is within normal limits for size. Pulmonary vasculature i s normal. There is no focal air space opacity. No pleural effusion. No pneumothorax seen. Degenerati ve changes of the spine. IMPRESSION: No acute cardiopulmonary process.
[2020-11-12 16:04] LABS: Basophils % (A) 0 %; Eosinophils # (A) 0.1 k/uL (0-0.7); Eosinophils % (A) 1 %; HCT 44.6 % (39.0-53.0); HGB 14.5 gm/dL (13.0-17.5); Lymphocytes # (A) 2.2 k/uL (1.0-4.8); Lymphocytes % (A) 31 %; MCH 30.1 pg (25.0-35.0); MCHC 32.6 g/dL (31.0-37.0); MCV 92.4 fL (80.0-100.0); Mean Platelet Volume 7.6; Monocytes # (A) 0.5 k/uL (0-1.0); Monocytes % (A) 7 %; Neutrophils # (A) 4.2 k/uL (1.3-7.7); Neutrophils % (A) 59 %; Platelet Count 218 k/uL (150-450); RBC 4.83 m/uL (4.30-5.90); RDW 13.5 % (11.5-15.5); WBC 7.1 k/uL (3.8-10.6)
[2020-11-12 16:15] LABS: ALT 73 U/L (4-49); AST 46 U/L (17-59); African American GFR (CKD) >90 (>60 ml/min/1.73 sqM); Albumin 4.6 g/dL (3.5-5.0); Alkaline Phosphatase 53 U/L (38-126); Anion Gap 9 mmol/L; Blood Urea Nitrogen 16 mg/dL (9-20); Calcium 10.2 mg/dL (8.4-10.2); Carbon Dioxide 24 mmol/L (22-30); Chloride 105 mmol/L (98-107); Glucose 109 mg/dL (74-99); Magnesium 2.1 mg/dL (1.6-2.3); Non-African American GFR(CKD) >90 (>60 ml/min/1.73 sqM); Potassium 4.5 mmol/L (3.5-5.1); Sodium 138 mmol/L (137-145); Total Bilirubin 0.4 mg/dL (0.2-1.3); Total Protein 7.1 g/dL (6.3-8.2)
[2020-11-12 16:19] LABS: INR 0.9 (<1.2); Partial Thromboplastin Time 23.5 sec (22.0-30.0); Prothrombin Time 9.8 sec (9.0-12.0)
[2020-11-12 17:38] VITALS: PULSE 62
[2020-11-12 17:40] VITALS: BP 123/75; RESP 16
[2020-11-12 17:52] VITALS: TEMP 97.8
== END 2020-11-12 17:52 | disposition home or self-care (01) ==
LOC: EC 14:57
DX: M79.632 Pain in left forearm (principal); E11.9 Type 2 diabetes mellitus without complications; E78.5 Hyperlipidemia, unspecified; I10 Essential (primary) hypertension; Z79.82 Long term (current) use of aspirin; Z79.84 Long term (current) use of oral hypoglycemic drugs; Z90.49 Acquired absence of other specified parts of digestive tract; Z95.5 Presence of coronary angioplasty implant and graft; Z90.09 Acquired absence of other part of head and neck
CPT/HCPCS: 36415; 71046; 80053; 83735; 84484; 85025; 85610; 85730; 93005; 96360; 99284

== ENCOUNTER → 2021-01-13 | Outpatient (CLI) | payer MEDICAID ==
--- NOTE | 2021-01-13 20:56 | CT ---
EXAMINATION TYPE: CT soft tissue neck wo con DATE OF EXAM: 01/13/2021 HISTORY: lump on right side of neck marked by BB COMPARISON: CT cervical spine November 09, 2016 CT DLP: 789.8 mGycm. Automated Exposure Control for Dose Reduction was Utilized. TECHNIQUE: CT scan of the neck is performed without IV contrast, axial images are obtained, coronal and sagittal reformatted images are reviewed. FINDINGS: Lack of IV contrast is noted to lower sensitivity for evaluation for mucosal lesions and ne ck adenopathy. Airway: No gross abnormality seen. Parotid/submandibular glands: No gross abnormality seen. Carotid/Vascular Structures: Minimal calcified plaque left carotid bulb. Osseous Structures: Spine is straight and on sagittal images similar to prior. Mild to moderate disc space narrowing and spurring C5-C6 level redemonstrated with posterior spur disc complex effacing the anterior thecal sac. Other: Metallic BB placed at level of palpable abnormality in the right neck axial image 52 at level of hyoid bone. There is a patent draining external jugular vein at this level unchanged in appearance from 2017 study. There is normal sternocleidomastoid mastoid and superficial platysma muscle. No con cerning solid or cystic mass or fluid collection is identified. No significant change from 2017 study . No definitive greater than 1 cm neck adenopathy. Parapharyngeal fat spaces are maintained. NaSal septum slightly deviated to right of midline. IMPRESSION: No concerning mass or adenopathy at the area of palpable abnormality right neck.
== END | disposition home or self-care (01) ==
LOC: RADCTMAIN 16:52
PROVIDERS: ATTEND Internal Medicine
DX: R22.0 Localized swelling, mass and lump, head (principal)
CPT/HCPCS: 70490

== ENCOUNTER → 2021-01-13 | Outpatient (CLI) | payer MEDICAID ==
[2021-01-13 14:37] LABS: HCT 44.8 % (39.6-50.0); HGB 14.7 g/dL (13.0-17.0); MCH 30.9 pg (27.0-32.0); MCHC 32.8 g/dL (32.0-37.0); MCV 94.3 fL (80.0-97.0); Mean Platelet Volume 10.5 fL (9.5-12.2); Platelet Count 220 X 10*3/uL (140-440); RBC 4.75 X 10*6/uL (4.40-5.60); WBC 7.25 X 10*3/uL (4.50-10.00)
[2021-01-13 15:15] LABS: African American GFR (CKD) 114.1 (60.0-200.0); Albumin 4.6 g/dL (3.80-4.90); Albumin/Globulin Ratio 2.09 (1.60-3.17); Anion Gap 10.2 mmol/L (4.00-12.00); BUN/Creat Ratio 21.25 Ratio (12.00-20.00); Calcium 9.3 mg/dL (8.7-10.3); Carbon Dioxide 24.8 mmol/L (21.6-31.8); Chol/HDL Ratio 3.26; Globulin 2.2 g/dL (1.6-3.3); LDL Cholesterol,Calculated 57.8 mg/dL (0.0-131.0); Non-African American GFR(CKD) 98.5 (60.0-200.0); Potassium 4.4 mmol/L (3.5-5.5); Total Bilirubin 0.7 mg/dL (0.3-1.2); Total Protein 6.8 g/dL (6.2-8.2); VLDL Calculation 19.2 mg/dL (5.00-40.00)
[2021-01-13 18:55] LABS: Hemoglobin A1C 7.8 % (4.0-6.0)
== END | disposition home or self-care (01) ==
LOC: LABWHC1 08:18
PROVIDERS: ATTEND Internal Medicine
DX: E11.9 Type 2 diabetes mellitus without complications (principal); E78.5 Hyperlipidemia, unspecified
CPT/HCPCS: 36415; 80053; 80061; 83036; 84443; 85027

== ENCOUNTER → 2021-04-23 | Outpatient (CLI) | payer MEDICAID ==
[2021-04-23 18:36] LABS: ALT 67 U/L (10-49); AST 37 U/L (14-35); Albumin 4.4 g/dL (3.8-4.9); Albumin/Globulin Ratio 2.19 (1.60-3.17); Alkaline Phosphatase 45 U/L (41-126); Bilirubin, Conjugated <0.20 mg/dL (0.20-0.40); Chol/HDL Ratio 2.61 Ratio; LDL Cholesterol,Calculated 41.3 mg/dL (0.0-131.0); Total Protein 6.4 g/dL (6.2-8.2); VLDL Calculation 17.04 mg/dL (5.00-40.00)
== END | disposition home or self-care (01) ==
LOC: LABWHC1 09:15
PROVIDERS: ATTEND Internal Medicine
DX: E11.9 Type 2 diabetes mellitus without complications (principal); E78.5 Hyperlipidemia, unspecified; R79.89 Other specified abnormal findings of blood chemistry
CPT/HCPCS: 36415; 80061; 80076; 83036

== ENCOUNTER → 2021-05-19 | Outpatient (CLI) | payer MEDICAID ==
--- NOTE | 2021-05-19 10:00 | XR ---
EXAMINATION TYPE: XR chest 2V DATE OF EXAM: 05/19/2021 COMPARISON: 11/12/2020 TECHNIQUE: PA and lateral views submitted. HISTORY: Cough FINDINGS: The lungs are clear and there is no pneumothorax, pleural effusion, or focal pneumonia. Heart size is stable. Atherosclerotic change of the aorta. No overt failure or pneumothorax. Biapical pleural th ickening. Hypertrophic changes of the spine. IMPRESSION: 1. No acute process.
== END | disposition home or self-care (01) ==
LOC: RADXRMAIN 09:28
PROVIDERS: ATTEND Internal Medicine
DX: R05.8 Other specified cough (principal)
CPT/HCPCS: 71046

== ENCOUNTER → 2021-07-14 | Outpatient (CLI) | payer MEDICAID ==
[2021-07-14 09:25] LABS: ALT 59 U/L (4-49); AST 39 U/L (17-59); African American GFR (CKD) >90 (>60 ml/min/1.73 sqM); Albumin/Globulin Ratio 1.6; Alkaline Phosphatase 43 U/L (38-126); Anion Gap 9 mmol/L; Bilirubin,Unconjugated 0.4 mg/dL (0.0-1.1); Blood Urea Nitrogen 19 mg/dL (9-20); Carbon Dioxide 26 mmol/L (22-30); Chloride 103 mmol/L (98-107); Globulin 2.5 g/dL; Non-African American GFR(CKD) >90 (>60 ml/min/1.73 sqM); Potassium 4.6 mmol/L (3.5-5.1); Sodium 138 mmol/L (137-145); Total Bilirubin 0.7 mg/dL (0.2-1.3); Total Protein 6.5 g/dL (6.3-8.2)
[2021-07-14 17:25] LABS: Chol/HDL Ratio 2.97 Ratio; LDL Cholesterol,Calculated 53.4 mg/dL (0.0-131.0)
== END | disposition home or self-care (01) ==
LOC: LABWHC1 06:53
PROVIDERS: ATTEND Internal Medicine
DX: Z12.5 Encounter for screening for malignant neoplasm of prostate (principal); E11.9 Type 2 diabetes mellitus without complications; I10 Essential (primary) hypertension; E78.5 Hyperlipidemia, unspecified
CPT/HCPCS: 36415; 80051; 80061; 80076; 82565; 83036; 84153; 84520

== ENCOUNTER 2021-09-16 12:36 | Emergency (ER) | payer MEDICAID, OTHER ==
[2021-09-16 12:42] VITALS: TEMP 98.2
--- NOTE | 2021-09-16 12:59 | ED ---
General Adult HPI - General Chief complaint: Head Injury Stated complaint: [facility] - Head Injury Time Seen by Provider: 09/16/21 12:53 Source: patient, RN notes reviewed, old records reviewed Mode of arrival: ambulatory Limitations: no limitations - History of Present Illness Initial comments: 89-year-old male presenting status post head injury. Injury occurred 2 days ago while at work. Patient had struck his forehead on a metal plate and the top of his head 2 separate occasions on the same day. There is no loss conscious. He does take 81 mg aspirin, no other anticoagulants. He's had some headache after the accident. Denies focal numbness or weakness. Denies cough or cold symptoms. Denies fever. States he has some intermittent blurry vision associated with this. - Related Data Home Medications Medication Instructions Recorded Confirmed Aspirin EC [Ecotrin Low Dose] 81 mg PO DAILY 02/16/16 11/12/20 Gabapentin [Neurontin] 300 mg PO BID 11/09/16 11/12/20 lisinopriL [Zestril] 10 mg PO HS 12/08/16 11/12/20 Metoprolol Tartrate [Lopressor] 25 mg PO BID 06/26/17 11/12/20 Dapagliflozin Propanediol [Farxiga] 10 mg PO DAILY 11/28/19 11/12/20 Glimepiride [Amaryl] 2 mg PO BID 11/28/19 11/12/20 Tamsulosin [Flomax] 0.4 mg PO HS 11/28/19 11/12/20 metFORMIN HCL [Glucophage] 1,000 mg PO BID 11/28/19 11/12/20 Multivitamin [Multivitamins Adult 1 tab PO DAILY 11/12/20 11/12/20 Gummies] Nitroglycerin Sl Tabs [Nitrostat] 0.4 mg SUBLINGUAL Q5M PRN 11/12/20 11/12/20 Semaglutide [Ozempic] 0.5 mg SQ TU 11/12/20 11/12/20 Simvastatin [Zocor] 20 mg PO HS 11/12/20 11/12/20 Turmeric Root Extract [Turmeric] 500 mg PO DAILY 11/12/20 11/12/20 Allergies Allergy/AdvReac Type Severity Reaction Status Date / Time atorvastatin [From Lipitor] AdvReac Diarrhea Verified 09/16/21 12:39 Review of Systems ROS Statement: Those systems with pertinent positive or pertinent negative responses have been documented in the HPI. ROS Other: All systems not noted in ROS Statement are negative. Past Medical History Past Medical History: Diabetes Mellitus, Hyperlipidemia, Hypertension Additional Past Medical History / Comment(s): bronchitis, 2010 fell off a ladder with 2 left rib fractures and L knee meniscus tear.neuropathy,stress test 06-09-17-neg, History of Any Multi-Drug Resistant Organisms: None Reported Past Surgical History: Appendectomy, Heart Catheterization, Heart Catheterization With Stent, Joint Replacement, Orthopedic Surgery, Tonsillectomy Additional Past Surgical History / Comment(s): 08/19/10 cardiac cath with 40% LAD blockage-treated medically, december 2016 cardiac cath 2 stents placed, bilateral knee arthroscopies, nasal fracture with surgery, R shoulder spur removal, L shoulder tendon repair with debridement, colonoscopy. Past Anesthesia/Blood Transfusion Reactions: No Reported Reaction Date of Last Stent Placement:: december 2016 Past Psychological History: No Psychological Hx Reported Smoking Status: Never smoker Past Alcohol Use History: None Reported Past Drug Use History: None Reported - Past Family History Father Family Medical History: Cancer Additional Family Medical History / Comment(s): Father of lung cancer. He was a smoker. Mother Family Medical History: Cancer Additional Family Medical History / Comment(s): Mother of lung cancer. She was a smoker. Brother(s) Family Medical History: Cancer Additional Family Medical History / Comment(s): 2 brother's had lung cancer-they were both smokers. Sister(s) Family Medical History: Cancer Additional Family Medical History / Comment(s): Pt's sister had lung cancer-she was a smoker. General Exam Limitations: no limitations General appearance: alert, in no apparent distress Head exam: Present: other (Small forehead hematoma, no laceration.) Eye exam: Present: normal appearance, PERRL, EOMI ENT exam: Present: normal exam Neck exam: Present: normal inspection. Absent: tenderness, meningismus Respiratory exam: Present: normal lung sounds bilaterally. Absent: respiratory distress, wheezes Cardiovascular Exam: Present: regular rate, normal rhythm GI/Abdominal exam: Present: soft. Absent: distended, tenderness Extremities exam: Present: normal inspection, normal capillary refill. Absent: pedal edema Neurological exam: Present: alert, oriented X3, CN II-XII intact, other (Normal finger to nose bilaterally, no focal findings, strength is 5 out of 5 in all extremities.). Absent: motor sensory deficit Psychiatric exam: Present: normal affect, normal mood Skin exam: Present: warm, dry, intact. Absent: cyanosis, diaphoretic Course Vital Signs 09/16/21 12:39 Temperature 98.2 F Pulse Rate 63 Respiratory 20 Rate Blood Pressure 134/78 O2 Sat by Pulse 97 Oximetry Medical Decision Making - Medical Decision Making 61-year-old male status post head injury which occurred 2 days ago with persistent symptoms including headache. Head CT is performed which is negative for intracranial hemorrhage or mass effect. No acute findings. Symptoms likely related to concussion. Patient given concussion instructions and will follow with his primary care physician for reevaluation. Disposition Clinical Impression: Concussion without loss of consciousness Disposition: HOME SELF-CARE Condition: Good Instructions (If sedation given, give patient instructions): Concussion (ED) Is patient prescribed a controlled substance at d/c from ED?: No Referrals: Tesfaye Guaman MD [Primary Care Provider] - 1-2 days
--- NOTE | 2021-09-16 14:00 | CT ---
EXAMINATION TYPE: CT brain wo con DATE OF EXAM: 09/16/2021 COMPARISON: CT dated 03/11/2020 HISTORY: Trauma. Head injury. CT DLP: 1158.4 mGycm Automated exposure control for dose reduction was used. TECHNIQUE: CT scan of the brain is performed without IV contrast administration. FINDINGS: Unremarkable morphology of the cerebral hemispheres, cerebellum and brainstem. No acute intracranial hemorrhage. No gross acute cortical infarct. No midline shift, herniation or ventriculomegaly. Unremarkable moran-white matter differentiation, basal cisterns, sella and CP angles. No gross space-o ccupying lesion, vasogenic edema or mass effect. Unremarkable orbits. Clear visualized paranasal sinuses. Slightly opacified left inferior mastoid air cells with adjacent sclerotic changes suggestive of chronic mastoiditis. Unremarkable calvarial bone s. IMPRESSION: No acute intracranial posttraumatic sequela or acute calvarial bone fracture.
[2021-09-16 14:21] VITALS: BP 112/71; PULSE 66; RESP 18
== END 2021-09-16 14:21 | disposition home or self-care (01) ==
LOC: EC 12:36
DX: S06.0X0A Concussion without loss of consciousness, initial encounter (principal); E11.9 Type 2 diabetes mellitus without complications; I10 Essential (primary) hypertension; Z88.8 Allergy status to other drugs, medicaments and biological substances; X58.XXXA Exposure to other specified factors, initial encounter
CPT/HCPCS: 70450; 99283

== ENCOUNTER → 2021-09-23 | Outpatient (CLI) | payer OTHER ==
--- NOTE | 2021-09-23 13:41 | CT ---
EXAMINATION TYPE: CT brain angus wo con DATE OF EXAM: 09/23/2021 COMPARISON: 09/16/2021 HISTORY: Headache post head injury. CT DLP: [address] of the brain was performed. The ventricles, basal cisterns and sulci overlying the cerebral convexities demonstrate mild enlargem ent. There is no evidence for intracranial hemorrhage or sulcal effacement. There is decreased attenuatio n about the periventricular white matter and deep white matter of both cerebral hemispheres, compatib le with chronic small vessel ischemia. No mass effects are seen. If symptoms persist consider MRI. Osseous calvarium is intact. IMPRESSION: 1. Age related atrophic and chronic small vessel ischemic change without acute intracranial process seen at this time. CT Cervical Spine: Unenhanced CT of the cervical spine was performed with bone and soft tissue window settings submitted . Coronal and sagittal reconstruction is obtained. There is normal alignment and prevertebral soft tissues. No evidence for acute cervical fracture . Scattered degenerative disc disease and spondylosis. Biapical scarring. IMPRESSION: 1. No evidence for acute fracture or subluxation of the cervical spine.
== END | disposition home or self-care (01) ==
LOC: RADCTMAIN 13:08
PROVIDERS: ATTEND Emergency Medicine
DX: G44.321 Chronic post-traumatic headache, intractable (principal); S00.83XD Contusion of other part of head, subsequent encounter; S13.4XXD Sprain of ligaments of cervical spine, subsequent encounter; X58.XXXD Exposure to other specified factors, subsequent encounter
CPT/HCPCS: 70450; 72125

== ENCOUNTER → 2021-09-30 | Outpatient (CLI) | payer OTHER ==
--- NOTE | 2021-10-01 02:53 | MR ---
EXAMINATION TYPE: MR brain wo con DATE OF EXAM: 09/30/2021 COMPARISON: None HISTORY: Hit top of head at work, headaches since Multiplanar multiecho imaging of the brain without contrast. There is mild cerebral atrophy appropriate for age. There is no mass effect nor midline shift. There is no evidence of intracranial hemorrhage. Diffusion images show no evidence of an acute infarct. On the T2 and FLAIR images there are a few tiny scattered white matter high signal foci up to 3 mm at the moran-white matter junction posterior lateral hemispheres. Total number is approximately 10. th e brainstem is intact. Corpus callosum is intact. Sella turcica is intact. There is no evidence of po sterior fossa mass. IMPRESSION: There are a few tiny white matter high signal foci of uncertain significance. This could be minimal microvascular ischemia. No evidence of cortical infarct.
== END | disposition home or self-care (01) ==
LOC: RADMRIMAIN 19:03
PROVIDERS: ATTEND Emergency Medicine
DX: S00.83XD Contusion of other part of head, subsequent encounter (principal); S13.4XXD Sprain of ligaments of cervical spine, subsequent encounter; G44.321 Chronic post-traumatic headache, intractable; X58.XXXD Exposure to other specified factors, subsequent encounter
CPT/HCPCS: 70551

== ENCOUNTER 2021-12-19 10:00 | Observation (INO) | payer MEDICAID, OTHER ==
[2021-12-19] MEDS ORDERED: ASPIRIN 81 MG PO STA (10:36)
[2021-12-19] MEDS ORDERED: SODIUM CHLORIDE 0.9% 500 ML 500 ML IV STA (10:36)
[2021-12-19] MEDS ORDERED: NITROGLYCERIN OINT 1 INCH/GM PACKET TOPICAL STA (10:36)
--- NOTE | 2021-12-19 10:41 | ED ---
General Adult HPI - General Chief complaint: Chest Pain Stated complaint: chest pain Time Seen by Provider: 12/19/21 10:10 Source: patient, RN notes reviewed, old records reviewed Mode of arrival: ambulatory Limitations: no limitations - History of Present Illness Initial comments: This is a 61-year-old male who presents emergency Department complaining of chest pain started at 7:00 this morning. Patient states it lasts for about 5 minutes and goes away and comes back per patient states that someone to the chest pain he had when he had his heart attack. Patient states he is diabetic has high blood pressure and has high cholesterol. Patient also states he has a strong family history of heart disease. Patient denies any radiation of the pain. Patient states he was short of breath when he was having the pain. Patient states the pain is, go multiple times this morning. Patient denies any nausea. Patient denies headache patient denies numbness weakness. Patient denies any palpitations. Patient denies any recent fever chills or cough. Patient denies any leg swelling or calf tenderness. - Related Data Home Medications Medication Instructions Recorded Confirmed Aspirin EC [Ecotrin Low Dose] 81 mg PO DAILY 02/16/16 12/19/21 Metoprolol Tartrate [Lopressor] 25 mg PO BID 06/26/17 12/19/21 Tamsulosin [Flomax] 0.4 mg PO HS 11/28/19 12/19/21 metFORMIN HCL [Glucophage] 1,000 mg PO BID 11/28/19 12/19/21 Multivitamin [Multivitamins Adult 1 tab PO DAILY 11/12/20 12/19/21 Gummies] Glimepiride [Amaryl] 4 mg PO BID 12/19/21 12/19/21 Nortriptyline [Pamelor] 25 - 50 mg PO HS PRN 12/19/21 12/19/21 Potassium Gluconate [Potassium 99 mg PO DAILY 12/19/21 12/19/21 Gluconate ER] Pyridoxine [Vitamin B-6] 50 mg PO DAILY 12/19/21 12/19/21 Simvastatin [Zocor] 40 mg PO HS 12/19/21 12/19/21 lisinopriL [Zestril] 20 mg PO DAILY 12/19/21 12/19/21 Allergies Allergy/AdvReac Type Severity Reaction Status Date / Time atorvastatin [From Lipitor] AdvReac Diarrhea Verified 12/19/21 11:43 Review of Systems ROS Statement: Those systems with pertinent positive or pertinent negative responses have been documented in the HPI. ROS Other: All systems not noted in ROS Statement are negative. Past Medical History Past Medical History: Diabetes Mellitus, Hyperlipidemia, Hypertension Additional Past Medical History / Comment(s): bronchitis, 2010 fell off a ladder with 2 left rib fractures and L knee meniscus tear.neuropathy,stress test 12-2-17-neg, History of Any Multi-Drug Resistant Organisms: None Reported Past Surgical History: Appendectomy, Heart Catheterization, Heart Catheterization With Stent, Joint Replacement, Orthopedic Surgery, Tonsillectomy Additional Past Surgical History / Comment(s): 08/19/10 cardiac cath with 40% LAD blockage-treated medically, december 2016 cardiac cath 2 stents placed, bilateral knee arthroscopies, nasal fracture with surgery, R shoulder spur removal, L shoulder tendon repair with debridement, colonoscopy. Past Anesthesia/Blood Transfusion Reactions: No Reported Reaction Date of Last Stent Placement:: december 2016 Past Psychological History: No Psychological Hx Reported Smoking Status: Never smoker Past Alcohol Use History: None Reported Past Drug Use History: None Reported - Past Family History Father Family Medical History: Cancer Additional Family Medical History / Comment(s): Father of lung cancer. He was a smoker. Mother Family Medical History: Cancer Additional Family Medical History / Comment(s): Mother of lung cancer. She was a smoker. Brother(s) Family Medical History: Cancer Additional Family Medical History / Comment(s): 2 brother's had lung cancer-they were both smokers. Sister(s) Family Medical History: Cancer Additional Family Medical History / Comment(s): Pt's sister had lung cancer-she was a smoker. General Exam - General Exam Comments Initial Comments: GENERAL: Patient is well-developed and well-nourished. Patient is nontoxic and well- hydrated and is in mild distress. ENT: Neck is soft and supple. No significant lymphadenopathy is noted. Oropharynx is clear. Moist mucous membranes. Neck has full range of motion without eliciting any pain. EYES: The sclera were anicteric and conjunctiva were pink and moist. Extraocular movements were intact and pupils were equal round and reactive to light. Eyelids were unremarkable. PULMONARY: Unlabored respirations. Good breath sounds bilaterally. No audible rales rhonchi or wheezing was noted. CARDIOVASCULAR: There is a regular rate and rhythm without any murmurs gallops or rubs. ABDOMEN: Soft and nontender with normal bowel sounds. SKIN: Skin is clear with no lesions or rashes and otherwise unremarkable. NEUROLOGIC: Patient is alert and oriented x3. Cranial nerves II through XII are grossly intact. Motor and sensory are also intact. Normal speech, volume and content. Symmetrical smile. MUSCULOSKELETAL: Normal extremities with adequate strength and full range of motion. LYMPHATICS: No significant lymphadenopathy is noted PSYCHIATRIC: Normal psychiatric evaluation. Limitations: no limitations Course Vital Signs 12/19/21 12/19/21 10:10 11:13 Temperature 98.3 F Pulse Rate 82 80 Respiratory 18 16 Rate Blood Pressure 137/79 114/73 O2 Sat by Pulse 97 97 Oximetry Medical Decision Making - Medical Decision Making EKG shows sinus rhythm at 81 bpm IN interval 166 QRS is 93 QT interval is 359 QTC is 396[address] No ST segment elevation or depression Chest x-ray shows no acute abnormality. I will back into the room to discuss the results with the patient and he was sti ll experiencing some chest pressure but not as bad as earlier. I spoke with some physicians they agreed to admit the patient admitted the patient wrote admitting orders. I consulted cardiology. - Lab Data Result diagrams: 12/19/21 10:37 12/19/21 10:37 Lab Results 12/19/21 12/19/21 12/19/21 Range/Units 10:37 10:37 10:37 WBC 6.9 (3.8-10.6) k/uL RBC 4.89 (4.30-5.90) m/uL Hgb 15.5 (13.0-17.5) gm/dL Hct 46.8 (39.0-53.0) % MCV 95.7 (80.0-100.0) fL MCH 31.8 (25.0-35.0) pg MCHC 33.2 (31.0-37.0) g/dL RDW 13.7 (11.5-15.5) % Plt Count 203 (150-450) k/uL MPV 8.3 Neutrophils % 58 % Lymphocytes % 29 % Monocytes % 8 % Eosinophils % 1 % Basophils % 1 % Neutrophils # 4.0 (1.3-7.7) k/uL Lymphocytes # 2.0 (1.0-4.8) k/uL Monocytes # 0.6 (0-1.0) k/uL Eosinophils # 0.1 (0-0.7) k/uL Basophils # 0.0 (0-0.2) k/uL PT 10.4 (9.0-12.0) sec INR 1.0 (<1.2) APTT 25.7 (22.0-30.0) sec Sodium 136 L (137-145) mmol/L Potassium 4.9 (3.5-5.1) mmol/L Chloride 104 (98-107) mmol/L Carbon Dioxide 19 L (22-30) mmol/L Anion Gap 13 mmol/L BUN 14 (9-20) mg/dL Creatinine 0.60 L (0.66-1.25) mg/dL Est GFR (CKD-EPI)AfAm >90 (>60 ml/min/1.73 sqM) Est GFR (CKD-EPI)NonAf >90 (>60 ml/min/1.73 sqM) Glucose 193 H (74-99) mg/dL Calcium 9.3 (8.4-10.2) mg/dL Magnesium 2.1 (1.6-2.3) mg/dL Total Bilirubin 0.6 (0.2-1.3) mg/dL AST 54 (17-59) U/L ALT 83 H (4-49) U/L Alkaline Phosphatase 44 (38-126) U/L Troponin I (0.000-0.034) ng/mL Total Protein 7.4 (6.3-8.2) g/dL Albumin 4.7 (3.5-5.0) g/dL 12/19/21 Range/Units 10:37 WBC (3.8-10.6) k/uL RBC (4.30-5.90) m/uL Hgb (13.0-17.5) gm/dL Hct (39.0-53.0) % MCV (80.0-100.0) fL MCH (25.0-35.0) pg MCHC (31.0-37.0) g/dL RDW (11.5-15.5) % Plt Count (150-450) k/uL MPV Neutrophils % % Lymphocytes % % Monocytes % % Eosinophils % % Basophils % % Neutrophils # (1.3-7.7) k/uL Lymphocytes # (1.0-4.8) k/uL Monocytes # (0-1.0) k/uL Eosinophils # (0-0.7) k/uL Basophils # (0-0.2) k/uL PT (9.0-12.0) sec INR (<1.2) APTT (22.0-30.0) sec Sodium (137-145) mmol/L Potassium (3.5-5.1) mmol/L Chloride (98-107) mmol/L Carbon Dioxide (22-30) mmol/L Anion Gap mmol/L BUN (9-20) mg/dL Creatinine (0.66-1.25) mg/dL Est GFR (CKD-EPI)AfAm (>60 ml/min/1.73 sqM) Est GFR (CKD-EPI)NonAf (>60 ml/min/1.73 sqM) Glucose (74-99) mg/dL Calcium (8.4-10.2) mg/dL Magnesium (1.6-2.3) mg/dL Total Bilirubin (0.2-1.3) mg/dL AST (17-59) U/L ALT (4-49) U/L Alkaline Phosphatase (38-126) U/L Troponin I <0.012 (0.000-0.034) ng/mL Total Protein (6.3-8.2) g/dL Albumin (3.5-5.0) g/dL Disposition Clinical Impression: Chest pain Disposition: ADMITTED IP TO THIS HOSP Referrals: Tesfaye Guaman MD [Primary Care Provider] - 1-2 days Time of Disposition: 12:59
--- NOTE | 2021-12-19 11:10 | XR ---
EXAMINATION TYPE: XR chest 2V DATE OF EXAM: 12/19/2021 HISTORY: Shortness of breath. COMPARISON: 05/19/2021 TECHNIQUE: Single view of the chest is submitted. FINDINGS: Demonstrated are scattered senescent parenchymal change. There is no evidence for focal infiltrate. The heart is stable. Hilar and mediastinal structures are within normal limits. Degenerative changes are seen of the dorsal spine. IMPRESSION: 1. Chronic changes without evidence for acute pulmonary disease.
[2021-12-19 11:21] LABS: ALT 83 U/L (4-49); African American GFR (CKD) >90 (>60 ml/min/1.73 sqM); Albumin 4.7 g/dL (3.5-5.0); Anion Gap 13 mmol/L; Blood Urea Nitrogen 14 mg/dL (9-20); Calcium 9.3 mg/dL (8.4-10.2); Carbon Dioxide 19 mmol/L (22-30); Chloride 104 mmol/L (98-107); Glucose 193 mg/dL (74-99); Non-African American GFR(CKD) >90 (>60 ml/min/1.73 sqM); Sodium 136 mmol/L (137-145); Total Bilirubin 0.6 mg/dL (0.2-1.3); Total Protein 7.4 g/dL (6.3-8.2)
[2021-12-19 11:24] LABS: AST 54 U/L (17-59); Magnesium 2.1 mg/dL (1.6-2.3); Potassium 4.9 mmol/L (3.5-5.1)
[2021-12-19 11:25] LABS: Alkaline Phosphatase 44 U/L (38-126)
[2021-12-19 11:33] LABS: Partial Thromboplastin Time 25.7 sec (22.0-30.0); Prothrombin Time 10.4 sec (9.0-12.0)
[2021-12-19 11:39] LABS: Basophils % (A) 1 %; Eosinophils # (A) 0.1 k/uL (0-0.7); Eosinophils % (A) 1 %; HCT 46.8 % (39.0-53.0); HGB 15.5 gm/dL (13.0-17.5); Lymphocytes % (A) 29 %; MCH 31.8 pg (25.0-35.0); MCHC 33.2 g/dL (31.0-37.0); MCV 95.7 fL (80.0-100.0); Mean Platelet Volume 8.3; Monocytes # (A) 0.6 k/uL (0-1.0); Monocytes % (A) 8 %; Neutrophils % (A) 58 %; Platelet Count 203 k/uL (150-450); RBC 4.89 m/uL (4.30-5.90); RDW 13.7 % (11.5-15.5); WBC 6.9 k/uL (3.8-10.6)
[2021-12-19] MEDS ORDERED: NITROGLYCERIN SL TABS 0.4 MG TAB SUBLINGUAL PRN (13:01)
[2021-12-19] MEDS ORDERED: NALOXONE 0.4 MG/ML 10 ML VIAL IVP PRN (13:08)
[2021-12-19] MEDS ORDERED: ACETAMINOPHEN TAB 325 MG TAB PO PRN (13:09)
[2021-12-19] MEDS ORDERED: NALOXONE 0.4 MG/ML 1 ML VIAL IVP PRN (13:16)
--- NOTE | 2021-12-19 13:58 | P.HPIM ---
History of Present Illness H&P Date: 12/19/21 Chief Complaint: Chest pain 61-year-old man with medical history of hypertension, hyperlipidemia, BPH, diabetes presented with chest pain. Patient says his pain started this morning when he woke up. It is sharp in nature. It is not particularly associated with exertion, position, by mouth intake. He has never had a stroke before, but he has had 2 stents placed to the LAD in 2017. Patient denies associated diaphoresis, shakes, sweats, nausea, vomiting, palpitations, orthopnea, dyspnea on exertion, lower extremity edema, cough, fevers, chills, syncopal, presyncope, abdominal pain, constipation, diarrhea, dysuria, dyschezia, materia, hematochezia, numbness/weakness of extremities beyond baseline. In the emergency room, patient is afebrile, 137/79, heart rate 82, 97% on room air. CBC is unremarkable. Chemistries are remarkable for bicarb of 19 with no anion gap, otherwise unremarkable. LFTs show an ALT of 83, otherwise not remarkable. Troponin was less than 0.012. Chest x-ray shows no acute pulmonary disease. EKG shows normal sinus rhythm without ischemic changes, does show an S1 Q3 T3 pattern. All Systems reviewed and pertinent positives and negatives noted in HPI, all other symptoms are negative Gen: in no apparent distress, resting comfortably in bed Eyes: PERRL, no scleral injection or icterus HENT: normocephalic, atraumatic, good hearing acuity, moist mucous membranes Neck: no tracheal deviation, full range of motion Resp: good air exchange, breathing comfortably with no accessory muscle use, no tactile fremitus, clear to auscultation bilaterally CVS: good distal perfusion x 4, no pitting edema, regular rate and rhythm with soft systolic murmur GI: soft, tenderness to palpation in the epigastrium, periumbilical area, ND, no hepatosplenomegaly : no suprapubic tenderness, left-sided CVAT, sanchez catheter not present MSK: no clubbing, no cyanosis, no noted contractures of extremities Skin: no noted rashes, petechiae; temperature of skin is appropriate Neuro: moving all extremities without signs of weakness, CN II-XII intact Psych: cooperative, euthymic mood, insight and judgment intact Labs imaging reviewed as above Assessment/plan: Chest pain History of CAD -Admit to observation, telemetry -Cardiology consult -Trend troponins -EKG/nitro when necessary -Aspirin, statin, beta adriel -Lipid panel, A1c, TSH -Echo Hypertension Hyperlipidemia Diabetes type 2 BPH -Home medications reviewed and reconciled -Low-dose sliding scale insulin, hold oral hypoglycemics Patient is full code DVT prophylaxis with heparin 3 times a day Past Medical History Past Medical History: Diabetes Mellitus, Hyperlipidemia, Hypertension Additional Past Medical History / Comment(s): bronchitis, 2010 fell off a ladder with 2 left rib fractures and L knee meniscus tear.neuropathy,stress test -neg, History of Any Multi-Drug Resistant Organisms: None Reported Past Surgical History: Appendectomy, Heart Catheterization, Heart Catheterization With Stent, Joint Replacement, Orthopedic Surgery, Tonsillectomy Additional Past Surgical History / Comment(s): 08/19/10 cardiac cath with 40% LAD blockage-treated medically, december 2016 cardiac cath 2 stents placed, bilateral knee arthroscopies, nasal fracture with surgery, R shoulder spur removal, L shoulder tendon repair with debridement, colonoscopy. Past Anesthesia/Blood Transfusion Reactions: No Reported Reaction Date of Last Stent Placement:: december 2016 Past Psychological History: No Psychological Hx Reported Smoking Status: Never smoker Past Alcohol Use History: None Reported Past Drug Use History: None Reported - Past Family History Father Family Medical History: Cancer Additional Family Medical History / Comment(s): Father of lung cancer. He was a smoker. Mother Family Medical History: Cancer Additional Family Medical History / Comment(s): Mother of lung cancer. She was a smoker. Brother(s) Family Medical History: Cancer Additional Family Medical History / Comment(s): 2 brother's had lung cancer-they were both smokers. Sister(s) Family Medical History: Cancer Additional Family Medical History / Comment(s): Pt's sister had lung cancer-she was a smoker. Medications and Allergies Home Medications Medication Instructions Recorded Confirmed Type Aspirin EC [Ecotrin Low Dose] 81 mg PO DAILY 02/16/16 12/19/21 History Metoprolol Tartrate [Lopressor] 25 mg PO BID 06/26/17 12/19/21 History Tamsulosin [Flomax] 0.4 mg PO HS 11/28/19 12/19/21 History metFORMIN HCL [Glucophage] 1,000 mg PO BID 11/28/19 12/19/21 History Multivitamin [Multivitamins Adult 1 tab PO DAILY 11/12/20 12/19/21 History Gummies] Glimepiride [Amaryl] 4 mg PO BID 12/19/21 12/19/21 History Nortriptyline [Pamelor] 25 - 50 mg PO HS PRN 12/19/21 12/19/21 History Potassium Gluconate [Potassium 99 mg PO DAILY 12/19/21 12/19/21 History Gluconate ER] Pyridoxine [Vitamin B-6] 50 mg PO DAILY 12/19/21 12/19/21 History Simvastatin [Zocor] 40 mg PO HS 12/19/21 12/19/21 History lisinopriL [Zestril] 20 mg PO DAILY 12/19/21 12/19/21 History Allergies Allergy/AdvReac Type Severity Reaction Status Date / Time atorvastatin [From Lipitor] AdvReac Diarrhea Verified 12/19/21 11:43 Physical Exam Osteopathic Statement: *. No significant issues noted on an osteopathic structural exam other than those noted in the History and Physical/Consult. Vitals: Vital Signs Temp Pulse Resp BP Pulse Ox 12/19/21 11:13 80 16 114/73 97 12/19/21 10:10 98.3 F 82 18 137/79 97 Intake and Output 12/18/21 12/19/21 12/19/21 22:59 06:59 14:59 Other: Weight 113.398 kg Results CBC & Chem 7: 12/19/21 10:37 12/19/21 10:37 Labs: Abnormal Lab Results - Last 24 Hours (Table) 12/19/21 Range/Units 10:37 Sodium 136 L (137-145) mmol/L Carbon Dioxide 19 L (22-30) mmol/L Creatinine 0.60 L (0.66-1.25) mg/dL Glucose 193 H (74-99) mg/dL ALT 83 H (4-49) U/L
[2021-12-19] MEDS: ATORVASTATIN 80 MG TAB PO SCH ×2 (16:20)
[2021-12-19] MEDS: HEPARIN SODIUM,PORCINE/PF 5,000 UNIT/0.5 ML SYRINGE SQ SCH (16:20)
[2021-12-19 17:07] LABS: Glucose,Whole Blood 149 mg/dL (75-99)
[2021-12-19] MEDS: NITROGLYCERIN OINT 1 INCH/GM PACKET TOPICAL SCH (17:18)
[2021-12-19] MEDS: INSULIN ASPART (NovoLOG) 100 UNIT/ML VIAL SQ SCH (17:18)
[2021-12-19 19:31] VITALS: RESP 18
[2021-12-19 19:46] LABS: Glucose,Whole Blood 223 mg/dL (75-99)
[2021-12-19] MEDS: METOPROLOL TARTRATE 25 MG TAB PO SCH (20:50)
[2021-12-19] MEDS ORDERED: TAMSULOSIN 0.4 MG CAP.ER.24H PO SCH (21:00)
[2021-12-20] MEDS: NITROGLYCERIN OINT 1 INCH/GM PACKET TOPICAL SCH ×2 (00:30→06:52)
[2021-12-20] MEDS: HEPARIN SODIUM,PORCINE/PF 5,000 UNIT/0.5 ML SYRINGE SQ SCH ×2 (00:31→07:37)
[2021-12-20 07:19] LABS: Glucose,Whole Blood 189 mg/dL (75-99)
[2021-12-20 07:29] LABS: Basophils % (A) 1 %; Eosinophils # (A) 0.1 k/uL (0-0.7); Eosinophils % (A) 2 %; HCT 44.2 % (39.0-53.0); HGB 14.2 gm/dL (13.0-17.5); Lymphocytes # (A) 2.1 k/uL (1.0-4.8); Lymphocytes % (A) 34 %; MCH 30.4 pg (25.0-35.0); MCHC 32.1 g/dL (31.0-37.0); MCV 94.6 fL (80.0-100.0); Mean Platelet Volume 7.7; Monocytes # (A) 0.4 k/uL (0-1.0); Monocytes % (A) 7 %; Neutrophils # (A) 3.4 k/uL (1.3-7.7); Neutrophils % (A) 55 %; Platelet Count 210 k/uL (150-450); RBC 4.68 m/uL (4.30-5.90); RDW 12.9 % (11.5-15.5); WBC 6.2 k/uL (3.8-10.6)
[2021-12-20] MEDS: INSULIN ASPART (NovoLOG) 100 UNIT/ML VIAL SQ SCH (07:37)
[2021-12-20] MEDS: ATORVASTATIN 80 MG TAB PO SCH (07:37)
[2021-12-20 07:48] VITALS: BP 125/72; PULSE 73; TEMP 98
[2021-12-20 07:53] LABS: African American GFR (CKD) >90 (>60 ml/min/1.73 sqM); Anion Gap 9 mmol/L; Blood Urea Nitrogen 13 mg/dL (9-20); Calcium 8.9 mg/dL (8.4-10.2); Carbon Dioxide 24 mmol/L (22-30); Chloride 101 mmol/L (98-107); Glucose 192 mg/dL (74-99); Magnesium 2.1 mg/dL (1.6-2.3); Non-African American GFR(CKD) >90 (>60 ml/min/1.73 sqM); Potassium 4.4 mmol/L (3.5-5.1); Sodium 134 mmol/L (137-145)
[2021-12-20] MEDS ORDERED: ASPIRIN 81 MG PO SCH (09:00)
[2021-12-20] MEDS ORDERED: ASPIRIN 325 MG TAB PO SCH (09:00)
[2021-12-20] MEDS ORDERED: MULTIVITAMINS, THERA 1 EACH TAB PO SCH (09:00)
[2021-12-20] MEDS ORDERED: lisinopriL 20 MG TAB PO SCH (09:00)
[2021-12-20] MEDS ORDERED: PYRIDOXINE 50 MG TAB PO SCH (09:00)
[2021-12-20] MEDS: METOPROLOL TARTRATE 25 MG TAB PO SCH (09:42)
--- NOTE | 2021-12-20 09:51 | P.CRDCN ---
History of Present Illness History of present illness: HISTORY OF PRESENTING ILLNESS This is a pleasant 61-year-old male past medical history significant for coronary artery disease with prior PCI of the proximal LAD in 2017, type 2 diabetes, dyslipidemia, hypertension, aortic stenosis, bicuspid aortic valve. He follows in the office with Dr. Mendieta. We have been asked to see in consultation for chest pain. Patient presents emergency department with complaints of midsternal chest discomfort and epigastric pain. His pain began yesterday morning, he woke up, walked to the bathroom and began to have sharp midsternal chest discomfort and epigastric pain. It would come and go, last 30 seconds, and these episodes lasted for about 3 hours. It is non-radiating, non- exertional. Denies any associated diaphoresis, shortness of breath, nausea, vom iting, palpitations, lightheadedness, dizziness, syncope or near syncope. Denies any symptoms of orthopnea or PND. No specific aggravating or alleviating factors. He states this is different from when he had his SD in the past, at that time he had chest heaviness/pressure with shortness of breath. Denies any tobacco use. DIAGNOSTICS EKG reveals sinus rhythm, heart rate 81, T wave inversion in lead III, low QRS voltage in precordial leads, non-specific ST abnormalities . Prior EKG in 11/2020 with similar non-specific abnormalities. Last Cardiac Catheterization 07/2018- revealed patent stent the proximal LAD, mild disease in the midportion of the RCA, mid LAD with mild disease only Telemetry tracings indicate sinus mechanism with heart rate in the 60s80s Chest xray no acute cardiopulmonary process Laboratory reviewed, troponin negative 3, sodium 136, potassium 4.9, BUN 14, serum creatinine 0.6, magnesium 2.1, CBC unremarkable Current home medications include lisinopril 20 mg daily, simvastatin 40 mg nightly, metoprolol titrate 25 mg twice a day, aspirin 81 mg daily, metformin, glimepiride Most recent echo in the office 09/27/2021 revealed EF 55%, moderate concentric LVH, bicuspid aortic valve, mild to moderate aortic regurgitation mild to moderate aortic stenosis with a peak/mean gradient of 32 mmHg/17 mmHg, trace mitral regurgitation REVIEW OF SYSTEMS At the time of my exam: CONSTITUTIONAL: Denies fever or chills. CARDIOVASCULAR: Denies chest pain, shortness of breath, orthopnea, PND or palpitations. RESPIRATORY: Denies cough. GASTROINTESTINAL: + epigastric abdominal pain, Denies diarrhea, constipation, nausea or vomiting. MUSCULOSKELETAL: Denies myalgias. NEUROLOGIC: Denies numbness, tingling, headache or weakness. ENDOCRINE: Denies fatigue, weight change, polydipsia or polyurina. GENITOURINARY: Denies burning, hematuria or urgency with micturation. HEMATOLOGIC: Denies history of anemia or bleeding. PHYSICAL EXAMINATION Blood pressure 125/72, heart rate 73, afebrile, saturation 97% on room air CONSTITUTIONAL: No apparent distress. HEENT: Head is normocephalic. Pupils are equal, round. Sclerae anicteric. Mucous membranes of the mouth are moist. No JVD. No carotid bruit. CHEST EXAMINATION: Lungs are clear to auscultation. No chest wall tenderness is noted on palpation or with deep breathing. HEART EXAMINATION: Regular rate and rhythm. S1, S2 heard. Systolic ejection murmur at right sternal border, no gallops or rub. ABDOMEN: Soft, nontender. Positive bowel sounds. EXTREMITIES: 2+ peripheral pulses, no lower extremity edema and no calf tend erness. SKIN: Warm, dry NEUROLOGIC EXAMINATION: Patient is awake, alert and oriented x3. ASSESSMENT Chest discomfort, does not appear to be cardiac in etiology, acute coronary syndrome has been ruled out Epigastric pain Coronary artery disease with prior PCI of the proximal LAD in 2017 Type 2 diabetes Dyslipidemia Hypertension Bicuspid aortic valve Moderate Aortic stenosis Mild to moderate aortic regurgitation PLAN An acute coronary event has been ruled out with no EKG evidence of ischemia and negative cardiac enzymes. Continue home cardiac medications From cardiology perspective, no further inpatient workup at this time. Patient stable to be discharged today. Follow up with Dr. Mendieta in the office next week. Patient has an appointment on 12/30/2021 Thank you kindly for this consultation. Nurse practitioner note has been reviewed by physician. Signing provider agrees with the documented findings, assessment, and plan of care. Past Medical History Past Medical History: Diabetes Mellitus, Hyperlipidemia, Hypertension Additional Past Medical History / Comment(s): bronchitis, 2010 fell off a ladder with 2 left rib fractures and L knee meniscus tear.neuropathy,stress test [id number], History of Any Multi-Drug Resistant Organisms: None Reported Past Surgical History: Appendectomy, Heart Catheterization, Heart Catheterization With Stent, Joint Replacement, Orthopedic Surgery, Tonsillectomy Additional Past Surgical History / Comment(s): 08/19/10 cardiac cath with 40% LAD blockage-treated medically, december 2016 cardiac cath 2 stents placed, bilateral knee arthroscopies, nasal fracture with surgery, R shoulder spur removal, L shoulder tendon repair with debridement, colonoscopy. Past Anesthesia/Blood Transfusion Reactions: No Reported Reaction Date of Last Stent Placement:: december 2016 Past Psychological History: No Psychological Hx Reported Smoking Status: Never smoker Past Alcohol Use History: None Reported Past Drug Use History: None Reported - Past Family History Father Family Medical History: Cancer Additional Family Medical History / Comment(s): Father of lung cancer. He was a smoker. Mother Family Medical History: Cancer Additional Family Medical History / Comment(s): Mother of lung cancer. She was a smoker. Brother(s) Family Medical History: Cancer Additional Family Medical History / Comment(s): 2 brother's had lung cancer-they were both smokers. Sister(s) Family Medical History: Cancer Additional Family Medical History / Comment(s): Pt's sister had lung cancer-she was a smoker. Medications and Allergies Home Medications Medication Instructions Recorded Confirmed Type Aspirin EC [Ecotrin Low Dose] 81 mg PO DAILY 02/16/16 12/19/21 History Metoprolol Tartrate [Lopressor] 25 mg PO BID 06/26/17 12/19/21 History Tamsulosin [Flomax] 0.4 mg PO HS 11/28/19 12/19/21 History metFORMIN HCL [Glucophage] 1,000 mg PO BID 11/28/19 12/19/21 History Multivitamin [Multivitamins Adult 1 tab PO DAILY 11/12/20 12/19/21 History Gummies] Glimepiride [Amaryl] 4 mg PO BID 12/19/21 12/19/21 History Nortriptyline [Pamelor] 25 - 50 mg PO HS PRN 12/19/21 12/19/21 History Potassium Gluconate [Potassium 99 mg PO DAILY 12/19/21 12/19/21 History Gluconate ER] Pyridoxine [Vitamin B-6] 50 mg PO DAILY 12/19/21 12/19/21 History Simvastatin [Zocor] 40 mg PO HS 12/19/21 12/19/21 History lisinopriL [Zestril] 20 mg PO DAILY 12/19/21 12/19/21 History Allergies Allergy/AdvReac Type Severity Reaction Status Date / Time atorvastatin [From Lipitor] AdvReac Diarrhea Verified 12/19/21 11:43 Physical Exam Vitals: Vital Signs Temp Pulse Resp BP Pulse Ox 12/19/21 11:13 80 16 114/73 97 12/19/21 10:10 98.3 F 82 18 137/79 97 Intake and Output 12/18/21 12/19/21 12/19/21 22:59 06:59 14:59 Other: Weight 113.398 kg Results 12/20/21 06:54 12/20/21 06:54 Cardiac Enzymes 12/19/21 12/19/21 Range/Units 10:37 10:37 AST 54 (17-59) U/L Troponin I <0.012 (0.000-0.034) ng/mL Coagulation 12/19/21 Range/Units 10:37 PT 10.4 (9.0-12.0) sec APTT 25.7 (22.0-30.0) sec CBC 12/19/21 Range/Units 10:37 WBC 6.9 (3.8-10.6) k/uL RBC 4.89 (4.30-5.90) m/uL Hgb 15.5 (13.0-17.5) gm/dL Hct 46.8 (39.0-53.0) % Plt Count 203 (150-450) k/uL Comprehensive Metabolic Panel 12/19/21 Range/Units 10:37 Sodium 136 L (137-145) mmol/L Potassium 4.9 (3.5-5.1) mmol/L Chloride 104 (98-107) mmol/L Carbon Dioxide 19 L (22-30) mmol/L BUN 14 (9-20) mg/dL Creatinine 0.60 L (0.66-1.25) mg/dL Glucose 193 H (74-99) mg/dL Calcium 9.3 (8.4-10.2) mg/dL AST 54 (17-59) U/L ALT 83 H (4-49) U/L Alkaline Phosphatase 44 (38-126) U/L Total Protein 7.4 (6.3-8.2) g/dL Albumin 4.7 (3.5-5.0) g/dL Current Medications Generic Name Dose Route Start Last Admin Trade Name Freq PRN Reason Stop Dose Admin Acetaminophen 650 mg 12/19/21 13:09 Acetaminophen Tab 325 Mg Tab PO Q6HR PRN Mild Pain or Fever > 100.5 Aspirin 81 mg 12/20/21 09:00 Aspirin 81 Mg PO DAILY [facility] Atorvastatin Calcium 80 mg 12/19/21 13:15 Atorvastatin 80 Mg Tab PO DAILY [facility] Heparin Sodium (Porcine) 5,000 unit 12/19/21 16:00 Heparin Sodium,Porcine/Pf 5,000 Unit/0.5 Ml Syringe SQ Q8HR [facility] Lisinopril 20 mg 12/20/21 09:00 Lisinopril 20 Mg Tab PO DAILY [facility] Metoprolol Tartrate 25 mg 12/19/21 21:00 Metoprolol Tartrate 25 Mg Tab PO BID [facility] Multivitamins 1 each 12/20/21 09:00 Multivitamins, Thera 1 Each Tab PO DAILY [facility] Naloxone HCl 0.2 mg 12/19/21 13:16 Naloxone 0.4 Mg/Ml 1 Ml Vial IVP Q2M PRN Opioid Reversal Nitroglycerin 0.4 mg 12/19/21 13:01 Nitroglycerin Sl Tabs 0.4 Mg Tab SUBLINGUAL Q5M PRN Chest Pain Nitroglycerin 1 inch 12/19/21 18:00 Nitroglycerin Oint 1 Inch/Gm Packet TOPICAL Q6HR [facility] Pyridoxine HCl 50 mg 12/20/21 09:00 Pyridoxine 50 Mg Tab PO DAILY [facility] Tamsulosin HCl 0.4 mg 12/19/21 21:00 Tamsulosin 0.4 Mg Cap.Er.24h PO [facility] Intake and Output 12/18/21 12/19/21 12/19/21 22:59 06:59 14:59 Other: Weight 113.398 kg Patient Weight 12/20/21 06:59 Weight 113.398 kg 12/19/21 10:37 12/19/21 10:37
[2021-12-20 10:38] LABS: Chol/HDL Ratio 3.58 Ratio
--- NOTE | 2021-12-20 13:43 | P.DS ---
Providers Date of admission: 12/19/21 13:01 Expected date of discharge: 12/20/21 Attending physician: Titus Mcmahon MD Consults: 12/19/21 13:01 Consult Physician Urgent Consulting Provider: [facility] Consult Reason/Comments: Chest pain Do you want consulting provider notified?: Yes Primary care physician: Rowena Hernandez [facility] Course: Chest pain History of CAD Hypertension Hyperlipidemia Diabetes type 2 BPH 61-year-old man with medical history of hypertension, hyperlipidemia, BPH, diabetes presented with chest pain. In the emergency room, patient is afebrile, 137/79, heart rate 82, 97% on room air. CBC is unremarkable. Chemistries are remarkable for bicarb of 19 with no anion gap, otherwise unremarkable. LFTs show an ALT of 83, otherwise not remarkable. Troponin was less than 0.012. Chest x-ray shows no acute pulmonary disease. EKG shows normal sinus rhythm without ischemic changes, does show an S1 Q3 T3 pattern. Patient was admitted to observation with cardiology consult. No events on telemetry. Echo read was pending at the time of discharge, but no clinical suspicion for ACS, so patient was d/c'd with cardiology f/u. All Systems reviewed and pertinent positives and negatives noted in HPI, all other symptoms are negative Gen: in no apparent distress, resting comfortably in bed Eyes: PERRL, no scleral injection or icterus HENT: normocephalic, atraumatic, good hearing acuity, moist mucous membranes Neck: no tracheal deviation, full range of motion Resp: good air exchange, breathing comfortably with no accessory muscle use, no tactile fremitus, clear to auscultation bilaterally CVS: good distal perfusion x 4, no pitting edema, regular rate and rhythm with soft systolic murmur GI: soft, tenderness to palpation in the epigastrium, periumbilical area, ND, no hepatosplenomegaly : no suprapubic tenderness, left-sided CVAT, sanchez catheter not present MSK: no clubbing, no cyanosis, no noted contractures of extremities Skin: no noted rashes, petechiae; temperature of skin is appropriate Neuro: moving all extremities without signs of weakness, CN II-XII intact Psych: cooperative, euthymic mood, insight and judgment intact Patient Condition at Discharge: Good Plan - Discharge Summary Discharge Rx Participant: No New Discharge Prescriptions: Continue Aspirin EC [Ecotrin Low Dose] 81 mg PO DAILY Metoprolol Tartrate [Lopressor] 25 mg PO BID metFORMIN HCL [Glucophage] 1,000 mg PO BID Tamsulosin [Flomax] 0.4 mg PO HS Multivitamin [Multivitamins Adult Gummies] 1 tab PO DAILY Glimepiride [Amaryl] 4 mg PO BID lisinopriL [Zestril] 20 mg PO DAILY Nortriptyline [Pamelor] 25 - 50 mg PO HS PRN PRN Reason: Insomnia Potassium Gluconate [Potassium Gluconate ER] 99 mg PO DAILY Pyridoxine [Vitamin B-6] 50 mg PO DAILY Simvastatin [Zocor] 40 mg PO HS Discharge Medication List Aspirin EC [Ecotrin Low Dose] 81 mg PO DAILY 02/16/16 [History] Metoprolol Tartrate [Lopressor] 25 mg PO BID 06/26/17 [History] Tamsulosin [Flomax] 0.4 mg PO HS 11/28/19 [History] metFORMIN HCL [Glucophage] 1,000 mg PO BID 11/28/19 [History] Multivitamin [Multivitamins Adult Gummies] 1 tab PO DAILY 11/12/20 [History] Glimepiride [Amaryl] 4 mg PO BID 12/19/21 [History] Nortriptyline [Pamelor] 25 - 50 mg PO HS PRN 12/19/21 [History] Potassium Gluconate [Potassium Gluconate ER] 99 mg PO DAILY 12/19/21 [History] Pyridoxine [Vitamin B-6] 50 mg PO DAILY 12/19/21 [History] Simvastatin [Zocor] 40 mg PO HS 12/19/21 [History] lisinopriL [Zestril] 20 mg PO DAILY 12/19/21 [History] Follow up Appointment(s)/Referral(s): Tesfaye Guaman MD [Primary Care Provider] - 1-2 days Shiv Mendieta MD [Family Provider] - 12/30/21 4:45 pm Discharge Disposition: HOME SELF-CARE
--- NOTE | 2021-12-20 18:31 | CA ---
Transthoracic Echo Report Name: Gerard Su Age: 61 Gender: M : 1960 Exam Date: 12/20/2021 07:48 Exam Location: [facility] Ht (in): 70 Wt (lb): 250 Ordering Physician: Roxana Alaniz MD Attending/Referring Phys: [employer] Alina Mcelroy RDCS Procedure CPT: Indications: Chest Pain Cardiac Hx: hx of stents, Hyperlipidemia. Hypertension. Technical Quality: Fair Contrast 1: Total Dose (mL): Contrast 2: Total Dose (mL): MEASUREMENTS (Male / Female) Normal Values 2D ECHO LV Diastolic Diameter PLAX 5.1 cm 4.2 - 5.9 / 3.9 - 5.3 cm LV Systolic Diameter PLAX 3.5 cm IVS Diastolic Thickness 1.2 cm 0.6 - 1.0 / 0.6 - 0.9 cm LVPW Diastolic Thickness 1.3 cm 0.6 - 1.0 / 0.6 - 0.9 cm LV Relative Wall Thickness 0.5 RV Internal Dim ED PLAX 3.1 cm LVOT Diameter 2.0 cm LA Systolic Diameter LX 3.5 cm 3.0 - 4.0 / 2.7 - 3.8 cm LA Volume 41.6 cm??? 18 - 58 / 22 - 52 cm??? M-MODE Aortic Root Diameter MM 3.0 cm MV E Point Septal Separation 0.8 cm AV Cusp Separation MM 1.3 cm DOPPLER AV Peak Velocity 289.0 cm/s AV Peak Gradient 33.4 mmHg AV Mean Velocity 204.8 cm/s AV Mean Gradient 18.5 mmHg AV Velocity Time Integral 67.1 cm LVOT Peak Velocity 103.6 cm/s LVOT Peak Gradient 4.3 mmHg AV Area Cont Eq pk 1.1 cm??? MV Area PHT 4.0 cm??? Mitral E Point Velocity 85.5 cm/s Mitral A Point Velocity 70.9 cm/s Mitral E to A Ratio 1.2 MV Deceleration Time 192.0 ms MV E' Velocity 7.6 cm/s Mitral E to MV E' Ratio 11.2 TR Peak Velocity 218.7 cm/s TR Peak Gradient 19.1 mmHg Right Ventricular Systolic Press 23.6 mmHg FINDINGS Left Ventricle Left ventricular ejection fraction is estimated at 55-60 %. Left ventricular cavity size normal. Mild concentric left ventricular hypertrophy. Right Ventricle Normal right ventricular size and function. Right Atrium Normal right atrial size. Left Atrium Normal left atrial size. No evidence for an atrial septal defect. Mitral Valve Structurally normal mitral valve. No mitral stenosis, regurgitation or prolapse. Aortic Valve [id number] aortic stenosis with a peak gradient of 33 mmHg and a mean gradient of 18 mmHg. Bicuspid AOV Tricuspid Valve Mild tricuspid regurgitation. Pulmonic Valve Pulmonic valve not well visualized. Pericardium Normal pericardium. No pericardial effusion. Aorta Normal size aortic root and proximal ascending aorta. CONCLUSIONS Normal LV size and systolic function with mild concentric LVH. There is a bicuspid aortic valve with a mean gradient of 18 mmHg. There is minimal aortic insufficiency. No pericardial effusion Previewed by: Dr. Briseyda Rao MD (Electronically Signed) Final Date: 20 December 2021 18:30
== END 2021-12-20 10:03 | disposition home or self-care (01) ==
LOC: EC 10:00 → 6NMEDSUR 13:01
PROVIDERS: ADMIT Internal Medicine; ATTEND Internal Medicine
DX: R07.89 Other chest pain (principal); R06.02 Shortness of breath; R10.13 Epigastric pain; I25.10 Atherosclerotic heart disease of native coronary artery without angina pectoris; I10 Essential (primary) hypertension; E78.5 Hyperlipidemia, unspecified; E11.40 Type 2 diabetes mellitus with diabetic neuropathy, unspecified; N40.0 Benign prostatic hyperplasia without lower urinary tract symptoms; I25.2 Old myocardial infarction; E78.00 Pure hypercholesterolemia, unspecified; Q23.1 Congenital insufficiency of aortic valve; Z79.82 Long term (current) use of aspirin; Z79.899 Other long term (current) drug therapy; Z79.84 Long term (current) use of oral hypoglycemic drugs; Z88.8 Allergy status to other drugs, medicaments and biological substances; Z82.49 Family history of ischemic heart disease and other diseases of the circulatory system; Z95.5 Presence of coronary angioplasty implant and graft; Z90.49 Acquired absence of other specified parts of digestive tract; Z80.1 Family history of malignant neoplasm of trachea, bronchus and lung; Z81.2 Family history of tobacco abuse and dependence
CPT/HCPCS: 96372 ×2; 99285; 36415; 93005; 93306; 80061; 80053; 80048; 84443; 83735 ×2; 84484; 85025 ×2; 85610; 85730; 83036; 71046; G0378 ×2; J1644 ×2

== ENCOUNTER → 2022-06-21 | Outpatient (CLI) | payer MEDICAID ==
[2022-06-21 08:08] LABS: Basophils # (A) 0.1 k/uL (0-0.2); Basophils % (A) 1 %; Eosinophils # (A) 0.2 k/uL (0-0.7); Eosinophils % (A) 2 %; HGB 14.7 gm/dL (13.0-17.5); Lymphocytes # (A) 1.8 k/uL (1.0-4.8); Lymphocytes % (A) 28 %; MCH 30.9 pg (25.0-35.0); MCHC 33.5 g/dL (31.0-37.0); MCV 92.5 fL (80.0-100.0); Monocytes # (A) 0.4 k/uL (0-1.0); Monocytes % (A) 6 %; Neutrophils % (A) 61 %; Platelet Count 228 k/uL (150-450); RBC 4.76 m/uL (4.30-5.90); RDW 12.4 % (11.5-15.5); WBC 6.5 k/uL (3.8-10.6)
[2022-06-21 08:28] LABS: ALT 100 U/L (4-49); AST 65 U/L (17-59); African American GFR (CKD) >90 (>60 ml/min/1.73 sqM); Albumin 4.3 g/dL (3.5-5.0); Albumin/Globulin Ratio 1.7; Alkaline Phosphatase 62 U/L (38-126); Anion Gap 6 mmol/L; Blood Urea Nitrogen 13 mg/dL (9-20); Calcium 9.1 mg/dL (8.4-10.2); Carbon Dioxide 30 mmol/L (22-30); Chloride 101 mmol/L (98-107); Globulin 2.5 g/dL; Glucose 228 mg/dL (74-99); Non-African American GFR(CKD) >90 (>60 ml/min/1.73 sqM); Potassium 4.4 mmol/L (3.5-5.1); Sodium 137 mmol/L (137-145); Total Bilirubin 0.8 mg/dL (0.2-1.3); Total Protein 6.8 g/dL (6.3-8.2)
--- NOTE | 2022-06-21 09:21 | CT ---
EXAMINATION TYPE: CT abdomen w con DATE OF EXAM: 06/21/2022 COMPARISON: CT abdomen and pelvis February 16, 2016 HISTORY: pain CT DLP: 1776.40 mGycm Automated exposure control for dose reduction was used. TECHNIQUE: Helical acquisition of images was performed from the lung bases through the top of iliac crest to include entire abdomen. CONTRAST: Performed with Oral Contrast and with IV Contrast, patient injected with 70 mL of Isovue 300. FINDINGS: LUNG BASES: Calcification at the level of the aortic valve again seen. LIVER/GB: Dependent density consistent with small stones and/or gallbladder sludge is redemonstrated. Liver is diffusely low dense consistent with fatty infiltrative hepatocellular disease. PANCREAS: No significant abnormality is seen. SPLEEN: No significant abnormality is seen. ADRENALS: No significant abnormality is seen. KIDNEYS: No significant abnormality is seen. BOWEL: Oral contrast does not reach level of the terminal ileum making evaluation of distal bowel sl ightly suboptimal. Diverticula in the left and sigmoid colon are present. No CT evidence for acute di verticulitis. No suspicious small or large bowel dilatation. LYMPH NODES: No significant abnormality is seen. OSSEOUS STRUCTURES: Multilevel spurring in the spine. Facet arthropathy lower lumbar levels is prese nt. FREE AIR: No free air is visualized. OTHER: None. IMPRESSION: Small stones and/or gallbladder sludge without CT evidence for acute cholecystitis redemo nstrated. Distal colonic diverticula without CT evidence for acute diverticulitis. No suspicious new or acute findings present.
[2022-06-21 15:15] LABS: Chol/HDL Ratio 3.44 Ratio; LDL Cholesterol,Calculated 75.1 mg/dL (0.0-131.0)
== END | disposition home or self-care (01) ==
LOC: RADCTMAIN 07:04
PROVIDERS: ATTEND Internal Medicine Geriatric Medicine
DX: K57.30 Diverticulosis of large intestine without perforation or abscess without bleeding (principal)
CPT/HCPCS: 84153; 80061; 80053; 85025; 82043; 82570; 83036; 74160; 36415; Q9967 ×2

== ENCOUNTER 2022-06-28 13:03 | Inpatient (IN) | payer MEDICAID ==
[2022-06-28] MEDS ORDERED: KETOROLAC 15 MG/ML 1 ML VIAL IVP STA (13:20)
[2022-06-28] MEDS ORDERED: ONDANSETRON 4 MG/2 ML VIAL IVP STA (13:20)
[2022-06-28] MEDS ORDERED: PANTOPRAZOLE 40 MG/10 ML VIAL IVP STA (13:20)
[2022-06-28] MEDS ORDERED: SODIUM CHLORIDE 0.9% 1,000 ML IV STA (13:20)
--- NOTE | 2022-06-28 13:23 | ED ---
General Adult HPI - General Chief complaint: Abdominal Pain Stated complaint: abd pain Time Seen by Provider: 06/28/22 13:16 Source: patient, RN notes reviewed Mode of arrival: ambulatory - History of Present Illness Initial comments: Patient is a pleasant 61-year-old male presenting to the emergency department with concerns with gallbladder problem as per patient has been expressing abdominal pain over the past several weeks. Discomfort is mostly right abdomen. Patient has had some nausea and decreased appetite. No fevers. Patient did have computed tomography scan done over a week ago with concern for gallstone. Patient has a appointment to see Dr. Nunez next week. Discomfort is currently 12/16. - Related Data Home Medications Medication Instructions Recorded Confirmed Aspirin EC [Ecotrin Low Dose] 81 mg PO DAILY 02/16/16 06/28/22 Metoprolol Tartrate [Lopressor] 25 mg PO BID 06/26/17 06/28/22 Tamsulosin [Flomax] 0.4 mg PO HS 11/28/19 06/28/22 Glimepiride [Amaryl] 4 mg PO BID 12/19/21 06/28/22 Potassium Gluconate [Potassium 99 mg PO DAILY 12/19/21 06/28/22 Gluconate ER] Simvastatin [Zocor] 40 mg PO HS 12/19/21 06/28/22 Cholecalciferol [Vitamin D3 (25 50 mcg PO DAILY 06/28/22 06/28/22 Mcg = 1000 Iu)] Dulaglutide [Trulicity] 1.5 mg SQ TU 06/28/22 06/28/22 Gabapentin [Neurontin] 100 mg PO BID 06/28/22 06/28/22 HYDROcodone/APAP 5-325MG [[place] 0.5 tab PO Q6HR PRN 06/28/22 06/28/22 5-325] Multivit-Min/Folic/Vit K/Lycop 1 tab PO DAILY 06/28/22 06/28/22 [Men's Multivitamin Tablet] Pioglitazone [Actos] 30 mg PO HS 06/28/22 06/28/22 lisinopriL [Prinivil] 10 mg PO DAILY 06/28/22 06/28/22 metFORMIN HCL [Glucophage] 1,000 mg PO BID 06/28/22 06/28/22 metroNIDAZOLE [Flagyl] 250 mg PO BID 06/28/22 06/28/22 Allergies Allergy/AdvReac Type Severity Reaction Status Date / Time atorvastatin [From Lipitor] AdvReac Diarrhea Verified 06/28/22 15:01 Review of Systems ROS Statement: Those systems with pertinent positive or pertinent negative responses have been documented in the HPI. ROS Other: All systems not noted in ROS Statement are negative. Constitutional: Denies: fever Eyes: Denies: eye pain ENT: Denies: ear pain Respiratory: Denies: cough Cardiovascular: Denies: chest pain Endocrine: Denies: fatigue Gastrointestinal: Reports: as per HPI, abdominal pain, nausea Genitourinary: Denies: dysuria Musculoskeletal: Denies: back pain Skin: Denies: rash Neurological: Denies: weakness Past Medical History Past Medical History: Diabetes Mellitus, Hyperlipidemia, Hypertension Additional Past Medical History / Comment(s): bronchitis, 2010 fell off a ladder with 2 left rib fractures and L knee meniscus tear.neuropathy,stress test 1 2-2-17-neg, History of Any Multi-Drug Resistant Organisms: None Reported Past Surgical History: Appendectomy, Heart Catheterization, Heart Catheteriza tion With Stent, Joint Replacement, Orthopedic Surgery, Tonsillectomy Additional Past Surgical History / Comment(s): 08/19/10 cardiac cath with 40% LAD blockage-treated medically, december 2016 cardiac cath 2 stents placed, bilateral knee arthroscopies, nasal fracture with surgery, R shoulder spur removal, L shoulder tendon repair with debridement, colonoscopy. Past Anesthesia/Blood Transfusion Reactions: No Reported Reaction Date of Last Stent Placement:: december 2016 Past Psychological History: No Psychological Hx Reported Smoking Status: Never smoker Past Alcohol Use History: None Reported Past Drug Use History: None Reported - Past Family History Father Family Medical History: Cancer Additional Family Medical History / Comment(s): Father of lung cancer. He was a smoker. Mother Family Medical History: Cancer Additional Family Medical History / Comment(s): Mother of lung cancer. She was a smoker. Brother(s) Family Medical History: Cancer Additional Family Medical History / Comment(s): 2 brother's had lung cancer-they were both smokers. Sister(s) Family Medical History: Cancer Additional Family Medical History / Comment(s): Pt's sister had lung cancer-she was a smoker. General Exam Limitations: no limitations General appearance: alert, in no apparent distress Head exam: Present: normocephalic Eye exam: Present: normal appearance Neck exam: Present: normal inspection Respiratory exam: Present: normal lung sounds bilaterally Cardiovascular Exam: Present: regular rate, normal rhythm Expanded Peripheral pulses: 2+: Posterior Tibialis (R), Posterior Tibialis (L) GI/Abdominal exam: Present: soft, tenderness (Moderate right upper quadrant tenderness), normal bowel sounds. Absent: distended, pulsatile mass Extremities exam: Present: normal inspection. Absent: pedal edema, calf tenderness Neurological exam: Present: alert Psychiatric exam: Present: normal affect, normal mood Skin exam: Present: normal color Course Vital Signs 06/28/22 13:07 Temperature 97.4 F L Pulse Rate 79 Respiratory 18 Rate Blood Pressure 148/74 O2 Sat by Pulse 97 Oximetry EKG Findings - EKG Results: EKG: interpreted by ERMD, sinus rhythm, normal axis, normal QRS, normal ST/T Medical Decision Making - Medical Decision Making Patient reevaluated and still uncomfortable. Patient updated on results and plan. Case discussed with Dr. Nunez, admit for this patient she is scheduled to see. - Lab Data Result diagrams: 06/28/22 13:48 06/28/22 13:48 Lab Results 06/28/22 06/28/22 06/28/22 Range/Units 13:48 13:48 13:48 WBC 6.6 (3.8-10.6) k/uL RBC 4.58 (4.30-5.90) m/uL Hgb 14.4 (13.0-17.5) gm/dL Hct 42.1 (39.0-53.0) % MCV 92.0 (80.0-100.0) fL MCH 31.3 (25.0-35.0) pg MCHC 34.1 (31.0-37.0) g/dL RDW 12.5 (11.5-15.5) % Plt Count 205 (150-450) k/uL MPV 8.1 Neutrophils % 59 % Lymphocytes % 30 % Monocytes % 7 % Eosinophils % 3 % Basophils % 1 % Neutrophils # 3.9 (1.3-7.7) k/uL Lymphocytes # 1.9 (1.0-4.8) k/uL Monocytes # 0.4 (0-1.0) k/uL Eosinophils # 0.2 (0-0.7) k/uL Basophils # 0.0 (0-0.2) k/uL PT 10.1 (9.0-12.0) sec INR 1.0 (<1.2) APTT 24.2 (22.0-30.0) sec Sodium 136 L (137-145) mmol/L Potassium 4.5 (3.5-5.1) mmol/L Chloride 105 (98-107) mmol/L Carbon Dioxide 25 (22-30) mmol/L Anion Gap 6 mmol/L BUN 14 (9-20) mg/dL Creatinine 0.57 L (0.66-1.25) mg/dL Est GFR (CKD-EPI)AfAm >90 (>60 ml/min/1.73 sqM) Est GFR (CKD-EPI)NonAf >90 (>60 ml/min/1.73 sqM) Glucose 173 H (74-99) mg/dL Calcium 9.2 (8.4-10.2) mg/dL Total Bilirubin 0.6 (0.2-1.3) mg/dL AST 78 H (17-59) U/L ALT 129 H (4-49) U/L Alkaline Phosphatase 52 (38-126) U/L Troponin I (0.000-0.034) ng/mL Total Protein 6.6 (6.3-8.2) g/dL Albumin 4.2 (3.5-5.0) g/dL Amylase 39 (30-110) U/L Lipase 127 (23-300) U/L 06/28/ Range/Units 13:48 WBC (3.8-10.6) k/uL RBC (4.30-5.90) m/uL Hgb (13.0-17.5) gm/dL Hct (39.0-53.0) % MCV (80.0-100.0) fL MCH (25.0-35.0) pg MCHC (31.0-37.0) g/dL RDW (11.5-15.5) % Plt Count (150-450) k/uL MPV Neutrophils % % Lymphocytes % % Monocytes % % Eosinophils % % Basophils % % Neutrophils # (1.3-7.7) k/uL Lymphocytes # (1.0-4.8) k/uL Monocytes # (0-1.0) k/uL Eosinophils # (0-0.7) k/uL Basophils # (0-0.2) k/uL PT (9.0-12.0) sec INR (<1.2) APTT (22.0-30.0) sec Sodium (137-145) mmol/L Potassium (3.5-5.1) mmol/L Chloride (98-107) mmol/L Carbon Dioxide (22-30) mmol/L Anion Gap mmol/L BUN (9-20) mg/dL Creatinine (0.66-1.25) mg/dL Est GFR (CKD-EPI)AfAm (>60 ml/min/1.73 sqM) Est GFR (CKD-EPI)NonAf (>60 ml/min/1.73 sqM) Glucose (74-99) mg/dL Calcium (8.4-10.2) mg/dL Total Bilirubin (0.2-1.3) mg/dL AST (17-59) U/L ALT (4-49) U/L Alkaline Phosphatase (38-126) U/L Troponin I <0.012 (0.000-0.034) ng/mL Total Protein (6.3-8.2) g/dL Albumin (3.5-5.0) g/dL Amylase (30-110) U/L Lipase (23-300) U/L - Radiology Data Radiology results: report reviewed (Ultrasounds showing possible sludge) Disposition Clinical Impression: Cholecystitis Disposition: ADMITTED IP TO THIS [facility] Is patient prescribed a controlled substance at d/c from ED?: No Referrals: Gautam Del Rio MD [Primary Care Provider] - 1-2 days Time of Disposition: 16:03
[2022-06-28 14:12] LABS: Basophils % (A) 1 %; Eosinophils # (A) 0.2 k/uL (0-0.7); Eosinophils % (A) 3 %; HCT 42.1 % (39.0-53.0); HGB 14.4 gm/dL (13.0-17.5); Lymphocytes # (A) 1.9 k/uL (1.0-4.8); Lymphocytes % (A) 30 %; MCH 31.3 pg (25.0-35.0); MCHC 34.1 g/dL (31.0-37.0); Mean Platelet Volume 8.1; Monocytes # (A) 0.4 k/uL (0-1.0); Monocytes % (A) 7 %; Neutrophils # (A) 3.9 k/uL (1.3-7.7); Neutrophils % (A) 59 %; Platelet Count 205 k/uL (150-450); RBC 4.58 m/uL (4.30-5.90); RDW 12.5 % (11.5-15.5); WBC 6.6 k/uL (3.8-10.6)
[2022-06-28 14:29] LABS: ALT 129 U/L (4-49); AST 78 U/L (17-59); African American GFR (CKD) >90 (>60 ml/min/1.73 sqM); Albumin 4.2 g/dL (3.5-5.0); Alkaline Phosphatase 52 U/L (38-126); Amylase 39 U/L (30-110); Anion Gap 6 mmol/L; Blood Urea Nitrogen 14 mg/dL (9-20); Calcium 9.2 mg/dL (8.4-10.2); Carbon Dioxide 25 mmol/L (22-30); Chloride 105 mmol/L (98-107); Glucose 173 mg/dL (74-99); Lipase 127 U/L (23-300); Non-African American GFR(CKD) >90 (>60 ml/min/1.73 sqM); Potassium 4.5 mmol/L (3.5-5.1); Sodium 136 mmol/L (137-145); Total Bilirubin 0.6 mg/dL (0.2-1.3); Total Protein 6.6 g/dL (6.3-8.2)
[2022-06-28 14:31] LABS: Partial Thromboplastin Time 24.2 sec (22.0-30.0); Prothrombin Time 10.1 sec (9.0-12.0)
--- NOTE | 2022-06-28 14:58 | US ---
EXAMINATION TYPE: US gallbladder DATE OF EXAM: 06/28/2022 COMPARISON: CT CLINICAL HISTORY: abp. Pain. Hx appendectomy 45 years ago. TECHNIQUE: Multiple sonographic images of the right upper quadrant are obtained. FINDINGS: EXAM MEASUREMENTS: Liver Length: 19.9 cm Gallbladder Wall: 0.24 cm CBD: 0.40 cm Right Kidney: 11.6 x 6.8 x 6.0 cm ORTHODONTIC ASSISTANT NOTES: Exam is extremely limited due to overlying gas and body habitus. Pancreas: Not well seen. Liver: Appears enlarged with increased echogenicity and attenuation. Very heterogeneous, limited. Gallbladder: Very limited. Possible internal echoes within versus artifact. Fold seen near fundus. Evidence for sonographic Tan's sign: No CBD: Portions seen appear wnl Right Kidney: No hydronephrosis or masses seen IMPRESSION: 1. Hepatomegaly with hepatic steatosis. 2. I cannot exclude gallbladder sludge.
--- NOTE | 2022-06-28 15:00 | XR ---
EXAMINATION TYPE: XR KUB DATE OF EXAM: 06/28/2022 COMPARISON: NONE HISTORY: Pain TECHNIQUE: Single supine KUB image of the abdomen is obtained FINDINGS: Small bowel demonstrates no evidence for dilatation or air fluid levels. Gas and fecal material is seen in non-distended colon. No convincing evidence for pneumoperitoneum. No unusual calcifications. The lung bases are clear. The osseous structures are intact. IMPRESSION: 1. Overall nonobstructive bowel gas pattern.
[2022-06-28] MEDS ORDERED: ACETAMINOPHEN TAB 325 MG TAB PO PRN (16:04)
[2022-06-28] MEDS ORDERED: ONDANSETRON 4 MG/2 ML VIAL IVP PRN (16:04)
[2022-06-28] MEDS ORDERED: HYDROmorphone 1 MG/ML 1 ML SYRINGE IVP PRN (16:04)
[2022-06-28] MEDS ORDERED: NALOXONE 0.4 MG/ML 1 ML VIAL IV PRN (16:04)
[2022-06-28] MEDS: HYDROmorphone 0.5 MG/0.5 ML SYRINGE IVP PRN (18:26)
[2022-06-28] MEDS: SODIUM CHLORIDE 0.9% 1,000 ML IV SCH (18:32)
--- NOTE | 2022-06-28 18:48 | P.GSHP ---
History of Present Illness H&P Date: 06/28/22 Patient reports no abdominal pain following eating grilled chicken earlier today. Reports pressure and pain of the right upper quadrant. Has strong family history of colon disease in mother and grandmother. Only abdominal surgery includes appendectomy. EKG normal. Surgical intervention described pending IV antibiotics. Recommend clear liquid diet in the interim. Benefits serosal cholecystectomy reviewed. Past Medical History Past Medical History: Diabetes Mellitus, Hyperlipidemia, Hypertension Additional Past Medical History / Comment(s): bronchitis, 2010 fell off a ladder with 2 left rib fractures and L knee meniscus tear.neuropathy,stress test 06-09-17-neg, History of Any Multi-Drug Resistant Organisms: None Reported Past Surgical History: Appendectomy, Heart Catheterization, Heart Catheterization With Stent, Orthopedic Surgery, Tonsillectomy Additional Past Surgical History / Comment(s): 08/19/10 cardiac cath with 40% LAD blockage-treated medically, december 2016 cardiac cath 2 stents placed, bilateral knee arthroscopies, nasal fracture with surgery, R shoulder spur removal, L shoulder tendon repair with debridement, colonoscopy. Past Anesthesia/Blood Transfusion Reactions: No Reported Reaction Date of Last Stent Placement:: december 2016 Past Psychological History: No Psychological Hx Reported Additional Psychological History / Comment(s): Pt resides with his spouse, their aneta and son-in-law and their 2 1/2 yr old granddaughter. 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 He was a smoker. Mother Family Medical History: Cancer Additional Family Medical History / Comment(s): Mother of lung cancer. She was a smoker. Brother(s) Family Medical History: Cancer Additional Family Medical History / Comment(s): 2 brother's had lung cancer-they were both smokers. Sister(s) Family Medical History: Cancer Additional Family Medical History / Comment(s): Pt's sister had lung cancer-she was a smoker. Medications and Allergies Home Medications Medication Instructions Recorded Confirmed Type Aspirin EC [Ecotrin Low Dose] 81 mg PO DAILY 02/16/16 06/28/22 History Metoprolol Tartrate [Lopressor] 25 mg PO BID 06/26/17 06/28/22 History Tamsulosin [Flomax] 0.4 mg PO HS 11/28/19 06/28/22 History Glimepiride [Amaryl] 4 mg PO BID 12/19/21 06/28/22 History Potassium Gluconate [Potassium 99 mg PO DAILY 12/19/21 06/28/22 History Gluconate ER] Simvastatin [Zocor] 40 mg PO HS 12/19/21 06/28/22 History Cholecalciferol [Vitamin D3 (25 50 mcg PO DAILY 06/28/22 06/28/22 History Mcg = 1000 Iu)] Dulaglutide [Trulicity] 1.5 mg SQ TU 06/28/22 06/28/22 History Gabapentin [Neurontin] 100 mg PO BID 06/28/22 06/28/22 History HYDROcodone/APAP 5-325MG [[place] 0.5 tab PO Q6HR PRN 06/28/22 06/28/22 History 5-325] Multivit-Min/Folic/Vit K/Lycop 1 tab PO DAILY 06/28/22 06/28/22 History [Men's Multivitamin Tablet] Pioglitazone [Actos] 30 mg PO HS 06/28/22 06/28/22 History lisinopriL [Prinivil] 10 mg PO DAILY 06/28/22 06/28/22 History metFORMIN HCL [Glucophage] 1,000 mg PO BID 06/28/22 06/28/22 History metroNIDAZOLE [Flagyl] 250 mg PO BID 06/28/22 06/28/22 History Allergies Allergy/AdvReac Type Severity Reaction Status Date / Time atorvastatin [From Lipitor] AdvReac Diarrhea Verified 06/28/22 15:01 Surgical - Exam Vital Signs Temp Pulse Resp BP Pulse Ox 97.4 F L 79 18 148/74 97 06/28/22 13:07 06/28/22 13:07 06/28/22 13:07 06/28/22 13:07 06/28/22 13:07 Results - Labs 06/28/22 13:48 06/28/22 13:48 Abnormal Lab Results - Last 24 Hours (Table) 06/28/22 Range/Units 13:48 Sodium 136 L (137-145) mmol/L Creatinine 0.57 L (0.66-1.25) mg/dL Glucose 173 H (74-99) mg/dL AST 78 H (17-59) U/L ALT 129 H (4-49) U/L Diabetes panel 06/28/22 Range/Units 13:48 Sodium 136 L (137-145) mmol/L Potassium 4.5 (3.5-5.1) mmol/L Chloride 105 (98-107) mmol/L Carbon Dioxide 25 (22-30) mmol/L BUN 14 (9-20) mg/dL Creatinine 0.57 L (0.66-1.25) mg/dL Glucose 173 H (74-99) mg/dL Calcium 9.2 (8.4-10.2) mg/dL AST 78 H (17-59) U/L ALT 129 H (4-49) U/L Alkaline Phosphatase 52 (38-126) U/L Total Protein 6.6 (6.3-8.2) g/dL Albumin 4.2 (3.5-5.0) g/dL Calcium panel 06/28/22 Range/Units 13:48 Calcium 9.2 (8.4-10.2) mg/dL Albumin 4.2 (3.5-5.0) g/dL Pituitary panel 06/28/22 Range/Units 13:48 Sodium 136 L (137-145) mmol/L Potassium 4.5 (3.5-5.1) mmol/L Chloride 105 (98-107) mmol/L Carbon Dioxide 25 (22-30) mmol/L BUN 14 (9-20) mg/dL Creatinine 0.57 L (0.66-1.25) mg/dL Glucose 173 H (74-99) mg/dL Calcium 9.2 (8.4-10.2) mg/dL Adrenal panel 06/28/22 Range/Units 13:48 Sodium 136 L (137-145) mmol/L Potassium 4.5 (3.5-5.1) mmol/L Chloride 105 (98-107) mmol/L Carbon Dioxide 25 (22-30) mmol/L BUN 14 (9-20) mg/dL Creatinine 0.57 L (0.66-1.25) mg/dL Glucose 173 H (74-99) mg/dL Calcium 9.2 (8.4-10.2) mg/dL Total Bilirubin 0.6 (0.2-1.3) mg/dL AST 78 H (17-59) U/L ALT 129 H (4-49) U/L Alkaline Phosphatase 52 (38-126) U/L Total Protein 6.6 (6.3-8.2) g/dL Albumin 4.2 (3.5-5.0) g/dL
[2022-06-28] MEDS ORDERED: HYDROcodone/APAP 5-325MG 1 EACH TAB PO PRN (19:59)
[2022-06-28] MEDS ORDERED: SODIUM CHLORIDE 0.9% 1,000 ML IV ONE (19:59)
[2022-06-28] MEDS ORDERED: DEXTROSE 50% SYRINGE 50 ML IVP PRN ×2 (20:01)
[2022-06-28] MEDS ORDERED: PIOGLITAZONE 30 MG TAB PO SCH (21:00)
[2022-06-28 21:42] LABS: Glucose,Whole Blood 148 mg/dL (70-110)
[2022-06-28] MEDS: INSULIN ASPART (NovoLOG) 100 UNIT/ML VIAL SQ SCH (21:49)
[2022-06-28] MEDS: metFORMIN 500 MG TAB PO SCH (22:00)
[2022-06-28] MEDS: TAMSULOSIN 0.4 MG CAP.ER.24H PO SCH (22:00)
[2022-06-28] MEDS: GABAPENTIN 100 MG CAP PO SCH (22:00)
[2022-06-28] MEDS: GLIMEPIRIDE 4 MG TAB PO SCH (22:00)
[2022-06-28] MEDS: METOPROLOL TARTRATE 25 MG TAB PO SCH (22:00)
[2022-06-28] MEDS: ATORVASTATIN 20 MG TAB PO SCH (22:03)
[2022-06-29] MEDS: SODIUM CHLORIDE 0.9% 1,000 ML IV SCH ×2 (05:43→17:40)
[2022-06-29] MEDS: INSULIN ASPART (NovoLOG) 100 UNIT/ML VIAL SQ SCH ×4 (06:31→21:12)
[2022-06-29 06:32] LABS: Glucose,Whole Blood 112 mg/dL (70-110)
[2022-06-29] MEDS: HYDROmorphone 0.5 MG/0.5 ML SYRINGE IVP PRN (08:09)
[2022-06-29] MEDS: GLIMEPIRIDE 4 MG TAB PO SCH ×2 (08:11→21:14)
[2022-06-29] MEDS: lisinopriL 10 MG TAB PO SCH (08:12)
[2022-06-29] MEDS: METOPROLOL TARTRATE 25 MG TAB PO SCH ×2 (08:12→21:14)
[2022-06-29] MEDS: PANTOPRAZOLE 40 MG/10 ML VIAL IV SCH (08:12)
[2022-06-29] MEDS: GABAPENTIN 100 MG CAP PO SCH ×2 (08:12→21:13)
[2022-06-29] MEDS: metFORMIN 500 MG TAB PO SCH ×2 (08:12→21:14)
[2022-06-29 08:58] LABS: Basophils # (A) 0.03 X 10*3/uL (0.00-0.10); Basophils % (A) 0.5 %; Eosinophils # (A) 0.17 X 10*3/uL (0.04-0.35); Eosinophils % (A) 2.7 %; HCT 39.9 % (39.6-50.0); HGB 13.1 g/dL (13.0-17.0); Immature Grans, Automated 0.3 %; Lymphocytes # (A) 2.34 X 10*3/uL (0.90-5.00); Lymphocytes % (A) 36.7 %; MCH 31.6 pg (27.0-32.0); MCHC 32.8 g/dL (32.0-37.0); MCV 96.1 fL (80.0-97.0); Monocytes % (A) 9.4 %; NRBC Per 100 WBC 0 /100 WBCS (0.0-0.0); Neutrophils # (A) 3.22 X 10*3/uL (1.80-7.70); Neutrophils % (A) 50.4 %; Platelet Count 203 X 10*3/uL (140-440); RBC 4.15 X 10*6/uL (4.40-5.60); WBC 6.38 X 10*3/uL (4.50-10.00)
[2022-06-29] MEDS ORDERED: NON FORMULARY DRUG (Potassium Gluconate [Potassium Gluconate Er] 99 MG Tablet) PO SCH (09:00)
[2022-06-29 09:14] LABS: Albumin 3.9 g/dL (3.8-4.9); Albumin/Globulin Ratio 2.17 (1.60-3.17); Anion Gap 7.9 mmol/L (10.00-18.00); BUN/Creat Ratio 12.56 Ratio (12.00-20.00); Blood Urea Nitrogen 11.3 mg/dL (9.0-27.0); Carbon Dioxide 27.1 mmol/L (20.0-27.5); Globulin 1.8 g/dL (1.6-3.3); Non-African American GFR(CKD) 93.2 (60.0-200.0); Potassium 4.9 mmol/L (3.5-5.5); Total Bilirubin 0.4 mg/dL (0.30-1.20); Total Protein 5.7 g/dL (6.2-8.2)
--- NOTE | 2022-06-29 12:08 | P.CONS ---
History of Present Illness - Reason for Consult Diabetes mellitus - History of Present Illness 61-year-old male admitted the for biliary stasis which was found after he presented with right upper quadrant abdominal pain sharp in nature moderate severity after eating grilled chicken. Patient pain is better today with the pain medications patient has elevated AST and ALP will be within normal limits ultrasound did not show any dilated common bile duct patient does have hepatomegaly and fatty liver on the ultrasound. Patient does have history of diabetes mellitus is on by mouth medications for diabetes with us and other medical problems patient doesn't have any fever doesn't have leukocytosis. REVIEW OF SYSTEMS: CONSTITUTIONAL: No fever, no malaise, no fatigue. HEENT: No recent visual problems or hearing problems. Denied any sore throat. CARDIOVASCULAR: No chest pain, orthopnea, PND, no palpitations, no syncope. PULMONARY: No shortness of breath, no cough, no hemoptysis. GASTROINTESTINAL: As mentioned in HPI NEUROLOGICAL: No headaches, no weakness, no numbness. HEMATOLOGICAL: Denies any bleeding or petechiae. GENITOURINARY: Denies any burning micturition, frequency, or urgency. MUSCULOSKELETAL/RHEUMATOLOGICAL: Denies any joint pain, swelling, or any muscle pain. ENDOCRINE: Denies any polyuria or polydipsia. The rest of the 14-point review of systems is negative. PHYSICAL EXAMINATION: GENERAL: The patient is alert and oriented x3, not in any acute distress. Well developed, well nourished. HEENT: Pupils are round and equally reacting to light. EOMI. No scleral icterus. No conjunctival pallor. Normocephalic, atraumatic. No pharyngeal erythema. No thyromegaly. CARDIOVASCULAR: S1 and S2 present. No murmurs, rubs, or gallops. PULMONARY: Chest is clear to auscultation, no wheezing or crackles. ABDOMEN: Soft, mild tenderness in the right upper quadrant and Tan's sign is negative, nondistended, normoactive bowel sounds. No palpable organomegaly. MUSCULOSKELETAL: No joint swelling or deformity. EXTREMITIES: No cyanosis, clubbing, or pedal edema. NEUROLOGICAL: Gross neurological examination did not reveal any focal deficits. SKIN: No rashes. Assessment and plan -Biliary stasis symptomatic management as per primary service pain management as per primary service patient doesn't appear to have any choledocholithiasis. Possibility of cholecystectomy tomorrow and patient is low operative risk for surgery -Type 2 diabetes mellitus will hold off on Actos as patient will be nothing by mouth tonight and this can cause hypoglycemia although patient blood sugars at home doesn't appear to be well-controlled with hemoglobin A1c of 10.3, for now with continue with metformin and sliding scale insulin depending on the blood sugars patient may need additional by mouth oral hypoglycemic agents or insulin. -Hyperlipidemia next Plan hypertension -Obesity with fatty liver -coronary artery disease with stents in the past For above-mentioned chronic medical problems for which patient will be started on appropriate home medications DVT prophylaxis: As per primary service Past Medical History Past Medical History: Diabetes Mellitus, Hyperlipidemia, Hypertension Additional Past Medical History / Comment(s): bronchitis, 2010 fell off a ladder with 2 left rib fractures and L knee meniscus tear.neuropathy,stress test 06-09-17neg, History of Any Multi-Drug Resistant Organisms: None Reported Past Surgical History: Appendectomy, Heart Catheterization, Heart Catheterization With Stent, Orthopedic Surgery, Tonsillectomy Additional Past Surgical History / Comment(s): 08/19/10 cardiac cath with 40% LAD blockage-treated medically, december 2016 cardiac cath 2 stents placed, bilateral knee arthroscopies, nasal fracture with surgery, R shoulder spur removal, L shoulder tendon repair with debridement, colonoscopy. Past Anesthesia/Blood Transfusion Reactions: No Reported Reaction Date of Last Stent Placement:: december 2016 Past Psychological History: No Psychological Hx Reported Additional Psychological History / Comment(s): Pt resides with his spouse, their aneta and son-in-law and their 2 1/2 yr old granddaughter. 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 He was a smoker. Mother Family Medical History: Cancer Additional Family Medical History / Comment(s): Mother of lung cancer. She was a smoker. Brother(s) Family Medical History: Cancer Additional Family Medical History / Comment(s): 2 brother's had lung cancer-they were both smokers. Sister(s) Family Medical History: Cancer Additional Family Medical History / Comment(s): Pt's sister had lung cancer-she was a smoker. Medications and Allergies Home Medications Medication Instructions Recorded Confirmed Type Aspirin EC [Ecotrin Low Dose] 81 mg PO DAILY 02/16/16 06/28/22 History Metoprolol Tartrate [Lopressor] 25 mg PO BID 06/26/17 06/28/22 History Tamsulosin [Flomax] 0.4 mg PO HS 11/28/19 06/28/22 History Glimepiride [Amaryl] 4 mg PO BID 12/19/21 06/28/22 History Potassium Gluconate [Potassium 99 mg PO DAILY 12/19/21 06/28/22 History Gluconate ER] Simvastatin [Zocor] 40 mg PO HS 12/19/21 06/28/22 History Cholecalciferol [Vitamin D3 (25 50 mcg PO DAILY 06/28/22 06/28/22 History Mcg = 1000 Iu)] Dulaglutide [Trulicity] 1.5 mg SQ TU 06/28/22 06/28/22 History Gabapentin [Neurontin] 100 mg PO BID 06/28/22 06/28/22 History HYDROcodone/APAP 5-325MG [[place] 0.5 tab PO Q6HR PRN 06/28/22 06/28/22 History 5-325] Multivit-Min/Folic/Vit K/Lycop 1 tab PO DAILY 06/28/22 06/28/22 History [Men's Multivitamin Tablet] Pioglitazone [Actos] 30 mg PO HS 06/28/22 06/28/22 History lisinopriL [Prinivil] 10 mg PO DAILY 06/28/22 06/28/22 History metFORMIN HCL [Glucophage] 1,000 mg PO BID 06/28/22 06/28/22 History metroNIDAZOLE [Flagyl] 250 mg PO BID 06/28/22 06/28/22 History Allergies Allergy/AdvReac Type Severity Reaction Status Date / Time atorvastatin [From Lipitor] AdvReac Diarrhea Verified 06/28/22 15:01 Physical Exam Vitals: Vital Signs Temp Pulse Pulse Resp BP BP BP 06/29/22 08:00 60 16 06/29/22 07:00 97.6 F 60 16 118/58 06/29/22 02:40 97.5 F L 56 L 16 150/82 06/28/22 19:46 97.7 F 65 16 137/76 06/28/22 17:20 59 L 18 128/74 06/28/22 16:23 98.9 F 90 16 104/80 06/28/22 16:17 97 F L 61 16 138/76 06/28/22 16:13 97.7 F 17 131/76 06/28/22 13:07 97.4 F L 79 18 148/74 Pulse Ox 06/29/22 08:00 06/29/22 07:00 99 06/29/22 02:40 98 06/28/22 19:46 98 06/28/22 17:20 96 06/28/22 16:23 100 06/28/22 16:17 97 06/28/22 16:13 100 06/28/22 13:07 97 Intake and Output 06/28/22 06/29/22 06/29/22 22:59 06:59 14:59 Intake Total 118 298 Balance 118 298 Intake: Oral 118 298 Other: # Voids 1 1 Weight 113.398 kg Results CBC & Chem 7: 06/29/22 06:14 06/29/22 06:14 Labs: Abnormal Lab Results - Last 24 Hours (Table) 06/28/22 06/28/22 06/29/22 Range/Units 13:48 21:41 06:14 RBC (4.40-5.60) X 10*6/uL Sodium 136 L (137-145) mmol/L Anion Gap (10.00-18.00) mmol/L Creatinine 0.57 L (0.66-1.25) mg/dL Glucose 173 H (74-99) mg/dL POC Glucose (mg/dL) 148 H (70-110) mg/dL Hemoglobin A1c 10.3 H (0.0-6.0) % AST 78 H (17-59) U/L ALT 129 H (4-49) U/L Total Protein (6.2-8.2) g/dL 06/29/22 06/29/22 06/29/22 Range/Units 06:14 06:14 06:30 RBC 4.15 L (4.40-5.60) X 10*6/uL Sodium (137-145) mmol/L Anion Gap 7.90 L (10.00-18.00) mmol/L Creatinine (0.66-1.25) mg/dL Glucose 111 H (74-99) mg/dL POC Glucose (mg/dL) 112 H (70-110) mg/dL Hemoglobin A1c (0.0-6.0) % AST 71 H (17-59) U/L ALT 121 H (4-49) U/L Total Protein 5.7 L (6.2-8.2) g/dL
[2022-06-29 12:46] LABS: Glucose,Whole Blood 152 mg/dL (70-110)
[2022-06-29] MEDS ORDERED: SODIUM CHLORIDE 0.9% 1,000 ML IV ONE (15:22)
--- NOTE | 2022-06-29 15:24 | P.PN ---
Subjective Progress Note Date: 06/29/22 Patient still reports right upper quadrant abdominal pain with liquid diet. Liver enzymes still elevated. Appreciate medical consultation. We'll proceed with robotic cholecystectomy while inpatient. Nothing by mouth after midnight. Objective - Vital Signs Vital signs: Vital Signs Temp 97.8 F 06/29/22 14:58 Pulse 63 06/29/22 14:58 Resp 16 06/29/22 14:58 BP 133/69 06/29/22 14:58 Pulse Ox 98 06/29/22 14:58 FiO2 Intake & Output 06/28/22 06/29/22 06/29/22 18:59 06:59 18:59 Intake Total 118 596 Balance 118 596 Weight 113.398 kg Intake: Oral 118 596 Other: # Voids 1 6 # Bowel Movements 0 - Labs CBC & Chem 7: 06/29/22 06:14 06/29/22 06:14 Labs: Abnormal Lab Results - Last 24 Hours (Table) 06/28/22 06/29/22 06/29/22 Range/Units 21:41 06:14 06:14 RBC 4.15 L (4.40-5.60) X 10*6/uL Anion Gap (10.00-18.00) mmol/L Glucose (70-110) mg/dL POC Glucose (mg/dL) 148 H (70-110) mg/dL Hemoglobin A1c 10.3 H (0.0-6.0) % AST (14-35) U/L ALT (10-49) U/L Total Protein (6.2-8.2) g/dL 06/29/22 06/29/22 06/29/22 Range/Units 06:14 06:30 12:45 RBC (4.40-5.60) X 10*6/uL Anion Gap 7.90 L (10.00-18.00) mmol/L Glucose 111 H (70-110) mg/dL POC Glucose (mg/dL) 112 H 152 H (70-110) mg/dL Hemoglobin A1c (0.0-6.0) % AST 71 H (14-35) U/L ALT 121 H (10-49) U/L Total Protein 5.7 L (6.2-8.2) g/dL
[2022-06-29] MEDS: PIPERACILLIN-TAZOBACTAM 3.375 GM in SODIUM CHLORIDE 0.9% 100 ML IVPB SCH (16:55)
[2022-06-29 17:41] LABS: Glucose,Whole Blood 92 mg/dL (70-110)
[2022-06-29 20:18] LABS: Glucose,Whole Blood 204 mg/dL (70-110)
[2022-06-29] MEDS: TAMSULOSIN 0.4 MG CAP.ER.24H PO SCH (21:14)
[2022-06-29] MEDS: ATORVASTATIN 20 MG TAB PO SCH (21:14)
[2022-06-30] MEDS: PIPERACILLIN-TAZOBACTAM 3.375 GM in SODIUM CHLORIDE 0.9% 100 ML IVPB SCH ×4 (00:56→23:44)
[2022-06-30] MEDS: SODIUM CHLORIDE 0.9% 1,000 ML IV SCH ×5 (00:57→23:44)
[2022-06-30] MEDS: HYDROmorphone 0.5 MG/0.5 ML SYRINGE IVP PRN (02:28)
[2022-06-30 05:51] LABS: Glucose,Whole Blood 97 mg/dL (70-110)
[2022-06-30] MEDS: INSULIN ASPART (NovoLOG) 100 UNIT/ML VIAL SQ SCH ×4 (06:23→22:20)
[2022-06-30 06:37] LABS: Basophils % (A) 0 %; Eosinophils # (A) 0.2 k/uL (0-0.7); Eosinophils % (A) 2 %; HCT 39.3 % (39.0-53.0); HGB 13.2 gm/dL (13.0-17.5); Lymphocytes # (A) 1.9 k/uL (1.0-4.8); Lymphocytes % (A) 30 %; MCH 31.8 pg (25.0-35.0); MCHC 33.6 g/dL (31.0-37.0); MCV 94.4 fL (80.0-100.0); Mean Platelet Volume 8.3; Monocytes # (A) 0.3 k/uL (0-1.0); Monocytes % (A) 6 %; Neutrophils # (A) 3.8 k/uL (1.3-7.7); Neutrophils % (A) 60 %; Platelet Count 184 k/uL (150-450); RBC 4.16 m/uL (4.30-5.90); RDW 12.5 % (11.5-15.5); WBC 6.3 k/uL (3.8-10.6)
[2022-06-30 06:46] LABS: ALT 112 U/L (4-49); AST 67 U/L (17-59); African American GFR (CKD) >90 (>60 ml/min/1.73 sqM); Albumin 3.5 g/dL (3.5-5.0); Albumin/Globulin Ratio 1.5; Alkaline Phosphatase 44 U/L (38-126); Anion Gap 3 mmol/L; Blood Urea Nitrogen 8 mg/dL (9-20); Calcium 8.4 mg/dL (8.4-10.2); Carbon Dioxide 29 mmol/L (22-30); Chloride 108 mmol/L (98-107); Globulin 2.3 g/dL; Glucose 97 mg/dL (74-99); Non-African American GFR(CKD) >90 (>60 ml/min/1.73 sqM); Potassium 4.1 mmol/L (3.5-5.1); Sodium 140 mmol/L (137-145); Total Bilirubin 0.7 mg/dL (0.2-1.3); Total Protein 5.8 g/dL (6.3-8.2)
[2022-06-30] MEDS ORDERED: INDOCYANINE GREEN 25 MG VIAL IV ONE (07:00)
[2022-06-30 08:40] LABS: Glucose,Whole Blood 111 mg/dL (70-110)
[2022-06-30] MEDS ORDERED: LACTATED RINGERS 1,000 ML IV ONE ×2 (08:45→12:33)
[2022-06-30] MEDS ORDERED: HEPARIN SODIUM,PORCINE/PF 5,000 UNIT/0.5 ML SYRINGE SQ ONE (08:54)
[2022-06-30] MEDS ORDERED: HEPARIN SODIUM,PORCINE 5,000 UNIT/ML 1 ML VIAL SQ ONE (08:56)
[2022-06-30] MEDS ORDERED: ONDANSETRON 4 MG/2 ML VIAL IVP ONE (09:04)
[2022-06-30] MEDS ORDERED: DEXAMETHASONE SOD PHOSPHATE 4 MG/ML 1 ML VIAL IVP ONE (09:04)
[2022-06-30] MEDS ORDERED: ACETAMINOPHEN TAB 500 MG TAB PO STA (09:04)
--- NOTE | 2022-06-30 09:06 | P.PN ---
Subjective Progress Note Date: 06/30/22 CHIEF COMPLAINT: Cholecystitis HISTORY OF PRESENT ILLNESS: The patient is a 61-year-old male with diabetes, morbid obesity, hypertensive heart disease who was admitted due to cholecystitis. Patient is to reports moderate to severe right upper quadrant epigastric abdominal pain. He started on antibiotics. ROS: No reports of nausea and vomiting. Had bowel movements yesterday. No fevers or chills. No new chest pain. No productive sputum PHYSICAL EXAM: VITAL SIGNS: Reviewed CONSTITUTIONAL: Well developed and in no acute distress. EYES: Conjuctivae without sclera icterus. Extraocular movements grossly intact. HEAD, EARS, NOSE, THROAT: Moist buccal mucosa. Head is atraumatic, normocepha lic. Hears conversational speech. No nasal drainage. RESPIRATORY: Non-labored respirations and equal bilateral excursions. CARDIOVASCULAR: Palpable 2+ radial pulses. ABDOMEN: Protuberant, tender right upper quadrant. MUSCULOSKELETAL: No gross deformity of the lower extremities noted. No clubbi ng. No cyanosis. SKIN: Good skin turgor. Well perfused. NEUROLOGIC: Cranial nerves II through XII grossly intact. No focal or lateralizing signs. PSYCH: Appropriate affect. Alert and oriented to person, place and time. CLINICAL LABS: Reviewed. CBC within normal limits. LFTs elevated. ASSESSMENT: 1. Acute cholecystitis 2. Diabetes type 2 with nephropathy 3. Hypertensive heart disease 4. Morbid obesity due to excess calories 5. Elevated liver enzymes 6. Hyperlipidemia PLAN: 1. Robotic cholecystectomy described including benefits and risks. 2. Patient elevated risk due to comorbid conditions Objective - Vital Signs Vital signs: Vital Signs Temp 97.2 F L 06/30/22 08:37 Pulse 65 06/30/22 08:37 Resp 15 06/30/22 08:37 BP 155/71 06/30/22 08:37 Pulse Ox 99 06/30/22 08:37 FiO2 Intake & Output 06/29/22 06/30/22 06/30/22 18:59 06:59 18:59 Intake Total 596 Balance 596 Intake: Oral 596 Other: # Voids 6 2 # Bowel Movements 0 - Labs CBC & Chem 7: 06/30/22 06:22 06/30/22 06:22 Labs: Abnormal Lab Results - Last 24 Hours (Table) 06/29/22 06/29/22 06/29/22 Range/Units 06:14 06:14 12:45 RBC (4.30-5.90) m/uL Chloride (98-107) mmol/L Anion Gap 7.90 L (10.00-18.00) mmol/L BUN (9-20) mg/dL Glucose 111 H (70-110) mg/dL POC Glucose (mg/dL) 152 H (70-110) mg/dL Hemoglobin A1c 10.3 H (0.0-6.0) % AST 71 H (14-35) U/L ALT 121 H (10-49) U/L Total Protein 5.7 L (6.2-8.2) g/dL 06/29/22 06/30/22 06/30/22 Range/Units 20:16 06:22 06:22 RBC 4.16 L (4.30-5.90) m/uL Chloride 108 H (98-107) mmol/L Anion Gap (10.00-18.00) mmol/L BUN 8 L (9-20) mg/dL Glucose (70-110) mg/dL POC Glucose (mg/dL) 204 H (70-110) mg/dL Hemoglobin A1c (0.0-6.0) % AST 67 H (14-35) U/L ALT 112 H (10-49) U/L Total Protein 5.8 L (6.2-8.2) g/dL 06/30/22 Range/Units 08:39 RBC (4.30-5.90) m/uL Chloride (98-107) mmol/L Anion Gap (10.00-18.00) mmol/L BUN (9-20) mg/dL Glucose (70-110) mg/dL POC Glucose (mg/dL) 111 H (70-110) mg/dL Hemoglobin A1c (0.0-6.0) % AST (14-35) U/L ALT (10-49) U/L Total Protein (6.2-8.2) g/dL
[2022-06-30] MEDS ORDERED: fentaNYL (PF) 50 MCG/ML 2 ML AMP ONE (09:13)
[2022-06-30] MEDS ORDERED: NEOSTIGMINE 1 MG/ML 10 ML VIAL ONE (09:13)
[2022-06-30] MEDS ORDERED: ROCURONIUM 10 MG/ML (5 ML VIAL) IV ONE (09:13)
[2022-06-30] MEDS ORDERED: MIDAZOLAM 2 MG/2 ML VIAL ONE (09:13)
[2022-06-30] MEDS ORDERED: LIDOCAINE 2% INJ 20 MG/ML (2 ML VIAL) ONE (09:13)
[2022-06-30] MEDS ORDERED: SUCCINYLCHOLINE CHLORIDE 200 MG/10 ML VIAL IV ONE (09:13)
[2022-06-30] MEDS ORDERED: PROPOFOL 10 MG/ML 20 ML VIAL IV ONE (09:13)
[2022-06-30] MEDS ORDERED: GLYCOPYRROLATE 0.2 MG/ML 2 ML VIAL ONE (09:13)
[2022-06-30] MEDS ORDERED: SODIUM CHLORIDE 0.9% 1,000 ML IV ONE (09:16)
[2022-06-30] MEDS ORDERED: BUPIVACAIN-EPI 0.25%-1:200,000 30 ML VIAL SQ ONE (09:43)
--- NOTE | 2022-06-30 11:52 | P.OP ---
Date of Procedure: 06/30/22 Description of Procedure: SURGEON: VENUS RODRIGUEZ MD PREOPERATIVE DIAGNOSES: 1. Acute cholecystitis due to cystic duct obstruction 2. Right upper quadrant quadrant peritonitis 3. Morbid obesity due to excess calories, BMI 35.9 4. Diabetes type 2 with diabetic nephropathy 5. Hypertensive heart disease 6. Hyperlipidemia 7. Diabetic neuropathy 8. Lower obstructive uropathy due to prostate disorder POSTOPERATIVE DIAGNOSES: 1. Acute cholecystitis due to cystic duct obstruction 2. Right upper quadrant quadrant peritonitis 3. Morbid obesity due to excess calories, BMI 35.9 4. Diabetes type 2 with diabetic nephropathy 5. Hypertensive heart disease 6. Hyperlipidemia 7. Diabetic neuropathy 8. Lower obstructive uropathy due to prostate disorder 9. Severe fatty liver disease with hepatomegaly OPERATION: Robotic-assisted da Keesha Xi laparoscopic cholecystectomy, multiport with FIREFLY ESTIMATED BLOOD LOSS: 75 mL. SPECIMENS REMOVED: Gallbladder. COMPLICATIONS: None. OPERATIVE FINDINGS: 1. Severe fatty liver disease with severe hepatomegaly adding complexity to the case, over 45 minutes INDICATIONS: The patient is a 61-year-old male who presented with acute cholecystitis. Despite antibiotics and conservative management, patient continued to have persistent right upper quadrant abdominal pain. Robotic assisted laparoscopic approach was described. Benefits and risks of the procedure including but not limited to bleeding, infection, injury to the biliar y tree was described. Informed consent was obtained. DESCRIPTION OF PROCEDURE: Patient was brought to the operating room, placed in supine position. After general induction, the abdomen had been prepped and draped in standard sterile fashion. The robotic da Keesha XI system was primed. After a timeout protocol was performed, the patient had been prepped and draped in standard sterile fashion. The patient was injected with indocyanine green. A 5 mm 0 degrees laparoscopic trocar entry was performed along the left upper quadrant. The abdomen insufflated to 15 mmHg pressure which was tolerated well. Diagnostic laparoscopy demonstrated no injury to bowel viscera or mesentery. The liver surface was unremarkable. Next, two 8 mm robotic ports were placed along the right upper abdomen. The camera 8-mm port was maintained along the epigastrium. Another 8 mm port was placed along the left upper abdominal wall after exchanging the 5 mm port. Please note that the ports were placed at least 10 to 15 cm away from the target anatomy of the gallbladder. The robot was docked along the left lateral abdomen. The patient was repositioned in reverse Trendelenburg position. Using a grasper for arm 3, a grasper for arm 4, including hook cautery for arm 1, the robotic system was docked and primed as described. Instruments were interchanged by the urology physician assistant including hook cautery, Bovie cautery and clip appliers. I had sat at the console. Severe fatty liver disease with severe hepatomegaly was identified adding moderate complexity to the case over 45 minutes. Additional equipment including vessel sealer and suction bat lathe operator was used. A dome down technique from the fundus to the infundibulum was performed to expose the cystic structures. Vessel sealer was used to dissect at the infundibulum. Mild bleeding occurred along the liver bed controlled with vessel sealer. The cystic duodenum was isolated and controlled using clips. FIREFLY was used to identify the cystic artery and cystic structures. Large PLASTIC clips were used throughout the entire case. Using a clip cook sauce, 1 clip placed at the junction of the infundibulum and cystic duct. The cystic duct was divided using vessel sealer. Spillage of bile occurred during the case and suctioned using suction bat lathe operator and irrigated using normal saline. Electro-Bovie cautery was used to remove the gallbladder from the hepatic fossa. Hemostasis was checked and found to be adequate. The robot was undocked. I re-scrubbed into the case. Using a 10 mm Endo Catch bag via the left upper quadrant incision, the specimen was removed from the abdominal cavity. The left upper quadrant incision was oversewn using 0 Vicryl and [place]. All pneumoperitoneum instruments were evacuated from the abdominal cavity. The incisions were reapproximated using 4-0 Monocryl in an interrupted subcuticular fashion. Fascial defects were less than 8 mm in size. Please note along the trocar sites, local anesthetic was placed as a field block prior to insertion of all instruments. Liquid glue was applied to the skin. At the end of the procedure needle, sponge, and instrument count had been verified correct by the surgical garment inspector. The patient was transferred to postanesthesia care unit in stable condition. Intraoperative films were shared with the patient's family.
[2022-06-30 12:02] LABS: Glucose,Whole Blood 225 mg/dL (70-110)
[2022-06-30] MEDS ORDERED: HYDROmorphone 0.5 MG/0.5 ML SYRINGE IVP ONE ×2 (12:02→12:29)
[2022-06-30] MEDS ORDERED: INSULIN ASPART (NovoLOG) 100 UNIT/ML VIAL SQ ONE (12:30)
[2022-06-30] MEDS: metFORMIN 500 MG TAB PO SCH ×2 (13:37→19:50)
[2022-06-30] MEDS: GLIMEPIRIDE 4 MG TAB PO SCH ×2 (13:38→19:50)
[2022-06-30] MEDS: PANTOPRAZOLE 40 MG/10 ML VIAL IV SCH (13:38)
[2022-06-30] MEDS: ACETAMINOPHEN IV (For NPO) 1,000 MG in EMPTY BAG 1 BAG IVPB SCH ×3 (13:38→23:45)
[2022-06-30] MEDS: GABAPENTIN 100 MG CAP PO SCH ×2 (13:38→19:50)
[2022-06-30] MEDS: lisinopriL 10 MG TAB PO SCH (13:38)
[2022-06-30] MEDS: METOPROLOL TARTRATE 25 MG TAB PO SCH ×2 (13:38→19:50)
[2022-06-30] MEDS: SIMETHICONE 40 MG/0.6 ML DROPS 2,000 MG/30 ML BOTTLE PO SCH ×3 (13:39→19:46)
[2022-06-30 13:51] VITALS: BMI 35.9
[2022-06-30 17:42] LABS: Glucose,Whole Blood 215 mg/dL (70-110)
[2022-06-30] MEDS: TAMSULOSIN 0.4 MG CAP.ER.24H PO SCH (19:50)
[2022-06-30] MEDS: ATORVASTATIN 20 MG TAB PO SCH (19:51)
[2022-06-30] MEDS: HEPARIN SODIUM,PORCINE/PF 5,000 UNIT/0.5 ML SYRINGE SQ SCH (20:01)
[2022-06-30 20:45] LABS: Glucose,Whole Blood 176 mg/dL (70-110)
[2022-07-01] MEDS: HYDROmorphone 0.5 MG/0.5 ML SYRINGE IVP PRN ×2 (04:00→12:25)
--- NOTE | 2022-07-01 04:48 | PN ---
PROGRESS NOTE DATE OF SERVICE: 06/30/2022 SUBJECTIVE: This is a 61-year-old gentleman, who underwent laparoscopic cholecystectomy, is closely monitored. No chest pain. No palpitations. Complains of some postoperative pain. OBJECTIVE: VITAL SIGNS: Pulse is 70, blood pressure 148/69, respirations 16. CHEST: Clear. CARDIOVASCULAR: S1, S2 normal. ABDOMEN: Soft, status post surgery. LABS: Reviewed. ASSESSMENT: 1. Status post laparoscopic cholecystectomy. 2. Diabetes mellitus, type 2. 3. Hyperlipidemia. 4. Coronary artery disease stent. RECOMMENDATIONS: Recommend to continue current management and symptomatic treatment. Incentive spirometry. DVT prophylaxis. Closely follow with Surgery. Symptomatic treatment. Further recommendations to follow. MMODL / IJN: [id number] /
[2022-07-01] MEDS: ACETAMINOPHEN IV (For NPO) 1,000 MG in EMPTY BAG 1 BAG IVPB SCH (05:11)
[2022-07-01 06:28] LABS: Glucose,Whole Blood 98 mg/dL (70-110)
[2022-07-01] MEDS: INSULIN ASPART (NovoLOG) 100 UNIT/ML VIAL SQ SCH ×2 (06:43→12:17)
[2022-07-01 08:07] VITALS: RESP 16; TEMP 98.1
[2022-07-01] MEDS: PIPERACILLIN-TAZOBACTAM 3.375 GM in SODIUM CHLORIDE 0.9% 100 ML IVPB SCH (08:50)
[2022-07-01] MEDS: GLIMEPIRIDE 4 MG TAB PO SCH (08:52)
[2022-07-01] MEDS: lisinopriL 10 MG TAB PO SCH (08:52)
[2022-07-01] MEDS: GABAPENTIN 100 MG CAP PO SCH (08:52)
[2022-07-01] MEDS: HEPARIN SODIUM,PORCINE/PF 5,000 UNIT/0.5 ML SYRINGE SQ SCH (08:52)
[2022-07-01] MEDS: METOPROLOL TARTRATE 25 MG TAB PO SCH (08:52)
[2022-07-01] MEDS: metFORMIN 500 MG TAB PO SCH (08:52)
[2022-07-01] MEDS: PANTOPRAZOLE 40 MG/10 ML VIAL IV SCH (08:52)
[2022-07-01] MEDS: SIMETHICONE 40 MG/0.6 ML DROPS 2,000 MG/30 ML BOTTLE PO SCH (08:53)
[2022-07-01 08:57] VITALS: BP 123/67; PULSE 63
[2022-07-01 10:51] LABS: Basophils # (A) 0.02 X 10*3/uL (0.00-0.10); Basophils % (A) 0.2 %; Eosinophils # (A) 0.01 X 10*3/uL (0.04-0.35); Eosinophils % (A) 0.1 %; HCT 37.9 % (39.6-50.0); HGB 11.8 g/dL (13.0-17.0); Immature Grans, Automated 0.4 %; Lymphocytes # (A) 1.48 X 10*3/uL (0.90-5.00); Lymphocytes % (A) 12.4 %; MCH 29.7 pg (27.0-32.0); MCHC 31.1 g/dL (32.0-37.0); MCV 95.5 fL (80.0-97.0); Monocytes # (A) 0.97 X 10*3/uL (0.20-1.00); Monocytes % (A) 8.2 %; NRBC Per 100 WBC 0 /100 WBCS (0.0-0.0); Neutrophils # (A) 9.37 X 10*3/uL (1.80-7.70); Neutrophils % (A) 78.7 %; Platelet Count 194 X 10*3/uL (140-440); RBC 3.97 X 10*6/uL (4.40-5.60)
[2022-07-01 11:37] LABS: Albumin 3.9 g/dL (3.8-4.9); Albumin/Globulin Ratio 2.17 (1.60-3.17); Anion Gap 13.8 mmol/L (10.00-18.00); BUN/Creat Ratio 11.78 Ratio (12.00-20.00); Blood Urea Nitrogen 10.6 mg/dL (9.0-27.0); Calcium 8.9 mg/dL (8.7-10.3); Carbon Dioxide 24.2 mmol/L (20.0-27.5); Globulin 1.8 g/dL (1.6-3.3); Non-African American GFR(CKD) 93.2 (60.0-200.0); Potassium 3.9 mmol/L (3.5-5.5); Total Bilirubin 0.5 mg/dL (0.30-1.20); Total Protein 5.7 g/dL (6.2-8.2)
[2022-07-01 12:07] LABS: Glucose,Whole Blood 109 mg/dL (70-110)
--- NOTE | 2022-07-01 12:53 | P.PN ---
Progress Note - Text Progress Note Date: 07/01/22 The patient is resting comfortably bed. He denies a significant pain. On exam vital signs are stable. Abdomen soft. Status post laparoscopic cholestatic. Patiently discharged home today.
[2022-07-01] MEDS: SODIUM CHLORIDE 0.9% 1,000 ML IV SCH (14:09)
[2022-07-02] MEDS ORDERED: PANTOPRAZOLE 40 MG TABLET PO SCH (07:30)
--- NOTE | 2022-07-02 16:52 | PN ---
PROGRESS NOTE DATE OF SERVICE: 07/01/2022 SUBJECTIVE: This is a 61-year-old gentleman, who was admitted after laparoscopic cholecystomy. He is being closely monitored. No chest pain. No palpitations. No fever. OBJECTIVE: VITAL SIGNS: Pulse is 63, blood pressure 98/61, respirations 18. CHEST: Clear to auscultation. CARDIOVASCULAR: S1 and S2. ABDOMEN: Soft. Status post surgery. LABORATORY DATA: Reviewed. ASSESSMENT: 1. Status post laparoscopic cholecystectomy. 2. Diabetes mellitus, type 2. 3. Hyperlipidemia. 4. History of coronary artery disease, stent. RECOMMENDATIONS AND DISCUSSION: This is a 61-year-old gentleman presented after surgery. At this time, I recommend to continue the current medications and follow closely with General Surgery. Resume the home medications and follow with primary physician after discharge. The rest of the recommendations per Surgery. MMODL / IJN: [id number] /
[2022-07-04] MEDS ORDERED: NON FORMULARY DRUG (Dulaglutide [Trulicity] 1.5 MG/0.5 ML Each) SQ SCH (09:00)
== END 2022-07-01 14:12 | disposition home or self-care (01) | DRG 417 ==
LOC: EC 13:03 → 6NMEDSUR 16:04 → OBSVTOIN 06-30 11:45 → UNDODISOB 07-01 14:15
PROVIDERS: ADMIT Surgery Plastic and Reconstructive Surgery; ATTEND Surgery Plastic and Reconstructive Surgery
PROC: 8E0W4CZ Robotic Assisted Procedure of Trunk Region, Percutaneous Endoscopic Approach (ICD-10-PCS; principal; 2022-06-30 15:00)
PROC: BF532Z0 Other Imaging of Gallbladder and Bile Ducts using Fluorescing Agent, Intraoperative (ICD-10-PCS; principal; 2022-06-30 15:00)
PROC: 0FT44ZZ Resection of Gallbladder, Percutaneous Endoscopic Approach (ICD-10-PCS; principal; 2022-06-30 15:00)
DX: K80.01 Calculus of gallbladder with acute cholecystitis with obstruction (principal); K65.9 Peritonitis, unspecified; K76.0 Fatty (change of) liver, not elsewhere classified; E11.21 Type 2 diabetes mellitus with diabetic nephropathy; E11.40 Type 2 diabetes mellitus with diabetic neuropathy, unspecified; E66.01 Morbid (severe) obesity due to excess calories; Z68.35 Body mass index [BMI] 35.0-35.9, adult; E78.5 Hyperlipidemia, unspecified; I11.9 Hypertensive heart disease without heart failure; I25.10 Atherosclerotic heart disease of native coronary artery without angina pectoris; N13.9 Obstructive and reflux uropathy, unspecified; N42.9 Disorder of prostate, unspecified; Z79.82 Long term (current) use of aspirin; Z79.84 Long term (current) use of oral hypoglycemic drugs; Z79.899 Other long term (current) drug therapy; Z80.1 Family history of malignant neoplasm of trachea, bronchus and lung; Z95.5 Presence of coronary angioplasty implant and graft; Z88.8 Allergy status to other drugs, medicaments and biological substances
CPT/HCPCS: 36415; 74018; 76705; 80053; 82150; 83036; 83690; 84484; 85025; 85610; 85730; 88304; 93005

== ENCOUNTER → 2023-02-08 | Outpatient (CLI) | payer MEDICAID ==
[2023-02-08 17:07] LABS: Basophils # (A) 0.03 X 10*3/uL (0.00-0.10); Basophils % (A) 0.6 %; Eosinophils % (A) 1.9 %; HCT 40.4 % (39.6-50.0); HGB 13.5 d/dL (13.0-17.0); Lymphocytes # (A) 1.55 X 10*3/uL (0.90-5.00); Lymphocytes % (A) 29.6 %; MCH 32.4 pg (27.0-32.0); MCHC 33.4 d/dL (32.0-37.0); MCV 96.9 FL (80.0-97.0); Mean Platelet Volume 10.7 FL (9.5-12.2); Monocytes % (A) 9.6 %; NRBC Per 100 WBC 0 X 10*3/uL (0.00-0.01); Neutrophils # (A) 3.03 X 10*3/uL (1.80-7.70); Neutrophils % (A) 57.9 %; Platelet Count 198 X 10*3/uL (140-440); RBC 4.17 X 10*6/uL (4.40-5.60); RDW 13.8 % (11.5-14.5); WBC 5.23 X 10*3/uL (4.50-10.00)
[2023-02-08 17:23] LABS: ALT 29 U/L (10-49); AST 27 U/L (14-35); Albumin 4.6 d/dL (3.8-4.9); Albumin/Globulin Ratio 2.19 Ratio (1.60-3.17); Alkaline Phosphatase 46 U/L (41-126); BUN/Creat Ratio 17.89 Ratio (12.00-20.00); Blood Urea Nitrogen 16.1 mg/dL (9.0-27.0); Calcium 9.8 mg/dL (8.7-10.3); Carbon Dioxide 26.9 mmol/L (21.6-31.8); Chloride 105 mmol/L (96-109); Chol/HDL Ratio 1.99 Ratio; Globulin 2.1 d/dL (1.6-3.3); Glucose 83 mg/dL (70-110); LDL Cholesterol,Calculated 41.9 mg/dL (0.0-131.0); Potassium 5.1 mmol/L (3.5-5.5); Sodium 141 mmol/L (135-145); Total Bilirubin 0.6 mg/dL (0.3-1.2); Total Protein 6.7 d/dL (6.2-8.2)
== END | disposition home or self-care (01) ==
LOC: LABWHC1 11:06
PROVIDERS: ATTEND Internal Medicine Interventional Cardiology
DX: Z00.00 Encounter for general adult medical examination without abnormal findings (principal); I25.10 Atherosclerotic heart disease of native coronary artery without angina pectoris; E11.9 Type 2 diabetes mellitus without complications; K75.81 Nonalcoholic steatohepatitis (NASH)
CPT/HCPCS: 36415; 80053; 80061; 83036; 84443; 85025

== ENCOUNTER → 2023-03-28 | Outpatient (CLI) | payer MEDICAID ==
--- NOTE | 2023-03-28 12:38 | US ---
EXAMINATION TYPE: US carotid duplex BILAT DATE OF EXAM: 03/28/2023 COMPARISON: NONE CLINICAL INDICATION: Male, 62 years old with history of G45.9 TRANSIENT CEREBRAL ISCHEMIC ATTACK; Bru it Rt side TECHNIQUE: Carotid duplex ultrasound examination. Indirect Doppler criteria was utilized. FINDINGS: EXAM MEASUREMENTS: RIGHT: Peak Systolic Velocity (PSV) cm/sec ----- Right CCA: 60.5 ----- Right ICA: 62.5 ----- Right ECA: 107.6 ICA/CCA ratio: 1.0 RIGHT: End Diastole cm/sec ----- Right CCA: 21.2 ----- Right ICA: 28.4 ----- Right ECA: 20.4 LEFT: Peak Systolic Velocity (PSV) cm/sec ----- Left CCA: 82.3 ----- Left ICA: 89.7 ----- Left ECA: 109.5 ICA/CCA ratio: 1.1 LEFT: End Diastole cm/sec ----- Left CCA: 22.8 ----- Left ICA: 40.2 ----- Left ECA: 18.9 VERTEBRALS (direction of flow): Right Vertebral: Antegrade Left Vertebral: Antegrade Rhythm: Normal ENTERPRISE APPLICATION ARCHITECT NOTES: Mild atherosclerotic LT bulb, no elevated velocities IMPRESSION: 1. Mild atherosclerotic changes within the left carotid bulb with no hemodynamically significant sten osis otherwise noted bilaterally. Criteria for Assigning % of Stenosis / Diameter reduction (Estimation based on the indirect measurements of the internal carotid artery velocities (ICA PSV). 1. Normal (no stenosis)=ICA PSV < 125 cm/s: ratio < 2.0: ICA EDV<40 cm/s. 2. Less than 50% stenosis=ICA PSV < 125 cm/s: ratio < 2.0: ICA EDV<40 cm/s. 3. 50 to 69% stenosis=ICA PSV of 125 to 230 cm/s: ration 2.0 ? 4.0: ICA EDV 40-100 cm/s. 4. Greater than 70% stenosis to near occlusion= ICA PSV > 230 cm/s: ratio > 4.0: ICA EDV > 100 cm/s. 5. Near occlusion= ICA PSV velocities may be low or undetectable: variable ratio and ICA EDV. 6. Total occlusion=unable to detect flow.
== END | disposition home or self-care (01) ==
LOC: RADUSWWP 11:11
PROVIDERS: ATTEND Internal Medicine Interventional Cardiology
DX: I65.22 Occlusion and stenosis of left carotid artery (principal)
CPT/HCPCS: 93880

== ENCOUNTER 2023-04-09 15:06 | Emergency (ER) | payer MEDICAID ==
[2023-04-09 15:25] VITALS: TEMP 98.2
[2023-04-09 15:38] LABS: Basophils % (A) 0 %; Eosinophils # (A) 0.2 k/uL (0-0.7); Eosinophils % (A) 3 %; HCT 41.1 % (39.0-53.0); Lymphocytes # (A) 1.7 k/uL (1.0-4.8); Lymphocytes % (A) 24 %; MCH 32.4 pg (25.0-35.0); MCV 95.1 fL (80.0-100.0); Mean Platelet Volume 7.5; Monocytes # (A) 0.4 k/uL (0-1.0); Monocytes % (A) 6 %; Neutrophils # (A) 4.6 k/uL (1.3-7.7); Neutrophils % (A) 65 %; Platelet Count 196 k/uL (150-450); RBC 4.32 m/uL (4.30-5.90)
[2023-04-09 15:49] LABS: ALT 40 U/L (4-49); AST 32 U/L (17-59); African American GFR (CKD) >90 (>60 ml/min/1.73 sqM); Albumin 4.6 g/dL (3.5-5.0); Alkaline Phosphatase 50 U/L (38-126); Anion Gap 12 mmol/L; Blood Urea Nitrogen 15 mg/dL (9-20); Calcium 10.2 mg/dL (8.4-10.2); Carbon Dioxide 24 mmol/L (22-30); Chloride 105 mmol/L (98-107); Glucose 121 mg/dL (74-99); Non-African American GFR(CKD) >90 (>60 ml/min/1.73 sqM); Sodium 141 mmol/L (137-145); Total Bilirubin 0.6 mg/dL (0.2-1.3); Total Protein 7.5 g/dL (6.3-8.2)
[2023-04-09 15:51] LABS: INR 0.9 (<1.2); Partial Thromboplastin Time 25.3 sec (22.0-30.0)
--- NOTE | 2023-04-09 16:30 | XR ---
EXAMINATION TYPE: XR chest 2V DATE OF EXAM: 04/09/2023 4:22 PM CLINICAL INDICATION:Male, 62 years old with history of Chest Pain; COMPARISON: Chest radiographs from 12/20/2019 [facility] TECHNIQUE: XR chest 2V Frontal and lateral views of the chest. FINDINGS: Lungs/Pleura: There is no evidence of pleural effusion, focal consolidation, or pneumothorax. Pulmonary vascularity: Unremarkable. Heart/mediastinum: Cardiomediastinal silhouette is unremarkable. Musculoskeletal: No acute osseous pathology. IMPRESSION: No acute cardiopulmonary disease/process.
--- NOTE | 2023-04-09 17:43 | ED ---
Chest Pain HPI - General Chief Complaint: Chest Pain Stated Complaint: Chest Pain,nausea Time Seen by Provider: 04/09/23 16:25 Source: patient, RN notes reviewed, old records reviewed Mode of arrival: wheelchair Limitations: no limitations - History of Present Illness Initial Comments: This is a 62-year-old male with strong history of heart disease strong medical history including high blood pressure cholesterol diabetes. Patient presents today for evaluation of chest pain and subpoena server hours prior to arrival. Pain is persistent here in the ER with no shortness of breath cough or congestion currently. No significant episodes of diaphoresis. No recent hospital admission. MD Complaint: chest pain -: hour(s) Onset: during rest, during exertion Pain Location: left chest Pain Radiation: LUE Severity: moderate Severity scale (1-10): 4 Quality: tightness, heaviness Consistency: constant Improves With: nothing Worsens With: nothing Anginal Symptoms: dyspnea Other Symptoms: palpitations Treatments Prior to Arrival: none - Related Data Home Medications Medication Instructions Recorded Confirmed Aspirin EC [Ecotrin Low Dose] 81 mg PO DAILY 02/16/16 04/09/23 Metoprolol Tartrate [Lopressor] 25 mg PO BID 06/26/17 04/09/23 Tamsulosin [Flomax] 0.4 mg PO HS 11/28/19 04/09/23 Glimepiride [Amaryl] 4 mg PO BID 12/19/21 04/09/23 Potassium Gluconate [Potassium 99 mg PO DAILY 12/19/21 04/09/23 Gluconate ER] Simvastatin [Zocor] 40 mg PO HS 12/19/21 04/09/23 Cholecalciferol [Vitamin D3 (25 50 mcg PO DAILY 06/28/22 04/09/23 Mcg = 1000 Iu)] Multivit-Min/Folic/Vit K/Lycop 1 tab PO DAILY 06/28/22 04/09/23 [Men's Multivitamin Tablet] lisinopriL [Prinivil] 10 mg PO HS 06/28/22 04/09/23 metFORMIN HCL [Glucophage] 1,000 mg PO BID 06/28/22 04/09/23 Dulaglutide [Trulicity] 3 mg SQ TU 04/09/23 04/09/23 Gabapentin [Neurontin] 300 mg PO BID 04/09/23 04/09/23 Ibuprofen [Motrin] 800 mg PO BID PRN 04/09/23 04/09/23 Allergies Allergy/AdvReac Type Severity Reaction Status Date / Time atorvastatin [From Lipitor] AdvReac Severe Diarrhea Verified 04/09/23 17:48 Review of Systems ROS Statement: Those systems with pertinent positive or pertinent negative responses have been documented in the HPI. ROS Other: All systems not noted in ROS Statement are negative. EKG Findings - EKG Comments: EKG Findings:: EKG is sinus a rhythm 80 WI 166 QRS 89 QTC 396 - EKG Results: EKG: interpreted by SHIMON Past Medical History Past Medical History: Chest Pain / Angina, Diabetes Mellitus, Hyperlipidemia, H ypertension, Liver Disease Additional Past Medical History / Comment(s): bronchitis, 2010 fell off a ladder with 2 left rib fractures and L knee meniscus tear.neuropathy,stress test 06-09-17-neg, fatty liver History of Any Multi-Drug Resistant Organisms: None Reported Past Surgical History: Appendectomy, Cholecystectomy, Heart Catheterization, Heart Catheterization With Stent, Orthopedic Surgery, Tonsillectomy Additional Past Surgical History / Comment(s): 08/19/10 cardiac cath with 40% LAD blockage-treated medically, december 2016 cardiac cath 2 stents placed, bilateral knee arthroscopies, nasal fracture with surgery, R shoulder spur removal, L shoulder tendon repair with debridement, colonoscopy. tumor removed post neck (fatty tumor) Past Anesthesia/Blood Transfusion Reactions: No Reported Reaction Date of Last Stent Placement:: december 2016 Past Psychological History: No Psychological Hx Reported Smoking Status: Never smoker Past Alcohol Use History: None Reported Past Drug Use History: None Reported - Past Family History Father Family Medical History: Cancer Additional Family Medical History / Comment(s): Father of lung cancer. He was a smoker. Mother Family Medical History: Cancer Additional Family Medical History / Comment(s): Mother of lung cancer. She was a smoker. Brother(s) Family Medical History: Cancer Additional Family Medical History / Comment(s): 2 brother's had lung cancer-they were both smokers. Sister(s) Family Medical History: Cancer Additional Family Medical History / Comment(s): Pt's sister had lung cancer-she was a smoker. General Exam Limitations: no limitations General appearance: alert, in no apparent distress, anxious Head exam: Present: atraumatic, normocephalic, normal inspection Eye exam: Present: normal appearance, PERRL, EOMI. Absent: scleral icterus, conjunctival injection, periorbital swelling ENT exam: Present: normal exam, mucous membranes moist Neck exam: Present: normal inspection. Absent: tenderness, meningismus, lymphadenopathy Respiratory exam: Present: normal lung sounds bilaterally. Absent: respiratory distress, wheezes, rales, rhonchi, stridor Cardiovascular Exam: Present: regular rate, normal rhythm, normal heart sounds. Absent: systolic murmur, diastolic murmur, rubs, gallop, clicks GI/Abdominal exam: Present: soft, normal bowel sounds. Absent: distended, tenderness, guarding, rebound, rigid Extremities exam: Present: normal inspection, full ROM, normal capillary refill. Absent: tenderness, pedal edema, joint swelling, calf tenderness Back exam: Present: normal inspection Neurological exam: Present: alert, oriented X3, CN II-XII intact Psychiatric exam: Present: normal affect, normal mood Skin exam: Present: warm, dry, intact, normal color. Absent: rash Course Vital Signs 04/09/23 04/09/23 04/09/23 15:13 15:15 19:17 Temperature 98.2 F Pulse Rate 81 68 Respiratory 16 18 Rate Blood Pressure 132/70 102/63 O2 Sat by Pulse 97 99 Oximetry - Reevaluation(s) Reevaluation #1: 04/09/23 Medical records reviewed Reevaluation #2: 04/09/23 Patient symptoms improved Reevaluation #3: 04/09/23 Patient informed results and questions answered Reevaluation #4: 04/09/23 Was pt. sent in by a medical professional or institution (, PA, FLIGHT CONTROL SPECIALIST, urgent care, hospital, or custodial...) When possible be specific @ -no Did you speak to anyone other than the patient for history (EMS, parent, family, police, friend...)? What history was obtained from this source @ -no Did you review nursing and triage notes (agree or disagree)? Why? @ -agree Are old charts reviewed (outside hosp., previous admission, EMS record, old EKG, old radiological studies, urgent care reports/EKG's, custodial records)? Report findings @ -yes Differential Diagnosis (chest pain, altered mental status, abdominal pain women, abdominal pain men, vaginal bleeding, weakness, fever, dyspnea, syncope, headache, dizziness, GI bleed, back pain, seizure, CVA, palpatations, mental health, musculoskeletal)? @ -prior EKG interpreted by me (3pts min.). @ -yes X-rays interpreted by me (1pt min.). @ -yes CT interpreted by me (1pt min.). @ -no U/S interpreted by me (1pt. min.). @ -no What testing was considered but not performed or refused? (CT, X-rays, U/S, labs)? Why? @ -none What meds were considered but not given or refused? Why? @ -none Did you discuss the management of the patient with other professionals (professionals i.e. Dr., PA, FLIGHT CONTROL SPECIALIST, lab, RT, psych nurse, social science instructor, plaster maker, teacher, security officers and guards, welfare case worker)? Give summary @ -no Was smoking cessation discussed for >3mins.? @ -no Was critical care preformed (if so, how long)? @ -no Were there social determinants of health that impacted care today? How? (Homelessness, low income, unemployed, alcoholism, drug addiction, transportation, low edu. Level, literacy, decrease access to med. care, long-term, rehab)? @ -none Was there de-escalation of care discussed even if they declined (Discuss DNR or withdrawal of care, Hospice)? DNR status @ -no What co-morbidities impacted this encounter? (DM, HTN, Smoking, COPD, CAD, Cancer, CVA, ARF, Chemo, Hep., AIDS, mental health diagnosis, sleep apnea, morbid obesity)? @ -none Was patient admitted / discharged? Hospital course, mention meds given and route, prescriptions, significant lab abnormalities, going to OR and other pertinent info. @ - 62 male to the emergency department for evaluation of chest pain with history of chest pain or heart disease. High cholesterol diabetes and history of liver disease. Patient chest pain is actually improved here in the ER he feels well prefers discharged home Discharge Undiagnosed new problem with uncertain prognosis? @ -no Drug Therapy requiring intensive monitoring for toxicity (Heparin, Nitro, Insulin, Cardizem)? @ -no Were any procedures done? @ -no Diagnosis/symptom? @ -Chest pain Acute, or Chronic, or Acute on Chronic? @ -Acute Uncomplicated (without systemic symptoms) or Complicated (systemic symptoms)? @ -Complicated Side effects of treatment? @ -no Exacerbation, Progression, or Severe Exacerbation? @ -exacerbation Poses a threat to life or bodily function? How? (Chest pain, [place], OR, pneumonia, PE, COPD, DKA, ARF, appy, cholecystitis, CVA, Diverticulitis, Homicidal, Suicidal, threat to staff... and all critical care pts) @ -yes if chest pain is ACS Reevaluation #5: Differential Chest Pain: Stable Angina, Unstable Angina, STEMI, NSTEMI Aortic Dissection, Pneumothorax, Musculoskeletal, Esophageal Spasm GERD, Cholecystitis, Pancreatitis, Zoster, this is not meant to be an all-inclusive list. Chest Pain MDM - MDM 62 male to the emergency department for evaluation of chest pain with history of chest pain or heart disease. High cholesterol diabetes and history of liver disease. Patient chest pain is actually improved here in the ER he feels well prefers discharged home Disposition Clinical Impression: Chest pain, Atypical chest pain Disposition: HOME SELF-CARE Condition: Good Instructions (If sedation given, give patient instructions): Chest Pain (ED) Is patient prescribed a controlled substance at d/c from ED?: No Referrals: Gautam Del Rio MD [Primary Care Provider] - 1-2 days Time of Disposition: 19:20
[2023-04-09 19:26] VITALS: BP 102/63; PULSE 68; RESP 18
== END 2023-04-09 19:43 | disposition home or self-care (01) ==
LOC: EC 15:06
DX: R07.89 Other chest pain (principal); E11.9 Type 2 diabetes mellitus without complications; E78.5 Hyperlipidemia, unspecified; I10 Essential (primary) hypertension; Z79.82 Long term (current) use of aspirin; Z79.84 Long term (current) use of oral hypoglycemic drugs; Z79.85 Long-term (current) use of injectable non-insulin antidiabetic drugs; Z79.899 Other long term (current) drug therapy; Z88.8 Allergy status to other drugs, medicaments and biological substances
CPT/HCPCS: 36415; 71046; 80053; 83735; 84484; 85025; 85610; 85730; 93005; 99285

== ENCOUNTER → 2023-06-05 | Outpatient (CLI) | payer MEDICAID ==
--- NOTE | 2023-06-05 09:21 | XR ---
EXAMINATION TYPE: XR chest 2V DATE OF EXAM: 06/05/2023 COMPARISON: 04/09/2023 TECHNIQUE: PA and lateral views submitted. HISTORY: Shortness of breath FINDINGS: The lungs are clear and there is no pneumothorax, pleural effusion, or focal pneumonia. Heart size normal and no overt failure. Osseous structures demonstrate hypertrophic and degenerative changes of the spine. Atherosclerotic change aorta. Chronic rib deformities along the lower left rib cage. IMPRESSION: 1. No acute process.
== END | disposition home or self-care (01) ==
LOC: RADXRMAIN 08:49
PROVIDERS: ATTEND Internal Medicine Geriatric Medicine
DX: R06.02 Shortness of breath (principal)
CPT/HCPCS: 71046

== ENCOUNTER → 2023-08-03 | Outpatient (CLI) | payer MEDICAID ==
[2023-08-03 11:38] LABS: Chol/HDL Ratio 2.51 Ratio; Creatine Kinase 384 U/L (35-257); LDL Cholesterol,Calculated 46.2 mg/dL (0.0-131.0); VLDL Calculation 15.76 mg/dL (5.00-40.00)
[2023-08-03 11:49] LABS: ALT 54 U/L (10-49); AST 38 U/L (14-35); Albumin 4.2 g/dL (3.8-4.9); Albumin/Globulin Ratio 2.21 Ratio (1.60-3.17); Alkaline Phosphatase 45 U/L (41-126); BUN/Creat Ratio 13.38 Ratio (12.00-20.00); Blood Urea Nitrogen 10.7 mg/dL (9.0-27.0); Calcium 9.6 mg/dL (8.7-10.3); Carbon Dioxide 24.8 mmol/L (21.6-31.8); Globulin 1.9 g/dL (1.6-3.3); Glucose 123 mg/dL (70-110); Total Bilirubin 0.5 mg/dL (0.3-1.2); Total Protein 6.1 g/dL (6.2-8.2)
[2023-08-03 12:12] LABS: Chloride 104 mmol/L (96-109); Potassium 4.2 mmol/L (3.5-5.5); Sodium 140 mmol/L (135-145)
== END | disposition home or self-care (01) ==
LOC: LABWHC1 07:25
PROVIDERS: ATTEND Internal Medicine Geriatric Medicine
DX: I25.10 Atherosclerotic heart disease of native coronary artery without angina pectoris (principal); E11.9 Type 2 diabetes mellitus without complications; E78.2 Mixed hyperlipidemia
CPT/HCPCS: 36415; 80053; 80061; 82550; 83036; 84443

== ENCOUNTER → 2023-11-23 | Outpatient (CLI) | payer MEDICAID ==
--- NOTE | 2023-11-23 10:14 | XR ---
EXAMINATION TYPE: XR lumbar spine 2 or 3V DATE OF EXAM: 11/23/2023 9:35 AM CLINICAL INDICATION:Male, 63 years old with history of LOW BACK PAIN, UNSPECIFIED; [facility] COMPARISON: 06/12/2011 TECHNIQUE: XR lumbar spine 2 or 3V - Frontal, lateral and coned in L5-S1 lateral views of the spine. FINDINGS: No evidence of any acute osseous pathology. No evidence of loss of vertebral body height i s seen. There is normal alignment of the lumbar vertebral bodies. Mild scattered disc space narrowing . Multilevel marginal osteophyte formation throughout the visualized spine. There is facet joint arth ropathy throughout the spine. Scattered at least mild neural foraminal stenosis. Atherosclerosis of t he arterial vasculature. IMPRESSION: 1. No acute fracture. 2. Moderate multilevel disc degeneration.
== END | disposition home or self-care (01) ==
LOC: RADXRMAIN 09:10
PROVIDERS: ATTEND Internal Medicine Geriatric Medicine
DX: M51.36 Other intervertebral disc degeneration, lumbar region (principal)
CPT/HCPCS: 72100

== ENCOUNTER → 2023-11-30 | Outpatient (CLI) | payer MEDICAID ==
[2023-11-30 10:34] LABS: Basophils # (A) 0.03 X 10*3/uL (0.00-0.10); Basophils % (A) 0.4 %; Eosinophils # (A) 0.13 X 10*3/uL (0.04-0.35); Eosinophils % (A) 1.8 %; HCT 42.6 % (39.6-50.0); Lymphocytes # (A) 1.69 X 10*3/uL (0.90-5.00); Lymphocytes % (A) 23.1 %; MCH 31.5 pg (27.0-32.0); MCHC 32.9 g/dL (32.0-37.0); MCV 95.9 FL (80.0-97.0); Mean Platelet Volume 10.8 FL (9.5-12.2); Monocytes # (A) 0.64 X 10*3/uL (0.20-1.00); Monocytes % (A) 8.7 %; NRBC Per 100 WBC 0 X 10*3/uL (0.00-0.01); Neutrophils # (A) 4.83 X 10*3/uL (1.80-7.70); Neutrophils % (A) 65.9 %; Platelet Count 232 X 10*3/uL (140-440); RBC 4.44 X 10*6/uL (4.40-5.60); RDW 13.2 % (11.5-14.5); WBC 7.33 X 10*3/uL (4.50-10.00)
[2023-11-30 10:51] LABS: ALT 59 U/L (10-49); AST 32 U/L (14-35); Albumin 4.8 g/dL (3.8-4.9); Albumin/Globulin Ratio 2.18 Ratio (1.60-3.17); Alkaline Phosphatase 61 U/L (41-126); BUN/Creat Ratio 16.67 Ratio (12.00-20.00); Carbon Dioxide 25.8 mmol/L (21.6-31.8); Chloride 105 mmol/L (96-109); Chol/HDL Ratio 3.05 Ratio; Globulin 2.2 g/dL (1.6-3.3); Glucose 162 mg/dL (70-110); LDL Cholesterol,Calculated 62.5 mg/dL (0.0-131.0); Sodium 141 mmol/L (135-145); Total Bilirubin 0.4 mg/dL (0.3-1.2)
[2023-11-30 19:28] LABS: Microalbumin Creatinine Ratio <8 mg/g Cr (0-30)
== END | disposition home or self-care (01) ==
LOC: LABWHC1 07:18
PROVIDERS: ATTEND Internal Medicine Geriatric Medicine
DX: I25.10 Atherosclerotic heart disease of native coronary artery without angina pectoris (principal); E11.9 Type 2 diabetes mellitus without complications
CPT/HCPCS: 36415; 80053; 80061; 82043; 82570; 83036; 84443; 85025

== ENCOUNTER 2024-02-06 12:43 | Emergency (ER) | payer MEDICAID, OTHER ==
[2024-02-06 12:56] VITALS: RESP 18
--- NOTE | 2024-02-06 12:58 | ED ---
Back Pain HPI - General Source: patient, RN notes reviewed Mode of arrival: wheelchair Limitations: no limitations - History of Present Illness MD Complaint: back pain <Juliane Rios - Last Filed: 02/06/24 12:56> - General Source: patient, RN notes reviewed Limitations: no limitations <Vince Tse - Last Filed: 02/06/24 17:14> - General Chief Complaint: Back Pain/Injury Stated Complaint: back injury-[facility] Time Seen by Provider: 02/06/24 12:56 - History of Present Illness Initial Comments: Quick Note: This is a 63-year-old male who presents to the emergency department for low back pain. 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 Pain is worse in the right lower back. Denies any loss of bowel/bladder control or saddle anesthesia. (Juliane Rios) Patient is a 63-year-old male presenting to the emergency department with complaints of back discomfort. Patient does have history of similar symptoms several weeks ago. Patient was at work today lifting up a heavy fan. Patient states he lifted up around the foot and suddenly had discomfort of his lower back. Discomfort is somewhat severe and increases with movement. No weakness. No loss of sensation. No incontinence or retention of bowel or bladder product. (Vince Tse) - Related Data Home Medications Medication Instructions Recorded Confirmed Aspirin EC [Ecotrin Low Dose] 81 mg PO DAILY 02/16/16 04/09/23 Metoprolol Tartrate [Lopressor] 25 mg PO BID 06/26/17 04/09/23 Tamsulosin [Flomax] 0.4 mg PO HS 11/28/19 04/09/23 Glimepiride [Amaryl] 4 mg PO BID 12/19/21 04/09/23 Potassium Gluconate [Potassium 99 mg PO DAILY 12/19/21 04/09/23 Gluconate ER] Simvastatin [Zocor] 40 mg PO HS 12/19/21 04/09/23 Cholecalciferol [Vitamin D3 (25 50 mcg PO DAILY 06/28/22 04/09/23 Mcg = 1000 Iu)] Multivit-Min/Folic/Vit K/Lycop 1 tab PO DAILY 06/28/22 04/09/23 [Men's Multivitamin Tablet] lisinopriL [Prinivil] 10 mg PO HS 06/28/22 04/09/23 metFORMIN HCL [Glucophage] 1,000 mg PO BID 06/28/22 04/09/23 Dulaglutide [Trulicity] 3 mg SQ TU 04/09/23 04/09/23 Gabapentin [Neurontin] 300 mg PO BID 04/09/23 04/09/23 Ibuprofen [Motrin] 800 mg PO BID PRN 04/09/23 04/09/23 Previous Rx's Medication Instructions Recorded Cyclobenzaprine [Flexeril] 10 mg PO TID PRN #12 tablet 02/06/24 Ibuprofen [Motrin] 600 mg PO Q6HR PRN #20 tab 02/06/24 Allergies Allergy/AdvReac Type Severity Reaction Status Date / Time atorvastatin [From Lipitor] AdvReac Severe Diarrhea Verified 02/06/24 12:55 Review of Systems ROS Other: All systems not noted in ROS Statement are negative. <Juliane Rios - Last Filed: 02/06/24 12:56> ROS Other: All systems not noted in ROS Statement are negative. Constitutional: Denies: fever Eyes: Denies: eye pain ENT: Denies: ear pain Gastrointestinal: Denies: abdominal pain Musculoskeletal: Reports: as per HPI, back pain Neurological: Denies: weakness, numbness, paresthesias <Vince Tse - Last Filed: 02/06/24 17:14> ROS Statement: Those systems with pertinent positive or pertinent negative responses have been documented in the HPI. Past Medical History Past Medical History: Chest Pain / Angina, Diabetes Mellitus, Hyperlipidemia, Hypertension, Liver Disease Additional Past Medical History / Comment(s): bronchitis, 2010 fell off a ladder with 2 left rib fractures and L knee meniscus tear.neuropathy,stress test 06-09-17-neg, fatty liver History of Any Multi-Drug Resistant Organisms: None Reported Past Surgical History: Appendectomy, Cholecystectomy, Heart Catheterization, Heart Catheterization With Stent, Orthopedic Surgery, Tonsillectomy Additional Past Surgical History / Comment(s): 08/19/10 cardiac cath with 40% LAD blockage-treated medically, december 2016 cardiac cath 2 stents placed, bilateral knee arthroscopies, nasal fracture with surgery, R shoulder spur removal, L shoulder tendon repair with debridement, colonoscopy. tumor removed post neck (fatty tumor) Past Anesthesia/Blood Transfusion Reactions: No Reported Reaction Date of Last Stent Placement:: december 2016 Past Psychological History: No Psychological Hx Reported Smoking Status: Never smoker Past Alcohol Use History: None Reported Past Drug Use History: None Reported - Past Family History Father Family Medical History: Cancer Additional Family Medical History / Comment(s): Father of lung cancer. He was a smoker. Mother Family Medical History: Cancer Additional Family Medical History / Comment(s): Mother of lung cancer. She was a smoker. Brother(s) Family Medical History: Cancer Additional Family Medical History / Comment(s): 2 brother's had lung cancer-they were both smokers. Sister(s) Family Medical History: Cancer Additional Family Medical History / Comment(s): Pt's sister had lung cancer-she was a smoker. <Juliane Rios - Last Filed: 02/06/24 12:56> General Exam Limitations: no limitations <Juliane Rios - Last Filed: 02/06/24 12:56> Limitations: no limitations General appearance: alert, in no apparent distress Head exam: Present: normocephalic Eye exam: Present: normal appearance Neck exam: Present: normal inspection Respiratory exam: Present: normal lung sounds bilaterally Cardiovascular Exam: Present: regular rate, normal rhythm Expanded Peripheral pulses: 2+: Posterior Tibialis (R), Posterior Tibialis (L) GI/Abdominal exam: Present: soft. Absent: tenderness, pulsatile mass Extremities exam: Present: normal inspection, full ROM. Absent: tenderness Back exam: Present: tenderness (Moderate tenderness upper lumbar) Neurological exam: Present: alert. Absent: motor sensory deficit Expanded Sensory exam: Lower Extremity Light Touch: Normal Motor strength exam: RLE: 5, LLE: 5 Psychiatric exam: Present: normal affect, normal mood Skin exam: Present: normal color <Vince Tse - Last Filed: 02/06/24 17:14> - General Exam Comments Initial Comments: Visual Physical Exam Vital signs reviewed General: Well-appearing, nontoxic, no acute distress. Head: Normocephalic, atraumatic Eyes: PERRLA, EOMI ENT: Airway patent Chest: Nonlabored breathing Skin: No visual rash, normal skin tone Neuro: Alert and oriented 3 Musculoskeletal: No gross abnormalities (Juliane Rios) Course Vital Signs 02/06/24 02/06/24 12:53 16:23 Temperature 97.8 F 98.1 F Pulse Rate 74 57 L Respiratory 18 18 Rate Blood Pressure 113/73 129/76 O2 Sat by Pulse 96 98 Oximetry Medical Decision Making <Juliane Rios - Last Filed: 02/06/24 12:56> <Vince Tse - Last Filed: 02/06/24 17:14> - Medical Decision Making I performed the QuickNote portion of this chart. Signed Juliane Rios PA-C. (Juliane Rios) Was pt. sent in by a medical professional or institution (TALAT Dickens, SPECIMEN TECHNICIAN, urgent care, hospital, or [facility]...) When possible be specific @ -No Did you speak to anyone other than the patient for history (EMS, parent, family, police, friend...)? What history was obtained from this source @ -No Did you review nursing and triage notes (agree or disagree)? Why? @ -I reviewed and agree with nursing and triage notes Were old charts reviewed (outside hosp., previous admission, EMS record, old EKG, old radiological studies, urgent care reports/EKG's, [facility] records)? Report findings @ -No old charts were reviewed Differential Diagnosis (chest pain, altered mental status, abdominal pain women, abdominal pain men, vaginal bleeding, weakness, fever, dyspnea, syncope, headache, dizziness, GI bleed, back pain, seizure, CVA, palpatations, mental health, musculoskeletal)? @ -Differential Back Pain: Strain, zoster, cauda equina syndrome, epidural abscess, vertebral osteomyelitis, discitis, fracture, subluxation, disc herniation, DJD, spinal stenosis, dissection, AAA, pancreatitis, peptic ulcer disease, pyelonephritis, kidney stone, this is not meant to be an all-inclusive list. EKG interpreted by me (3pts min.). @ -As above X-rays interpreted by me (1pt min.). @ -Lumbar spine x-rays show mild degenerative changes CT interpreted by me (1pt min.). @ -None done U/S interpreted by me (1pt. min.). @ -None done What testing was considered but not performed or refused? (CT, X-rays, U/S, labs)? Why? @ -None What meds were considered but not given or refused? Why? @ -None Did you discuss the management of the patient with other professionals (professionals i.e. Dr., PA, SPECIMEN TECHNICIAN, lab, RT, psych nurse, social science analyst, auditing manager, teacher, chief medical officer, binder caser)? Give summary @ -No Was smoking cessation discussed for >3mins.? @ -No Was critical care preformed (if so, how long)? @ -No Were there social determinants of health that impacted care today? How? (Homelessness, low income, unemployed, alcoholism, drug addiction, transportation, low edu. Level, literacy, decrease access to med. care, prison, rehab)? @ -No Was there de-escalation of care discussed even if they declined (Discuss DNR or withdrawal of care, Hospice)? DNR status @ -No What co-morbidities impacted this encounter? (DM, HTN, Smoking, COPD, CAD, Cancer, CVA, ARF, Chemo, Hep., AIDS, mental health diagnosis, sleep apnea, morbid obesity)? @ -None Was patient admitted / discharged? Hospital course, mention meds given and route, prescriptions, significant lab abnormalities, going to OR and other pertinent info. @ -Patient originally reevaluated and still had discomfort with movement. Patient reevaluated after second dose of medications and is feeling better and comfortable with discharge home. Patient is updated on results and need for follow-up. Patient to follow-up [facility] services tomorrow. Pre scription provided. Patient does demonstrate understanding Undiagnosed new problem with uncertain prognosis? @ -No Drug Therapy requiring intensive monitoring for toxicity (Heparin, Nitro, Insulin, Cardizem)? @ -No Were any procedures done? @ -No Diagnosis/symptom? @ -Low back pain Acute, or Chronic, or Acute on Chronic? @ -Acute Uncomplicated (without systemic symptoms) or Complicated (systemic symptoms)? @ -Default Side effects of treatment? @ -No Exacerbation, Progression, or Severe Exacerbation? @ -No Poses a threat to life or bodily function? How? (Chest pain, [place], [place], pneumonia, PE, COPD, DKA, ARF, appy, cholecystitis, CVA, Diverticulitis, Homicidal, Suicidal, threat to staff... and all critical care pts) @ -No (Vince Tse) Disposition <Juliane Rios - Last Filed: 02/06/24 12:56> Is patient prescribed a controlled substance at d/c from ED?: No Time of Disposition: 17:14 <Vince Tse - Last Filed: 02/06/24 17:14> Clinical Impression: Low back pain Disposition: HOME SELF-CARE Condition: Stable Instructions (If sedation given, give patient instructions): Acute Low Back Pain (ED) Additional Instructions: Please do follow-up with [facility] services tomorrow. Also consider follow-up with primary care physician and back doctor. Return for increased pain, weakness, loss of control of bowel or bladder, loss of sensation, fever, worsening symptoms or any other concerns. Prescriptions: Cyclobenzaprine [Flexeril] 10 mg PO TID PRN #12 tablet PRN Reason: Pain Ibuprofen [Motrin] 600 mg PO Q6HR PRN #20 tab PRN Reason: Pain Referrals: Gautam Del Rio MD [Primary Care Provider] - 1-2 days
--- NOTE | 2024-02-06 13:37 | XR ---
EXAMINATION TYPE: XR lumbar spine 2 or 3V DATE OF EXAM: 02/06/2024 1:15 PM CLINICAL INDICATION:Male, 63 years old with history of Injury; [facility] COMPARISON: None TECHNIQUE: XR lumbar spine 2 or 3V - Frontal, lateral and coned in L5-S1 lateral views of the spine. FINDINGS: No evidence of any acute osseous pathology. No evidence of loss of vertebral body height i s seen. There is normal alignment of the lumbar vertebral bodies. Scattered disc space narrowing. Mul tilevel marginal osteophyte formation throughout the visualized spine. There is facet joint arthropat hy throughout the spine. Scattered at least mild neural foraminal stenosis. IMPRESSION: 1. No acute fracture. 2. Mild multilevel disc degeneration.
[2024-02-06] MEDS: HYDROmorphone 1 MG/ML 1 ML SYRINGE IM STA ×2 (14:43→16:13)
[2024-02-06] MEDS: KETOROLAC 15 MG/ML 1 ML VIAL IM STA (14:44)
[2024-02-06] MEDS: ORPHENADRINE 30 MG/ML 2 ML VIAL IM STA (16:13)
[2024-02-06 16:24] VITALS: TEMP 98.1
[2024-02-06] MEDS: ACET/COD 300 MG/30 MG STARTER PACK 6 TAB BTL PO STA (17:39)
[2024-02-06 17:47] VITALS: BP 147/74; PULSE 59
== END 2024-02-06 17:45 | disposition home or self-care (01) ==
LOC: EC 12:43
DX: M54.50 Low back pain, unspecified (principal); Z88.8 Allergy status to other drugs, medicaments and biological substances; Z90.49 Acquired absence of other specified parts of digestive tract
CPT/HCPCS: 72100; 96372; 99283

== ENCOUNTER → 2024-03-20 | Outpatient (CLI) | payer MEDICAID ==
[2024-03-20 10:33] LABS: Basophils # (A) 0.03 X 10*3/uL (0.00-0.10); Basophils % (A) 0.4 %; Eosinophils # (A) 0.17 X 10*3/uL (0.04-0.35); Eosinophils % (A) 2.1 %; HCT 39.8 % (39.6-50.0); HGB 13.2 g/dL (13.0-17.0); MCHC 33.2 g/dL (32.0-37.0); MCV 93.4 FL (80.0-97.0); Mean Platelet Volume 10.5 FL (9.5-12.2); Monocytes # (A) 0.66 X 10*3/uL (0.20-1.00); Monocytes % (A) 8.1 %; NRBC Per 100 WBC 0 X 10*3/uL (0.00-0.01); Neutrophils # (A) 5.51 X 10*3/uL (1.80-7.70); Neutrophils % (A) 67.2 %; Platelet Count 225 X 10*3/uL (140-440); RBC 4.26 X 10*6/uL (4.40-5.60); RDW 13.4 % (11.5-14.5); WBC 8.19 X 10*3/uL (4.50-10.00)
[2024-03-20 11:10] LABS: ALT 41 U/L (10-49); AST 29 U/L (14-35); Albumin 4.4 g/dL (3.8-4.9); Alkaline Phosphatase 51 U/L (41-126); BUN/Creat Ratio 17.91 Ratio (12.00-20.00); Blood Urea Nitrogen 19.7 mg/dL (9.0-27.0); Calcium 9.3 mg/dL (8.7-10.3); Carbon Dioxide 23.9 mmol/L (21.6-31.8); Chloride 106 mmol/L (96-109); Chol/HDL Ratio 3.02 Ratio; Glucose 136 mg/dL (70-110); LDL Cholesterol,Calculated 49.1 mg/dL (0.0-131.0); Potassium 4.5 mmol/L (3.5-5.5); Sodium 141 mmol/L (135-145); Total Bilirubin 0.6 mg/dL (0.3-1.2); Total Protein 6.4 g/dL (6.2-8.2)
[2024-03-20 11:33] LABS: Creatine Kinase 300 U/L (35-257); Prostate Specific Antigen 0.55 ng/mL (0.000-4.500)
== END | disposition home or self-care (01) ==
LOC: LABWHC1 07:06
PROVIDERS: ATTEND Internal Medicine Geriatric Medicine
DX: K75.81 Nonalcoholic steatohepatitis (NASH) (principal); I25.10 Atherosclerotic heart disease of native coronary artery without angina pectoris; E11.9 Type 2 diabetes mellitus without complications; N40.0 Benign prostatic hyperplasia without lower urinary tract symptoms
CPT/HCPCS: 36415; 80053; 80061; 82550; 83036; 84153; 84443; 85025

== ENCOUNTER 2024-04-27 13:38 | Emergency (ER) | payer MEDICAID, OTHER ==
--- NOTE | 2024-04-27 14:06 | ED ---
Abdominal Pain HPI - General Stated Complaint: Abd pain Time Seen by Provider: 04/27/24 13:51 Source: patient, RN notes reviewed - History of Present Illness Initial Comments: This is a 63-year-old male presents emergency department chief complaint of right flank pain. States that yesterday he began to experience right back pain and throughout the day today the pain has begun to radiate around the side of his right and into his mid abdomen. He denies hematuria, dysuria, increased urinary frequency or urgency. He denies fevers, chills, nausea, vomiting. Patient is concerned as he states that he has had a history of colon infections and this feels similar. Denies history of kidney stones. - Related Data Home Medications Medication Instructions Recorded Confirmed Aspirin EC [Ecotrin Low Dose] 81 mg PO DAILY 02/16/16 04/09/23 Metoprolol Tartrate [Lopressor] 25 mg PO BID 06/26/17 04/09/23 Tamsulosin [Flomax] 0.4 mg PO HS 11/28/19 04/09/23 Glimepiride [Amaryl] 4 mg PO BID 12/19/21 04/09/23 Potassium Gluconate [Potassium 99 mg PO DAILY 12/19/21 04/09/23 Gluconate ER] Simvastatin [Zocor] 40 mg PO HS 12/19/21 04/09/23 Cholecalciferol [Vitamin D3 (25 50 mcg PO DAILY 06/28/22 04/09/23 Mcg = 1000 Iu)] Multivit-Min/Folic/Vit K/Lycop 1 tab PO DAILY 06/28/22 04/09/23 [Men's Multivitamin Tablet] lisinopriL [Prinivil] 10 mg PO HS 06/28/22 04/09/23 metFORMIN HCL [Glucophage] 1,000 mg PO BID 06/28/22 04/09/23 Dulaglutide [Trulicity] 3 mg SQ TU 04/09/23 04/09/23 Gabapentin [Neurontin] 300 mg PO BID 04/09/23 04/09/23 Ibuprofen [Motrin] 800 mg PO BID PRN 04/09/23 04/09/23 Previous Rx's Medication Instructions Recorded Cyclobenzaprine [Flexeril] 10 mg PO TID PRN #12 tablet 02/06/24 Ibuprofen [Motrin] 600 mg PO Q6HR PRN #20 tab 02/06/24 Ondansetron Odt [Zofran Odt] 4 mg PO Q8HR PRN #10 tab 04/27/24 Tamsulosin [Flomax] 0.4 mg PO DAILY #7 cap 04/27/24 Allergies Allergy/AdvReac Type Severity Reaction Status Date / Time atorvastatin [From Lipitor] AdvReac Severe Diarrhea Verified 02/06/24 12:55 Review of Systems ROS Statement: Those systems with pertinent positive or pertinent negative responses have been documented in the HPI. ROS Other: All systems not noted in ROS Statement are negative. Past Medical History Past Medical History: Chest Pain / Angina, Diabetes Mellitus, Hyperlipidemia, Hypertension, Liver Disease Additional Past Medical History / Comment(s): bronchitis, 2010 fell off a ladder with 2 left rib fractures and L knee meniscus tear.neuropathy,stress test 06-09-17-neg, fatty liver History of Any Multi-Drug Resistant Organisms: None Reported Past Surgical History: Appendectomy, Cholecystectomy, Heart Catheterization, Heart Catheterization With Stent, Orthopedic Surgery, Tonsillectomy Additional Past Surgical History / Comment(s): 08/19/10 cardiac cath with 40% LAD blockage-treated medically, december 2016 cardiac cath 2 stents placed, bi lateral knee arthroscopies, nasal fracture with surgery, R shoulder spur removal, L shoulder tendon repair with debridement, colonoscopy. tumor removed post neck (fatty tumor) Past Anesthesia/Blood Transfusion Reactions: No Reported Reaction Date of Last Stent Placement:: december 2016 Past Psychological History: No Psychological Hx Reported Smoking Status: Never smoker Past Alcohol Use History: None Reported Past Drug Use History: None Reported - Past Family History Father Family Medical History: Cancer Additional Family Medical History / Comment(s): Father of lung cancer. He was a smoker. Mother Family Medical History: Cancer Additional Family Medical History / Comment(s): Mother of lung cancer. She was a smoker. Brother(s) Family Medical History: Cancer Additional Family Medical History / Comment(s): 2 brother's had lung cancer-they were both smokers. Sister(s) Family Medical History: Cancer Additional Family Medical History / Comment(s): Pt's sister had lung cancer-she was a smoker. General Exam General appearance: alert, in no apparent distress Eye exam: Present: normal appearance, PERRL, EOMI. Absent: scleral icterus, conjunctival injection, periorbital swelling ENT exam: Present: normal exam, mucous membranes moist Neck exam: Present: normal inspection. Absent: tenderness, meningismus, lymphadenopathy Respiratory exam: Present: normal lung sounds bilaterally. Absent: respiratory distress, wheezes, rales, rhonchi, stridor Cardiovascular Exam: Present: regular rate, normal rhythm, normal heart sounds. Absent: systolic murmur, diastolic murmur, rubs, gallop, clicks GI/Abdominal exam: Present: soft, tenderness (right mid abdomen), normal bowel sounds. Absent: distended, guarding, rebound, rigid Extremities exam: Present: normal inspection, full ROM, normal capillary refill. Absent: tenderness, pedal edema, joint swelling, calf tenderness Back exam: Present: normal inspection, CVA tenderness (R) Neurological exam: Present: alert, oriented X3, CN II-XII intact Course Vital Signs 04/27/24 14:03 Temperature 98.7 F Pulse Rate 74 Respiratory 18 Rate Blood Pressure 134/81 O2 Sat by Pulse 98 Oximetry Medical Decision Making - Medical Decision Making Was pt. sent in by a medical professional or institution (, PA, RECRUITING MANAGER, urgent care, hospital, or care home...) When possible be specific @ -No Did you speak to anyone other than the patient for history (EMS, parent, family, police, friend...)? What history was obtained from this source @ -No Did you review nursing and triage notes (agree or disagree)? Why? @ -I reviewed and agree with nursing and triage notes Were old charts reviewed (outside hosp., previous admission, EMS record, old EKG, old radiological studies, urgent care reports/EKG's, care home records)? Report findings @ -No old charts were reviewed Differential Diagnosis (chest pain, altered mental status, abdominal pain women, abdominal pain men, vaginal bleeding, weakness, fever, dyspnea, syncope, headache, dizziness, GI bleed, back pain, seizure, CVA, palpatations, mental health, musculoskeletal)? @ -Differential Abdominal Pain Men: Appendicitis, cholecystitis, diverticulosis, ischemic bowel, pancreatitis, hepatitis, UTI, gastroenteritis, AAA, incarcerated hernia, bowel obstruction, constipation, inflammatory bowel, hepatitis, peptic ulcer disease, splenic infarction, perforated viscus, testicular torsion, this is not meant to be an all-inclusive list EKG interpreted by me (3pts min.). @ -none X-rays interpreted by me (1pt min.). @ -None done CT interpreted by me (1pt min.). @ -CT of the abdomen pelvis without contrast reveals a mild right hydroureteronephrosis secondary to an obstructing 4 mm calculus at the distal right ureter just proximal to the UVJ, hepatic steatosis. U/S interpreted by me (1pt. min.). @ -None done What testing was considered but not performed or refused? (CT, X-rays, U/S, labs)? Why? @ -None What meds were considered but not given or refused? Why? @ -None Did you discuss the management of the patient with other professionals (professionals i.e. , PA, RECRUITING MANAGER, lab, RT, psych nurse, pediatric social worker, yard motor operator, teacher, welfare officer, sample case porter)? Give summary @ -No Was smoking cessation discussed for >3mins.? @ -No Was critical care preformed (if so, how long)? @ -No Were there social determinants of health that impacted care today? How? (Homelessness, low income, unemployed, alcoholism, drug addiction, transportation, low edu. Level, literacy, decrease access to med. care, assisted, rehab)? @ -No Was there de-escalation of care discussed even if they declined (Discuss DNR or withdrawal of care, Hospice)? DNR status @ -No What co-morbidities impacted this encounter? (DM, HTN, Smoking, COPD, CAD, Cancer, CVA, ARF, Chemo, Hep., AIDS, mental health diagnosis, sleep apnea, morbid obesity)? @ -None Was patient admitted / discharged? Hospital course, mention meds given and route, prescriptions, significant lab abnormalities, going to OR and other pertinent info. @ -Discharge. 63-year-old male with right flank pain with radiation to the right abdomen. On my evaluation patient is resting company no signs acute distress. Vitals are stable. He is noted to have right CVA tenderness to palpation with radiation to the right mid abdomen. CT scan remarkable for a 4 mm calculus in the distal right ureter. Urinalysis unremarkable. Patient is provided with starter pack of Tylenol 3 and Zofran to take home and will be sent a prescription for Flomax to his pharmacy. Additionally, he is provided with urology consult to schedule follow-up appointment for further evaluation of kidney stones. All questions have been answered at bedside answered return parameters discussed with the patient he is verbalized understanding. Case discussed with Dr. Valverde Undiagnosed new problem with uncertain prognosis? @ -No Drug Therapy requiring intensive monitoring for toxicity (Heparin, Nitro, Insulin, Cardizem)? @ -No Were any procedures done? @ -No Diagnosis/symptom? @ -Ureterolithiasis Acute, or Chronic, or Acute on Chronic? @ -acute Uncomplicated (without systemic symptoms) or Complicated (systemic symptoms)? @ -Uncomplicated Side effects of treatment? @ -No Exacerbation, Progression, or Severe Exacerbation? @ -No Poses a threat to life or bodily function? How? (Chest pain, [place], [place], pneumonia, PE, COPD, DKA, ARF, appy, cholecystitis, CVA, Diverticulitis, Homicidal, Suicidal, threat to staff... and all critical care pts) @ -No - Lab Data Lab Results 04/27/24 Range/Units 15:20 Urine Color Colorless Urine Appearance Clear (Clear) Urine pH 7.0 (5.0-8.0) Ur Specific [place] 1.016 (1.001-1.035) Urine Protein Negative (Negative) Urine Glucose (UA) Trace H (Negative) Urine Ketones Negative (Negative) Urine Blood Negative (Negative) Urine Nitrite Negative (Negative) Urine Bilirubin Negative (Negative) Urine Urobilinogen <2.0 (<2.0) mg/dL Ur Leukocyte Esterase Negative (Negative) Disposition Clinical Impression: Ureteral stone Disposition: HOME SELF-CARE Condition: Good Instructions (If sedation given, give patient instructions): Kidney Stones (ED) Additional Instructions: Please return to the Emergency Department if symptoms worsen or any other concerns. Take Flomax as prescribed and Zofran and pain medication as needed. Follow-up with the provided urology referral. Prescriptions: Tamsulosin [Flomax] 0.4 mg PO DAILY #7 cap Ondansetron Odt [Zofran Odt] 4 mg PO Q8HR PRN #10 tab PRN Reason: Nausea Is patient prescribed a controlled substance at d/c from ED?: No Referrals: Gautam Del Rio MD [Primary Care Provider] - 1-2 days Kelvin Noble MD [STAFF PHYSICIAN] - 1-2 days Time of Disposition: 16:17
[2024-04-27 14:07] VITALS: RESP 18
--- NOTE | 2024-04-27 14:50 | CT ---
EXAMINATION TYPE: CT abdomen pelvis wo con CT DLP: 1143.1 mGycm, Automated exposure control for dose reduction was used. DATE OF EXAM: 04/27/2024 2:21 PM COMPARISON: 06/21/2022 CLINICAL INDICATION: Male, 63 years old with history of r flank pain; Rt side flank pain x1day, nause a, no hx of renal stones. TECHNIQUE: Axial CT abdomen pelvis wo con;Sagittal and coronal reformats were created on a separate workstation. Contrast used: mL of , (none if empty) Oral contrast used: without Oral Contrast (none if empty) FINDINGS: LOWER CHEST: Unremarkable ABDOMEN LIVER: Diffusely hypoattenuating parenchyma. GALLBLADDER AND BILE DUCTS: The gallbladder is surgically absent. PANCREAS: Unremarkable. SPLEEN: Unremarkable. ADRENAL GLANDS: Unremarkable. KIDNEYS AND URETERS: Mild right hydroureteronephrosis secondary obstructing 4 mm calculus at the dist al right ureter just proximal to the ureterovesicular junction. No left renal calculus. No obstructiv e uropathy on the left. PELVIS BLADDER: Unremarkable REPRODUCTIVE: Prostate is enlarged in size measuring 5.3 cm in transverse dimension. ABDOMEN & PELVIS STOMACH AND BOWEL: No evidence of bowel obstruction. Scattered colonic diverticula. PERITONEUM/RETROPERITONEUM: No evidence of pneumoperitoneum or free fluid. VASCULATURE: Mild atherosclerotic calcifications are present throughout the abdominal aorta and its b ranches. No evidence of aortic aneurysm. MUSCULOSKELETAL: No acute osseous abnormalities. Moderate disc degeneration changes are present throu ghout the thoracolumbar spine. LYMPH NODES: No gross evidence for lymphadenopathy. SOFT TISSUE/ABDOMINAL WALL: Unremarkable IMPRESSION: 1. Mild right hydroureteronephrosis secondary obstructing 4 mm calculus at the distal right ureter j ust proximal to the ureterovesicular junction. 2. Prostatomegaly, correlate with serum PSA. 3. Hepatic steatosis [facility], , 04/27/2024 2:47 PM
[2024-04-27 15:31] LABS: Appearance,Urine Clear (Clear); Bilirubin,Urine Negative (Negative); Blood,Urine Negative (Negative); Color,Urine Colorless; Glucose,Urine (UA) Trace (Negative); Ketones,Urine Negative (Negative); Leukocyte Esterase,Urine Negative (Negative); Nitrite,Urine Negative (Negative); Protein,Urine Negative (Negative); Specific Gravity,Urine 1.016 (1.001-1.035); Urobilinogen,Urine <2.0 mg/dL (<2.0)
[2024-04-27] MEDS: ONDANSETRON 4 MG ODT STARTER PACK 2 TAB BTL PO STA (17:07)
[2024-04-27] MEDS: ACET/COD 300 MG/30 MG STARTER PACK 6 TAB BTL PO STA (17:07)
[2024-04-27 17:09] VITALS: BP 144/70; PULSE 65; TEMP 99
[2024-04-27] MEDS: TAMSULOSIN 0.4 MG CAP.ER.24H PO STA (17:12)
== END 2024-04-27 17:13 | disposition home or self-care (01) ==
LOC: EC 13:38
CPT/HCPCS: 74176; 81003; 99284

== ENCOUNTER → 2024-05-03 | Outpatient (CLI) | payer MEDICAID ==
[2024-05-04 07:35] LABS: Basophils # (A) 0.05 X 10*3/uL (0.00-0.10); Basophils % (A) 0.4 %; Eosinophils # (A) 0.05 X 10*3/uL (0.04-0.35); Eosinophils % (A) 0.4 %; HCT 41.7 % (39.6-50.0); HGB 13.5 g/dL (13.0-17.0); Lymphocytes # (A) 2.46 X 10*3/uL (0.90-5.00); Lymphocytes % (A) 20.3 %; MCH 31.3 pg (27.0-32.0); MCHC 32.4 g/dL (32.0-37.0); MCV 96.5 FL (80.0-97.0); Mean Platelet Volume 11.1 FL (9.5-12.2); Monocytes # (A) 0.84 X 10*3/uL (0.20-1.00); Monocytes % (A) 6.9 %; NRBC Per 100 WBC 0 X 10*3/uL (0.00-0.01); Neutrophils # (A) 8.67 X 10*3/uL (1.80-7.70); Neutrophils % (A) 71.5 %; Platelet Count 291 X 10*3/uL (140-440); RBC 4.32 X 10*6/uL (4.40-5.60); RDW 12.8 % (11.5-14.5); WBC 12.13 X 10*3/uL (4.50-10.00)
[2024-05-04 07:54] LABS: BUN/Creat Ratio 18.89 Ratio (12.00-20.00); Calcium 9.9 mg/dL (8.7-10.3); Carbon Dioxide 24.7 mmol/L (21.6-31.8); Chloride 104 mmol/L (96-109); Glucose 87 mg/dL (70-110); Potassium 4.5 mmol/L (3.5-5.5); Sodium 141 mmol/L (135-145)
== END | disposition home or self-care (01) ==
LOC: LABPAT 08:51
PROVIDERS: ATTEND Urology
DX: N20.1 Calculus of ureter (principal)
CPT/HCPCS: 80048; 85025

== ENCOUNTER 2024-05-08 08:29 | Day surgery (SDC) | payer MEDICAID, OTHER ==
[2024-05-08] MEDS ORDERED: HYDROmorphone 0.5 MG/0.5 ML SYRINGE IVP PRN (08:57)
--- NOTE | 2024-05-08 09:22 | XR ---
EXAMINATION TYPE: XR KUB DATE OF EXAM: 05/08/2024 8:45 AM COMPARISON: 06/28/2022 CLINICAL INDICATION: Male, 63 years old with history of N13.2 CALCULUS URETER; [facility] TECHNIQUE: One radiographic view of the abdomen was obtained. FINDINGS: The bowel gas pattern is nonspecific without dilated loops of small or large bowel. . Fecal material and gas are demonstrated throughout the colon and rectum. There is no evidence for organomegaly or pneumoperitoneum. The osseous structures are intact. No ab normal calcifications are present. IMPRESSION: 1. Calculus in the ureter not definitively visualized correlate with CT. 2. Nonspecific bowel gas pattern without radiographic evidence for acute process. [facility], , 05/08/2024 9:20 AM
[2024-05-08] MEDS: LACTATED RINGERS 1,000 ML IV SCH (09:31)
[2024-05-08] MEDS: IV FLUID CONTINUATION 1,000 ML IV ONE ×4 (09:31→14:33)
[2024-05-08] MEDS: ONDANSETRON 4 MG/2 ML VIAL IVP STA (09:34)
[2024-05-08 09:39] LABS: Glucose,Whole Blood 142 mg/dL (70-110)
[2024-05-08] MEDS: DEXAMETHASONE SOD PHOSPHATE 4 MG/ML 1 ML VIAL IV ONE (09:46)
--- NOTE | 2024-05-08 12:11 | P.GSHP ---
History of Present Illness H&P Date: 05/08/24 Chief Complaint: Right renal colic The patient is a 63-year-old white male with no prior history of urolithiasis. He now presents with a 10-day history of right flank pain radiating to the right abdomen, associated with nausea and vomiting. CT scan shows mild right hydronep hrosis due to a 4 mm right distal ureteral calculus. The calculus is still visible on a plain radiograph. - Constitutional Constitutional: Reports chills, Denies fever - Gastrointestinal Gastrointestinal: Reports nausea, Reports vomiting - Genitourinary (Female) Genitourinary: Reports flank pain, Reports kidney stones Past Medical History Past Medical History: Diabetes Mellitus, Hyperlipidemia, Hypertension, Liver Disease, Osteoarthritis (OA) Additional Past Medical History / Comment(s): past hx. bronchitis, 2010 fell off a ladder with 2 left rib fractures and L knee meniscus tear, neuropathy, fatty liver, hx. heart murmur, kidney stones, just finishing steroids History of Any Multi-Drug Resistant Organisms: None Reported Past Surgical History: Appendectomy, Cholecystectomy, Heart Catheterization, Heart Catheterization With Stent, Orthopedic Surgery, Tonsillectomy Additional Past Surgical History / Comment(s): 08/19/10 cardiac cath with 40% LAD blockage-treated medically, december 2016 cardiac cath 2 stents placed, bilateral knee arthroscopies, nasal fracture with surgery, R shoulder spur removal, L shoulder tendon repair with debridement, colonoscopy. tumor removed post neck (fatty tumor) Past Anesthesia/Blood Transfusion Reactions: No Reported Reaction Date of Last Stent Placement:: december 2016 Smoking Status: Never smoker - Past Family History Father Family Medical History: Cancer Additional Family Medical History / Comment(s): Father of lung cancer. He was a smoker. Mother Family Medical History: Cancer Additional Family Medical History / Comment(s): Mother of lung cancer. She was a smoker. Brother(s) Family Medical History: Cancer Additional Family Medical History / Comment(s): 2 brother's had lung cancer-they were both smokers. Sister(s) Family Medical History: Cancer Additional Family Medical History / Comment(s): Pt's sister had lung cancer-she was a smoker. Medications and Allergies Home Medications Medication Instructions Recorded Confirmed Type Aspirin EC [Ecotrin Low Dose] 81 mg PO DAILY 02/16/16 05/06/24 History Metoprolol Tartrate [Lopressor] 25 mg PO BID 06/26/17 05/06/24 History Glimepiride [Amaryl] 2 mg PO DAILY 12/19/21 05/08/24 History Simvastatin [Zocor] 40 mg PO HS 12/19/21 05/08/24 History Cholecalciferol [Vitamin D3 (25 50 mcg PO DAILY 06/28/22 05/06/24 History Mcg = 1000 Iu)] Multivit-Min/Folic/Vit K/Lycop 1 tab PO DAILY 06/28/22 05/06/24 History [Men's Multivitamin Tablet] lisinopriL [Prinivil] 10 mg PO HS 06/28/22 05/08/24 History metFORMIN HCL [Glucophage] 1,000 mg PO BID 06/28/22 05/08/24 History Gabapentin [Neurontin] 300 mg PO BID 04/09/23 05/06/24 History Ondansetron Odt [Zofran Odt] 4 mg PO Q8HR PRN #10 tab 04/27/24 05/08/24 Rx Tamsulosin [Flomax] 0.4 mg PO DAILY #7 cap 04/27/24 05/08/24 Rx HYDROcodone/APAP 5-325MG [[place] 1 tab PO Q8H PRN 05/06/24 05/08/24 History 5-325] Tirzepatide [Mounjaro] 7.5 mg SQ MCCOY 05/06/24 05/06/24 History rOPINIRole HCL [Requip] 0.5 mg PO BID 05/06/24 05/06/24 History Allergies Allergy/AdvReac Type Severity Reaction Status Date / Time atorvastatin [From Lipitor] AdvReac Severe Diarrhea Verified 05/06/24 14:56 Surgical - Exam Vital Signs Temp Pulse Resp BP Pulse Ox 97.2 F L 66 18 122/61 97 05/08/24 09:19 05/08/24 09:19 05/08/24 09:19 05/08/24 09:19 05/08/24 09:19 - General well developed, well nourished, no distress - Respiratory normal respiratory effort - Psychiatric oriented to time, oriented to person, oriented to place, speech is normal, memory intact Results - Labs Abnormal Lab Results - Last 24 Hours (Table) 05/08/24 Range/Units 09:28 POC Glucose (mg/dL) 142 H (70-110) mg/dL - Imaging Abdominal x-ray: report reviewed, image reviewed CT scan - abdomen: report reviewed, image reviewed Assessment and Plan (1) Ureteral stone Current Visit: No Status: Acute Code(s): N20.1 - CALCULUS OF URETER SNOMED Code(s): 89651622 Plan: Cystoscopy, right ureteroscopy with Holmium laser lithotripsy, possible right ureteral stent insertion. The procedure has been reviewed in detail with the patient. He is aware of potential risks, which include anesthesia, bleeding, infection, ureteral injury, and inability to remove the calculus.
[2024-05-08] MEDS ORDERED: MIDAZOLAM 2 MG/2 ML VIAL ONE (12:24)
[2024-05-08] MEDS ORDERED: fentaNYL (PF) 50 MCG/ML 2 ML AMP ONE (12:24)
[2024-05-08] MEDS ORDERED: PROPOFOL 10 MG/ML 20 ML VIAL IV ONE (12:24)
[2024-05-08] MEDS ORDERED: SUCCINYLCHOLINE CHLORIDE 200 MG/10 ML VIAL IV ONE (12:24)
[2024-05-08] MEDS ORDERED: PHENYLEPHRINE 10 MG/ML VIAL ONE (12:24)
[2024-05-08] MEDS ORDERED: LIDOCAINE 1% INJ 10MG/ML (20 ML MDV) ONE (12:24)
--- NOTE | 2024-05-08 13:40 | P.OP ---
Date of Procedure: 05/08/24 Preoperative Diagnosis: Right ureteral calculus Postoperative Diagnosis: Same Procedure(s) Performed: Cystoscopy, right retrograde pyelogram, right ureteroscopy with Holmium laser lithotripsy Anesthesia: HAIM Surgeon: Julito Castellon Estimated Blood Loss (ml): 0 IV fluids (ml): 200 Pathology: other (Right ureteral calculus fragment, sent for chemical analysis) Condition: stable Disposition: PACU Indications for Procedure: The patient is a 63-year-old white male with no prior history of urolithiasis. He now presents with a 10-day history of right flank pain radiating to the right abdomen, associated with nausea and vomiting. CT scan shows mild right hydronephrosis due to a 4 mm right distal ureteral calculus. The calculus is still visible on a plain radiograph. He has elected to undergo ureteroscopic removal of the calculus due to persistent symptoms. Operative Findings: Right distal ureteral calculus, successfully fragmented and removed. Description of Procedure: The patient was taken to the operating room and placed in the dorsolithotomy position, with legs supported in Luciano stirrups. The external genitalia was prepped and draped sterilely. The 30 lens was used to introduce the 21-[place] Hu cystoscopic sheath through the urethra and into the bladder under direct vision. The prostatic urethra showed evidence of mild lateral lobe enlargement. The bladder was examined in its entirety. Both ureteral orifices were normal anatomic location and configuration. No tumors or foreign bodies were seen. The Hu semirigid ureteroscope was advanced into the bladder, and the right ureteral orifice was cannulated. The ureteroscope was slowly advanced under direct vision, until the calculus was visualized. The ureter distal to the calculus was mildly diminished in caliber, such that the ureteroscope could not be advanced completely up to the calculus. However, it was possible to advance the 272 m holmium laser probe to the calculus and perform lithotripsy. The calculus was not very dense and fragmented readily. As fragments broke away, they passed distally into the bladder. This was completed until there were no residual calculus fragments within the ureter. With the ureteroscope and the ureter, contrast was injected through the ureteroscope. The ureteroscope was then withdrawn, and the system drained promptly. There was no evidence of ureteral trauma. After removing the ureteroscope, the cystoscope was advanced into the bladder, and the calculus fragments were removed. They were saved and sent for chemical analysis. The bladder was emptied and the cystoscope removed. The patient tolerated the procedure well and was taken to the recovery room in stable condition. ORLANDO JUÁREZ Report: Procedure Acuity: Semi-Urgent Stone Size and Location: 4 mm, right distal ureter Ureteral Dilation: No Ureteral Access Sheath Used: No Stone Sent for Analysis: Yes All Stones/Fragments Were Removed: Yes Complications: No Preoperative Antibiotics Given: Yes Stent Placed: No Discharge Medications: None
--- NOTE | 2024-05-08 13:41 | FL ---
EXAMINATION TYPE: FL urography retrograde DATE OF EXAM: 05/08/2024 1:24 PM COMPARISON: Pre Operative Images if available both CT/MRI or plain film CLINICAL INDICATION: Male, 63 years old with history of Cysto for rt kidney stone; TECHNIQUE: FL urography retrograde, multiple fluoroscopic images provided for procedure. Total fluoroscopy time: 10 seconds Total submitted images to PACS: 3 DAP: [id number] mGym2 Gycm2 uGym2 cGycm2 or equivalent. FINDINGS: Fluoroscopic images during retrograde pyelogram demonstrate contrast in the renal collecting system. There is dilation of the collecting system. No evidence of extravasation of contrast. No immediate co mplication identified. IMPRESSION: 1. No evidence for intraoperative complication. 2. Please see the operative/procedural note for further details. [facility], , 05/08/2024 1:38 PM
[2024-05-08 13:57] VITALS: TEMP 96.8
[2024-05-08] MEDS: KETOROLAC 15 MG/ML 1 ML VIAL IVP STA (14:02)
[2024-05-08 14:48] LABS: Glucose,Whole Blood 182 mg/dL (70-110)
[2024-05-08 15:01] VITALS: BP 129/73; PULSE 66; RESP 20
== END 2024-05-08 15:40 | disposition home or self-care (01) ==
LOC: OR 08:29
PROVIDERS: ATTEND Urology
DX: N20.1 Calculus of ureter (principal); Z88.8 Allergy status to other drugs, medicaments and biological substances
CPT/HCPCS: 82365; 74420; 74018; 52353; C1758; C1894; J2250; J0330; J1100; J0690; J2405; J2003; J3010; J1885; J2704; J2371

== ENCOUNTER → 2024-05-14 | Outpatient (CLI) | payer OTHER ==
--- NOTE | 2024-05-14 09:57 | MR ---
INDICATION: Patient age:Male; 63 years old; Reason for study: S39.012D STRAIN OF MUSCLE, FASCIA; [facility]. COMPARISONS: CT abdomen and pelvis 04/27/2024, lumbar spine radiographs 02/06/2024, 11/23/2023. TECHNIQUE: Multi planar, multi sequence imaging was performed utilizing: T1-weighted, T2-weighted, a nd turbo inversion recovery imaging of the lumbar spine. The patient was not given contrast. FINDINGS: The lumbar vertebral bodies do have preserved heights and alignment. Multilevel disc natalie ccation is present. Multilevel anterior osteophytosis. Type II Modic changes involving the superior and inferior endplates of the L1 vertebral body. The conus medullaris and the distal spinal cord do a ppear unremarkable with regards to their signal intensity and morphology. L1-L2: No significant disc pathology is identified. The spinal canal and neural foramen are patent. L2-L3: Broad-based disc bulge without significant central canal stenosis. Bilateral facet arthropath y. No significant neural foraminal stenosis.. L3-L4: Broad-based disc bulge without significant central canal stenosis. Bilateral facet arthropath y. No significant neural foraminal stenosis. L4-L5: Broad-based disc bulge is identified with associated enlargement of the facet joints. Bilater al ligament with buckling. Mild spinal canal stenosis. Neural canals are mildly narrowed bilaterally. L5-S1: Central disc protrusion without significant mass effect upon the thecal sac. Bilateral facet arthropathy. Mild bilateral neural foraminal stenosis. Other significant findings: None. IMPRESSION: Mild multilevel degenerative disc disease and facet arthropathy as described above. Central disc prot rusion at L5-S1 without significant central canal stenosis. [facility], , 05/14/2024 9:55 AM
== END | disposition home or self-care (01) ==
LOC: RADMRIMAIN 06:00
PROVIDERS: ATTEND Emergency Medicine
DX: S39.012D Strain of muscle, fascia and tendon of lower back, subsequent encounter (principal); M47.816 Spondylosis without myelopathy or radiculopathy, lumbar region; M51.369 Other intervertebral disc degeneration, lumbar region without mention of lumbar back pain or lower extremity pain; R26.9 Unspecified abnormalities of gait and mobility
CPT/HCPCS: 72148

== ENCOUNTER 2024-06-29 12:30 | Emergency (ER) | payer OTHER ==
--- NOTE | 2024-06-29 13:10 | ED ---
Fall HPI - General Chief Complaint: Fall Stated Complaint: [facility]-Fall L side body pain Time Seen by Provider: 06/29/24 13:08 Source: patient, family (daughter), RN notes reviewed Mode of arrival: wheelchair Limitations: no limitations - History of Present Illness Initial Comments: 63-year-old male presented to the ER for evaluation of a fall. 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 He reports there is a bucket as there is a leak in the basement and when stepping up on a small step to empty the pocket he accidentally fell. He is unknown of head injury. No blood thinners or loss of consciousness. He states he landed on his back. He states his left leg was underneath him. He is reporting pain to right shoulder, left hamstrings and left knee. Denies any dizziness or lightheadedness prior to fall. No other complaints. Tetanus status unknown. - Related Data Home Medications Medication Instructions Recorded Confirmed Aspirin EC [Ecotrin Low Dose] 81 mg PO DAILY 02/16/16 05/06/24 Metoprolol Tartrate [Lopressor] 25 mg PO BID 06/26/17 05/06/24 Glimepiride [Amaryl] 2 mg PO DAILY 12/19/21 05/08/24 Simvastatin [Zocor] 40 mg PO HS 12/19/21 05/08/24 Cholecalciferol [Vitamin D3 (25 50 mcg PO DAILY 06/28/22 05/06/24 Mcg = 1000 Iu)] Multivit-Min/Folic/Vit K/Lycop 1 tab PO DAILY 06/28/22 05/06/24 [Men's Multivitamin Tablet] lisinopriL [Prinivil] 10 mg PO HS 06/28/22 05/08/24 metFORMIN HCL [Glucophage] 1,000 mg PO BID 06/28/22 05/08/24 Gabapentin [Neurontin] 300 mg PO BID 04/09/23 05/06/24 HYDROcodone/APAP 5-325MG [[place] 1 tab PO Q8H PRN 05/06/24 05/08/24 5-325] Tirzepatide [Mounjaro] 7.5 mg SQ MCCOY 05/06/24 05/06/24 rOPINIRole HCL [Requip] 0.5 mg PO BID 10/29/24 10/29/24 Previous Rx's Medication Instructions Recorded Ondansetron Odt [Zofran Odt] 4 mg PO Q8HR PRN #10 tab 04/27/24 Tamsulosin [Flomax] 0.4 mg PO DAILY #7 cap 04/27/24 Allergies Allergy/AdvReac Type Severity Reaction Status Date / Time atorvastatin [From Lipitor] AdvReac Severe Diarrhea Verified 06/29/24 12:48 Review of Systems ROS Statement: Those systems with pertinent positive or pertinent negative responses have been documented in the HPI. ROS Other: All systems not noted in ROS Statement are negative. Past Medical History Past Medical History: Chest Pain / Angina, Diabetes Mellitus, Hyperlipidemia, Hypertension, Liver Disease Additional Past Medical History / Comment(s): bronchitis, 2010 fell off a ladder with 2 left rib fractures and L knee meniscus tear.neuropathy,stress test 06-09-17-neg, fatty liver History of Any Multi-Drug Resistant Organisms: None Reported Past Surgical History: Appendectomy, Cholecystectomy, Heart Catheterization, Heart Catheterization With Stent, Orthopedic Surgery, Tonsillectomy Additional Past Surgical History / Comment(s): 08/19/10 cardiac cath with 40% LAD blockage-treated medically, december 2016 cardiac cath 2 stents placed, bilateral knee arthroscopies, nasal fracture with surgery, R shoulder spur removal, L shoulder tendon repair with debridement, colonoscopy. tumor removed post neck (fatty tumor) Past Anesthesia/Blood Transfusion Reactions: No Reported Reaction Date of Last Stent Placement:: december 2016 Past Psychological History: No Psychological Hx Reported Smoking Status: Never smoker Past Alcohol Use History: None Reported Past Drug Use History: None Reported - Past Family History Father Family Medical History: Cancer Additional Family Medical History / Comment(s): Father of lung cancer. He was a smoker. Mother Family Medical History: Cancer Additional Family Medical History / Comment(s): Mother of lung cancer. She was a smoker. Brother(s) Family Medical History: Cancer Additional Family Medical History / Comment(s): 2 brother's had lung cancer-they were both smokers. Sister(s) Family Medical History: Cancer Additional Family Medical History / Comment(s): Pt's sister had lung cancer-she was a smoker. General Exam Limitations: no limitations, physical limitation General appearance: alert, in no apparent distress Head exam: Present: atraumatic, normocephalic, normal inspection Eye exam: Present: normal appearance, PERRL, EOMI. Absent: scleral icterus, conjunctival injection, periorbital swelling Pupils: Present: normal accommodation ENT exam: Present: normal exam, normal oropharynx, mucous membranes moist Neck exam: Present: normal inspection. Absent: tenderness, meningismus, lymphadenopathy Respiratory exam: Present: normal lung sounds bilaterally, chest wall tenderness (Right posterior ribs no overlying skin changes. No paradoxical chest wall motions.). Absent: respiratory distress, wheezes, rales, rhonchi, stridor Cardiovascular Exam: Present: regular rate, normal rhythm, systolic murmur. Absent: diastolic murmur, rubs, gallop, clicks Extremities exam: Present: normal inspection, full ROM, normal capillary refill, other (2+ bilateral radial and PT pulse. Patient is freely moving all extremities. Abrasion to left elbow). Absent: tenderness, pedal edema, joint swelling, calf tenderness Back exam: Present: normal inspection Neurological exam: Present: alert, oriented X3, CN II-XII intact Skin exam: Present: warm, dry, intact, normal color. Absent: rash Course Vital Signs 06/29/24 06/29/24 06/29/24 12:48 15:38 16:14 Temperature 97.7 F Pulse Rate 76 69 Respiratory 18 16 16 Rate Blood Pressure 127/70 125/69 O2 Sat by Pulse 98 97 Oximetry 06/29/24 16:49 Temperature 98.3 F Pulse Rate 67 Respiratory 16 Rate Blood Pressure 145/71 O2 Sat by Pulse 99 Oximetry Medical Decision Making - Medical Decision Making Was pt. sent in by a medical professional or institution (, PA, [facility], urgent care, hospital, or group home...) When possible be specific @ -No Did you speak to anyone other than the patient for history (EMS, parent, family, police, friend...)? What history was obtained from this source @ -Daughter, at bedside, aiding in HPI and past medical history. Did you review nursing and triage notes (agree or disagree)? Why? @ -I reviewed and agree with nursing and triage notes Were old charts reviewed (outside hosp., previous admission, EMS record, old EKG, old radiological studies, urgent care reports/EKG's, group home records)? Report findings @ -No old charts were reviewed Differential Diagnosis (chest pain, altered mental status, abdominal pain women, abdominal pain men, vaginal bleeding, weakness, fever, dyspnea, syncope, headache, dizziness, GI bleed, back pain, seizure, CVA, palpatations, mental health, musculoskeletal)? @ -Fracture, dislocation, contusion, hematoma, intracranial hemorrhage, concussion, abrasion, laceration this list does not like to be all-inclusive EKG interpreted by me (3pts min.). @ -None done X-rays interpreted by me (1pt min.). @ -Left ankle x-ray, lumbar spine, left ribs AP chest, right hip, right knee and right shoulder x-rays interpreted by me negative for acute fractures or dislocations. CT interpreted by me (1pt min.). @ -CT brain C-spine negative for acute intracranial process. No cervical spine fractures or dislocations. U/S interpreted by me (1pt. min.). @ -None done What testing was considered but not performed or refused? (CT, X-rays, U/S, labs)? Why? @ -None What meds were considered but not given or refused? Why? @ -None Did you discuss the management of the patient with other professionals (professionals i.e. , PA, [facility], lab, RT, psych nurse, social work assistant, director of tax services, teacher, risk officer, case management manager)? Give summary @ -No Was smoking cessation discussed for >3mins.? @ -No Was critical care preformed (if so, how long)? @ -No Were there social determinants of health that impacted care today? How? (Homelessness, low income, unemployed, alcoholism, drug addiction, transportation, low edu. Level, literacy, decrease access to med. care, custodial, rehab)? @ -No Was there de-escalation of care discussed even if they declined (Discuss DNR or withdrawal of care, Hospice)? DNR status @ -No What co-morbidities impacted this encounter? (DM, HTN, Smoking, COPD, CAD, Cancer, CVA, ARF, Chemo, Hep., AIDS, mental health diagnosis, sleep apnea, morbid obesity)? @ -None Was patient admitted / discharged? Hospital course, mention meds given and route, prescriptions, significant lab abnormalities, going to OR and other pertinent info. @ -Discharged. 63-year-old male presented to the ER for evaluation of a fall. Patient has numerous complaints upon examination. Patient in no signs of acute distress and is neurovascularly intact. GCS of 15. ANO x 3. CT brain C-spine negative for acute process. X-rays completed negative. Patient received symptomatic control in the ER with p.o. Tylenol and ibuprofen. Patient is stable for discharge. Conservative treatment options discussed upon reevaluation. Strict return parameters discussed. Patient discharged in stable condition with follow-up to PCP. Patient verbally expressed understanding and agreement with care plan. Case discussed with ED attending, Dr. Ghotra. Undiagnosed new problem with uncertain prognosis? @ -No Drug Therapy requiring intensive monitoring for toxicity (Heparin, Nitro, Insulin, Cardizem)? @ -No Were any procedures done? @ -No Diagnosis/symptom? @ -Fall/ankle sprain Acute, or Chronic, or Acute on Chronic? @ -Acute Uncomplicated (without systemic symptoms) or Complicated (systemic symptoms)? @ -Uncomplicated Side effects of treatment? @ -No Exacerbation, Progression, or Severe Exacerbation? @ -No Poses a threat to life or bodily function? How? (Chest pain, [place], [place], pneumonia, PE, COPD, DKA, ARF, appy, cholecystitis, CVA, Diverticulitis, Homicidal, Suicidal, threat to staff... and all critical care pts) @ -No - Radiology Data Radiology results: report reviewed, image reviewed Disposition Clinical Impression: Fall, Ankle sprain Disposition: HOME SELF-CARE Condition: Stable Instructions (If sedation given, give patient instructions): Ankle Sprain (ED), Fall Prevention (ED) Additional Instructions: Continue to rest ice and elevate ankle. You may take [id number] ibuprofen and Tylenol for pain control. Follow-up with PCP. Return to the ER for any new or worsening concerns. Is patient prescribed a controlled substance at d/c from ED?: No Referrals: Gautam Del Rio MD [Primary Care Provider] - 1-2 days Time of Disposition: 16:43
[2024-06-29] MEDS: ACETAMINOPHEN TAB 325 MG TAB PO STA (13:11)
[2024-06-29] MEDS: DIPH,PERTUS(ACELL)TETVAC-LF 0.5 ML VIAL IM ONE (14:08)
--- NOTE | 2024-06-29 14:23 | CT ---
EXAMINATION TYPE: CT brain cspine wo con DATE OF EXAM: 06/29/2024 1:51 PM COMPARISON: None. CLINICAL INDICATION: Male, 63 years old with history of fall unknown head injury; TECHNIQUE: Brain: Multiple axial CT images of the brain were obtained without IV contrast. Cspine: Axial CT images from the skull base to the inferior aspect of T2 we obtained without intraven ous contrast. Coronal and sagittal reformatted images were also reviewed. . CT DLP: 1686 mGycm, Automated exposure control for dose reduction was used. FINDINGS: Brain: Extra-axial spaces: No abnormal extra-axial fluid collections. Ventricular system: Within normal limits Cerebral parenchyma: No acute intraparenchymal hemorrhage or mass effect. The moran-white junction is well differentiated. Cerebellum: Unremarkable. Mass effect: No evidence of midline shift. Intracranial vasculature: unremarkable Soft tissues: Normal. Calvarium/osseous structures: No depressed skull fracture. Paranasal sinuses and mastoid air cells: Clear. Visualized orbits: Orbital contents are intact. Cervical spine: Fracture: None. Osseous structures: Multilevel degenerative disc disease changes with endplate spurring and disc oste ophyte complex's. Vertebral alignment: Within normal limits. Spinal canal/Neural Foramina: No evidence of significant spinal canal narrowing. No evidence for sign ificant neural foraminal stenosis. Neck soft tissues: Prevertebral soft tissues are within normal limits. Other: The airway is patent. Fatty replacement/liposubstitution of the salivary glands. IMPRESSION: 1. No acute intracranial process. 2. No evidence of cervical spine fracture. 3. Mild multilevel degenerative disc disease. 4. Fatty replacement/liposubstitution of the salivary glands. This is nonspecific finding and can be associated with hypertriglyceridemia, sudden disease, diabetes versus others such as HIV can also de monstrate this. [facility], , 06/29/2024 2:20 PM
[2024-06-29] MEDS: KETOROLAC 15 MG/ML 1 ML VIAL IM STA (15:28)
--- NOTE | 2024-06-29 15:29 | XR ---
EXAMINATION TYPE: XR shoulder complete RT DATE OF EXAM: 06/29/2024 3:00 PM COMPARISON: None CLINICAL INDICATION: Male, 63 years old with history of fall; PHH, pain TECHNIQUE: XR shoulder complete RT; examined in AP, internally rotated and scapular Y projections. FINDINGS: No evidence of acute osseous pathology, joint dislocation, or soft tissue swelling. The remaining po rtions of the visualized chest are unremarkable. Degeneration changes of the acromion, distal clavic le with osteophyte formation. There is osteophyte formation of the glenoid and humeral head. There is joint space narrowing of glenohumeral joint. IMPRESSION: 1. No acute osseous pathology. 2. Moderate to severe shoulder osteoarthrosis. [facility], , 06/29/2024 3:27 PM
--- NOTE | 2024-06-29 15:30 | XR ---
EXAMINATION TYPE: XR knee complete LT DATE OF EXAM: 06/29/2024 3:00 PM COMPARISON: None CLINICAL INDICATION: Male, 63 years old with history of fall injury, pain TECHNIQUE: XR knee complete LT 3 views submitted. FINDINGS: No evidence of any acute osseous pathology, soft tissue swelling, or joint effusion is no romie. Tricompartmental osteophyte formation involving the femoral condyles, tibial plateau and patella . Mild joint space narrowing. Atherosclerosis of the arterial vasculature. IMPRESSION: 1. No acute osseous pathology. 2. Mild to moderate tricompartmental osteoarthritic changes. [facility], , 06/29/2024 3:28 PM
--- NOTE | 2024-06-29 15:31 | XR ---
EXAMINATION TYPE: XR Hip LT and AP Pelvis DATE OF EXAM: 06/29/2024 3:00 PM COMPARISON: None CLINICAL INDICATION: Male, 63 years old with history of fall injury; PHH, pain TECHNIQUE: XR Hip LT and AP Pelvis; hip was examined in the frontal and lateral projections and a AP pelvis. FINDINGS: No evidence for acute process, joint dislocation or significant soft tissue swelling. Osteo phyte formation of the superior acetabulum of the hip. There is mild joint space narrowing. IMPRESSION: 1. No evidence for acute process. 2. Mild hip osteoarthrosis. [facility], , 06/29/2024 3:28 PM
--- NOTE | 2024-06-29 15:34 | XR ---
EXAMINATION TYPE: XR ribs RT w pa chest xray DATE OF EXAM: 06/29/2024 3:00 PM COMPARISON: 05/28/2023 CLINICAL INDICATION: Male, 63 years old with history of fall injury; pain TECHNIQUE: XR ribs RT w pa chest xray; Frontal and oblique views of the ribs with frontal chest radio graph. FINDINGS: The ribs have a normal appearance. No evidence of fracture. Overall, the lungs are clear. The cardiac silhouette is normal in size. The remaining osseous structures are intact. IMPRESSION: No acute osseous pathology. [facility], , 06/29/2024 3:31 PM
--- NOTE | 2024-06-29 15:34 | XR ---
EXAMINATION TYPE: XR lumbar spine 2 or 3V DATE OF EXAM: 06/29/2024 3:00 PM COMPARISON: 02/06/2024 CLINICAL INDICATION: Male, 63 years old with history of PAIN/FALL; , pain TECHNIQUE: XR lumbar spine 2 or 3V - Frontal, lateral and coned in L5-S1 lateral views of the spine. FINDINGS: No evidence of any acute osseous pathology. No evidence of loss of vertebral body height i s seen. There is normal alignment of the lumbar vertebral bodies. Scattered disc space narrowing. Mul tilevel marginal osteophyte formation throughout the visualized spine. There is facet joint arthropat hy throughout the spine. Scattered at least mild neural foraminal stenosis. Atherosclerosis of the ar terial vasculature. IMPRESSION: 1. No acute fracture. 2. Moderate multilevel disc degeneration. [facility], , 06/29/2024 3:32 PM
[2024-06-29 15:39] VITALS: RESP 16
--- NOTE | 2024-06-29 16:29 | XR ---
EXAMINATION TYPE: XR ankle complete LT DATE OF EXAM: 06/29/2024 4:20 PM COMPARISON: None. CLINICAL INDICATION: Male, 63 years old with history of fall, pain TECHNIQUE: XR ankle complete LT; ankle is imaged in frontal, lateral and oblique projections. FINDINGS: There is no evidence of acute osseous pathology. No evidence of subluxation or dislocation. Kager's fat pad is intact. Mild soft tissue swelling around the ankle. No radiopaque foreign bodies are ident ified. Calcaneal plantar spurring is present. Calcaneal plantar spurring is present. Calcaneal Achill es enthesophyte. Atherosclerosis of the arterial vasculature. IMPRESSION: 1. No evidence of acute fracture. 2. Subcutaneous swelling around the ankle likely secondary to underlying soft tissue injury. [facility], , 06/29/2024 4:26 PM
[2024-06-29 16:51] VITALS: BP 145/71; PULSE 67; TEMP 98.3
== END 2024-06-29 16:54 | disposition home or self-care (01) ==
LOC: EC 12:30
DX: S93.402A Sprain of unspecified ligament of left ankle, initial encounter (principal); S49.91XA Unspecified injury of right shoulder and upper arm, initial encounter; W10.8XXA Fall (on) (from) other stairs and steps, initial encounter; Y99.0 Civilian activity done for income or pay
CPT/HCPCS: 99499 ×2; 71101; 72100; 73502; 73030; 73562; 73610; 72125; 70450; 90715; L0120; J1885

== ENCOUNTER → 2024-06-30 | Outpatient (CLI) | payer OTHER ==
--- NOTE | 2024-06-30 12:33 | XR ---
EXAMINATION TYPE: XR femur LT DATE OF EXAM: 06/30/2024 12:11 PM COMPARISON: None. CLINICAL INDICATION: Male, 63 years old with history of S70.12XA CONTUSION OF LEFT THIGH, INITIAL ENC OUNTE, pain TECHNIQUE: Two views of the left femur are obtained. COMPARISON: None FINDINGS: Spur of the greater trochanter. Joint space preserved. Mild reduced mineralization. Vascula r calcifications. Moderate tricompartment osteoarthritis of the knee. IMPRESSION: 1. No evidence of acute fracture. If there is difficulty with weightbearing consider CT scan. 2. Osteoarthritis. [facility], , 06/30/2024 12:30 PM
== END | disposition home or self-care (01) ==
LOC: RADXRMAIN 11:41
PROVIDERS: ATTEND Emergency Medicine
DX: S70.12XA Contusion of left thigh, initial encounter (principal); M17.12 Unilateral primary osteoarthritis, left knee

== ENCOUNTER → 2024-06-30 | Outpatient (CLI) | payer OTHER ==
--- NOTE | 2024-06-30 17:28 | CT ---
EXAMINATION TYPE: CT femur LT wo con DATE OF EXAM: 06/30/2024 4:53 PM COMPARISON: Radiograph same day CLINICAL INDICATION: Male, 63 years old with history of S70.12XA CONTUSION OF LEFT THIGH, Pt fell at work yesterday. Complaining of pain running from hip down through femur and down to knee., TECHNIQUE: Contiguous axial scanning of the left femur without IV contrast. Coronal and sagittal honorio nstructions performed. CT DLP: 1293 mGycm, Automated exposure control for dose reduction was used. FINDINGS: There is some degenerative bony sclerosis at the left SI joint. No acute fracture is identified. Mild degenerative change left hip. At least mild tricompartmental osteoarthrosis of the with trace knee joint effusion and a small 4.3 c m Muse cyst. Extensor mechanism of the knee appears intact. Prominent atherosclerotic calcifications throughout the SFA. Some underlying sigmoid diverticulosis partially visualized. IMPRESSION: NO ACUTE FRACTURE IDENTIFIED. MILD DEGENERATIVE CHANGES LEFT HIP AND LEFT KNEE. SMALL 4.3 CM MUSE'S CYST. [facility], , 06/30/2024 5:26 PM
== END | disposition home or self-care (01) ==
LOC: RADCTMAIN 16:15
PROVIDERS: ATTEND Emergency Medicine
DX: I70.90 Unspecified atherosclerosis (principal); S70.12XA Contusion of left thigh, initial encounter; M16.12 Unilateral primary osteoarthritis, left hip; M17.12 Unilateral primary osteoarthritis, left knee; M79.652 Pain in left thigh

== ENCOUNTER → 2024-07-19 | Outpatient (CLI) | payer MEDICAID ==
[2024-07-19 22:30] LABS: Basophils # (A) 0.05 X 10*3/uL (0.00-0.10); Basophils % (A) 0.7 %; Eosinophils # (A) 0.17 X 10*3/uL (0.04-0.35); Eosinophils % (A) 2.3 %; HCT 42.1 % (39.6-50.0); HGB 13.8 g/dL (13.0-17.0); Lymphocytes # (A) 1.72 X 10*3/uL (0.90-5.00); Lymphocytes % (A) 22.9 %; MCH 31.5 pg (27.0-32.0); MCHC 32.8 g/dL (32.0-37.0); MCV 96.1 FL (80.0-97.0); Mean Platelet Volume 11.1 FL (9.5-12.2); Monocytes # (A) 0.57 X 10*3/uL (0.20-1.00); Monocytes % (A) 7.6 %; NRBC Per 100 WBC 0 X 10*3/uL (0.00-0.01); Neutrophils # (A) 4.98 X 10*3/uL (1.80-7.70); Neutrophils % (A) 66.2 %; Platelet Count 213 X 10*3/uL (140-440); RBC 4.38 X 10*6/uL (4.40-5.60); RDW 13.2 % (11.5-14.5); WBC 7.51 X 10*3/uL (4.50-10.00)
[2024-07-19 22:49] LABS: ALT 46 U/L (10-49); AST 28 U/L (14-35); Albumin 4.6 g/dL (3.8-4.9); Albumin/Globulin Ratio 1.92 Ratio (1.60-3.17); Alkaline Phosphatase 61 U/L (41-126); BUN/Creat Ratio 13.11 Ratio (12.00-20.00); Blood Urea Nitrogen 11.8 mg/dL (9.0-27.0); Carbon Dioxide 26.9 mmol/L (21.6-31.8); Chloride 104 mmol/L (96-109); Chol/HDL Ratio 3.28 Ratio; Globulin 2.4 g/dL (1.6-3.3); Glucose 176 mg/dL (70-110); LDL Cholesterol,Calculated 59.6 mg/dL (0.0-131.0); Potassium 4.8 mmol/L (3.5-5.5); Sodium 141 mmol/L (135-145); Total Bilirubin 0.5 mg/dL (0.3-1.2)
== END | disposition home or self-care (01) ==
LOC: LABWHC1 08:37
PROVIDERS: ATTEND Internal Medicine Geriatric Medicine
DX: I25.10 Atherosclerotic heart disease of native coronary artery without angina pectoris (principal); K75.81 Nonalcoholic steatohepatitis (NASH); E11.9 Type 2 diabetes mellitus without complications; E78.2 Mixed hyperlipidemia
CPT/HCPCS: 36415; 80053; 80061; 83036; 84443; 85025

== ENCOUNTER → 2024-07-21 | Outpatient (CLI) | payer OTHER ==
--- NOTE | 2024-07-22 06:28 | MR ---
EXAMINATION TYPE: MR knee LT wo con DATE OF EXAM: 07/21/2024 COMPARISON: Left knee x-ray June 29, 2024 HISTORY: Left knee pain for about 3 weeks due to slip and fall at work. Contusion injury. TECHNIQUE: Multiplanar, multisequence images of the knee is performed without IV contrast. FINDINGS: MEDIAL MENISCUS: Horizontal increased signal posterior horn extends towards the central body but does not definitively extend to articular surface. LATERAL MENISCUS: Anterior and posterior horns are intact without tear. CRUCIATE LIGAMENTS: The anterior and posterior cruciate ligaments are intact and unremarkable. COLLATERAL LIGAMENTS: The medial collateral ligament and lateral collateral ligament complex are inta ct and unremarkable. EXTENSOR MECHANISM: Visualized quadriceps and patellar tendons are intact. Increased signal proximal patellar tendon is present. Increase T2 signal throughout Hoffa's fat pad is noted EFFUSION: No significant suprapatellar joint effusion. POPLITEAL CYST: There is multi septated moderate-sized popliteal/garduno cyst measuring 5.2 cm long axi s sagittal image 27. TRICOMPARTMENT SPACES: Moderate tricompartment joint space loss and spurring. CARTILAGE: Significant cartilaginous loss medial tibiofemoral compartment including areas of full-thi ckness loss. BONE MARROW SIGNAL: Subchondral cystic change posterior medial aspect of the distal lateral femoral c ondyle near proximal ACL insertion. OTHER: No additional significant abnormality is appreciated. IMPRESSION: 1. Moderate tricompartmental degenerative changes most prominent medial tibiofemoral compartment like ly product of osteoarthritis. 2. Intrasubstance tear posterior horn into the central body of the medial meniscus. 3. Proximal patellar tendinosis. Hoffa's fat pad impingement syndrome suspected, correlate clinically . 4. Moderate-sized septated popliteal cyst. [facility], , 07/22/2024 6:26 AM
== END | disposition home or self-care (01) ==
LOC: RADMRIMAIN 19:45
PROVIDERS: ATTEND Emergency Medicine
DX: S80.02XD Contusion of left knee, subsequent encounter (principal); S13.4XXD Sprain of ligaments of cervical spine, subsequent encounter; S40.011D Contusion of right shoulder, subsequent encounter; S20.20XD Contusion of thorax, unspecified, subsequent encounter; S50.02XD Contusion of left elbow, subsequent encounter; S33.5XXD Sprain of ligaments of lumbar spine, subsequent encounter; S70.02XD Contusion of left hip, subsequent encounter; S70.12XD Contusion of left thigh, subsequent encounter; S93.402D Sprain of unspecified ligament of left ankle, subsequent encounter; M17.12 Unilateral primary osteoarthritis, left knee; S83.242D Other tear of medial meniscus, current injury, left knee, subsequent encounter; M71.22 Synovial cyst of popliteal space [Baker], left knee; W01.0XXD Fall on same level from slipping, tripping and stumbling without subsequent striking against object, subsequent encounter

== ENCOUNTER → 2024-07-22 | Outpatient (CLI) | payer OTHER ==
--- NOTE | 2024-07-22 17:28 | XR ---
EXAMINATION TYPE: XR foot complete LT DATE OF EXAM: 07/22/2024 5:13 PM COMPARISON: None. CLINICAL INDICATION: Male, 64 years old with history of S93.602D, S93.402D, pain, fall 3 weeks prior TECHNIQUE: 3 view(s) obtained. FINDINGS: No acute fracture or dislocation evident. Joint spaces are preserved. Calcaneal heel spurs are presen t. Vascular calcification is present. Soft tissues are normal. Follow up exams can be performed as clinically indicated. IMPRESSION: 1. No acute osseous abnormality left foot. 2. Calcaneal heel spurs [facility], , 07/22/2024 5:26 PM
--- NOTE | 2024-07-22 17:30 | XR ---
EXAMINATION TYPE: XR ankle complete LT DATE OF EXAM: 07/22/2024 5:13 PM COMPARISON: 06/29/2024 CLINICAL INDICATION: Male, 64 years old with history of S93.602D, S93.402D, pain TECHNIQUE: 3 view(s) obtained. FINDINGS: Ankle mortise is intact. Soft tissues are normal. No acute fracture or dislocation evident. Calcaneal heel spurs are present. Vascular calcification is present. Follow-up can be performed as clinically indicated. IMPRESSION: 1. No acute osseous abnormality left ankle. 2. Calcaneal heel spurs [facility], , 07/22/2024 5:27 PM
== END | disposition home or self-care (01) ==
LOC: RADXRMAIN 16:51
PROVIDERS: ATTEND Emergency Medicine
DX: S93.602D Unspecified sprain of left foot, subsequent encounter (principal); S93.402D Sprain of unspecified ligament of left ankle, subsequent encounter; M77.32 Calcaneal spur, left foot; X58.XXXD Exposure to other specified factors, subsequent encounter

== ENCOUNTER → 2024-09-04 | Outpatient (CLI) | payer OTHER ==
[2024-09-04 14:25] VITALS: BP 132/77; PULSE 62; RESP 16; TEMP 96.8
--- NOTE | 2024-09-04 15:03 | P.PAINPG ---
PQRS Measure Charge Sheet History and Exam Findings: All other causes of pain ruled out Comment: HISTORY OF PRESENT ILLNESS: A 64 yr old male as a referral from Dr Del Rio presents today w severe and chronic LBP > 6 mo secondary to radiculopathy, spondylosis and facet arthropathy without myelopathy for evaluation. Pt states pain level is provoked at 6 /10 in intensity, constant, localized in the lumbar spine, predominantly axial, sharp in character w occasional shooting pain towards the buttocks, thighs and LEs. Pain is provoked by bending, kneeling. Pain is alleviated by PT x 6 wks which ended in Fall 2023, physician guided home exercises 3-4 times weekly since Fall 2023, medications, topical, heat, repositioning and rest . Oswestry axial pain score at 28. PMH: OA, Angina, NIDDM II, Hyperlipidemia, HTN, Fatty Liver Disease PSH: Appendectomy, Cholecystectomy, Heart Catheterization (2010), Heart Catheterization With Stent x2 (2016), BL Knee Arthroscopies, R Shoulder Spur Removal, L Shoulder Tendon Debridement/ Repair, Tonsillectomy, Nasal Fracture/ Repair, Colonoscopy SH: Negative x3 FH: Fa- Lung CA. Mo- Lung CA. Bro- Lung CA. Sis- Lung CA All: See list Meds: See list incl Ewing, Ibu, BioFreeze, Icy-Hot REVIEW OF ORGAN SYSTEMS: CONSTITUTIONAL: No fevers or chills. No recent weight loss. NEUROLOGICAL: + numbness and tingling along the distal extremities. No seizure disorders or headaches. MUSCULOSKELETAL: + pain PSYCHIATRIC: Denies current depression or suicidal thoughts. Physical Examinations : Constitutional : Cooperative , not in acute distress . Neurologic : Cranial nerve II to XII intact. No focal neurological deficits. Psychiatric : alert & oriented x 3. Matching mood & appropriate affect. Judgment & insight intact. Musculoskeletal : Cervical Spine Motor strength in the deltoid and biceps: Normal right side. Normal Left side Motor strength biceps and the wrist extensors: Normal right side . Normal left side Motor strength in the triceps muscle: Normal right side. Normal left side Deep tendon reflexes: Normal at the biceps. Normal at Brachioradialis. Normal at triceps Vertebral body tenderness to deep palpation over Cervical facet loading test: positive bilaterally Spurling test: positive bilaterally Neck distraction test: positive bilaterally Jenniffer sign: positive bilaterally Lumbar spine Motor strength lower extremities ,thigh and legs 5/5 Right side , 5/5 Left side Deep tendon reflexes : Normal Knee Jerk. Normal Ankle Jerk Vertebral body tenderness over L5 Arriaga Test positive BL L5-S1 Lumbar facet Loading Test: positive Right / positive Left Range of motion of the lumbar spine Flexion 30 degrees, extension 10 degrees Straight Leg Raise test: Left/ Right positive at degrees Uyen test: positive right / positive left. Severe tenderness over the Sacroiliac joint on the Right / Left sides Gaenslen test: positive bilaterally Seated flexion test: positive bilaterally. Sacral spine : Severe tenderness over the Sacroiliac joint: right side / left side Range of motion: Flexion of the lumbar spine <60 degrees Range of motion: Extension of the lumbar spine <20 degrees Gaenslen's Test positive Uyen test: positive right side / le ft side Thigh Thrust Test Sacral Thrust Test Imaging: CT scan noncontrast of lumbar spine from 05/14/2024 reviewed Assessment/ Plan : L5-S1 radiculopathy Recommendation of YULIYA L5-S1 #1. Would benefit from BL TFESI L4-L5 also. Risks, benefits of procedure discussed and patient verbalized understanding. Admits to anti- coagulant use or medical history of diabetes. Protocol for discontinuation/ continuation of medications chon procedure discussed. All questions answered. I have spent greater than 30 minutes on patient care today. Dr Roth was available by phone for the evaluation of this patient. The time was used to review the medical records including relevant urine studies and Prescription history (MAPs), review of the available imaging, evaluation and examination of the patient, coordination of care with the medical staff and if applicable referring physicians, as well as creation of the medical record - Pain Location Bilateral Lower Back Non-Pharmacological Interventions: Chiropractic Treatment, Heat, Inactivity, Physical Therapy, Position/Reposition PQRS Narrative: Smoking Status Never smoker Home Medications: Ambulatory Orders Aspirin EC [Ecotrin Low Dose] 81 mg PO DAILY 02/16/16 Metoprolol Tartrate [Lopressor] 25 mg PO BID 06/26/17 Glimepiride [Amaryl] 2 mg PO DAILY 12/19/21 Simvastatin [Zocor] 40 mg PO HS 12/19/21 Cholecalciferol [Vitamin D3 (25 Mcg = 1000 Iu)] 50 mcg PO DAILY 06/28/22 Multivit-Min/Folic/Vit K/Lycop [Men's Multivitamin Tablet] 1 tab PO DAILY 06/28/22 lisinopriL [Prinivil] 10 mg PO HS 06/28/22 metFORMIN HCL [Glucophage] 1,000 mg PO BID 06/28/22 Gabapentin [Neurontin] 300 mg PO BID 04/09/23 Ondansetron Odt [Zofran Odt] 4 mg PO Q8HR PRN #10 tab 04/27/24 Tamsulosin [Flomax] 0.4 mg PO DAILY #7 cap 04/27/24 HYDROcodone/APAP 5-325MG [Ewing 5-325] 1 tab PO Q8H PRN 05/06/24 Tirzepatide [Mounjaro] 7.5 mg SQ MCCOY 05/06/24 rOPINIRole HCL [Requip] 0.5 mg PO BID 05/06/24 diazePAM [Valium] 5 mg PO DAILY 1 Days #2 tab 09/04/24 Controlled Substance Measures - Controlled Substance Measures Is patient prescribed a controlled substance at discharge?: Yes When asked, does pt state using other controlled substances?: Yes If prescribed controlled substance>3 days was MAPS reviewed?: Prescribed <3 Days
== END ==
LOC: PNWHC3 13:58
PROVIDERS: ATTEND Specialist
DX: M54.17 Radiculopathy, lumbosacral region (principal); Z88.8 Allergy status to other drugs, medicaments and biological substances
CPT/HCPCS: 99211

== ENCOUNTER 2024-09-25 06:21 | Day surgery (SDC) | payer OTHER ==
[~2024-09-25 06:21] MED LIST changes: -DEXAMETHASONE SOD PHOSPHATE 10 MG/ML 1 ML VIAL IV ONE; -HYDROmorphone 0.5 MG/0.5 ML SYRINGE IVP PRN; -MIDAZOLAM 2 MG/2 ML VIAL IV PRN; -ONDANSETRON 4 MG/2 ML VIAL IVP ONE; -Pre Op ABX Message 1 EACH MISC MISCELLANE ONE; -SCOPOLAMINE 1.5MG/72HR PATCH TRANSDERM ONE
[2024-09-25 07:02] VITALS: TEMP 97
[2024-09-25] MEDS: LACTATED RINGERS 1,000 ML IV ONE (07:15)
[2024-09-25 07:17] LABS: Glucose,Whole Blood 169 mg/dL (70-110)
[2024-09-25] MEDS ORDERED: MIDAZOLAM 2 MG/2 ML VIAL ONE (07:37)
[2024-09-25] MEDS ORDERED: ROPIVACAINE 5MG/ML 20ML VIAL ONE (07:37)
[2024-09-25] MEDS ORDERED: fentaNYL (PF) 50 MCG/ML 2 ML AMP ONE (07:37)
[2024-09-25] MEDS: IV FLUID CONTINUATION 1,000 ML IV ONE (08:06)
--- NOTE | 2024-09-25 08:09 | P.PCN ---
Description of Procedure: Preprocedure diagnosis. 1. Lumbar spondylosis with facet joint arthropathy without myelopathy. 2. Lumbar degenerative disc disease. Postprocedure diagnosis. As above. Procedure done. Bilateral diagnostic block with local anesthetics at L3, L4, L5 medial branch to target the facet joint L4- 5 and L5-S1 with fluoroscopic guidan ce (fluoroscopy images are available in the radiology department) . Anesthesia. Moderate sedation with intravenous Versed 2 mg and fentanyl 100 and local infiltration with local anesthetics. In OR, continuous pulse ox, EKG, blood pressure and verbal communication was maintained. Sedation time-start 0737 end 0757 . Blood loss. Minimal. Indication. The patient has low back pain secondary to lumbar facet joint arthropathy. Discussed the procedure and alternative and complications which includes infection, bleeding, nerve damage, paralysis ,aggravation of pain. Patient understands and all questions were answered. Patient iunderstands that if any pain relief occurs it will last for a few hours to a few days maximum. Procedure description. After getting consent patient was taken in the OR in prone position. Back prepped with chlorhexidine and draped in sterile fashion. After injecting 5 mL of plain 1% lidocaine subcutaneously, a 22-gauge spinal needle was introduced under tunnel vision of the fluoroscope at the junction of the superior articular process with RIGHT ala of the sacrum. With slight oblique fluoroscope, after injecting 5 mL of plain 1% lidocaine subcutaneously, a 22-gauge spinal needle was introduced under tunnel vision of the fluoroscope at the junction of the superior articular process with RIGHT L5 transverse process, junction of the superior articular process with the RIGHT L4 transverse process. Negative CSF, negative blood, negative paresthesia. After needle position confirmation by AP and crosstable lateral view, after negative aspiration, half milliliters of solution were injected at each point. Total 1- 1/2 mL of solution was injected on the right side which consists of 0.5% ropivacaine. In exactly same way, LEFT sided injections were done at the following 3 points. Junction of the superior articular process with left ala of the sacrum, junction of the superior articular process with the left L5 transverse process, junction of the superior articular process with left L4 transverse process using 0.5 mL of solution at each point. Total 1-1/2 mL of solution was injected on the left side which consists of 0.5% ropivacaine . Spinal needles were taken out and bandages were applied. Disposition. Patient tolerated the procedure well. No complication. Discharged home in stable condition
--- NOTE | 2024-09-25 08:10 | FL ---
EXAMINATION TYPE: FL guided pain mgmt statistic DATE OF EXAM: 09/25/2024 8:04 AM COMPARISON: Pre Operative Images if available both CT/MRI or plain film CLINICAL INDICATION: Male, 64 years old with history of FACET BLOCK SALLY LUMBAR; TECHNIQUE: FL guided pain mgmt statistic, multiple fluoroscopic images provided for procedure. DAP: 0.20175 mGym2 Gycm2 uGym2 cGycm2 or equivalent. FINDINGS: Fluoroscopic images during injection for pain management demonstrate multilevel degeneration changes throughout the spine. No evidence for fracture. No acute process identified. IMPRESSION: 1. No evidence for intraoperative complication. 2. Please see the operative/procedural note for further details. [facility], , 09/25/2024 8:08 AM
[2024-09-25 08:12] VITALS: RESP 16
[2024-09-25 08:41] VITALS: BP 119/73; PULSE 82
== END 2024-09-25 08:42 | disposition home or self-care (01) ==
LOC: ORPAIN 06:21
PROVIDERS: ATTEND Pain Medicine Interventional Pain Medicine
DX: M47.816 Spondylosis without myelopathy or radiculopathy, lumbar region (principal); M51.369 Other intervertebral disc degeneration, lumbar region without mention of lumbar back pain or lower extremity pain; E11.9 Type 2 diabetes mellitus without complications; Z79.84 Long term (current) use of oral hypoglycemic drugs; Z79.1 Long term (current) use of non-steroidal anti-inflammatories (NSAID); Z79.82 Long term (current) use of aspirin
CPT/HCPCS: 64493; 64494 ×2; 99152; J2250; J3010; J2795

== ENCOUNTER → 2024-10-01 | Outpatient (CLI) | payer MEDICAID ==
[2024-10-01 14:57] LABS: Basophils # (A) 0.03 X 10*3/uL (0.00-0.10); Basophils % (A) 0.4 %; Eosinophils # (A) 0.13 X 10*3/uL (0.04-0.35); Eosinophils % (A) 1.9 %; HCT 40.9 % (39.6-50.0); HGB 13.5 g/dL (13.0-17.0); Lymphocytes # (A) 1.76 X 10*3/uL (0.90-5.00); Lymphocytes % (A) 25.3 %; MCH 31.5 pg (27.0-32.0); MCV 95.3 FL (80.0-97.0); Mean Platelet Volume 10.3 FL (9.5-12.2); Monocytes # (A) 0.66 X 10*3/uL (0.20-1.00); Monocytes % (A) 9.5 %; NRBC Per 100 WBC 0 X 10*3/uL (0.00-0.01); Neutrophils # (A) 4.35 X 10*3/uL (1.80-7.70); Neutrophils % (A) 62.6 %; Platelet Count 238 X 10*3/uL (140-440); RBC 4.29 X 10*6/uL (4.40-5.60); WBC 6.95 X 10*3/uL (4.50-10.00)
[2024-10-01 15:32] LABS: BUN/Creat Ratio 14.44 Ratio (12.00-20.00); Calcium 9.9 mg/dL (8.7-10.3); Carbon Dioxide 26.3 mmol/L (21.6-31.8); Chloride 104 mmol/L (96-109); Glucose 139 mg/dL (70-110); Potassium 4.6 mmol/L (3.5-5.5); Sodium 140 mmol/L (135-145)
== END | disposition home or self-care (01) ==
LOC: LABPAT 09:11
PROVIDERS: ATTEND Orthopaedic Surgery
DX: Z01.818 Encounter for other preprocedural examination (principal)
CPT/HCPCS: 80048; 85025

== ENCOUNTER → 2024-10-09 | Outpatient (CLI) | payer OTHER ==
[2024-10-09 12:57] VITALS: BP 130/79; PULSE 69; RESP 16; TEMP 96.9
--- NOTE | 2024-10-09 14:23 | P.PAINPG ---
PQRS Measure Charge Sheet Comment: HISTORY OF PRESENT ILLNESS: A 64 yr old male presents today w severe and chronic LBP > 6 mo secondary to radiculopathy, spondylosis and facet arthropathy without myelopathy for evaluation s/p BL MBB L4-L5/ L5-S1 #1. Pt states he experienced 100% pain relief x 2 hrs s/p procedure. Pt states pain level is provoked at 6 /10 in intensity, constant, localized in the lumbar spine, predominantly axial, sharp in character without shooting pain. Pain is provoked by standing/ walking for periods > 15 min. Pain is alleviated by PT x 6 wks which ended in Fall 2023, physician guided home exercises 3-4 times weekly since Fall 2023, medications, topical, heat, repositioning and rest . Interventional procedures include BL MBB L3-L5 x1 Medications include [place], Ibu, BioFreeze, Icy-Hot REVIEW OF ORGAN SYSTEMS: CONSTITUTIONAL: No fevers or chills. No recent weight loss. NEUROLOGICAL: + numbness and tingling along the distal extremities. No seizure disorders or headaches. MUSCULOSKELETAL: + pain PSYCHIATRIC: Denies current depression or suicidal thoughts. Physical Examinations : Constitutional : Cooperative , not in acute distress . Neurologic : Cranial nerve II to XII intact. No focal neurological deficits. Psychiatric : alert & oriented x 3. Matching mood & appropriate affect. Judgment & insight intact. Musculoskeletal : Cervical Spine Motor strength in the deltoid and biceps: Normal right side. Normal Left side Motor strength biceps and the wrist extensors: Normal right side . Normal left side Motor strength in the triceps muscle: Normal right side. Normal left side Deep tendon reflexes: Normal at the biceps. Normal at Brachioradialis. Normal at triceps Vertebral body tenderness to deep palpation over Cervical facet loading test: positive bilaterally Spurling test: positive bilaterally Neck distraction test: positive bilaterally Jenniffer sign: positive bilaterally Lumbar spine Motor strength lower extremities ,thigh and legs 5/5 Right side , 5/5 Left side Deep tendon reflexes : Normal Knee Jerk. Normal Ankle Jerk Vertebral body tenderness over L5 Arriaga Test positive BL L5-S1 Lumbar facet Loading Test: positive Right / positive Left L4-L5, L5-S1 Range of motion of the lumbar spine Flexion 30 degrees, extension 10 degrees Straight Leg Raise test: Left/ Right positive at degrees Uyen test: positive right / positive left. Severe tenderness over the Sacroiliac joint on the Right / Left sides Jean-Claudelen test: positive bilaterally Seated flexion test: positive bilaterally. Sacral spine : Severe tenderness over the Sacroiliac joint: right side / left side Range of motion: Flexion of the lumbar spine <60 degrees Range of motion: Extension of the lumbar spine <20 degrees Gaenslen's Test positive Uyen test: positive right side / left side Thigh Thrust Test Sacral Thrust Test Imaging: CT scan noncontrast of lumbar spine from 05/14/2024 reviewed Assessment/ Plan : L5-S1 radiculopathy Recommendation of BONNY MBB L4-L5/ L5-S1 #2. Risks, benefits of procedure discussed and patient verbalized understanding. Admits to anti- coagulant use or medical history of diabetes. Protocol for discontinuation/ continuation of medications chon procedure discussed. Minimal anesthesia including fentanyl and Versed if clinically indicated. All questions answered. I have spent greater than 30 minutes on patient care today. Dr Roth was available by phone for the evaluation of this patient. The time was used to review the medical records including relevant urine studies and Prescription history (MAPs), review of the available imaging, evaluation and examination of the patient, coordination of care with the medical staff and if applicable referring physicians, as well as creation of the medical record PQRS Narrative: Smoking Status Never smoker Hx Alcohol Use (MH) No Home Medications: Ambulatory Orders Aspirin EC [Ecotrin Low Dose] 81 mg PO DAILY 02/16/16 Metoprolol Tartrate [Lopressor] 25 mg PO BID 06/26/17 Glimepiride [Amaryl] 1 mg PO DAILY 12/19/21 Simvastatin [Zocor] 40 mg PO HS 12/19/21 Multivit-Min/Folic/Vit K/Lycop [Men's Multivitamin Tablet] 1 tab PO DAILY 06/28/22 lisinopriL [Prinivil] 10 mg PO HS 06/28/22 metFORMIN HCL [Glucophage] 1,000 mg PO BID 06/28/22 Gabapentin [Neurontin] 300 mg PO BID 04/09/23 HYDROcodone/APAP 5-325MG [[place] 5-325] 1 tab PO Q8H PRN 05/06/24 Tirzepatide [Mounjaro] 7.5 mg SQ MCCOY 05/06/24 rOPINIRole HCL [Requip] 0.5 mg PO BID 05/06/24 Ibuprofen [Motrin] 800 mg PO Q8H PRN 09/24/24 Tamsulosin [Flomax] 0.4 mg PO HS 09/24/24 Controlled Substance Measures - Controlled Substance Measures Is patient prescribed a controlled substance at discharge?: No
== END ==
LOC: PNWHC3 12:12
PROVIDERS: ATTEND Specialist
DX: M47.27 Other spondylosis with radiculopathy, lumbosacral region (principal); Z88.8 Allergy status to other drugs, medicaments and biological substances
CPT/HCPCS: 99211

== ENCOUNTER 2024-10-17 11:39 | Day surgery (SDC) | payer MEDICAID, OTHER ==
[2024-10-15 14:00] VITALS: BMI 35.7
--- NOTE | 2024-10-16 10:07 | P.HPOR ---
History of Present Illness H&P Date: 10/16/24 Chief Complaint: Left knee pain The patient is a 64-year-old male who presents after injuring his left knee on 06/29/2024 at work when he slipped landing on his left leg. He notes persistent medial pain along with catching, locking and buckling. He has tried medications in addition to an injection without much relief. He notes daily pain. Review of Systems Per HPI Past Medical History Past Medical History: Chest Pain / Angina, Diabetes Mellitus, Hyperlipidemia, Hypertension, Liver Disease Additional Past Medical History / Comment(s): Hx bronchitis, neuropathy, fatty liver. History of Any Multi-Drug Resistant Organisms: None Reported Past Surgical History: Appendectomy, Cholecystectomy, Heart Catheterization, Heart Catheterization With Stent, Orthopedic Surgery, Tonsillectomy Additional Past Surgical History / Comment(s): 08/19/10 cardiac cath with 40% LAD blockage-treated medically, December 2016 cardiac cath 2 stents placed, bilateral knee arthroscopies, nasal fracture with surgery, right shoulder spur removal, left shoulder tendon repair with debridement, colonoscopy, fatty tumor removed post neck, pain clinic procedure. Past Anesthesia/Blood Transfusion Reactions: No Reported Reaction Date of Last Stent Placement:: December 2016 Smoking Status: Never smoker - Past Family History Father Family Medical History: Cancer Additional Family Medical History / Comment(s): of lung cancer. He was a smoker. Mother Family Medical History: Cancer Additional Family Medical History / Comment(s): of lung cancer. She was a smoker. Brother(s) Family Medical History: Cancer Additional Family Medical History / Comment(s): 2 brother's had lung cancer-they were both smokers. Sister(s) Family Medical History: Cancer Additional Family Medical History / Comment(s): Lung cancer-she was a smoker. Medications and Allergies Home Medications Medication Instructions Recorded Confirmed Type Aspirin EC [Ecotrin Low Dose] 81 mg PO DAILY 02/16/16 10/15/24 History Metoprolol Tartrate [Lopressor] 25 mg PO BID 06/26/17 10/15/24 History Glimepiride [Amaryl] 1 mg PO DAILY 12/19/21 10/15/24 History Simvastatin [Zocor] 40 mg PO HS 12/19/21 10/15/24 History Multivit-Min/Folic/Vit K/Lycop 1 tab PO DAILY 06/28/22 10/15/24 History [Men's Multivitamin Tablet] lisinopriL [Prinivil] 10 mg PO HS 06/28/22 10/15/24 History metFORMIN HCL [Glucophage] 1,000 mg PO BID 06/28/22 10/15/24 History Gabapentin [Neurontin] 300 mg PO BID 04/09/23 10/15/24 History HYDROcodone/APAP 5-325MG [[place] 1 tab PO Q8H PRN 05/06/24 10/15/24 History 5-325] Tirzepatide [Mounjaro] 7.5 mg SQ MCCOY 05/06/24 10/15/24 History rOPINIRole HCL [Requip] 0.5 mg PO BID 05/06/24 10/15/24 History Ibuprofen [Motrin] 800 mg PO Q8H PRN 09/24/24 10/15/24 History Tamsulosin [Flomax] 0.4 mg PO HS 09/24/24 10/15/24 History Allergies Allergy/AdvReac Type Severity Reaction Status Date / Time atorvastatin [From Lipitor] AdvReac Severe Diarrhea Verified 10/15/24 14:45 Physical Examination - Knee left Appearance: effusion Effusion grade: trace Tenderness with palpation: anterior, medial Pain: throughout ROM Gait: limping ROM: extension: -10 degrees ROM: flexion: 110 degrees Strength: extension: 5/5 Strength: flexion: 5/5 Meniscal tests: medial meniscal tests: positive, medial joint line pain: positive Results The patient is a well-developed well-nourished male approximately 5 foot 10, 252 pounds of endomorphic habitus. HEENT exam is nonfocal, neck is supple. He has painless passive motion of his left hip. Straight leg raise is negative. He is tender about the medial joint line of the left knee. Collaterals are stable, Irina's negative, Manoj's elicits medial pain. He does have an antalgic gait pattern. His distal neurovascular exam appears intact in the left lower extremity. - Diagnostic results Knee MRI: image reviewed (MRI of the left knee shows evidence of a posterior medial meniscal tear along with medial compartment degenerative changes.) Assessment and Plan Assessment: Left knee internal derangementsymptomatic posterior medial meniscal tear Left knee medial compartment osteoarthrosis Plan: I talked to the patient at length regarding his condition along with treatment options. At this point he is having pain and mechanical symptoms after this acute injury despite attempted conservative measures. After a thorough discussion he opts to proceed with surgery. We will plan to proceed with left knee arthroscopy with probable partial medial meniscectomy. Risks and benefits were discussed at length in layman's terms. We will likely perform that as an outpatient procedure.
[~2024-10-17 11:39] MED LIST changes: -LACTATED RINGERS 1,000 ML IV SCH; +MIDAZOLAM 2 MG/2 ML VIAL IV PRN
[2024-10-17] MEDS: IV FLUID CONTINUATION 1,000 ML IV ONE ×2 (12:17→14:51)
[2024-10-17] MEDS: ONDANSETRON 4 MG/2 ML VIAL IVP ONE (12:28)
[2024-10-17] MEDS: DEXAMETHASONE SOD PHOSPHATE 4 MG/ML 1 ML VIAL IV ONE (12:28)
[2024-10-17] MEDS: LACTATED RINGERS 1,000 ML IV SCH (12:28)
[2024-10-17] MEDS: SCOPOLAMINE 1 MG/72 HR PATCH TRANSDERM ONE (12:29)
[2024-10-17 12:47] LABS: Glucose,Whole Blood 129 mg/dL (70-110)
[2024-10-17] MEDS: FAMOTIDINE 20 MG/2 ML VIAL IV STA (13:24)
[2024-10-17] MEDS ORDERED: fentaNYL (PF) 50 MCG/ML 2 ML AMP ONE (13:30)
[2024-10-17] MEDS ORDERED: MIDAZOLAM 2 MG/2 ML VIAL ONE (13:30)
[2024-10-17] MEDS ORDERED: LIDOCAINE 1% INJ 10MG/ML (20 ML MDV) ONE (13:30)
[2024-10-17] MEDS ORDERED: PROPOFOL 10 MG/ML 20 ML VIAL IV ONE (13:30)
[2024-10-17] MEDS: ceFAZolin 2 GM in DEXTROSE 5% IN WATER 50 ML IVPB PRN (13:35)
--- NOTE | 2024-10-17 14:13 | P.OP ---
Date of Procedure: 10/17/24 Preoperative Diagnosis: Left knee internal derangement Postoperative Diagnosis: Left knee posterior medial meniscal tear Procedure(s) Performed: Left knee arthroscopic partial medial meniscectomy [facility] Surgeon: Florian Hightower Estimated Blood Loss (ml): 10 Pathology: none sent Condition: stable Disposition: PACU Indications for Procedure: The patient is a 64-year-old male who presents with left knee pain and mechanical symptoms after a previous injury despite conservative measures. A discussion of the risks and benefits of operative intervention versus continued conservative measures was made with the patient. He opted to proceed with surgery. Operative risks include infection, neurovascular injury, development of blood clots, possible incomplete resolution of symptoms, possible worsening symptoms, and possible need for subsequent procedures was discussed. Informed consent was obtained. Operative Findings: As below Description of Procedure: The patient was brought to the operating room, and after induction of general anesthesia examined the left knee. Collaterals were stable, Irina was negative, and posterior drawer was negative. The left lower extremity was prepped and draped in a normal fashion. A superior lateral portal was made through a 3 mm skin incision superior and lateral to the patella. This was used for outflow. A lateral portal was made through a 5 mm vertical skin incision lateral to the patella tendon above the joint line. Diagnostic arthroscopy was performed. On inspection of the medial compartment, an oblique tear of the posterior medial meniscus was noted in the white-red junction. This was not amenable to repair. This was debrided back to stable base with straight baskets and a motorized shaver. The remaining medial meniscus was stable and intact. Grade 23 chondral changes were noted diffusely in the medial compartment. On inspection of the notch, the anterior cruciate ligament appeared to be intact. On inspection of the lateral compartment, no significant meniscal or cartilage pathology was noted. On inspection of the patellofemoral articulation, there was some chondromalacia however no loose chondral fragments. The gutters were clear debris. The knee was then thoroughly irrigated. The portals were closed with Steri-Strips. A sterile dressing was applied in addition to a compression stocking. The patient was awoken from general anesthesia and transferred to recovery room in good condition. Blood loss was estimated at 10 mL. No complications were incurred.
[2024-10-17 14:20] VITALS: TEMP 97
[2024-10-17] MEDS: HYDROmorphone 0.5 MG/0.5 ML SYRINGE IVP PRN (14:49)
[2024-10-17 15:42] VITALS: RESP 18
[2024-10-17] MEDS: HYDROcodone/APAP 5-325MG 1 EACH TAB PO STA (15:49)
[2024-10-17 16:58] VITALS: BP 126/63; PULSE 70
== END 2024-10-17 17:19 | disposition home or self-care (01) ==
LOC: OR 11:39
PROVIDERS: ATTEND Orthopaedic Surgery
DX: S83.242A Other tear of medial meniscus, current injury, left knee, initial encounter (principal); K76.0 Fatty (change of) liver, not elsewhere classified; J44.9 Chronic obstructive pulmonary disease, unspecified; I20.9 Angina pectoris, unspecified; I10 Essential (primary) hypertension; E78.5 Hyperlipidemia, unspecified; E11.40 Type 2 diabetes mellitus with diabetic neuropathy, unspecified; W01.0XXA Fall on same level from slipping, tripping and stumbling without subsequent striking against object, initial encounter; Y99.0 Civilian activity done for income or pay; Z90.49 Acquired absence of other specified parts of digestive tract; Z90.89 Acquired absence of other organs; Z80.1 Family history of malignant neoplasm of trachea, bronchus and lung; Z79.84 Long term (current) use of oral hypoglycemic drugs; Z79.82 Long term (current) use of aspirin; Z79.899 Other long term (current) drug therapy
CPT/HCPCS: 29881; J2250; J1100; J0690; J2405; J2003; J3010; J3490; J2704; J1171

== ENCOUNTER 2024-11-04 06:57 | Day surgery (SDC) | payer OTHER ==
[2024-11-04] MEDS ORDERED: LACTATED RINGERS 1,000 ML IV SCH (07:08)
[2024-11-04 07:21] VITALS: RESP 16; TEMP 97.5
[2024-11-04 07:28] LABS: Glucose,Whole Blood 261 mg/dL (70-110)
[2024-11-04] MEDS: IV FLUID CONTINUATION 1,000 ML IV ONE (07:28)
[2024-11-04] MEDS ORDERED: MIDAZOLAM 2 MG/2 ML VIAL ONE (08:31)
[2024-11-04] MEDS ORDERED: ROPIVACAINE 5 MG/ML 30 ML VIAL ONE (08:31)
[2024-11-04] MEDS ORDERED: fentaNYL (PF) 50 MCG/ML 2 ML AMP ONE (08:31)
[2024-11-04] MEDS: IV FLUID CONTINUATION 300 ML IV ONE (09:09)
--- NOTE | 2024-11-04 09:12 | P.PCN ---
Description of Procedure: Preprocedure diagnosis. 1. Lumbar spondylosis with facet joint arthropathy without myelopathy. 2. Lumbar degenerative disc disease. Postprocedure diagnosis. As above. Procedure done. Bilateral diagnostic block with local anesthetics at L3, L4, L5 medial branch to target the facet joint L4- 5 and L5-S1 with fluoroscopic guidan ce (fluoroscopy images are available in the radiology department) . Anesthesia. Moderate sedation with intravenous Versed 2 mg and fentanyl 100 microgram and local infiltration with local anesthetics. In OR, continuous pulse ox, EKG, blood pressure and verbal communication was maintained. Sedation time-start 0831 end 0858 . Blood loss. Minimal. Indication. The patient has low back pain secondary to lumbar facet joint arthropathy. Discussed the procedure and alternative and complications which includes infection, bleeding, nerve damage, paralysis ,aggravation of pain. Patient understands and all questions were answered. Patient iunderstands that if any pain relief occurs it will last for a few hours to a few days maximum. Procedure description. After getting consent patient was taken in the OR in prone position. Back prepped with chlorhexidine and draped in sterile fashion. After injecting 5 mL of plain 1% lidocaine subcutaneously, a 22-gauge spinal needle was introduced under tunnel vision of the fluoroscope at the junction of the superior articular process with RIGHT ala of the sacrum. With slight oblique fluoroscope, after injecting 5 mL of plain 1% lidocaine subcutaneously, a 22-gauge spinal needle was introduced under tunnel vision of the fluoroscope at the junction of the superior articular process with RIGHT L5 transverse process, junction of the superior articular process with the RIGHT L4 transverse process. Negative CSF, negative blood, negative paresthesia. After needle position confirmation by AP and crosstable lateral view, after negative aspirat ion, half milliliters of solution were injected at each point. Total 1-1/2 mL of solution was injected on the right side which consists of 0.5% ropivacaine. In exactly same way, LEFT sided injections were done at the following 3 points. Junction of the superior articular process with left ala of the sacrum, junction of the superior articular process with the left L5 transverse process, junction of the superior articular process with left L4 transverse process using 0.5 mL of solution at each point. Total 1-1/2 mL of solution was injected on the left side which consists of 0.5% ropivacaine . Spinal needles were taken out and bandages were applied. Disposition. Patient tolerated the procedure well. No complication. Discharged home in stable condition
--- NOTE | 2024-11-04 09:13 | FL ---
EXAMINATION TYPE: FL guided pain mgmt statistic DATE OF EXAM: 11/04/2024 FLUOROSCOPY DAP: [id number] FL: 67.0 PAIN SERVICES: Александр Lumbar Facet Blk 4 images are submitted. [facility], , 11/04/2024 9:10 AM
[2024-11-04 09:24] VITALS: BP 144/75; PULSE 66
== END 2024-11-04 09:52 | disposition home or self-care (01) ==
LOC: ORPAIN 06:57
PROVIDERS: ATTEND Pain Medicine Interventional Pain Medicine
DX: M47.816 Spondylosis without myelopathy or radiculopathy, lumbar region (principal); M51.369 Other intervertebral disc degeneration, lumbar region without mention of lumbar back pain or lower extremity pain; E11.9 Type 2 diabetes mellitus without complications; Z79.82 Long term (current) use of aspirin; Z88.8 Allergy status to other drugs, medicaments and biological substances
CPT/HCPCS: 64493; 64494; J2250; J3010; J2795; 99152; 99153

== ENCOUNTER → 2024-11-19 | Outpatient (CLI) | payer OTHER ==
[2024-11-19 12:40] VITALS: BP 111/72; PULSE 73; RESP 16; TEMP 97.3
--- NOTE | 2024-11-19 15:56 | P.PAINPG ---
Objective - Vital Signs Vital signs: Intake & Output 11/18/24 11/19/24 11/19/24 18:59 06:59 18:59 Weight 113.398 kg PQRS Measure Charge Sheet Comment: HISTORY OF PRESENT ILLNESS: A 64 yr old male presents today w severe and chronic LBP > 6 mo secondary to radiculopathy, spondylosis and facet arthropathy without myelopathy for evaluation s/p BL MBB L4-L5/ L5-S1 #2. Pt states he experienced 95% pain relief x 4 hrs s/p procedure. Pt states pain level is provoked at 6 /10 in intensity, constant, localized in the lumbar spine, predominantly axial, sharp in character without shooting pain. Pain is provoked by standing/ walking for periods > 15 min. Pain is alleviated by PT x 6 wks which ended in Fall 2023, physician guided home exercises 3-4 times weekly since Fall 2023, medications, topical, heat, repositioning and rest . Interventional procedures include BL MBB L3-L5 x2 Medications include [place], Ibu, BioFreeze, Icy-Hot REVIEW OF ORGAN SYSTEMS: CONSTITUTIONAL: No fevers or chills. No recent weight loss. NEUROLOGICAL: + numbness and tingling along the distal extremities. No seizure disorders or headaches. MUSCULOSKELETAL: + pain PSYCHIATRIC: Denies current depression or suicidal thoughts. Physical Examinations : Constitutional : Cooperative , not in acute distress . Neurologic : Cranial nerve II to XII intact. No focal neurological deficits. Psychiatric : alert & oriented x 3. Matching mood & appropriate affect. Judgment & insight intact. Musculoskeletal : Cervical Spine Motor strength in the deltoid and biceps: Normal right side. Normal Left side Motor strength biceps and the wrist extensors: Normal right side . Normal left side Motor strength in the triceps muscle: Normal right side. Normal left side Deep tendon reflexes: Normal at the biceps. Normal at Brachioradialis. Normal at triceps Vertebral body tenderness to deep palpation over Cervical facet loading test: positive bilaterally Spurling test: positive bilaterally Neck distraction test: positive bilaterally Jenniffer sign: positive bilaterally Lumbar spine Motor strength lower extremities ,thigh and legs 5/5 Right side , 5/5 Left side Deep tendon reflexes : Normal Knee Jerk. Normal Ankle Jerk Vertebral body tenderness over L5 Arriaga Test positive BL L5-S1 Lumbar facet Loading Test: positive Right / positive Left L4-L5, L5-S1 Range of motion of the lumbar spine Flexion 30 degrees, extension 10 degrees Straight Leg Raise test: Left/ Right positive at degrees Uyen test: positive right / positive left. Severe tenderness over the Sacroiliac joint on the Right / Left sides Gaenslen test: positive bilaterally Seated flexion test: positive bilaterally. Sacral spine : Severe tenderness over the Sacroiliac joint: right side / left side Range of motion: Flexion of the lumbar spine <60 degrees Range of motion: Extension of the lumbar spine <20 degrees Gaenslen's Test positive Uyen test: positive right side / left side Thigh Thrust Test Sacral Thrust Test Imaging: CT scan noncontrast of lumbar spine from 05/14/2024 reviewed Assessment/ Plan : L5-S1 radiculopathy Recommendation of BL RFA L4-L5/ L5-S1. Risks, benefits of procedure discussed and patient verbalized understanding. Admits to anti- coagulant use or medical history of diabetes. Protocol for discontinuation/ continuation of medications chon procedure discussed. Minimal anesthesia including Fentanyl and Versed if clinically indicated. All questions answered. I have spent greater than 30 minutes on patient care today. Dr Roth was available by phone for the evaluation of this patient. The time was used to review the medical records including relevant urine studies and Prescription history (MAPs), review of the available imaging, evaluation and examination of the patient, coordination of care with the medical staff and if applicable referring physicians, as well as creation of the medical record - Pain Location Bilateral Lower Back Non-Pharmacological Interventions: Chiropractic Treatment, Exercise, Home Exercise, Inactivity, Physical Therapy, Position/Reposition, Sitting, Stretching, TENS Unit Pharmacological Interventions: Block, Epidural, PRN Medication, Scheduled Medication, Topical Medication PQRS Narrative: Smoking Status Never smoker Hx Alcohol Use (MH) No Home Medications: Ambulatory Orders Aspirin EC [Ecotrin Low Dose] 81 mg PO DAILY 02/16/16 Metoprolol Tartrate [Lopressor] 25 mg PO BID 06/26/17 Glimepiride [Amaryl] 1 mg PO DAILY 12/19/21 Simvastatin [Zocor] 40 mg PO HS 12/19/21 Multivit-Min/Folic/Vit K/Lycop [Men's Multivitamin Tablet] 1 tab PO DAILY 06/28/22 lisinopriL [Prinivil] 20 mg PO HS 06/28/22 metFORMIN HCL [Glucophage] 1,000 mg PO BID 06/28/22 Gabapentin [Neurontin] 300 mg PO BID 04/09/23 HYDROcodone/APAP 5-325MG [[place] 5-325] 1 tab PO Q8H PRN 05/06/24 Tirzepatide [Mounjaro] 7.5 mg SQ MCCOY 05/06/24 rOPINIRole HCL [Requip] 0.5 mg PO BID 05/06/24 Ibuprofen [Motrin] 800 mg PO Q8H PRN 09/24/24 Tamsulosin [Flomax] 0.4 mg PO HS 09/24/24 Controlled Substance Measures - Controlled Substance Measures Is patient prescribed a controlled substance at discharge?: No
== END ==
LOC: PNWHC3 12:05
PROVIDERS: ATTEND Specialist
DX: M47.27 Other spondylosis with radiculopathy, lumbosacral region (principal); Z88.8 Allergy status to other drugs, medicaments and biological substances
CPT/HCPCS: 99211

== ENCOUNTER → 2025-01-08 | Outpatient (CLI) | payer OTHER ==
--- NOTE | 2025-01-08 15:15 | US ---
EXAMINATION TYPE: US venous doppler duplex LE LT DATE OF EXAM: 01/08/2025 2:54 PM COMPARISON: NONE CLINICAL INDICATION: Male, 64 years old with history of M79.662 PAIN IN LEFT LEG R22.42 SWELLING IN LOWER; Left lower leg pain and swelling x3 days. Surgery on meniscus in October 2024, Pain TECHNIQUE: The lower extremity deep venous system is examined utilizing real time linear array sonog stephani with graded compression, color doppler sonography, and spectral doppler. SIDE PERFORMED: Left FINDINGS: VESSELS IMAGED: Common Femoral Vein Deep Femoral Vein Greater Saphenous Vein * Femoral Vein Popliteal Vein Small Saphenous Vein * Proximal Calf Veins (* superficial vessels) Left Leg: Negative for DVT, Color Doppler imaging shows patency of the vessels. Spectral waveforms a re within normal limits. IMPRESSION: No evidence of deep vein thrombosis of the left lower extremity. [facility], , 01/08/2025 3:13 PM
== END | disposition home or self-care (01) ==
LOC: RADUSWWP 14:33
PROVIDERS: ATTEND Orthopaedic Surgery
DX: M79.662 Pain in left lower leg (principal)

== ENCOUNTER 2025-01-16 07:23 | Day surgery (SDC) | payer OTHER ==
[2025-01-16 07:37] VITALS: RESP 16; TEMP 96.6
[2025-01-16] MEDS: IV FLUID CONTINUATION 1,000 ML IV ONE ×2 (07:51→08:50)
[2025-01-16] MEDS: LACTATED RINGERS 1,000 ML IV SCH (07:52)
[2025-01-16 07:55] LABS: Glucose,Whole Blood 174 mg/dL (70-110)
[2025-01-16] MEDS ORDERED: fentaNYL (PF) 50 MCG/ML 2 ML AMP ONE (08:05)
[2025-01-16] MEDS ORDERED: ROPIVACAINE 5 MG/ML 30 ML VIAL ONE (08:05)
[2025-01-16] MEDS ORDERED: MIDAZOLAM 2 MG/2 ML VIAL ONE (08:05)
--- NOTE | 2025-01-16 08:45 | P.PCN ---
Description of Procedure: Preprocedure diagnosis. 1. Lumbar spondylosis with facet joint arthropathy without myelopathy. 2. Lumbar degenerative disc disease. Procedure diagnosis. 1. Lumbar spondylosis with facet joint arthropathy without myelopathy. Space 2. Lumbar degenerative disc disease. Procedure.Bilateral radiofrequency thermocoagulation L3, L4 and L5 medial branch, with fluoroscopic guidance (fluoroscopy images are available in the radiology department) (to Denervate the facet joint at bilateral L4- 5 and L5-S1 levels) Anesthesia. Moderate sedation with intravenous Versed 2 mg and fentanyl 100 g and local infiltration with Lidocaine. Continuous pulse OX,BP,EKG and verbal communication was maintained with patient. Time. Start 0805. [id number] . EBL minimal. Procedure indication. The patient with low back pain secondary to lumbar facet arthropathy who he had more than 50% relief of her pain with previous diagnostic lumbar medial branch block with local anesthetics.The patient was seen and identified in the preoperative area. Risks: Benefits, complications, including but not limited to risk of infection, bleeding, ALLERGIC reaction to the medications and no complete pain relief and alternatives were discussed with the patient, the patient admitted to proceed with the procedure and signed the consent. Procedure description/technique. Patient was taken to the OR and timeout was completed. The patient was placed in prone position on the procedure table. The lumbar area was prepped and draped in the usual sterile fashion. After injecting 5 ml of 1% Lidocaine subcutaneously,using AP and then oblique, lateral view of fluoroscopy, 18-gauge 100 mm radiofrequency cannula with a 10 mm active tip was advanced and guided by fluoroscopy at the junction of supirior articular process with RIGHT ala of the sacrum, transverse process of L4&L5. Each site then underwent positive sensory testing with 50 Hz and 0-1 V and negative motor testing at 2.5 Hz and 0-3 V with local stimulation but no radicular symptoms down the leg. Thereafter each sites underwent radiofrequency thermocoagulation at 80C for 90 seconds after injecting 1 mL of preservative- free 0.5% ropivacaine. Repeat radiofrequency ablation was done at each points after rotating the needle 180 with same setting. This same procedure was repeated twice on the LEFT side at the junction of superior articular process with ala of sacrum,transverse process of L4, L5 with the same settings after positive sensory,negative motor stimulation and inf iltration of 1.0 ml 5% Ropivacaine at each site . RF needles were taken out. At the end of the procedure the skin was cleansed and Band-Aids were applied. Disposition patient tolerated the procedure well. No complication. She was placed in supine position and transferred to the recovery area in stable condition for observation and was discharged home from recovery room after meeting discharge criteria. Discharge instructions given to the patient by the staff. The patient were examined prior to discharge the patient will schedule a follow-up in the clinic in 2-4 weeks.
--- NOTE | 2025-01-16 08:55 | FL ---
EXAMINATION TYPE: FL guided pain mgmt statistic Intraoperative/procedural fluoroscopic services were provided. CLINICAL INDICATION:Male, 64 years old with history of RF LUMBAR SALLY; , [facility] FINDINGS: Fluoroscopic imaging demonstrating RF bilateral lumbar. No radiographic evidence for complication. Total fluoroscopy time is 55.3 seconds. DAP: [id number] Please see the operative/procedural note for further details. [facility], , 01/16/2025 8:52 AM
[2025-01-16 09:10] VITALS: BP 113/71; PULSE 62
== END 2025-01-16 09:30 | disposition home or self-care (01) ==
LOC: ORPAIN 07:23
PROVIDERS: ATTEND Pain Medicine Interventional Pain Medicine
DX: M47.816 Spondylosis without myelopathy or radiculopathy, lumbar region (principal); M51.369 Other intervertebral disc degeneration, lumbar region without mention of lumbar back pain or lower extremity pain
CPT/HCPCS: 64635; 64636; J2250; J3010; J2795; 99152; 99153